=== PATIENT | male | born 1950 | race Caucasian/White ===

== ENCOUNTER 2016-08-09 14:51 | Inpatient (IN) | payer MEDICARE, MEDICAID ==
--- NOTE | 2016-08-09 16:09 | RAD ---
HISTORY: AMS COMPARISON: 07/18/2013 FINDINGS: LUNGS: Mild increased pulmonary vascular congestion. PLEURA: No significant pleural effusion identified, no pneumothorax apparent. CARDIOVASCULAR: Enlarged heart. OSSEOUS STRUCTURES: The osseous structures demonstrate degenerative changes. VISUALIZED UPPER ABDOMEN: Upper abdomen is suboptimally evaluated. OTHER FINDINGS: None. IMPRESSION: Mild increased pulmonary vascular congestion.
[2016-08-09 16:21] LABS: ADD MANUAL DIFF? NO
[2016-08-09 16:33] LABS: BASO # 0.01 K/mm3 (0.0-2.0); BASO % 0.1 % (0.0-3.0); EOS # 0.1 (0.0-0.7); EOS % 0.4 % (1.5-5.0); GRAN % 85.4 % (50.0-68.0); LYMPH # 1.2 (1.2-3.4); LYMPH % 10.2 % (22.0-35.0); MEAN CELL VOLUME 85.4 fL (80.0-105.0); MEAN CORPUSCULAR HEMOGLOBIN 26.6 pg (25.0-35.0); MEAN CORPUSCULAR HGB CONC 31.2 g/dl (31.0-37.0); MEAN PLATELET VOLUME 10.9 fl (7.0-11.0); MONO # 0.5 (0.1-0.6); MONO % 3.9 % (1.0-6.0); PLATELET COUNT 254 10^3/uL (120.0-450.0); RED CELL DISTRIBUTION WIDTH 19.5 % (11.5-14.5); WHITE BLOOD COUNT 12.2 10^3/ul (4.5-11.0)
[2016-08-09 16:35] LABS: INR 1.43 (0.93-1.08); PARTIAL THROMBOPLASTIN TIME 20.8 Seconds (23.7-30.8)
[2016-08-09 16:36] LABS: ALB/GLOB RATIO 0.9 (1.1-1.8); BILIRUBIN,TOTAL 1.8 mg/dL (0.2-1.3); CALCIUM 8.5 mg/dL (8.4-10.5); MAGNESIUM 2.5 mg/dL (1.7-2.2); PHOSPHOROUS 3.7 mg/dL (2.5-4.5); TOTAL PROTEIN 6.3 g/dL (5.8-8.3)
--- NOTE | 2016-08-09 16:39 | CT ---
PROCEDURE: CT HEAD WITHOUT CONTRAST. HISTORY: AMS COMPARISON: None available. TECHNIQUE: Axial computed tomography images were obtained through the head/brain without intravenous contrast. Radiation dose: Total exam DLP = 822.62 mGy-cm. This CT exam was performed using one or more of the following dose reduction techniques: Automated exposure control, adjustment of the mA and/or kV according to patient size, and/or use of iterative reconstruction technique. Somewhat limited evaluation due to artifact from patient motion. FINDINGS: HEMORRHAGE: No intracranial hemorrhage. BRAIN: No mass effect or edema.No pathologically enlarged lymph nodes by size criteria Patchy and confluent hypodensities throughout the bilateral cerebral hemispheric white matter are most likely from chronic small vessel ischemic changes. Yaxx-kw-qjwholfo volume loss. VENTRICLES: Unremarkable. No hydrocephalus. CALVARIUM: Unremarkable. PARANASAL SINUSES: Unremarkable as visualized. No significant inflammatory changes. MASTOID AIR CELLS: Unremarkable as visualized. No inflammatory changes. OTHER FINDINGS: None. IMPRESSION: No CT evidence of acute intracranial hemorrhage or acute territorial infarct. Acute infarction may be CT occult within first 24 hours. If a focal deficit persists, consider followup CT or MRI for further evaluation.
[2016-08-09 16:44] LABS: PH,URINE 6.5 (4.7-8.0); URINE BILIRUBIN NEGATIVE (NEGATIVE); URINE BLOOD LARGE (NEGATIVE); URINE GLUCOSE (UA) NEGATIVE (NEGATIVE); URINE KETONE NEGATIVE (NEGATIVE); URINE LEUKOCYTE ESTERASE NEGATIVE Leu/uL (NEGATIVE); URINE PROTEIN TRACE mg/dL (<30 mg/dL); URINE UROBILINOGEN 0.2 E.U./dL (<1 E.U./dL)
[2016-08-09 16:45] LABS: URINE APPEARANCE CLEAR (CLEAR)
[2016-08-09 16:47] LABS: TROPONIN I 0.06 ng/mL
[2016-08-09 16:47] LABS: URINE RBC 25 - 30 /hpf (0-2); URINE WBC 0 - 2 /hpf (0-6)
[2016-08-09 16:51] LABS: POTASSIUM 2.8 mmol/L (3.6-5.0)
[2016-08-09] MEDS ORDERED: Sodium Chloride 0.9% 1,000 ML IV STA (16:52)
[2016-08-09] MEDS ORDERED: Potassium Chloride 40 mEq/30 ml LIQ UD PO STA (16:54)
[2016-08-09] MEDS ORDERED: Insulin Regular 1 UNITS/0.01 ML ML IVP STA (16:55)
--- NOTE | 2016-08-09 17:35 | ED PDOC ---
Arrival/HPI - General Chief Complaint: Weakness/Neurological Deficit Time Seen by Provider: 08/09/16 15:01 Historian: Patient, Family - Critical Care Critical Care Minutes: 30 minutes Narrative Critical Care (Text): 08/09/16 17:41 Patient seen immediately by PA considering his current complaints, his past medical history, VS and exam. - History of Present Illness Narrative History of Present Illness (Text): 08/09/16 17:30 Patient with past medical history of diabetes, hypertension, anemia, depression , mild dementia, A. fib on eliquis, and CHF, brought in by his daughter for evaluation of altered mental status, normally patient is much more awake and talkative, but lately is quiet with generalized weakness for the past 2-3 days. As per daughter, patient was recently admitted at [facility], was discharged on July 23 with a diagnosis of CHF, edema and renal failure, was discharged on a Holter monitor, and is currently on diuretic medication, bumetanide. As per daughter, patient has not been able to sleep adequately because every half hour he is constantly urinating, daughter also states that he is not eating and that he is complaining of painful urination. She adds that the patient had elevated glucoses as well this morning at 425 and she gave an extra 6 units to the patient. Otherwise: (-) lightheadedness, (-) trauma, (-) headache, (-) SOB, (-) dyspnea, (-) leg edema, (-) chest pain, (-) dyspnea, (-) fever, (-) cough, (-) vomiting, (-) diarrhea, (-) syncope, (?) daughter reports dark stools yesterday. PMD Seman Past Medical History - Provider Review Nursing Documentation Reviewed: Yes - Infectious Disease Hx of Infectious Diseases: None - Tetanus Immunization Tetanus Immunization: Unknown - Cardiac Hx Congestive Heart Failure: Yes Hx Hypertension: Yes - Neurological HX Cerebrovascular Accident: Yes Hx Dementia: Yes - Renal Hx Renal Failure: Yes - Endocrine/Metabolic Hx Diabetes Mellitus Type 2: Yes - Musculoskeletal/Rheumatological Hx Falls: No - Psychiatric Hx Depression: No Hx Emotional Abuse: No Hx Physical Abuse: No Hx Substance Use: No - Anesthesia Hx Anesthesia: No Hx Anesthesia Reactions: No Hx Malignant Hyperthermia: No - Suicidal Assessment Feels Threatened In Home Enviroment: No Family/Social History - Physician Review Nursing Documentation Reviewed: Yes Family/Social History: No Known Family HX Smoking Status: Never Smoked Hx Alcohol Use: No Hx Substance Use: No Hx Substance Use Treatment: No Allergies/Home Meds Allergies/Adverse Reactions: Allergies No Known Allergies Allergy (Verified 07/18/13 09:48) Home Medications: Home Meds Medication Instructions Recorded Confirmed Aspirin [Aspirin Chewable] 81 mg PO DAILY 07/18/13 07/18/13 Atrovastatin 20 mg PO DAILY 07/18/13 07/18/13 Donepezil [Aricept] 5 mg PO DAILY 07/18/13 07/18/13 Glimepiride 4 mg PO HS 07/18/13 07/18/13 Losartan [Cozaar] 100 mg PO DAILY 07/18/13 07/18/13 Metformin HCl [Metformin] 1,000 mg PO DAILY 07/18/13 07/18/13 PARoxetine [Paxil] 20 mg PO DAILY 07/18/13 07/18/13 Review of Systems - Review of Systems Constitutional: Normal, Fatigue. absent: Weight Change, Fevers ENT: Normal. absent: Sore Throat, Rhinorrhea, Sinus Congestion Respiratory: Normal. absent: SOB, Cough Cardiovascular: Normal. absent: Chest Pain, Palpitations, Edema Gastrointestinal: Normal, Stool Changes (dark stools). absent: Abdominal Pain Genitourinary Male: Normal, Dysuria, Frequency. absent: Hematuria Musculoskeletal: Normal. absent: Arthralgias, Back Pain, Neck Pain Skin: Normal, Skin Lesions (b/l lower legs - has multiple swallow ulcers). absent: Rash, Pruritis Neurological: Normal. absent: Headache, Dizziness, Focal Weakness Physical Exam - Physical Exam Narrative Physical Exam (Text): 08/09/16 17:36 GENERAL APPEARANCE: Patient is awake, alert, oriented x [address], in mild distress. Breathing easy and unlabored. SKIN: Warm, dry; (-) cyanosis. HEAD: (-) scalp swelling or tenderness. EYES: (-) conjunctival pallor. ENMT: Mucous membranes dry. NECK: (-) tenderness, (-) stiffness, (-) lymphadenopathy. Carotids: (-) bruit. CHEST AND RESPIRATORY: (-) rales, (+) rhonchi to the LLL, (-) wheezes; breath sounds equal bilaterally. HEART AND CARDIOVASCULAR: (-) irregularity; (-) murmur, (-) gallop. ABDOMEN AND GI: Soft; (-) distention, (-) tenderness, (-) rebound, (-) guarding , (-) palpable masses, (-) flank tenderness. RECTAL : (-) tenderness, (-) mass, (-) stool impaction. Stool dark brown in color, guiac (+). Female toddler lead teacher, Guillermina, was present during the entire exam. EXTREMITIES: (-) deformity; (+) multiple shallow nontender, nonedematous ulcers to the b/l anterior lower extermities, (-) edema. Distal pulses: present. NEURO AND PSYCH: Mental status as above. electrotyper apprentice: (-) nystagmus; Pupils equal & reactive, EOMI, (-) facial asymmetry; (-) dysarthria; tongue and uvula midline. Strength and DTRs symmetric. Vital Signs Temp Pulse Resp BP Pulse Ox 08/09/16 17:13 79 18 104/55 L 97 08/09/16 15:22 98.2 F 88 18 102/43 L 97 Medical Decision Making ED Course and Treatment: 08/09/16 17:42 past medical history of diabetes, hypertension, anemia, depression, mild dementia, A. fib on eliquis, and CHF, brought in by his daughter for evaluation of altered mental status. Orders placed. Plan: -- Labs -- Urinalysis -- EKG -- CXR -- supervisor accounts receivable -- Reassess and disposition EKG: atrial fibrillation with PVCs at [address] changes noted and lead 1 and V6, as read by PA Chest X-ray: shows mild venous congestion. RN notified PA of critical values. Labs reviewed. Hbg 5.3 Hct 17 glucose 517 BUN 160 creat 2.8 K 2.8 CO2 40. Patient is noted to be severely dehydrated based on exam and lab results. Normal saline bolus and maintenance fluids ordered, potassium IV and by mouth ordered, patient given IV insulin. Patient is noted to be guaiac positive as well, Protonix IV push and maintenance ordered to treat GI bleed. 2 units of packed RBCs ordered for transfusion to correct severe anemia. Based on history, exam and diagnostic results plan will be for admission to ICU. Case discussed with Dr. Miller, agrees with plan for inpatient treatment and ICU placement. States that the patient's Hgb is normally 8-9. Agrees with treatment rendered in the ER. Requesting Dr. Benavides for cardiology consult. Bridge orders placed. Case d/w head of loss prevention Dr. Calle, agrees with plan of care for ICU placement. Patient's daughter states she fully agrees with and understands the current plan and further treatment. I have given the patient and his daughter opportunity to ask any additional questions. Head CT: Creator : Sunny Fontanez MD 08/09/2016 16:43 FINDINGS: HEMORRHAGE: No intracranial hemorrhage. BRAIN: No mass effect or edema.No pathologically enlarged lymph nodes by size criteria Patchy and confluent hypodensities throughout the bilateral cerebral hemispheric white matter are most likely from chronic small vessel ischemic changes. Agml-nz-dnxfthrf volume loss. VENTRICLES: Unremarkable. No hydrocephalus. CALVARIUM: Unremarkable. PARANASAL SINUSES: Unremarkable as visualized. No significant inflammatory changes. MASTOID AIR CELLS: Unremarkable as visualized. No inflammatory changes. OTHER FINDINGS: None. IMPRESSION: No CT evidence of acute intracranial hemorrhage or acute territorial infarct. Acute infarction may be CT occult within first 24 hours. If a focal deficit persists, consider followup CT or MRI for further evaluation. - Lab Interpretations Lab Results: 08/09/16 16:00 08/09/16 16:00 Lab Results 08/09/16 16:30: Urine Color yellow, Urine Appearance Clear, Urine pH 6.5, Ur Specific [place] 1.010, Urine Protein Trace H, Urine Glucose (UA) Negative, Urine Ketones Negative, Urine Blood Large H, Urine Nitrate Negative, Urine Bilirubin Negative, Urine Urobilinogen 0.2, Ur Leukocyte Esterase Negative, Urine RBC 25 - 30, Urine WBC 0 - 2, Ur Epithelial Cells 1 - 3 08/09/16 16:00: Sodium 141, Potassium 2.8 L*, Chloride 91 L, Carbon Dioxide 40 H D, Anion Gap 13, BUN 160 H*, Creatinine 2.8 H, Est GFR ( Amer) 28, Est GFR (Non-Af Amer) 23, Random Glucose 517 H* D, Calcium 8.5, Phosphorus 3.7, Magnesium 2.5 H, Total Bilirubin 1.8 H, AST 39, ALT 50, Alkaline Phosphatase 72 , Lactate Dehydrogenase 779 H, Total Creatine Kinase 36, Troponin I 0.06, Total Protein 6.3, Albumin 3.0, Globulin 3.3, Albumin/Globulin Ratio 0.9 L 08/09/16 16:00: PT 15.4 H, INR 1.43 H, APTT 20.8 L 08/09/16 16:00: WBC 12.2 H, RBC 1.99 L, Hgb 5.3 L* D, Hct 17.0 L*, MCV 85.4, MCH 26.6, MCHC 31.2, RDW 19.5 H, Plt Count 254, MPV 10.9, Gran % 85.4 H, Lymph % (Auto) 10.2 L, [place] % (Auto) 3.9, Eos % (Auto) 0.4 L, Baso % (Auto) 0.1, Gran # 10.40 H, Lymph # 1.2, [place] # 0.5, Eos # 0.1, Baso # 0.01 - RAD Interpretation Radiology Orders: 08/09/16 15:53 HEAD W/O CONTRAST [CT] Stat 08/09/16 15:54 CHEST PORTABLE [RAD] Stat - Medication Orders Current Medication Orders: Potassium Chloride 20 meq/ (Sodium Chloride) 1,010 mls @ 200 mls/hr IV .Q5H3M STA Stop: 08/09/16 21:54 Last Admin: 08/09/16 18:40 Dose: 200 mls/hr Pantoprazole Sodium (Protonix 40mg Ivpb) 40 mg in 100 mls @ 20 mls/hr IVPB .Q5H ANGELICA Last Admin: 08/09/16 18:04 Dose: 20 mls/hr Potassium Chloride (Potassium Chloride 20 Meq/100 Ml) 20 meq in 100 mls @ 50 mls/hr IVPB Q2H ANGELICA Stop: 08/09/16 22:44 Last Admin: 08/09/16 20:07 Dose: 50 mls/hr Insulin Human Regular (Humulin R Med) 0 units SC ACHS ANGEILCA PRN Reason: Protocol Discontinued Medications Sodium Chloride (Sodium Chloride 0.9%) 1,000 mls @ 200 mls/hr IV .Q5H STA Stop: 08/09/16 21:51 Sodium Chloride (Sodium Chloride 0.9%) 1,000 mls @ 999 mls/hr IV .Q1H1M STA Stop: 08/09/16 19:29 Insulin Human Regular (Humulin R) 6 units IVP ONCE STA Stop: 08/09/16 16:56 Last Admin: 08/09/16 18:04 Dose: 6 units Morphine Sulfate (Morphine) 2 mg IVP STAT STA Stop: 08/09/16 20:18 Last Admin: 08/09/16 20:29 Dose: 2 mg Pantoprazole Sodium (Protonix Inj) 80 mg IVP STAT STA Stop: 08/09/16 17:22 Last Admin: 08/09/16 18:04 Dose: 80 mg Potassium Chloride (Potassium Chloride Oral Soln) 40 meq PO STAT STA Stop: 08/09/16 16:55 Last Admin: 08/09/16 18:03 Dose: 40 meq - PA / RN CORONARY CARE UNIT / Resident Statement MD/DO has reviewed & agrees with the documentation as recorded. Disposition/Present on Arrival - Present on Arrival Any Indicators Present on Arrival: No History of DVT/PE: No History of Uncontrolled Diabetes: No Urinary Catheter: No History of Decub. Ulcer: No History Surgical Site Infection Following: None - Disposition Have Diagnosis and Disposition been Completed?: Yes Diagnosis: Anemia, GI bleed, Dehydration, Altered mental status Disposition: HOSPITALIZED Disposition Time: 17:00 Patient Plan: ICU Patient Problems: Current Active Problems Problem Status Onset Anemia Acute GI bleed Acute Dehydration Acute Altered mental status Acute Condition: STABLE
[2016-08-09] MEDS: Pantoprazole 40mg/100ml IVPB 40 MG/100 ML BAG IVPB SCH ×2 (18:04→22:54)
--- NOTE | 2016-08-09 18:53 | CP.PCM.CON ---
History of Present Illness - History of Present Illness History of Present Illness: 65 y/o M presented with lethargy, hypotension , BRBPR and signs of dehydration. In the ER was given IV fluids and PRBC orders were placed. Pt is hemodynamicaly stable and not tacycardic. Upon speaking to his daughter, she explains that he was recently in [facility] and was given new medications ot help diurese and maybe he became dehydrated from it. he was recently started on Elequis for some reason, a. fib? VTE? Low ef? and this may have contributed to the further GI bleed. Review of Systems - Review of Systems Systems not reviewed;Unavailable: Altered Mental Status All systems: reviewed and no additional remarkable complaints except (difficult to obtain history) Past Patient History - Infectious Disease Hx of Infectious Diseases: None - Tetanus Immunizations Tetanus Immunization: Unknown - Past Social History Smoking Status: Never Smoked - CARDIAC Hx Congestive Heart Failure: Yes Hx Hypertension: Yes - NEUROLOGICAL HX Cerebrovascular Accident: Yes Hx Dementia: Yes - RENAL Hx Renal Failure: Yes - ENDOCRINE/METABOLIC Hx Diabetes Mellitus Type 2: Yes - MUSCULOSKELETAL/RHEUMATOLOGICAL Hx Falls: No - PSYCHIATRIC Hx Depression: No Hx Emotional Abuse: No Hx Physical Abuse: No Hx Substance Use: No - SURGICAL HISTORY Hx Surgeries: (abd hernia) - ANESTHESIA Hx Anesthesia: No Hx Anesthesia Reactions: No Hx Malignant Hyperthermia: No Meds Allergies/Adverse Reactions: Allergies Allergy/AdvReac Type Severity Reaction Status Date / Time No Known Allergies Allergy Verified 07/18/13 09:48 - Medications Medications: Current Medications Potassium Chloride 20 meq/ (Sodium Chloride) 1,010 mls @ 200 mls/hr IV .Q5H3M STA Stop: 08/09/16 21:54 Pantoprazole Sodium (Protonix 40mg Ivpb) 40 mg in 100 mls @ 20 mls/hr IVPB .Q5H ANGELICA Last Admin: 08/09/16 18:04 Dose: 20 mls/hr Sodium Chloride (Sodium Chloride 0.9%) 1,000 mls @ 999 mls/hr IV .Q1H1M STA Stop: 08/09/16 19:29 Potassium Chloride (Potassium Chloride 20 Meq/100 Ml) 20 meq in 100 mls @ 50 mls/hr IVPB Q2H ANGELICA Stop: 08/09/16 22:44 Insulin Human Regular (Humulin R Med) 0 units SC ACHS ANGELICA PRN Reason: Protocol Physical Exam - Constitutional Appears: No Acute Distress - Eye Exam Pupil Exam: PERRL - ENT Exam ENT Exam: Mucous Membranes Dry - Neck Exam Neck exam: Positive for: Full Rom - Respiratory Exam Respiratory Exam: NORMAL BREATHING PATTERN - Cardiovascular Exam Cardiovascular Exam: REGULAR RHYTHM - GI/Abdominal Exam GI & Abdominal Exam: Normal Bowel Sounds - Rectal Exam Rectal Exam: Bloody Stool - Exam Exam: NORMAL INSPECTION External exam: NORMAL EXTERNAL EXAM - Extremities Exam Extremities exam: Positive for: full ROM - Back Exam Back exam: NORMAL INSPECTION - Neurological Exam Neurological exam: CN II-XII Intact - Psychiatric Exam Psychiatric exam: Normal Affect, Normal Mood Results - Vital Signs Recent Vital Signs: Last Vital Signs Temp 98.2 F 08/09/16 15:22 Pulse 79 08/09/16 17:13 Resp 18 08/09/16 17:13 BP 104/55 L 08/09/16 17:13 Pulse Ox 97 08/09/16 17:13 - Labs Result Diagrams: 08/10/16 09:30 08/10/16 09:30 Labs: Laboratory Results - last 24 hr 08/09/16 18:00 Crossmatch See Detail BBK History Checked No verified bt Assessment & Plan - Assessment and Plan (Free Text) Assessment: 65 y/o M w/ Multiple medical problems CHF ELIZABETH w/ elevated BUN likely from dehydration G.I bleed w/ BRBPR HGB 5.3, keep > 9.o due to active Acs and recent Defib Vest and presumed [place] Dehydration w/ elevated BUN . Over use of diuretics . hold all diuretics. Replete w/ I.V fluids and PRBC. N.S x 4 L NPO Protonix drip or BID. G.I consult. [facility] G.I consulted .Recently placed on Eliquis. Place on hold. AMS- hx of dementia and due to volume loss and dehydration, likely contributing further. dvt p SCD cc time 65 min
[2016-08-09] MEDS ORDERED: Morphine 2 mg/ml ISec IVP STA (20:17)
[2016-08-09 21:42] VITALS: BMI 27.8
[2016-08-09] MEDS ORDERED: Insulin Reg-MEDIUM-Coverage SC SCH (22:00)
[2016-08-09] MEDS ORDERED: Insulin Lispro (humaLOG) LOW Coverage SC PRN (22:14)
[2016-08-09] MEDS: Sodium Chloride 0.9% 1,000 ML IV STA (22:15)
--- NOTE | 2016-08-09 22:38 | CP.PCM.HP ---
History of Present Illness - History of Present Illness History of Present Illness: CC:AMS History of Present Illness: A 65yoM with H/O Diabetes, Hypertension, Anemia, Depression, Mild Dementia, A. fib on eliquis, and CHF, brought in by his daughter for evaluation of altered mental status, normally patient is much more awake and talkative, but lately is quiet with generalized weakness for the past 2-3 days. Patient was recently admitted at [facility], was discharged on July 23 with a diagnosis of Severe Cardiomyopathy, CHF, Edema and renal failure, was discharged on Life Vest, and is currently on diuretic medication, bumetanide. As per daughter, patient has not been able to sleep adequately because every half hour he is constantly urinating, daughter also states that he is not eating and that he is complaining of painful urination. She adds that the patient had elevated glucoses as well this morning at 425 and she gave an extra 6 units to the patient. Lost of weight. Present on Admission - Present on Admission Any Indicators Present on Admission: No History of DVT/PE: No History of Uncontrolled Diabetes: Yes Urinary Catheter: No Decubitus Ulcer Present: No Review of Systems - Review of Systems All systems: reviewed and no additional remarkable complaints except - Constitutional Constitutional: As Per HPI - Neurological Neurological: As Per HPI Past Patient History - Infectious Disease Hx of Infectious Diseases: None - Tetanus Immunizations Tetanus Immunization: Unknown - Past Medical History & Family History Past Medical History?: Yes Past Family History: Reviewed and not pertinent - Past Social History Smoking Status: Never Smoked Alcohol: None Drugs: Denies - CARDIAC Hx Cardiac Disorders: Yes Hx Cardia Arrhythmia: Yes (AF) Hx Congestive Heart Failure: Yes Hx Hypertension: Yes Hx Pacemaker: Yes (vest) - NEUROLOGICAL HX Cerebrovascular Accident: Yes Hx Dementia: Yes - RENAL Hx Renal Failure: Yes - ENDOCRINE/METABOLIC Hx Diabetes Mellitus Type 2: Yes - INTEGUMENTARY Hx Dermatological Problems: Yes (bilateral lower extremities stasis ulcers) - MUSCULOSKELETAL/RHEUMATOLOGICAL Hx Falls: No Other/Comment: weak to walk - PSYCHIATRIC Hx Depression: No Hx Emotional Abuse: No Hx Physical Abuse: No - SURGICAL HISTORY Hx Surgeries: (abd hernia) - ANESTHESIA Hx Anesthesia: No Hx Anesthesia Reactions: No Hx Malignant Hyperthermia: No Meds Allergies/Adverse Reactions: Allergies Allergy/AdvReac Type Severity Reaction Status Date / Time No Known Allergies Allergy Verified 08/19/16 19:49 Physical Exam - Constitutional Appears: Well, In Acute Distress - Head Exam Head Exam: ATRAUMATIC, NORMAL INSPECTION, NORMOCEPHALIC - Eye Exam Eye Exam: EOMI, Normal appearance, PERRL Pupil Exam: NORMAL ACCOMODATION, PERRL - ENT Exam ENT Exam: Mucous Membranes Moist, Normal Exam, Normal External Ear Exam - Neck Exam Neck exam: Positive for: Full Rom, Normal Inspection - Respiratory Exam Respiratory Exam: Clear to Auscultation Bilateral, NORMAL BREATHING PATTERN. absent: Rales - Cardiovascular Exam Cardiovascular Exam: REGULAR RHYTHM, +S1, +S2 - GI/Abdominal Exam GI & Abdominal Exam: Normal Bowel Sounds, Soft. absent: Tenderness - Extremities Exam Extremities exam: Positive for: full ROM, normal inspection Additional comments: +Ulcer - Back Exam Back exam: NORMAL INSPECTION - Neurological Exam Neurological exam: Alert, CN II-XII Intact, Normal Gait, Oriented x3, Reflexes Normal - Psychiatric Exam Psychiatric exam: Normal Affect, Normal Mood - Skin Skin Exam: Dry, Intact, Normal Color, Warm Results - Vital Signs Recent Vital Signs: Last Vital Signs Temp 99 F 08/09/16 22:22 Pulse 93 H 08/09/16 22:22 Resp 20 08/09/16 22:22 BP 104/54 L 08/09/16 22:22 Pulse Ox 97 08/09/16 18:45 - Labs Result Diagrams: 08/14/16 06:00 08/14/16 06:00 Labs: Laboratory Results - last 24 hr 08/09/16 08/09/16 08/09/16 18:00 18:30 21:30 POC Glucose (mg/dL) 474 H* Blood Type O POSITIVE Blood Type Confirm O POSITIVE Antibody Screen Negative Crossmatch See Detail BBK History Checked No verified bt 08/09/16 22:13 POC Glucose (mg/dL) 435 H* Blood Type Blood Type Confirm Antibody Screen Crossmatch BBK History Checked - Imaging and Cardiology CT scan - head Status: Report reviewed by me Additional comment: IMPRESSION: No CT evidence of acute intracranial hemorrhage or acute territorial infarct. Acute infarction may be CT occult within first 24 hours. If a focal deficit persists, consider followup CT or MRI for further evaluation. Chest x-ray Status: Report reviewed by me Additional comment: IMPRESSION: Mild increased pulmonary vascular congestion. Assessment & Plan (1) Altered mental status Assessment and Plan: NPO Hypotension, G.I bleed w/ BRBPR HGB 5.3, Keep > 9.o due to Active ACS and recent Life Vest and Presumed [place] Hypoglycemia- Resolved Acute on Chronic Renal Failure, Metabolic Encephalopathy Exacerbation of CHF Dehydration w/ Elevated BUN . Replete w/ I.V Fluids and PRBC. N.S x 4 L Protonix drip. G.I consult. Hold on Eliquis & diuretics. Wound Care Daily Hx of Dementia and due to Volume Loss and Dehydration, Likely contributing further. Status: Acute
[2016-08-09] MEDS ORDERED: Insulin Lispro (humaLOG) LOW Coverage SC SCH ×3 (23:00→23:15)
[2016-08-10] MEDS: Sodium Chloride 0.9% 1,000 ML IV STA (00:46)
[2016-08-10] MEDS ORDERED: Sodium Chloride 0.9% 500 ML IV STA ×2 (02:35→03:25)
[2016-08-10] MEDS: Pantoprazole 40mg/100ml IVPB 40 MG/100 ML BAG IVPB SCH ×2 (03:30→08:14)
[2016-08-10 03:44] LABS: ADD MANUAL DIFF? NO
[2016-08-10 03:55] LABS: ALB/GLOB RATIO 0.9 (1.1-1.8); BILIRUBIN,TOTAL 2.7 mg/dL (0.2-1.3); CALCIUM 7.9 mg/dL (8.4-10.5); MAGNESIUM 2.3 mg/dL (1.7-2.2); PHOSPHOROUS 3.6 mg/dL (2.5-4.5); TOTAL PROTEIN 5.3 g/dL (5.8-8.3)
[2016-08-10 04:18] LABS: POTASSIUM 2.8 mmol/L (3.6-5.0)
[2016-08-10 04:20] LABS: BASO # 0.01 K/mm3 (0.0-2.0); BASO % 0.1 % (0.0-3.0); EOS % 0.3 % (1.5-5.0); GRAN # 10.13 (1.4-6.5); GRAN % 83.7 % (50.0-68.0); LYMPH # 1.2 (1.2-3.4); LYMPH % 9.9 % (22.0-35.0); MEAN CELL VOLUME 86.3 fL (80.0-105.0); MEAN CORPUSCULAR HEMOGLOBIN 28.2 pg (25.0-35.0); MEAN CORPUSCULAR HGB CONC 32.7 g/dl (31.0-37.0); MEAN PLATELET VOLUME 10.6 fl (7.0-11.0); MONO # 0.7 (0.1-0.6); PLATELET COUNT 204 10^3/uL (120.0-450.0); RED CELL DISTRIBUTION WIDTH 17.2 % (11.5-14.5); WHITE BLOOD COUNT 12.1 10^3/ul (4.5-11.0)
[2016-08-10 04:24] LABS: HEMATOCRIT 20.2 % (42.0-52.0)
[2016-08-10] MEDS: Insulin Reg-MEDIUM-Coverage SC SCH ×4 (08:11→21:59)
--- NOTE | 2016-08-10 08:15 | CP.PCM.PN ---
Subjective - Date & Time of Evaluation Date of Evaluation: 08/10/16 Time of Evaluation: 07:30 - Subjective Subjective: PT s/e at bedside this AM. Patient denies pain, nausea, vomiting, Objective - Vital Signs/Intake and Output Vital Signs (last 24 hours): Temp Pulse Resp BP Pulse Ox 98.6 F 94 H 18 96/55 L 100 08/10/16 07:25 08/10/16 07:25 08/10/16 07:25 08/10/16 07:25 08/10/16 05:30 Intake and Output: 08/10/16 08/10/16 06:59 18:59 Intake Total 990 Output Total 1000 Balance -10 - Medications Medications: Current Medications Pantoprazole Sodium (Protonix 40mg Ivpb) 40 mg in 100 mls @ 20 mls/hr IVPB .Q5H ANGELICA Last Admin: 08/10/16 03:30 Dose: 20 mls/hr Insulin Human Regular (Humulin R Med) 0 units SC ACHS ANGELICA PRN Reason: Protocol - Labs Labs: 08/10/16 03:30 08/10/16 03:30 PT 15.4 Seconds (9.9-11.8) H 08/09/16 16:00 INR 1.43 (0.93-1.08) H 08/09/16 16:00 APTT 20.8 Seconds (23.7-30.8) L 08/09/16 16:00
--- NOTE | 2016-08-10 09:31 | CP.PCM.CON ---
<Juan F Caputo - Last Filed: 08/10/16 09:23> History of Present Illness - History of Present Illness History of Present Illness: PGY4 GI Fellow Consult Note Patient is a 65yo male with PMHx significant for DM, HTN, atrial fibrillation on Eliquis, CHF (EF 15% in 2013), prior CVA, dementia who presented to the ED brought in by family for altered mentation. The patient is Maltese speaking and the [employer] interpreting service was utilized during interview. There is no family at bedside and patient is only alert to name when asked directly through household chores, thus unable to provide much history. According to the EMR, patient was brought in for altered mentation as he was more confused, less talkative in the days leading up to admission. He was recently admitted to [facility], D/C on for CHF exacerbation/acute renal failure. Since D/C he has been on diuretics (Bumex) and was wearing a Holter monitor. Moreover, family noted hyperglycemia with glucose in the 400s prior to admission. Our service has been consulted as he was found to be profoundly anemic with HGB of 5.3 on initial CBC. Patient cannot corroborate a history of dark/bloody stool. Currently, he has no complaints. PMHx: See HPI PSHx: Hernia repair, PCI (2013) FH: Hypertension Social: Denies tobacco, EtOH or illicit drug use Endo: Unknown Review of Systems - Review of Systems Systems not reviewed;Unavailable: Altered Mental Status Past Patient History - Infectious Disease Hx of Infectious Diseases: None - Tetanus Immunizations Tetanus Immunization: Unknown - Past Social History Smoking Status: Never Smoked - CARDIAC Hx Cardiac Disorders: Yes Hx Cardia Arrhythmia: Yes (AF) Hx Congestive Heart Failure: Yes Hx Hypertension: Yes Hx Pacemaker: Yes (vest) - NEUROLOGICAL HX Cerebrovascular Accident: Yes Hx Dementia: Yes - RENAL Hx Renal Failure: Yes - ENDOCRINE/METABOLIC Hx Diabetes Mellitus Type 2: Yes - INTEGUMENTARY Hx Dermatological Problems: Yes (bilateral lower extremities stasis ulcers) - MUSCULOSKELETAL/RHEUMATOLOGICAL Hx Falls: No Other/Comment: weak to walk - PSYCHIATRIC Hx Depression: No Hx Emotional Abuse: No Hx Physical Abuse: No - SURGICAL HISTORY Hx Surgeries: (abd hernia) - ANESTHESIA Hx Anesthesia: No Hx Anesthesia Reactions: No Hx Malignant Hyperthermia: No Meds Allergies/Adverse Reactions: Allergies Allergy/AdvReac Type Severity Reaction Status Date / Time No Known Allergies Allergy Verified 07/18/13 09:48 - Medications Medications: Current Medications Pantoprazole Sodium (Protonix 40mg Ivpb) 40 mg in 100 mls @ 20 mls/hr IVPB .Q5H [facility] Last Admin: 08/10/16 08:14 Dose: 20 mls/hr Insulin Human Regular (Humulin R Med) 0 units SC ACHS ANGELICA PRN Reason: Protocol Last Admin: 08/10/16 08:11 Dose: 8 units Physical Exam - Constitutional Appears: Non-toxic, No Acute Distress - Eye Exam Eye Exam: EOMI, PERRL - ENT Exam ENT Exam: Mucous Membranes Moist - Respiratory Exam Respiratory Exam: Rales. absent: Clear to Auscultation Bilateral, Rhonchi, Wheezes - Cardiovascular Exam Cardiovascular Exam: Tachycardia, Irregular Rhythm, +S1, +S2 - GI/Abdominal Exam GI & Abdominal Exam: Normal Bowel Sounds, Soft. absent: Distended, Firm, Guarding, Organomegaly, Rigid, Tenderness - Rectal Exam Rectal Exam: Hemorrhoids (external/internal) Additional comments: liquid brown, liquid stool - Extremities Exam Extremities exam: Positive for: normal inspection. Negative for: pedal edema - Neurological Exam Neurological exam: Altered - Psychiatric Exam Psychiatric exam: Anxious - Skin Skin Exam: Dry, Warm Results - Vital Signs Recent Vital Signs: Last Vital Signs Temp 98.6 F 08/10/16 09:13 Pulse 102 H 08/10/16 09:13 Resp 16 08/10/16 09:13 BP 96/50 L 08/10/16 09:13 Pulse Ox 100 08/10/16 05:30 - Labs Result Diagrams: 08/10/16 03:30 08/10/16 03:30 Labs: Laboratory Results - last 24 hr 08/09/16 08/09/16 08/09/16 18:00 18:30 21:30 WBC RBC Hgb Hct MCV MCH MCHC RDW Plt Count MPV Gran % Lymph % (Auto) Chase % (Auto) Eos % (Auto) Baso % (Auto) Gran # Lymph # Chase # Eos # Baso # Sodium Potassium Chloride Carbon Dioxide Anion Gap BUN Creatinine Est GFR ( Amer) Est GFR (Non-Af Amer) POC Glucose (mg/dL) 474 H* Random Glucose Lactic Acid Calcium Phosphorus Magnesium Total Bilirubin Direct Bilirubin AST ALT Alkaline Phosphatase Total Protein Albumin Globulin Albumin/Globulin Ratio Blood Type O POSITIVE Blood Type Confirm O POSITIVE Antibody Screen Negative Crossmatch See Detail BBK History Checked No verified bt 08/09/16 08/10/16 08/10/16 22:13 01:40 03:30 WBC 12.1 H RBC 2.34 L Hgb 6.6 L* D Hct 20.2 L* MCV 86.3 MCH 28.2 MCHC 32.7 RDW 17.2 H Plt Count 204 MPV 10.6 Gran % 83.7 H Lymph % (Auto) 9.9 L Chase % (Auto) 6.0 Eos % (Auto) 0.3 L Baso % (Auto) 0.1 Gran # 10.13 H Lymph # 1.2 Chase # 0.7 H Eos # 0.0 Baso # 0.01 Sodium Potassium Chloride Carbon Dioxide Anion Gap BUN Creatinine Est GFR ( Amer) Est GFR (Non-Af Amer) POC Glucose (mg/dL) 435 H* Random Glucose Lactic Acid 1.8 Calcium Phosphorus Magnesium Total Bilirubin Direct Bilirubin AST ALT Alkaline Phosphatase Total Protein Albumin Globulin Albumin/Globulin Ratio Blood Type Blood Type Confirm Antibody Screen Crossmatch BBK History Checked 08/10/16 08/10/16 03:30 03:35 WBC RBC Hgb Hct MCV MCH MCHC RDW Plt Count MPV Gran % Lymph % (Auto) Chase % (Auto) Eos % (Auto) Baso % (Auto) Gran # Lymph # Chase # Eos # Baso # Sodium 149 H Potassium 2.8 L* Chloride 99 Carbon Dioxide Anion Gap 13 BUN Creatinine 2.9 H Est GFR ( Amer) 26 Est GFR (Non-Af Amer) 22 POC Glucose (mg/dL) Random Glucose Lactic Acid Calcium 7.9 L Phosphorus 3.6 Magnesium 2.3 H Total Bilirubin 2.7 H Direct Bilirubin 0.8 H AST 29 ALT 46 Alkaline Phosphatase 66 Total Protein 5.3 L Albumin 2.4 L Globulin 2.8 Albumin/Globulin Ratio 0.9 L Blood Type Blood Type Confirm Antibody Screen Crossmatch BBK History Checked Assessment & Plan - Assessment and Plan (Free Text) Assessment: Patient is a 65yo male with PMHx significant for DM, HTN, atrial fibrillation on Eliquis, CHF (EF 15% in 2013), prior CVA, dementia who presented to the ED brought in by family for altered mentation. -Altered mental status -Anemia -Indirect hyperbilirubinemia/Elevated LDH suspicious for hemolysis -Hyperglycemia -Hypokalemia/Hypernatremia - likely diruesis related -Acute kidney injury suspected, unclear baseline Plan: -Advance to liquid diet -No overt bleeding at this time -Continue protonix gtt for now -Hold Eliquis -Optimize patient medically prior to EGD; tentative plan for EGD on Wednesday -Cardiology following - Date & Time Date: 08/10/16 Time: 06:50 <Chaz Yu - Last Filed: 08/10/16 10:35> Meds - Medications Medications: Current Medications Pantoprazole Sodium (Protonix 40mg Ivpb) 40 mg in 100 mls @ 20 mls/hr IVPB .Q5H [facility] Last Admin: 08/10/16 08:14 Dose: 20 mls/hr Insulin Human Regular (Humulin R Med) 0 units SC ACHS ANGELICA PRN Reason: Protocol Last Admin: 08/10/16 08:11 Dose: 8 units Results - Vital Signs Recent Vital Signs: Last Vital Signs Temp 97.4 F L 08/10/16 10:20 Pulse 98 H 08/10/16 10:20 Resp 18 08/10/16 10:20 BP 102/60 08/10/16 10:20 Pulse Ox 100 08/10/16 05:30 - Labs Result Diagrams: 08/10/16 09:30 08/10/16 03:30 Labs: Laboratory Results - last 24 hr 08/09/16 08/09/16 08/09/16 18:00 18:30 21:30 WBC RBC Hgb Hct MCV MCH MCHC RDW Plt Count MPV Gran % Lymph % (Auto) Chase % (Auto) Eos % (Auto) Baso % (Auto) Gran # Lymph # Chase # Eos # Baso # Sodium Potassium Chloride Carbon Dioxide Anion Gap BUN Creatinine Est GFR ( Amer) Est GFR (Non-Af Amer) POC Glucose (mg/dL) 474 H* Random Glucose Lactic Acid Calcium Phosphorus Magnesium Total Bilirubin Direct Bilirubin AST ALT Alkaline Phosphatase Total Protein Albumin Globulin Albumin/Globulin Ratio Blood Type O POSITIVE Blood Type Confirm O POSITIVE Antibody Screen Negative Crossmatch See Detail BBK History Checked No verified bt 08/09/16 08/10/16 08/10/16 22:13 01:40 03:30 WBC 12.1 H RBC 2.34 L Hgb 6.6 L* D Hct 20.2 L* MCV 86.3 MCH 28.2 MCHC 32.7 RDW 17.2 H Plt Count 204 MPV 10.6 Gran % 83.7 H Lymph % (Auto) 9.9 L Chase % (Auto) 6.0 Eos % (Auto) 0.3 L Baso % (Auto) 0.1 Gran # 10.13 H Lymph # 1.2 Chase # 0.7 H Eos # 0.0 Baso # 0.01 Sodium Potassium Chloride Carbon Dioxide Anion Gap BUN Creatinine Est GFR ( Amer) Est GFR (Non-Af Amer) POC Glucose (mg/dL) 435 H* Random Glucose Lactic Acid 1.8 Calcium Phosphorus Magnesium Total Bilirubin Direct Bilirubin AST ALT Alkaline Phosphatase Total Protein Albumin Globulin Albumin/Globulin Ratio Blood Type Blood Type Confirm Antibody Screen Crossmatch BBK History Checked 08/10/16 08/10/16 08/10/16 03:30 03:35 09:30 WBC 14.4 H RBC 2.47 L Hgb 7.1 L Hct 21.7 L MCV 87.9 MCH 28.7 MCHC 32.7 RDW 17.3 H Plt Count 205 MPV 10.5 Gran % 86.6 H Lymph % (Auto) 8.3 L Chase % (Auto) 4.3 Eos % (Auto) 0.7 L Baso % (Auto) 0.1 Gran # 12.47 H Lymph # 1.2 Chase # 0.6 Eos # 0.1 Baso # 0.02 Sodium 149 H Potassium 2.8 L* Chloride 99 Carbon Dioxide Anion Gap 13 BUN Creatinine 2.9 H Est GFR ( Amer) 26 Est GFR (Non-Af Amer) 22 POC Glucose (mg/dL) Random Glucose Lactic Acid Calcium 7.9 L Phosphorus 3.6 Magnesium 2.3 H Total Bilirubin 2.7 H Direct Bilirubin 0.8 H AST 29 ALT 46 Alkaline Phosphatase 66 Total Protein 5.3 L Albumin 2.4 L Globulin 2.8 Albumin/Globulin Ratio 0.9 L Blood Type Blood Type Confirm Antibody Screen Crossmatch BBK History Checked Attending/Attestation - Attestation I have personally seen and examined this patient.: Yes I have fully participated in the care of the patient.: Yes I have reviewed all pertinent clinical information: Yes Notes (Text): 08/10/16 10:24 I have seen and examined patient with GI fellow. Agree with above documentation with the following additions. In brief, this is a 65 year old male with history of atrial fibrillation on Eliquis, DM, HTN, CHF, CVA who was brought to hospital with complaint of altered mental status. Patient history was obtained using Maltese translation via online live language services. He was recently hospitalized at [facility] for CHF exacerbation with acute renal failure. GI called for evaluation of significant anemia with prior complaint of melena. He is seen in critical care ICU, currently resting in bed and appears comfortable. He describes dyspnea though denies abdominal pain, nausea , vomiting, fever/chills, or weight loss. He does endorse dark stools from a few days prior. Unclear regarding prior endoscopic history. Atrial fibrillation on Eliquis DM - uncontrolled HTN CHF, dyspnea CVA Melena, profound anemia which poses risk to patient life given cardiovascular disease - Patient currently receiving 3rd unit PRBC transfusion, continue to monitor H/H - Continue with PPI infusion therapy - Clear liquid diet as tolerated - Rectal exam performed at bedside reveals liquid brown stool without presence of fresh blood. Eliquis has been held, follow up cardiology recommendations. - Obtain recent [facility] hospitalization records - Optimize blood glucose control - Patient would benefit from endoscopic evaluation following medical optimization and volume resuscitation. Will continue to monitor patient clinical course.
[2016-08-10 09:50] LABS: ADD MANUAL DIFF? NO
[2016-08-10 09:56] LABS: BASO # 0.02 K/mm3 (0.0-2.0); BASO % 0.1 % (0.0-3.0); EOS # 0.1 (0.0-0.7); EOS % 0.7 % (1.5-5.0); GRAN # 12.47 (1.4-6.5); GRAN % 86.6 % (50.0-68.0); LYMPH # 1.2 (1.2-3.4); LYMPH % 8.3 % (22.0-35.0); MEAN CELL VOLUME 87.9 fL (80.0-105.0); MEAN CORPUSCULAR HEMOGLOBIN 28.7 pg (25.0-35.0); MEAN CORPUSCULAR HGB CONC 32.7 g/dl (31.0-37.0); MEAN PLATELET VOLUME 10.5 fl (7.0-11.0); MONO # 0.6 (0.1-0.6); MONO % 4.3 % (1.0-6.0); PLATELET COUNT 205 10^3/uL (120.0-450.0); RED CELL DISTRIBUTION WIDTH 17.3 % (11.5-14.5); WHITE BLOOD COUNT 14.4 10^3/ul (4.5-11.0)
[2016-08-10 10:01] LABS: HEMATOCRIT 21.7 % (42.0-52.0)
--- NOTE | 2016-08-10 10:15 | RAD ---
HISTORY: evaluate for acute pulmonary edema COMPARISON: 08/09/2016 FINDINGS: LUNGS: No active pulmonary disease. PLEURA: No significant pleural effusion identified, no pneumothorax apparent. CARDIOVASCULAR: Normal. OSSEOUS STRUCTURES: No significant abnormalities. VISUALIZED UPPER ABDOMEN: Normal. OTHER FINDINGS: None. IMPRESSION: No active disease.
[2016-08-10 10:16] LABS: CALCIUM 8.1 mg/dL (8.4-10.5); POTASSIUM 3.3 mmol/L (3.6-5.0)
[2016-08-10 10:25] LABS: TROPONIN I 0.05 ng/mL
[2016-08-10] MEDS: Insulin Detemir 100 units/ml Vial (Levemir) SC SCH ×2 (11:35→18:52)
--- NOTE | 2016-08-10 13:57 | CP.CCUPN ---
<Florence Espinosa - Last Filed: 08/10/16 14:03> CCU Subjective - Physician Review Events Since Last Encounter (Free Text): 08/10/16 13:54 Pt s/e at bedside this AM. Was transfused two units PRBC yesterday but repeact H /H still low at 3AM. Two more units hung, repeat Hgb 7.1 up from 6.6. Exam is limited by language barrier/mental status, but patient denied any pain, nausea, vomiting, but reported fever. CCU Objective - Vital Signs / Intake & Output Vital Signs (Last 4 hours): Vital Signs Temp Pulse Resp BP Pulse Ox 08/10/16 12:16 97.6 F 105 H 20 106/77 08/10/16 11:41 102 H 17 122/96 H 100 08/10/16 11:20 107 H 18 100 08/10/16 11:10 104 H 25 H 94 L 08/10/16 11:00 107 H 20 96/60 L 100 08/10/16 10:50 101 H 22 99 08/10/16 10:40 97 H 18 100 08/10/16 10:38 97.4 F L 100 H 17 96/60 L 08/10/16 10:35 97.6 F 95 H 20 99/62 L 08/10/16 10:33 96 H 19 99/62 L 100 08/10/16 10:30 95 H 28 H 100 08/10/16 10:23 97.4 F L 100 H 19 102/60 08/10/16 10:20 97.4 F L 100 H 20 102/60 100 08/10/16 10:10 102 H 24 100 08/10/16 10:07 101 H 16 100 Intake and Output (Last 8hrs): Intake & Output 08/09/16 08/10/16 08/10/16 22:59 06:59 14:59 Intake Total 425 565 425 Output Total 1000 Balance 425 -435 425 Weight 90.718 kg Intake: IV 240 Left Hand 240 Blood Product 325 325 325 Red Blood Cells Cpd As1 325 Lr Unit [id number] Red Blood Cells Cpd As1 0 Lr Unit [id number] Red Blood Cells Cpd As1 0 325 Lr Unit [id number] Red Blood Cells Cpd As1 325 Lr Unit [id number] Other 100 100 Red Blood Cells Cpd As1 50 Lr Unit [id number] Red Blood Cells Cpd As1 50 Lr Unit [id number] Red Blood Cells Cpd As1 100 Lr Unit [id number] Output: Urine 1000 Urethral ([place]) 1000 Other: Voiding Method Incontinent - Physical Exam Physical Exam Limitations: Positive for: Altered Mental Status Head: Positive for: Atraumatic, Normocephalic Pupils: Positive for: PERRL Extroacular Muscles: Positive for: EOMI Conjunctiva: Positive for: Normal Mouth: Positive for: Moist Mucous Membranes Pharnyx: Positive for: Normal. Negative for: ERYTHEMA Nose (Internal): Positive for: Normal Inspection Neck: Positive for: Normal Range of Motion Respiratory/Chest: Positive for: Clear to Auscultation. Negative for: Respiratory Distress, Accessory Muscle Use Cardiovascular: Positive for: Regular Rate and Rhythm, Normal S1, S2. Negative for: Murmurs, Irregular Rhythm Abdomen: Positive for: Normal Bowel Sounds. Negative for: Tenderness, Distention, Peritoneal Signs, Rebound, Guarding Upper Extremity: Positive for: Normal Inspection. Negative for: Cyanosis, Edema Lower Extremity: Positive for: Other (numerous open wounds/ulcers in the lower legs/feet BL. No active bleeding or drainage). Negative for: CALF TENDERNESS, NORMAL PULSES, Cyanosis Neurological: Positive for: GCS=15, CN II-XII Intact, Speech Normal Skin: Positive for: Warm, Normal Color, Other (see lower extremity excam) Psychiatric: Positive for: Alert, Normal Affect, Normal Mood. Negative for: Anxious, Agitated - Medications Active Medications: Active Medications Generic Name Dose Route Start Last Admin Trade Name Sheldonq PRN Reason Stop Dose Admin Carvedilol 3.125 mg 08/10/16 18:00 Coreg PO BID [facility] Digoxin 0.125 mg 08/12/16 10:00 Lanoxin PO MWF [facility] Pantoprazole Sodium 40 mg in 100 mls @ 20 mls/hr 08/09/16 17:30 08/10/16 08: 14 Protonix 40mg Ivpb IVPB 20 mls/hr .Q5H ANGELICA Administration Insulin Detemir 10 unit 08/10/16 11:15 08/10/16 11:35 Levemir SC 10 unit BID ANGELICA Administration Insulin Human Regular 0 units 08/10/16 07:30 08/10/16 11:33 Humulin R Med SC 10 units ACHS ANGELICA Administration Protocol - Patient Studies Lab Studies: Lab Studies 08/10/16 08/10/16 08/10/16 Range/Units 09:30 09:30 03:35 WBC 14.4 H (4.5-11.0) 10^3/ul RBC 2.47 L (3.5-6.1) 10^6/uL Hgb 7.1 L (14.0-18.0) gm/dL Hct 21.7 L (42.0-52.0) % MCV 87.9 (80.0-105.0) fL MCH 28.7 (25.0-35.0) pg MCHC 32.7 (31.0-37.0) g/dl RDW 17.3 H (11.5-14.5) % Plt Count 205 (120.0-450.0) 10^3/uL MPV 10.5 (7.0-11.0) fl Gran % 86.6 H (50.0-68.0) % Lymph % (Auto) 8.3 L (22.0-35.0) % [place] % (Auto) 4.3 (1.0-6.0) % Eos % (Auto) 0.7 L (1.5-5.0) % Baso % (Auto) 0.1 (0.0-3.0) % Gran # 12.47 H (1.4-6.5) Lymph # 1.2 (1.2-3.4) [place] # 0.6 (0.1-0.6) Eos # 0.1 (0.0-0.7) Baso # 0.02 (0.0-2.0) K/mm3 Sodium 148 (132-148) mmol/L Potassium 3.3 L (3.6-5.0) mmol/L Chloride 101 (98-107) mmol/L Carbon Dioxide 36 H (21-33) mmol/L Anion Gap 14 (10-20) BUN 139 H* (7-21) mg/dL Creatinine 2.9 H (0.5-1.4) mg/dL Est GFR ( Amer) 26 Est GFR (Non-Af Amer) 22 POC Glucose (mg/dL) (65-110) mg/dL Random Glucose 392 H* D (70-110) mg/dL Lactic Acid (0.7-2.1) mmol/L Calcium 8.1 L (8.4-10.5) mg/dL Phosphorus (2.5-4.5) mg/dL Magnesium (1.7-2.2) mg/dL Total Bilirubin (0.2-1.3) mg/dL Direct Bilirubin 0.8 H (0.0-0.4) mg/dL AST (15-59) U/L ALT (7-56) U/L Alkaline Phosphatase (38-133) U/L Troponin I 0.05 ng/mL Total Protein (5.8-8.3) g/dL Albumin (3.0-4.8) g/dL Globulin gm/dL Albumin/Globulin Ratio (1.1-1.8) Blood Type Blood Type Confirm Antibody Screen Crossmatch BBK History Checked 08/10/16 08/10/16 08/10/16 Range/Units 03:30 03:30 01:40 WBC 12.1 H (4.5-11.0) 10^3/ul RBC 2.34 L (3.5-6.1) 10^6/uL Hgb 6.6 L* D (14.0-18.0) gm/dL Hct 20.2 L* (42.0-52.0) % MCV 86.3 (80.0-105.0) fL MCH 28.2 (25.0-35.0) pg MCHC 32.7 (31.0-37.0) g/dl RDW 17.2 H (11.5-14.5) % Plt Count 204 (120.0-450.0) 10^3/uL MPV 10.6 (7.0-11.0) fl Gran % 83.7 H (50.0-68.0) % Lymph % (Auto) 9.9 L (22.0-35.0) % [place] % (Auto) 6.0 (1.0-6.0) % Eos % (Auto) 0.3 L (1.5-5.0) % Baso % (Auto) 0.1 (0.0-3.0) % Gran # 10.13 H (1.4-6.5) Lymph # 1.2 (1.2-3.4) [place] # 0.7 H (0.1-0.6) Eos # 0.0 (0.0-0.7) Baso # 0.01 (0.0-2.0) K/mm3 Sodium 149 H (132-148) mmol/L Potassium 2.8 L* (3.6-5.0) mmol/L Chloride 99 (98-107) mmol/L Carbon Dioxide (21-33) mmol/L Anion Gap 13 (10-20) BUN (7-21) mg/dL Creatinine 2.9 H (0.5-1.4) mg/dL Est GFR ( Amer) 26 Est GFR (Non-Af Amer) 22 POC Glucose (mg/dL) (65-110) mg/dL Random Glucose (70-110) mg/dL Lactic Acid 1.8 (0.7-2.1) mmol/L Calcium 7.9 L (8.4-10.5) mg/dL Phosphorus 3.6 (2.5-4.5) mg/dL Magnesium 2.3 H (1.7-2.2) mg/dL Total Bilirubin 2.7 H (0.2-1.3) mg/dL Direct Bilirubin (0.0-0.4) mg/dL AST 29 (15-59) U/L ALT 46 (7-56) U/L Alkaline Phosphatase 66 (38-133) U/L Troponin I ng/mL Total Protein 5.3 L (5.8-8.3) g/dL Albumin 2.4 L (3.0-4.8) g/dL Globulin 2.8 gm/dL Albumin/Globulin Ratio 0.9 L (1.1-1.8) Blood Type Blood Type Confirm Antibody Screen Crossmatch BBK History Checked 08/09/16 08/09/16 08/09/16 Range/Units 22:13 21:30 18:30 WBC (4.5-11.0) 10^3/ul RBC (3.5-6.1) 10^6/uL Hgb (14.0-18.0) gm/dL Hct (42.0-52.0) % MCV (80.0-105.0) fL MCH (25.0-35.0) pg MCHC (31.0-37.0) g/dl RDW (11.5-14.5) % Plt Count (120.0-450.0) 10^3/uL MPV (7.0-11.0) fl Gran % (50.0-68.0) % Lymph % (Auto) (22.0-35.0) % [place] % (Auto) (1.0-6.0) % Eos % (Auto) (1.5-5.0) % Baso % (Auto) (0.0-3.0) % Gran # (1.4-6.5) Lymph # (1.2-3.4) [place] # (0.1-0.6) Eos # (0.0-0.7) Baso # (0.0-2.0) K/mm3 Sodium (132-148) mmol/L Potassium (3.6-5.0) mmol/L Chloride (98-107) mmol/L Carbon Dioxide (21-33) mmol/L Anion Gap (10-20) BUN (7-21) mg/dL Creatinine (0.5-1.4) mg/dL Est GFR ( Amer) Est GFR (Non-Af Amer) POC Glucose (mg/dL) 435 H* 474 H* (65-110) mg/dL Random Glucose (70-110) mg/dL Lactic Acid (0.7-2.1) mmol/L Calcium (8.4-10.5) mg/dL Phosphorus (2.5-4.5) mg/dL Magnesium (1.7-2.2) mg/dL Total Bilirubin (0.2-1.3) mg/dL Direct Bilirubin (0.0-0.4) mg/dL AST (15-59) U/L ALT (7-56) U/L Alkaline Phosphatase (38-133) U/L Troponin I ng/mL Total Protein (5.8-8.3) g/dL Albumin (3.0-4.8) g/dL Globulin gm/dL Albumin/Globulin Ratio (1.1-1.8) Blood Type Blood Type Confirm O POSITIVE Antibody Screen Crossmatch BBK History Checked 08/09/16 Range/Units 18:00 WBC (4.5-11.0) 10^3/ul RBC (3.5-6.1) 10^6/uL Hgb (14.0-18.0) gm/dL Hct (42.0-52.0) % MCV (80.0-105.0) fL MCH (25.0-35.0) pg MCHC (31.0-37.0) g/dl RDW (11.5-14.5) % Plt Count (120.0-450.0) 10^3/uL MPV (7.0-11.0) fl Gran % (50.0-68.0) % Lymph % (Auto) (22.0-35.0) % [place] % (Auto) (1.0-6.0) % Eos % (Auto) (1.5-5.0) % Baso % (Auto) (0.0-3.0) % Gran # (1.4-6.5) Lymph # (1.2-3.4) [place] # (0.1-0.6) Eos # (0.0-0.7) Baso # (0.0-2.0) K/mm3 Sodium (132-148) mmol/L Potassium (3.6-5.0) mmol/L Chloride (98-107) mmol/L Carbon Dioxide (21-33) mmol/L Anion Gap (10-20) BUN (7-21) mg/dL Creatinine (0.5-1.4) mg/dL Est GFR ( Amer) Est GFR (Non-Af Amer) POC Glucose (mg/dL) (65-110) mg/dL Random Glucose (70-110) mg/dL Lactic Acid (0.7-2.1) mmol/L Calcium (8.4-10.5) mg/dL Phosphorus (2.5-4.5) mg/dL Magnesium (1.7-2.2) mg/dL Total Bilirubin (0.2-1.3) mg/dL Direct Bilirubin (0.0-0.4) mg/dL AST (15-59) U/L ALT (7-56) U/L Alkaline Phosphatase (38-133) U/L Troponin I ng/mL Total Protein (5.8-8.3) g/dL Albumin (3.0-4.8) g/dL Globulin gm/dL Albumin/Globulin Ratio (1.1-1.8) Blood Type O POSITIVE Blood Type Confirm Antibody Screen Negative Crossmatch See Detail BBK History Checked No verified bt Laboratory Results - last 24 hr 08/09/16 08/09/16 08/09/16 18:00 18:30 21:30 WBC RBC Hgb Hct MCV MCH MCHC RDW Plt Count MPV Gran % Lymph % (Auto) [place] % (Auto) Eos % (Auto) Baso % (Auto) Gran # Lymph # [place] # Eos # Baso # Sodium Potassium Chloride Carbon Dioxide Anion Gap BUN Creatinine Est GFR ( Amer) Est GFR (Non-Af Amer) POC Glucose (mg/dL) 474 H* Random Glucose Lactic Acid Calcium Phosphorus Magnesium Total Bilirubin Direct Bilirubin AST ALT Alkaline Phosphatase Troponin I Total Protein Albumin Globulin Albumin/Globulin Ratio Blood Type O POSITIVE Blood Type Confirm O POSITIVE Antibody Screen Negative Crossmatch See Detail BBK History Checked No verified bt 08/09/16 08/10/16 08/10/16 22:13 01:40 03:30 WBC 12.1 H RBC 2.34 L Hgb 6.6 L* D Hct 20.2 L* MCV 86.3 MCH 28.2 MCHC 32.7 RDW 17.2 H Plt Count 204 MPV 10.6 Gran % 83.7 H Lymph % (Auto) 9.9 L [place] % (Auto) 6.0 Eos % (Auto) 0.3 L Baso % (Auto) 0.1 Gran # 10.13 H Lymph # 1.2 [place] # 0.7 H Eos # 0.0 Baso # 0.01 Sodium Potassium Chloride Carbon Dioxide Anion Gap BUN Creatinine Est GFR ( Amer) Est GFR (Non-Af Amer) POC Glucose (mg/dL) 435 H* Random Glucose Lactic Acid 1.8 Calcium Phosphorus Magnesium Total Bilirubin Direct Bilirubin AST ALT Alkaline Phosphatase Troponin I Total Protein Albumin Globulin Albumin/Globulin Ratio Blood Type Blood Type Confirm Antibody Screen Crossmatch BBK History Checked 08/10/16 08/10/16 08/10/16 03:30 03:35 09:30 WBC 14.4 H RBC 2.47 L Hgb 7.1 L Hct 21.7 L MCV 87.9 MCH 28.7 MCHC 32.7 RDW 17.3 H Plt Count 205 MPV 10.5 Gran % 86.6 H Lymph % (Auto) 8.3 L [place] % (Auto) 4.3 Eos % (Auto) 0.7 L Baso % (Auto) 0.1 Gran # 12.47 H Lymph # 1.2 [place] # 0.6 Eos # 0.1 Baso # 0.02 Sodium 149 H Potassium 2.8 L* Chloride 99 Carbon Dioxide Anion Gap 13 BUN Creatinine 2.9 H Est GFR ( Amer) 26 Est GFR (Non-Af Amer) 22 POC Glucose (mg/dL) Random Glucose Lactic Acid Calcium 7.9 L Phosphorus 3.6 Magnesium 2.3 H Total Bilirubin 2.7 H Direct Bilirubin 0.8 H AST 29 ALT 46 Alkaline Phosphatase 66 Troponin I Total Protein 5.3 L Albumin 2.4 L Globulin 2.8 Albumin/Globulin Ratio 0.9 L Blood Type Blood Type Confirm Antibody Screen Crossmatch BBK History Checked 08/10/16 09:30 WBC RBC Hgb Hct MCV MCH MCHC RDW Plt Count MPV Gran % Lymph % (Auto) [place] % (Auto) Eos % (Auto) Baso % (Auto) Gran # Lymph # [place] # Eos # Baso # Sodium 148 Potassium 3.3 L Chloride 101 Carbon Dioxide 36 H Anion Gap 14 BUN 139 H* Creatinine 2.9 H Est GFR ( Amer) 26 Est GFR (Non-Af Amer) 22 POC Glucose (mg/dL) Random Glucose 392 H* D Lactic Acid Calcium 8.1 L Phosphorus Magnesium Total Bilirubin Direct Bilirubin AST ALT Alkaline Phosphatase Troponin I 0.05 Total Protein Albumin Globulin Albumin/Globulin Ratio Blood Type Blood Type Confirm Antibody Screen Crossmatch BBK History Checked EKG/Cardiology Studies: Cardiology / EKG Studies 08/09/16 15:53 ELECTROCARDIOGRAM Stat Comment: vest pacemaker Reason For Exam: AMS Does Patient Have a Pacemaker?: Yes PERFORMING PHYSICIAN/PROVIDER:: Mario Benavides 08/10/16 07:00 EKG [ELECTROCARDIOGRAM] Routine Comment: vest pacemaker Reason For Exam: follow up PRE OP:: N Does Patient Have a Pacemaker?: Yes PERFORMING PHYSICIAN/PROVIDER:: Mario Benavides Fingerstick Blood Sugar Results: 449 Review of Systems - Review of Systems Systems not reviewed;Unavailable: Altered Mental Status - Constitutional Constitutional: Fever. absent: Chills - Cardiovascular Cardiovascular: UNREMARKABLE. absent: Chest Pain, Dyspnea - Respiratory Respiratory: UNREMARKABLE - Gastrointestinal Gastrointestinal: As Per HPI Additional comments: per nursing, BM of normal colored stool without melena/hematochezia - Musculoskeletal Musculoskeletal: absent: Numbness, Tingling Critical Care Progress Note - Nutrition Nutrition: Nutrition Category Date Time Status Liquid Diet [DIET] Diets 08/10/16 Breakfast Ordered Assessment/Plan - Assessment and Plan (Free Text) Assessment: 65M with history (per PMD) of severely decreased systolic function, DM, a fib on eliquis, and mild dementia per family who was admitted to the ICU for severe anemia with supposed GI bleed, decreased systolic heart function, and ELIZABETH Neuro: Awake, alert, Oriented to person Denies any neurological symptoms Gross motor function intact CT head no acute changes Continue to monitor Cardio: Denies chest pain, lifevest worn by patient, hypotensive overnight after administration of lasix, currently BP stable, mild tachycardia, probably dehydration Hgb 5.3->6.6->7.1 this AM after 3 units of PRBC, on more unit PRBC pending Troponins trending down Continue to monitor cardiac function/hemodynamic stability Hold eliquis continue Q6 hgb trends, goal hgb is >9.0, administer blood transfusions as necessary Continue IVF to keep BP stable but monitor for fluid overload Pulm: No complaints of cough/dyspnea CTAB, no R/R/W CXR: NAPD Continue to monitor, adminster lasix as needed for fluid overload GI: No complaints, abdominal exam benign, no distention or peritonitis No bloody BM's today per nursing CLD per GI Plans for EGD on Wednesday Continue to monitor H/H and transfuse as needed Protonix drip Nephro No complaints of dysuria, UOP adequate Hypokalemia, elevated BUN/Cr Continue to trend CMP, strict I/O's Supplement electrolytes monitor renal functions--limit lasix to PRN ID: Afebrile, VSS WBC elevated, no identified source of infection, possible acute phase reaction Continue to monitor vitals, WBC Patient examined and discussed with Dr. Luc Espinosa, PGY1 <Luc CARDENAS,Ty H - Last Filed: 08/10/16 15:04> CCU Objective - Vital Signs / Intake & Output Vital Signs (Last 4 hours): Vital Signs Temp Pulse Resp BP Pulse Ox 08/10/16 12:16 97.6 F 105 H 20 106/77 08/10/16 11:41 102 H 17 122/96 H 100 08/10/16 11:20 107 H 18 100 08/10/16 11:10 104 H 25 H 94 L Intake and Output (Last 8hrs): Intake & Output 08/10/16 08/10/16 08/10/16 06:59 14:59 22:59 Intake Total 565 425 Output Total 1000 Balance -435 425 Intake: IV 240 Left Hand 240 Blood Product 325 325 Red Blood Cells Cpd As1 325 Lr Unit [id number] Red Blood Cells Cpd As1 0 Lr Unit [id number] Red Blood Cells Cpd As1 325 Lr Unit [id number] Other 100 Red Blood Cells Cpd As1 50 Lr Unit [id number] Red Blood Cells Cpd As1 50 Lr Unit [id number] Output: Urine 1000 Urethral ([place]) 1000 - Medications Active Medications: Active Medications Generic Name Dose Route Start Last Admin Trade Name Freq PRN Reason Stop Dose Admin Carvedilol 3.125 mg 08/10/16 18:00 Coreg PO BID ANGELICA Digoxin 0.125 mg 08/12/16 10:00 Lanoxin PO MWF [facility] Pantoprazole Sodium 40 mg in 100 mls @ 20 mls/hr 08/09/16 17:30 08/10/16 08: 14 Protonix 40mg Ivpb IVPB 20 mls/hr .Q5H ANGELICA Administration Insulin Detemir 10 unit 08/10/16 11:15 08/10/16 11:35 Levemir SC 10 unit BID ANGELICA Administration Insulin Human Regular 0 units 08/10/16 07:30 08/10/16 11:33 Humulin R Med SC 10 units ACHS ANGELICA Administration Protocol - Patient Studies Lab Studies: Lab Studies 08/10/16 08/10/16 08/10/16 Range/Units 09:30 09:30 03:35 WBC 14.4 H (4.5-11.0) 10^3/ul RBC 2.47 L (3.5-6.1) 10^6/uL Hgb 7.1 L (14.0-18.0) gm/dL Hct 21.7 L (42.0-52.0) % MCV 87.9 (80.0-105.0) fL MCH 28.7 (25.0-35.0) pg MCHC 32.7 (31.0-37.0) g/dl RDW 17.3 H (11.5-14.5) % Plt Count 205 (120.0-450.0) 10^3/uL MPV 10.5 (7.0-11.0) fl Gran % 86.6 H (50.0-68.0) % Lymph % (Auto) 8.3 L (22.0-35.0) % [place] % (Auto) 4.3 (1.0-6.0) % Eos % (Auto) 0.7 L (1.5-5.0) % Baso % (Auto) 0.1 (0.0-3.0) % Gran # 12.47 H (1.4-6.5) Lymph # 1.2 (1.2-3.4) [place] # 0.6 (0.1-0.6) Eos # 0.1 (0.0-0.7) Baso # 0.02 (0.0-2.0) K/mm3 Sodium 148 (132-148) mmol/L Potassium 3.3 L (3.6-5.0) mmol/L Chloride 101 (98-107) mmol/L Carbon Dioxide 36 H (21-33) mmol/L Anion Gap 14 (10-20) BUN 139 H* (7-21) mg/dL Creatinine 2.9 H (0.5-1.4) mg/dL Est GFR ( Amer) 26 Est GFR (Non-Af Amer) 22 POC Glucose (mg/dL) (65-110) mg/dL Random Glucose 392 H* D (70-110) mg/dL Lactic Acid (0.7-2.1) mmol/L Calcium 8.1 L (8.4-10.5) mg/dL Phosphorus (2.5-4.5) mg/dL Magnesium (1.7-2.2) mg/dL Total Bilirubin (0.2-1.3) mg/dL Direct Bilirubin 0.8 H (0.0-0.4) mg/dL AST (15-59) U/L ALT (7-56) U/L Alkaline Phosphatase (38-133) U/L Troponin I 0.05 ng/mL Total Protein (5.8-8.3) g/dL Albumin (3.0-4.8) g/dL Globulin gm/dL Albumin/Globulin Ratio (1.1-1.8) Blood Type Blood Type Confirm Antibody Screen Crossmatch BBK History Checked 08/10/16 08/10/16 08/10/16 Range/Units 03:30 03:30 01:40 WBC 12.1 H (4.5-11.0) 10^3/ul RBC 2.34 L (3.5-6.1) 10^6/uL Hgb 6.6 L* D (14.0-18.0) gm/dL Hct 20.2 L* (42.0-52.0) % MCV 86.3 (80.0-105.0) fL MCH 28.2 (25.0-35.0) pg MCHC 32.7 (31.0-37.0) g/dl RDW 17.2 H (11.5-14.5) % Plt Count 204 (120.0-450.0) 10^3/uL MPV 10.6 (7.0-11.0) fl Gran % 83.7 H (50.0-68.0) % Lymph % (Auto) 9.9 L (22.0-35.0) % [place] % (Auto) 6.0 (1.0-6.0) % Eos % (Auto) 0.3 L (1.5-5.0) % Baso % (Auto) 0.1 (0.0-3.0) % Gran # 10.13 H (1.4-6.5) Lymph # 1.2 (1.2-3.4) [place] # 0.7 H (0.1-0.6) Eos # 0.0 (0.0-0.7) Baso # 0.01 (0.0-2.0) K/mm3 Sodium 149 H (132-148) mmol/L Potassium 2.8 L* (3.6-5.0) mmol/L Chloride 99 (98-107) mmol/L Carbon Dioxide (21-33) mmol/L Anion Gap 13 (10-20) BUN (7-21) mg/dL Creatinine 2.9 H (0.5-1.4) mg/dL Est GFR ( Amer) 26 Est GFR (Non-Af Amer) 22 POC Glucose (mg/dL) (65-110) mg/dL Random Glucose (70-110) mg/dL Lactic Acid 1.8 (0.7-2.1) mmol/L Calcium 7.9 L (8.4-10.5) mg/dL Phosphorus 3.6 (2.5-4.5) mg/dL Magnesium 2.3 H (1.7-2.2) mg/dL Total Bilirubin 2.7 H (0.2-1.3) mg/dL Direct Bilirubin (0.0-0.4) mg/dL AST 29 (15-59) U/L ALT 46 (7-56) U/L Alkaline Phosphatase 66 (38-133) U/L Troponin I ng/mL Total Protein 5.3 L (5.8-8.3) g/dL Albumin 2.4 L (3.0-4.8) g/dL Globulin 2.8 gm/dL Albumin/Globulin Ratio 0.9 L (1.1-1.8) Blood Type Blood Type Confirm Antibody Screen Crossmatch BBK History Checked 08/09/16 08/09/16 08/09/16 Range/Units 22:13 21:30 18:30 WBC (4.5-11.0) 10^3/ul RBC (3.5-6.1) 10^6/uL Hgb (14.0-18.0) gm/dL Hct (42.0-52.0) % MCV (80.0-105.0) fL MCH (25.0-35.0) pg MCHC (31.0-37.0) g/dl RDW (11.5-14.5) % Plt Count (120.0-450.0) 10^3/uL MPV (7.0-11.0) fl Gran % (50.0-68.0) % Lymph % (Auto) (22.0-35.0) % [place] % (Auto) (1.0-6.0) % Eos % (Auto) (1.5-5.0) % Baso % (Auto) (0.0-3.0) % Gran # (1.4-6.5) Lymph # (1.2-3.4) [place] # (0.1-0.6) Eos # (0.0-0.7) Baso # (0.0-2.0) K/mm3 Sodium (132-148) mmol/L Potassium (3.6-5.0) mmol/L Chloride (98-107) mmol/L Carbon Dioxide (21-33) mmol/L Anion Gap (10-20) BUN (7-21) mg/dL Creatinine (0.5-1.4) mg/dL Est GFR ( Amer) Est GFR (Non-Af Amer) POC Glucose (mg/dL) 435 H* 474 H* (65-110) mg/dL Random Glucose (70-110) mg/dL Lactic Acid (0.7-2.1) mmol/L Calcium (8.4-10.5) mg/dL Phosphorus (2.5-4.5) mg/dL Magnesium (1.7-2.2) mg/dL Total Bilirubin (0.2-1.3) mg/dL Direct Bilirubin (0.0-0.4) mg/dL AST (15-59) U/L ALT (7-56) U/L Alkaline Phosphatase (38-133) U/L Troponin I ng/mL Total Protein (5.8-8.3) g/dL Albumin (3.0-4.8) g/dL Globulin gm/dL Albumin/Globulin Ratio (1.1-1.8) Blood Type Blood Type Confirm O POSITIVE Antibody Screen Crossmatch BBK History Checked 08/09/16 Range/Units 18:00 WBC (4.5-11.0) 10^3/ul RBC (3.5-6.1) 10^6/uL Hgb (14.0-18.0) gm/dL Hct (42.0-52.0) % MCV (80.0-105.0) fL MCH (25.0-35.0) pg MCHC (31.0-37.0) g/dl RDW (11.5-14.5) % Plt Count (120.0-450.0) 10^3/uL MPV (7.0-11.0) fl Gran % (50.0-68.0) % Lymph % (Auto) (22.0-35.0) % [place] % (Auto) (1.0-6.0) % Eos % (Auto) (1.5-5.0) % Baso % (Auto) (0.0-3.0) % Gran # (1.4-6.5) Lymph # (1.2-3.4) [place] # (0.1-0.6) Eos # (0.0-0.7) Baso # (0.0-2.0) K/mm3 Sodium (132-148) mmol/L Potassium (3.6-5.0) mmol/L Chloride (98-107) mmol/L Carbon Dioxide (21-33) mmol/L Anion Gap (10-20) BUN (7-21) mg/dL Creatinine (0.5-1.4) mg/dL Est GFR ( Amer) Est GFR (Non-Af Amer) POC Glucose (mg/dL) (65-110) mg/dL Random Glucose (70-110) mg/dL Lactic Acid (0.7-2.1) mmol/L Calcium (8.4-10.5) mg/dL Phosphorus (2.5-4.5) mg/dL Magnesium (1.7-2.2) mg/dL Total Bilirubin (0.2-1.3) mg/dL Direct Bilirubin (0.0-0.4) mg/dL AST (15-59) U/L ALT (7-56) U/L Alkaline Phosphatase (38-133) U/L Troponin I ng/mL Total Protein (5.8-8.3) g/dL Albumin (3.0-4.8) g/dL Globulin gm/dL Albumin/Globulin Ratio (1.1-1.8) Blood Type O POSITIVE Blood Type Confirm Antibody Screen Negative Crossmatch See Detail BBK History Checked No verified bt Laboratory Results - last 24 hr 08/09/16 08/09/16 08/09/16 18:00 18:30 21:30 WBC RBC Hgb Hct MCV MCH MCHC RDW Plt Count MPV Gran % Lymph % (Auto) [place] % (Auto) Eos % (Auto) Baso % (Auto) Gran # Lymph # [place] # Eos # Baso # Sodium Potassium Chloride Carbon Dioxide Anion Gap BUN Creatinine Est GFR ( Amer) Est GFR (Non-Af Amer) POC Glucose (mg/dL) 474 H* Random Glucose Lactic Acid Calcium Phosphorus Magnesium Total Bilirubin Direct Bilirubin AST ALT Alkaline Phosphatase Troponin I Total Protein Albumin Globulin Albumin/Globulin Ratio Blood Type O POSITIVE Blood Type Confirm O POSITIVE Antibody Screen Negative Crossmatch See Detail BBK History Checked No verified bt 08/09/16 08/10/16 08/10/16 22:13 01:40 03:30 WBC 12.1 H RBC 2.34 L Hgb 6.6 L* D Hct 20.2 L* MCV 86.3 MCH 28.2 MCHC 32.7 RDW 17.2 H Plt Count 204 MPV 10.6 Gran % 83.7 H Lymph % (Auto) 9.9 L [place] % (Auto) 6.0 Eos % (Auto) 0.3 L Baso % (Auto) 0.1 Gran # 10.13 H Lymph # 1.2 [place] # 0.7 H Eos # 0.0 Baso # 0.01 Sodium Potassium Chloride Carbon Dioxide Anion Gap BUN Creatinine Est GFR ( Amer) Est GFR (Non-Af Amer) POC Glucose (mg/dL) 435 H* Random Glucose Lactic Acid 1.8 Calcium Phosphorus Magnesium Total Bilirubin Direct Bilirubin AST ALT Alkaline Phosphatase Troponin I Total Protein Albumin Globulin Albumin/Globulin Ratio Blood Type Blood Type Confirm Antibody Screen Crossmatch BBK History Checked 08/10/16 08/10/16 08/10/16 03:30 03:35 09:30 WBC 14.4 H RBC 2.47 L Hgb 7.1 L Hct 21.7 L MCV 87.9 MCH 28.7 MCHC 32.7 RDW 17.3 H Plt Count 205 MPV 10.5 Gran % 86.6 H Lymph % (Auto) 8.3 L [place] % (Auto) 4.3 Eos % (Auto) 0.7 L Baso % (Auto) 0.1 Gran # 12.47 H Lymph # 1.2 [place] # 0.6 Eos # 0.1 Baso # 0.02 Sodium 149 H Potassium 2.8 L* Chloride 99 Carbon Dioxide Anion Gap 13 BUN Creatinine 2.9 H Est GFR ( Amer) 26 Est GFR (Non-Af Amer) 22 POC Glucose (mg/dL) Random Glucose Lactic Acid Calcium 7.9 L Phosphorus 3.6 Magnesium 2.3 H Total Bilirubin 2.7 H Direct Bilirubin 0.8 H AST 29 ALT 46 Alkaline Phosphatase 66 Troponin I Total Protein 5.3 L Albumin 2.4 L Globulin 2.8 Albumin/Globulin Ratio 0.9 L Blood Type Blood Type Confirm Antibody Screen Crossmatch BBK History Checked 08/10/16 09:30 WBC RBC Hgb Hct MCV MCH MCHC RDW Plt Count MPV Gran % Lymph % (Auto) [place] % (Auto) Eos % (Auto) Baso % (Auto) Gran # Lymph # [place] # Eos # Baso # Sodium 148 Potassium 3.3 L Chloride 101 Carbon Dioxide 36 H Anion Gap 14 BUN 139 H* Creatinine 2.9 H Est GFR ( Amer) 26 Est GFR (Non-Af Amer) 22 POC Glucose (mg/dL) Random Glucose 392 H* D Lactic Acid Calcium 8.1 L Phosphorus Magnesium Total Bilirubin Direct Bilirubin AST ALT Alkaline Phosphatase Troponin I 0.05 Total Protein Albumin Globulin Albumin/Globulin Ratio Blood Type Blood Type Confirm Antibody Screen Crossmatch BBK History Checked EKG/Cardiology Studies: Cardiology / EKG Studies 08/09/16 15:53 ELECTROCARDIOGRAM Stat Comment: vest pacemaker Reason For Exam: AMS Does Patient Have a Pacemaker?: Yes PERFORMING PHYSICIAN/PROVIDER:: Mario Benavides 08/10/16 07:00 EKG [ELECTROCARDIOGRAM] Routine Comment: vest pacemaker Reason For Exam: follow up PRE OP:: N Does Patient Have a Pacemaker?: Yes PERFORMING PHYSICIAN/PROVIDER:: Mario Benavides Critical Care Progress Note - Nutrition Nutrition: Nutrition Category Date Time Status Liquid Diet [DIET] Diets 08/10/16 Breakfast Ordered Attending/Attestation - Attestation I have personally seen and examined this patient.: Yes I have fully participated in the care of the patient.: Yes I have reviewed all pertinent clinical information: Yes Notes (Text): 08/10/16 15:01 65 y/o M w/ Decompensated HF ( EF<20%) w/ Life - vest in place Presented w. Dehydration, hypotension and low HGB Stool occult blood + on PPI drip and G.I consulted for EGD in the next 24 hrs unless bleeding worsens IV fluids given x 3 L in last 24 hrs. BP improved. HGB keep > 9 due to active cardiac disease . CBC q6hrs Need for Cardiac cath in the near future but after GI bleed stabilized . ELIZABETH on CKD, on IV fluids and Lasix on HOLD High chances for RF on HD after Cardiac cath and contrast load. DVT p ON SCD, off Elequis. poor prognosis Paliative care on board cc time 65 min
--- NOTE | 2016-08-10 15:56 | CON ---
DATE: 08/10/2016 REASON FOR CONSULTATION: Cardiac evaluation. History of cardiomyopathy, AFib. On LifeVest. BRIEF CLINICAL HISTORY: This is a 65-year-old male with past medical history significant for diabete s, hypertension, hyperlipidemia, anemia, depression, atrial fibrillation, on Eliquis; history of rece ntly admitted to [facility]. Told decreased LV function and was discharged on LifeVe st. Was admitted here with altered mental status. Information obtained from patient as well as from the electronic medical record. Denies any chest pain. Denies any palpitation. PAST HISTORY: Significant for cardiomyopathy, decreased LV function, history of CHF, EF 14%, history of CVA, history of hypertension, diabetes. PREVIOUS CARDIAC WORKUP HERE IN THE HOSPITAL: As follows: The patient had a cardiac catheterization 07/19/[address] Gil. At that time, it shows left main unremarkable, circumflex diffuse disease pr oximal to mild portion of the vessels, obtuse margin ____ irregularity without lesion. LAD is a larg e vessel ____ the diffuse intimal irregularity without any critical disease. The ____ is 70% disease d. The right coronary artery was selectively cannulated and is a dominant, large vessel without any significant flow obstructive stenosis. Estimated ejection fraction 15% to 20%. In summary, the proc edure revealed end-stage dilated cardiomyopathy, severely decreased LV function, ejection fraction 15 % to 20%. Only the coronary artery disease is limited to diagonal 1 and major ____. LAD, circ and R CA were essentially free of significant disease on cath dated 07/19/2013 and ejection fraction at that time was 15% to 20%. PAST SURGICAL HISTORY: Significant for hernia repair, cardiac catheterization, no PTCA, only cardiac catheterization dated 07/19/2013, nonobstructive coronary artery disease, ____ only diagonal 1. SOCIAL HISTORY: Denies any smoking. Denies any history of alcohol abuse. History of atrial fibrill ation. REVIEW OF SYSTEMS: As per HPI. PHYSICAL EXAMINATION: As follows: VITAL SIGNS: Temperature afebrile, heart rate 105, blood pressure 106/77. HEENT: PERRLA. Extraocular muscles intact. NECK: Supple. No carotid bruits. No thyromegaly. CHEST: Clear to auscultation. HEART: S1, S2 regular. ABDOMEN: Soft. EXTREMITIES: Clubbing and cyanosis negative. BLOOD WORKUP: As follows: WBC 14.4, hemoglobin 7.1, hematocrit 21.7, platelet count 205. Chemistry shows sodium 140, potassium 3.3, chloride 101, carbon dioxide 36, anion gap of ____, potassium 14, c reatinine 2.9. Troponin 0.05. IMPRESSION: Anemia, leukocytosis, chronic kidney disease stage III to IV chronic kidney disease, car diomyopathy, status post cardiac catheterization in 2013, nonobstructive coronary artery disease limi olegario to only diagonal 1, decreased left ventricular function, nonischemic cardiomyopathy, ejection fra ction 15% to 20%, anemia. RECOMMENDATION: Follow up H and H. History of atrial fibrillation. We will discuss with Dr. Palmer at [facility]. Tried to reach [facility] to get the most recent card iac workup including echo. We will get the MUGA scan to assess LV function. Interim, continue GI wo rkup. The patient is cleared from cardiology point of view to go for GI workup. No evidence of acut e ischemia. No evidence of acute congestive heart failure or arrhythmia ____ baseline. The patient is in AFib. The patient definitely needs long-term anticoagulation because of AFib and decreased LV function, so needs the GI workup to be done. The question about repeat cardiac catheterization, prob ably we will hold because the patient's last catheterization on 07/19/2013 was nonischemic cardiomyop athy ____ major ____ coronaries. LAD, circ and RCA essentially free of significant disease, only rosa isela gonal 1 is small vessel disease. Try to prevent injury to the further worsening kidney insufficiency and injury of the kidney, but definitely will add digoxin, diuretic, BRANDI inhibitors as blood pressur e is tolerated. Get a MUGA scan to assess LV function. We will get echo if not done and we will get more information from [facility]. Further recommendation after the finding of the i nitial workup and information based from the [facility]. We will follow with you. Thank you, Dr. Andrea Miller for providing us the opportunity in taking care of the patient. We will f jocelin with you. Mario Benavides MD cc: [id number] TT: 08/10/2016 15:42:41 Confirmation # [id number] Dictation # [id number] 08/10/2016 14:55:17
[2016-08-10 16:20] LABS: ADD MANUAL DIFF? NO
[2016-08-10 16:42] LABS: BASO # 0.01 K/mm3 (0.0-2.0); BASO % 0.1 % (0.0-3.0); EOS # 0.1 (0.0-0.7); EOS % 0.5 % (1.5-5.0); GRAN # 13.87 (1.4-6.5); GRAN % 85.3 % (50.0-68.0); LYMPH # 1.5 (1.2-3.4); MEAN CELL VOLUME 87.8 fL (80.0-105.0); MEAN CORPUSCULAR HEMOGLOBIN 29.2 pg (25.0-35.0); MEAN CORPUSCULAR HGB CONC 33.2 g/dl (31.0-37.0); MEAN PLATELET VOLUME 10.8 fl (7.0-11.0); MONO # 0.8 (0.1-0.6); MONO % 5.1 % (1.0-6.0); PLATELET COUNT 218 10^3/uL (120.0-450.0); RED CELL DISTRIBUTION WIDTH 17.1 % (11.5-14.5); WHITE BLOOD COUNT 16.3 10^3/ul (4.5-11.0)
[2016-08-10 17:03] LABS: HEMATOCRIT 23.8 % (42.0-52.0)
--- NOTE | 2016-08-10 21:35 | CP.PCM.PN ---
Subjective - Date & Time of Evaluation Date of Evaluation: 08/10/16 Time of Evaluation: 09:00 - Subjective Subjective: Patient is seen & examined at the bedside this AM. Was transfused two units PRBCs yesterday but repeat H/H still low at 3 AM. Repeat Hgb 7.1 up from 6.6. Patient denied any pain, nausea, vomiting, but reported fever. Objective - Vital Signs/Intake and Output Vital Signs (last 24 hours): Temp Pulse Resp BP Pulse Ox 97.9 F 96 H 18 135/64 100 08/10/16 21:31 08/10/16 21:31 08/10/16 21:31 08/10/16 21:31 08/10/16 20:00 Intake and Output: 08/10/16 08/11/16 18:59 06:59 Intake Total 425 0 Output Total 1350 Balance -925 0 - Medications Medications: Current Medications Carvedilol (Coreg) 3.125 mg PO BID [facility] Last Admin: 08/10/16 18:49 Dose: 3.125 mg Digoxin (Lanoxin) 0.125 mg PO [facility] [place] Pantoprazole Sodium (Protonix 40mg Ivpb) 40 mg in 100 mls @ 20 mls/hr IVPB .Q5H [facility] Last Admin: 08/10/16 08:14 Dose: 20 mls/hr Insulin Detemir (Levemir) 10 unit SC BID [facility] Last Admin: 08/10/16 18:52 Dose: 10 unit Insulin Human Regular (Humulin R Med) 0 units SC [facility] PRN Reason: Protocol Last Admin: 08/10/16 18:51 Dose: 1 units - Labs Labs: 08/10/16 16:10 08/10/16 09:30 PT 15.4 Seconds (9.9-11.8) H 08/09/16 16:00 INR 1.43 (0.93-1.08) H 08/09/16 16:00 APTT 20.8 Seconds (23.7-30.8) L 08/09/16 16:00 - Constitutional Appears: Well, No Acute Distress - Head Exam Head Exam: ATRAUMATIC, NORMAL INSPECTION, NORMOCEPHALIC - Eye Exam Eye Exam: EOMI, Normal appearance, PERRL Pupil Exam: NORMAL ACCOMODATION, PERRL - ENT Exam ENT Exam: Mucous Membranes Moist, Normal Exam - Neck Exam Neck Exam: Full ROM, Normal Inspection. absent: Lymphadenopathy - Respiratory Exam Respiratory Exam: Clear to Ausculation Bilateral, NORMAL BREATHING PATTERN - Cardiovascular Exam Cardiovascular Exam: REGULAR RHYTHM, +S1, +S2. absent: Murmur - GI/Abdominal Exam GI & Abdominal Exam: Soft, Normal Bowel Sounds. absent: Tenderness - Rectal Exam Rectal Exam: Black Stool, Bloody Stool - Extremities Exam Extremities Exam: absent: Joint Swelling, Pedal Edema Additional comments: B/L Leg Healing Ulcers. Trace edema - Back Exam Back Exam: NORMAL INSPECTION. absent: CVA tenderness (L), CVA tenderness (R) - Neurological Exam Neurological Exam: Alert, Awake, CN II-XII Intact - Psychiatric Exam Psychiatric exam: Normal Affect, Normal Mood - Skin Skin Exam: Dry, Intact, Normal Color, Warm Assessment and Plan (1) GI bleed Assessment & Plan: Continue to bleed Hypotension-Resolved Anemia will need Repeat EGD Continue Protonix Infusion Status: Acute (2) Altered mental status Assessment & Plan: Metabolic Encephalopathy- ACute CVA Ruled out Continue to Monitor BP and BS Status: Acute (3) CHF (congestive heart failure) Assessment & Plan: Serial trop to R/O Demand Ischemia Hold ASA/Metoprolol Status: Chronic (4) CKD (chronic kidney disease) stage 3, GFR 30-59 ml/min Status: Chronic
--- NOTE | 2016-08-10 21:45 | CARD ---
APPROVED REPORT INDICATION EVALUATE RC AND LV % EF PROCEDURE The above named patient recieved 21 millicuries of Tc99m tagged red blood cells intravenously. After achieving equilibrium, gated imaging of 16/frame/cycle was performed utillizing Gamma camera interfaced with a digital computer and gated device. Gated imaging was then performed in the left anterior oblique, anterior, and the left lateral projections. Findings Left Ventricle: The quality of the study is suboptimal due to poor positioning and labeling of RBC. The left ventricle is mildly enlarged. The right ventricle is normal in size. Wall motion study shows diffuse hypokinesis of the left ventricle. RV wall motion is normal. The right atrium is dynamic. The remainder of the study is unremarkable. Impressions Technically suboptimal study. Mild to Moderate LV dysfunction with diffuse hypokinesis. LVEF = 40%. Normal RV wall motion.
[2016-08-11] MEDS: Pantoprazole 40mg/100ml IVPB 40 MG/100 ML BAG IVPB SCH ×2 (00:12→05:20)
--- NOTE | 2016-08-11 02:23 | CARD ---
APPROVED REPORT EKG Measurement Heart [id number] <Conclusion> Atrial fibrillation ST & T wave abnormality, consider lateral ischemia or digitalis effect Prolonged QT Abnormal ECG
[2016-08-11 02:40] LABS: HEMATOCRIT 27.3 % (42.0-52.0)
[2016-08-11 07:05] LABS: ADD MANUAL DIFF? NO
[2016-08-11 07:20] LABS: BASO # 0.02 K/mm3 (0.0-2.0); BASO % 0.1 % (0.0-3.0); EOS # 0.2 (0.0-0.7); EOS % 1.1 % (1.5-5.0); GRAN # 19.17 (1.4-6.5); GRAN % 89.4 % (50.0-68.0); HEMATOCRIT 28.9 % (42.0-52.0); LYMPH # 1.1 (1.2-3.4); LYMPH % 5.1 % (22.0-35.0); MEAN CELL VOLUME 87.6 fL (80.0-105.0); MEAN CORPUSCULAR HEMOGLOBIN 28.5 pg (25.0-35.0); MEAN CORPUSCULAR HGB CONC 32.5 g/dl (31.0-37.0); MEAN PLATELET VOLUME 10.6 fl (7.0-11.0); MONO # 0.9 (0.1-0.6); MONO % 4.3 % (1.0-6.0); PLATELET COUNT 220 10^3/uL (120.0-450.0); RED CELL DISTRIBUTION WIDTH 16.7 % (11.5-14.5); WHITE BLOOD COUNT 21.4 10^3/ul (4.5-11.0)
[2016-08-11 07:30] LABS: ALB/GLOB RATIO 0.8 (1.1-1.8); ALKALINE PHOSPHATASE 80 U/L (38-133); ALT/SGPT 42 U/L (7-56); AST/SGOT 34 U/L (15-59); BILIRUBIN,TOTAL 2.5 mg/dL (0.2-1.3); CALCIUM 8.3 mg/dL (8.4-10.5); CHLORIDE 107 mmol/L (98-107); CHOLESTEROL 51 mg/dL (130-200); GFR AFRICAN-AMERICAN 28; MAGNESIUM 2.5 mg/dL (1.7-2.2); PHOSPHOROUS 3.3 mg/dL (2.5-4.5)
[2016-08-11 07:38] LABS: CARBON DIOXIDE 39 mmol/L (21-33)
[2016-08-11 07:40] LABS: BLOOD UREA NITROGEN 118 mg/dL (7-21)
[2016-08-11 07:52] LABS: SODIUM 156 mmol/L (132-148)
[2016-08-11 07:54] LABS: GLUCOSE,RANDOM 33 mg/dL (70-110)
[2016-08-11 07:55] LABS: POTASSIUM 2.5 mmol/L (3.6-5.0)
[2016-08-11] MEDS ORDERED: Barium Sulfate Susp 2.1% w/v, 2.0% w/w 450 mL Bottle PO ONE (08:31)
--- NOTE | 2016-08-11 08:48 | CP.PCM.PN ---
<LaurasalJuan F delacruz - Last Filed: 08/11/16 12:53> Subjective - Date & Time of Evaluation Date of Evaluation: 08/11/16 Time of Evaluation: 07:00 - Subjective Subjective: PGY4 GI Fellow Progress Note Patient seen and examined bedside this morning. 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 The patient remains confused, though able to tell me he is in [place] today. He became emotional during interview stating that nobody has come to visit him though his son was apparently at bedside yesterday. Admits to some abdominal cramping but no other complaints. Was sitting on commode but no BM/urine noted. 12 system ROS limited given clinical condition. Objective - Vital Signs/Intake and Output Vital Signs (last 24 hours): Temp Pulse Resp BP Pulse Ox 98.3 F 94 H 21 116/72 98 08/11/16 04:00 08/11/16 06:00 08/11/16 06:00 08/11/16 06:00 08/11/16 06:00 Intake and Output: 08/11/16 08/11/16 06:59 18:59 Intake Total 1758 Output Total 1200 Balance 558 - Medications Medications: Current Medications Carvedilol (Coreg) 3.125 mg PO BID [facility] Last Admin: 08/10/16 18:49 Dose: 3.125 mg Digoxin (Lanoxin) 0.125 mg PO F [facility] Pantoprazole Sodium (Protonix 40mg Ivpb) 40 mg in 100 mls @ 20 mls/hr IVPB .Q5H [facility] Last Admin: 08/11/16 05:20 Dose: 20 mls/hr Insulin Detemir (Levemir) 10 unit SC BID [facility] Last Admin: 08/10/16 18:52 Dose: 10 unit Insulin Human Regular (Humulin R Med) 0 units SC [facility] PRN Reason: Protocol Last Admin: 08/10/16 21:59 Dose: 10 units - Labs Labs: 08/11/16 06:30 08/11/16 06:30 PT 15.4 Seconds (9.9-11.8) H 08/09/16 16:00 INR 1.43 (0.93-1.08) H 08/09/16 16:00 APTT 20.8 Seconds (23.7-30.8) L 08/09/16 16:00 - Constitutional Appears: Non-toxic, No Acute Distress - Eye Exam Eye Exam: EOMI, PERRL - ENT Exam ENT Exam: Mucous Membranes Dry - Respiratory Exam Respiratory Exam: Rales. absent: Clear to Ausculation Bilateral, Rhonchi, Wheezes - Cardiovascular Exam Cardiovascular Exam: Tachycardia, Irregular Rhythm, +S1, +S2 - GI/Abdominal Exam GI & Abdominal Exam: Soft, Normal Bowel Sounds. absent: Distended, Firm, Guarding, Rigid, Tenderness, Organomegaly - Extremities Exam Additional comments: LE ulcers noted - Neurological Exam Neurological Exam: Altered, Awake - Psychiatric Exam Psychiatric exam: Anxious, Depressed - Skin Skin Exam: Dry, Warm - Additional Findings Additional findings: wearing lifevest Assessment and Plan - Assessment and Plan (Free Text) Assessment: Patient is a 65yo male with PMHx significant for DM, HTN, atrial fibrillation on Eliquis, CHF (EF 15% in 2013), prior CVA, dementia who presented to the ED brought in by family for altered mentation. -Altered mental status -Anemia -Indirect hyperbilirubinemia/Elevated LDH suspicious for hemolysis -Hyperglycemia -Hypokalemia/Hypernatremia -Acute kidney injury on CKD suspected, unclear baseline Plan: -Tolerating liquid diet without issue -No evidence of any overt bleeding since arrival to the ICU -S/P 6 units PRBCs with increase of HGB from 5.3 to 9.5 -D/C protonix gtt -Patient would benefit from EGD but needs to be medically optimized first - worsening leukocytosis/hypokalemia/hypernatremia -Hold Eliquis -MUGA scan reviewed with cardiology - EF 40% -No plan for cardiac catheterization at this time -Keep NPO past MN; if clinically improved tomorrow, consider EGD pending consent from family <Pascual Hancock - Last Filed: 08/11/16 13:00> Objective - Vital Signs/Intake and Output Vital Signs (last 24 hours): Temp Pulse Resp BP Pulse Ox 98.3 F 105 H 21 120/70 98 08/11/16 04:00 08/11/16 11:17 08/11/16 06:00 08/11/16 11:17 08/11/16 06:00 Intake and Output: 08/11/16 08/11/16 06:59 18:59 Intake Total 1758 Output Total 1200 Balance 558 - Medications Medications: Current Medications Carvedilol (Coreg) 3.125 mg PO BID [facility] Last Admin: 08/11/16 11:17 Dose: 3.125 mg Digoxin (Lanoxin) 0.125 mg PO MWF [facility] Potassium Phosphate 15 mmole/ (Dextrose) 255 mls @ 42.5 mls/hr IVPB ONCE ONE Stop: 08/11/16 19:59 Potassium Chloride (Potassium Chloride 10 Meq/100 Ml) 10 meq in 100 mls @ 100 mls/hr IVPB Q2H [facility] Stop: 08/11/16 17:29 Last Admin: 08/11/16 11:26 Dose: 100 mls/hr Insulin Detemir (Levemir) 10 unit SC BID [facility] Last Admin: 08/11/16 11:20 Dose: 10 unit Insulin Human Regular (Humulin R Med) 0 units SC ACHS [facility] PRN Reason: Protocol Last Admin: 08/11/16 11:16 Dose: Not Given Phenazopyridine HCl (Pyridium) 200 mg PO BID [facility] - Labs Labs: 08/11/16 06:30 08/11/16 08:09 PT 15.4 Seconds (9.9-11.8) H 08/09/16 16:00 INR 1.43 (0.93-1.08) H 08/09/16 16:00 APTT 20.8 Seconds (23.7-30.8) L 08/09/16 16:00 Attending/Attestation - Attestation I have personally seen and examined this patient.: Yes I have fully participated in the care of the patient.: Yes I have reviewed all pertinent clinical information, including history, physical exam and plan: Yes Notes (Text): 08/11/16 12:58 65 year old male with history of atrial fibrillation on Eliquis, DM, HTN, CHF, CVA who was brought to hospital with complaint of altered mental status. 1. Melena 2. Anemia Plan: - Continue with PPI therapy - Clear liquid diet as tolerated - Eliquis held due to concern for bleeding - monitor for overt signs of GI bleedign - medical optimization from CHF/electolyte/blood sugar standpoint - Would likely need endoscopic evaluation when medically stable
[2016-08-11 09:14] LABS: ALB/GLOB RATIO 0.9 (1.1-1.8); BILIRUBIN,TOTAL 2.5 mg/dL (0.2-1.3); CALCIUM 8.3 mg/dL (8.4-10.5)
[2016-08-11] MEDS ORDERED: Potassium Chloride 20 mEq ER Tab PO ONE (10:18)
[2016-08-11] MEDS ORDERED: Sodium Chloride 0.45% 1,000 ML IV ONE (10:58)
[2016-08-11] MEDS: Insulin Reg-MEDIUM-Coverage SC SCH ×4 (11:16→23:00)
[2016-08-11] MEDS: Insulin Detemir 100 units/ml Vial (Levemir) SC SCH ×2 (11:20→18:14)
--- NOTE | 2016-08-11 11:52 | PN ---
DATE: 08/11/2016 REASON FOR CONSULTATION: Cardiac evaluation, cardiomyopathy, AFib on LifeVest, admitted with GI bleed, guaiac stool positive and hemoglobin 7.8. BRIEF CLINICAL HISTORY: A 65-year-old male with a past medical history significant for diabetes, hypertension, hyperlipidemia, anemia, depression, atrial fibrillation on Eliquis, history of recently admitted to [facility], discharged on LifeVest, history of cardiac catheterization, nonobstructive coronary artery disease, cardiac catheterization 07/19/[address] Gil, 07/19/2013. The patient is admitted with altered mental status as well. PHYSICAL EXAMINATION: VITAL SIGNS: Temperature afebrile, heart rate 73, blood pressure 116/72. HEENT: PERRLA. Extraocular muscles intact. NECK: Supple. No carotid bruits. No thyromegaly. CHEST: Clear to auscultation. HEART: S1, S2 regular. ABDOMEN: Soft. EXTREMITIES: Clubbing, cyanosis negative. BLOOD WORKUP: WBC 21.4, hemoglobin 9.4, hematocrit 28.9, platelet count 222. Chemistry shows sodium 138, potassium 3, chloride 105, carbon dioxide 41, anion gap of 14, BUN 119, creatinine 2.9. IMPRESSION: Gastrointestinal bleed, status post packed red blood cell transfusion, admitting hemoglobin 5.3, stool guaiac positive on admission. Yesterday, patient underwent MUGA scan to see left ventricular and right ventricular function, dated 08/10/2016, that showed left ventricular ejection fraction 40%, normal right ventricle. Nonischemic cardiomyopathy, status post cardiac catheterization on 07/19/2013, nonobstructive coronary artery disease, only diagonal 1 disease. The patient was recently admitted to [facility] where the patient was put on LifeVest. Medical records from [place] reviewed. Only atrial fibrillation noted, occasional premature ventricular contractions runs in 15-20 beats, doubt it is a primary ventricular fibrillation event that led to the physician to put on the LifeVest. Most likely, secondary to prophylaxis from nonischemic cardiomyopathy. I left a message to Dr. Vanegas, who was taking care at [place]. Also, left a message with Dr. Palmer as the patient's family said that Dr. Palmer was taking care of everything for the response. I also left a message to patient's daughter,FIDENCIO to get more information. Interim, we will continue the LifeVest. Continue Coreg, digoxin as blood pressure is tolerated. We will start low dose of BRANDI inhibitor as blood pressure is tolerated. Digoxin will continue Wednesday, Wednesday, Wednesday, start low doses. Most recently, MUGA scan shows ejection fraction 40%, whereas the patient's records from [facility], echo dated 07/13/2016 shows ejection fraction 20%-25% and the patient was in atrial fibrillation at that time of echo also, moderate to severe tricuspid regurgitation, mild mitral regurgitation, dated 07/13/2016. The patient had also Lexiscan done , that shows fixed defect, no reversible ischemia , dated 07/21/2016, done by Dr. Janice Russell. PLAN: At this time, for now, continue LifeVest, but we will get the information for indication of Life Vest more information will obtain from Dr. Vanegas and Dr. Palmer. We will discontinue LifeVest if no primary V T/ V Fib and follow up with Dr. Palmer. Thank you, Dr. Andrea Miller, for providing us the opportunity in taking care of the patient. We will start low dose of BRANDI inhibitors as blood pressure is tolerated. Now Eliquis is on hold because of the gastrointestinal bleed. In the long run, if needed, it needs to be adjusted with a renal dose. We will monitor the renal function. If renal function remains stable, consider BRANDI inhibitor. Since renal function is creatinine 2.8, so we will hold for now BRANDI to prevent further deterioration in renal function. Mario Benavides MD cc: Andrea Miller MD [phone] TT: 08/11/2016 11:51:12 Confirmation # [id number] Dictation # [id number] en MTDD
[2016-08-11] MEDS ORDERED: Potassium Phosphate 15 MMOLE in Dextrose 5% In Water 250 ML IVPB ONE (14:00)
--- NOTE | 2016-08-11 14:22 | CT ---
PROCEDURE: CT Abdomen and Pelvis without intravenous contrast HISTORY: GI bleed COMPARISON: None. TECHNIQUE: Without contrast.. Contrast Dose: 0 Radiation dose: Total exam DLP = 824.67 mGy-cm. This CT exam was performed using one or more of the following dose reduction techniques: Automated exposure control, adjustment of the mA and/or kV according to patient size, and/or use of iterative reconstruction technique. FINDINGS: LOWER THORAX: Right lower lobe infiltrate. Possible pneumonia. Trace right pleural effusion. Cardiomegaly. LIVER: Unremarkable. No gross lesion or ductal dilatation. GALLBLADDER AND BILE DUCTS: Unremarkable. PANCREAS: Unremarkable. No gross lesion or ductal dilatation. SPLEEN: Unremarkable. ADRENALS: Unremarkable. No mass. KIDNEYS AND URETERS: Exophytic right upper pole renal cortical cyst, 1.6 cm. Left lower pole nonobstructing renal calculus, 1j2 mm. VASCULATURE: Unremarkable. No aortic aneurysm. BOWEL: Unremarkable. No obstruction. No gross mural thickening. APPENDIX: Not identified. No secondary findings to suggest acute appendicitis. PERITONEUM: Unremarkable. No free fluid. No free air. LYMPH NODES: Unremarkable. No enlarged lymph nodes. BLADDER: Mild bladder wall thickening, diffusely. This may be due to lack of adequate distention. REPRODUCTIVE: Mild prostate enlargement. The prostate measures 5.2 cm transversely. BONES: No acute fracture. OTHER FINDINGS: None. IMPRESSION: No acute abnormality that may account for gastrointestinal bleeding. Nonobstructing 12 mm left renal calculus. Right lower lobe infiltrate. Possible pneumonia. Additional minor findings as above
--- NOTE | 2016-08-11 15:06 | PN ---
DATE: 08/11/2016 ADDENDUM to initial progress note dictated this morning. REASON FOR ADDENDUM: Information obtained from [place] as well as Dr. Vanegas. Dr. Vanegas called me back and said that he saw the patient while the patient was there and he ordered the echo, but jasmeet larson was essentially being followed by Dr. Palmer who put the LifeVest. Echo at that time, dated , that is a regular transthoracic echo, shows moderate to severely dilated LV, ejection fracti on ____%, nonischemic cardiomyopathy, mild mitral regurgitation, moderate to severe tricuspid regurgi tation, ejection fraction ____%. The patient had noninvasive cardiac workup including a stress thall ium, that is a Lexiscan, that showed no reversible ischemia, no evidence of ischemia, stress induced. Ejection fraction by stress test shows 23% with fairly decreased LV function. The patient had also bilateral arterial duplex of the lower extremities, right and left; no significant stenosis noted. The patient had also bilateral lower extremity deep vein assessed to rule out DVT. No evidence of DV T was noted, though incompetent valves noted secondary to congestive heart failure in the venous syst em of the lower extremity. The patient was put LifeVest, to follow with Dr. Palmer for AICD placement on 07/29/[address] Palmer. All the rhythm strips show patient had AFib with PVCs, a couple of beat s of nonsustained VT, but no evidence of primary ventricular fibrillation. The LifeVest is for proph ylaxis for nonischemic cardiomyopathy PLAN: At this time, plan is to discontinue the LifeVest. Continue the GI workup. Since the MUGA sc an shows ejection fraction 40%, will continue Coreg, continue digoxin. BRANDI, we will hold it because of renal insufficiency; we do not want to get further deterioration of the renal function. Discussed with the daughter. Left a message to discuss at length. Once the patient is discharged, follow severiano Palmer for further planning of AICD. Thank you, Dr. Andrea Miller, for providing this opportunity in taking care of the patient. Will follo w with you. Thanks also to Dr. Vanegas who texted me all the information from [place] and the discharge summar y, so we came to the conclusion that patient does not need the vest at this time because this is a pr imary nonischemic cardiomyopathy. LifeVest was for prevention of sudden cardiac , and there is no primary VF noted, though patient has underlying AFib and was on anticoagulation of Eliquis. Once the GI workup is done, will resume back anticoagulation. Also, patient is cleared to go for GI maddi p, no evidence of any ischemia. A stress test is negative. No evidence of ____ CHF or evidence of a ny arrhythmia except baseline AFib. So will clear the patient for GI workup as a high risk procedure . Because of underlying comorbidity, any procedure would be high risk, but no absolute contraindicat ion for endoscopy of colonoscopy. Mario Benavides MD cc: [id number] TT: 08/11/2016 12:08:53 Confirmation # [id number] Dictation # [id number] mt 08/11/2016 14:05:57
--- NOTE | 2016-08-11 15:25 | RAD ---
PROCEDURE: Radiographs of the right tibia and fibula. HISTORY: right diabetic lower leg ulcer COMPARISON: None available. TECHNIQUE: Frontal and lateral views obtained. FINDINGS: BONES: No fracture or destructive lesion. JOINT SPACES: Unremarkable. OTHER FINDINGS: None. IMPRESSION: Unremarkable radiographs of the right tibia and fibula.
--- NOTE | 2016-08-11 15:49 | CON ---
DATE: 08/11/2016 HISTORY OF PRESENT ILLNESS: A 65-year-old male seen at bedside for consultation, evaluation and robby gement of bilateral diabetic lower leg ulcerations. The patient does not speak Persian, but he has a friend at bedside who translated that he has had these wounds on his legs for over 2 months and was treated at [facility] prior to coming to [place]. PAST MEDICAL HISTORY: Significant for uncontrolled type 1 diabetes with peripheral vascular disease, depression, mild dementia, hypertension, anemia, AFib and congestive heart failure. SOCIAL HISTORY: The patient never smoked, never used illicit drugs and never drank. ALLERGIES: The patient has no known drug allergies. CURRENT MEDICATIONS: Include Aricept, atorvastatin, aspirin, ____, Cozaar, metformin and Paxil. SURGICAL HISTORY: Unobtainable. VITAL SIGNS: Reveal temperature of 98.3, pulse rate of 106, blood pressure 129/77, respiratory rate of 28. LABORATORY DATA: Reveal a white count of 21.4, hemoglobin 9.4, hematocrit of 28.9 and platelet count of 220. There is no microbiology report to note. OBJECTIVE: Weakly palpable left dorsalis pedis pulse and nonpalpable other pedal pulses. +1 nonpitt ing lower extremity edema. The patient is unable to detect 5.07 gram monofilament wire testing bilat erally. Lower extremity skin presents thin, shiny and discolored. Right lower leg presents with a f ull-thickness ulceration at the mid anterior portion of the leg that measures irregularly 4.5 cm x 3. 6 cm x 0.2 cm. The base of the ulcer is a mixture of granular, necrotic and fibrotic tissue. There is noted to be serous drainage only. There is no malodor. There is no purulence to suggest underlyi ng abscess formation. The wound does not probe to tendon or bone. There are full-thickness ulcerati ons on the left anterior mid leg that are primarily granular with some fibrotic tissue noted. There is serous drainage. There is no purulence. None of the wounds probe to tendon or bone. There are n o signs of localized cellulitis or ascending cellulitis bilaterally. ASSESSMENT: Full-thickness diabetic ulcerations to both lower legs. PLAN: Wounds were cultured and cultures were sent for sensitivities. Wounds were cleansed with norm al sterile saline. Will apply Santyl to the right lower leg and Bactroban to the left lower leg with a dry, sterile dressing. Arterial Dopplers and venous Dopplers will be ordered to ascertain lower e xtremity perfusion. Recommend Dr. Miguel Kirkland to evaluate Doppler results. Infectious disease consu lt warranted to evaluate culture and sensitivity report. The patient will be seen and followed daily . Kody Wilson DPM cc: [id number] TT: 08/11/2016 15:49:17 Confirmation # [id number] Dictation # [id number] mn
--- NOTE | 2016-08-11 16:51 | US ---
HISTORY: Leg pain and swelling. Evaluate for DVT PHYSICIAN(S): Miguel Kirkland MD. TECHNIQUE: Duplex sonography and color-flow Doppler with graded compression were used to evaluate the deep venous systems of both lower extremities. FINDINGS: The visualized deep venous systems of both lower extremities are sonographically normal and compressible. Normal wave forms and augmentation are seen. There is no sonographic evidence for deep venous thrombosis in the visualized segments of both lower extremities. IMPRESSION: No sonographic evidence for deep venous thrombosis in the visualized segments of both lower extremities.
--- NOTE | 2016-08-11 16:52 | US ---
PROCEDURE: Lower extremity LUIS exam HISTORY: Peripheral vascular disease with bilateral lower extremity ulceration. Diabetes PHYSICIAN(S): Miguel Kirkland MD. FINDINGS: The resting LUIS's are borderline elevated: Right, 1.35 and left, 1.3 The brachial systolic pressures are symmetric. The high thigh pressures and waveforms are relatively normal. The calf PVR waveforms augment normally. No significant gradients are noted across the thighs. The ankle and metatarsal waveforms are relatively normal and symmetric. No significant pressure gradients are noted across the lower legs. IMPRESSION: 1. Relatively normal LUIS and PVR examination at rest.
[2016-08-11 19:20] LABS: ADD MANUAL DIFF? NO
[2016-08-11 19:25] LABS: BASO # 0.01 K/mm3 (0.0-2.0); BASO % 0.1 % (0.0-3.0); EOS # 0.2 (0.0-0.7); EOS % 1.4 % (1.5-5.0); GRAN % 87.2 % (50.0-68.0); HEMATOCRIT 27.3 % (42.0-52.0); LYMPH # 1.1 (1.2-3.4); LYMPH % 6.9 % (22.0-35.0); MEAN CELL VOLUME 89.8 fL (80.0-105.0); MEAN CORPUSCULAR HEMOGLOBIN 29.6 pg (25.0-35.0); MEAN PLATELET VOLUME 10.9 fl (7.0-11.0); MONO # 0.7 (0.1-0.6); MONO % 4.4 % (1.0-6.0); PLATELET COUNT 210 10^3/uL (120.0-450.0); RED CELL DISTRIBUTION WIDTH 17.5 % (11.5-14.5); WHITE BLOOD COUNT 16.3 10^3/ul (4.5-11.0)
[2016-08-11 19:40] LABS: URINE BILIRUBIN NEGATIVE (NEGATIVE); URINE BLOOD LARGE (NEGATIVE); URINE GLUCOSE (UA) NEGATIVE (NEGATIVE); URINE KETONE NEGATIVE (NEGATIVE); URINE LEUKOCYTE ESTERASE MODERATE Leu/uL (NEGATIVE); URINE PROTEIN 30 mg/dL (<30 mg/dL); URINE UROBILINOGEN 0.2 E.U./dL (<1 E.U./dL)
[2016-08-11 19:43] LABS: URINE APPEARANCE CLEAR (CLEAR); URINE COLOR YELLOW (YELLOW)
[2016-08-11 19:55] LABS: URINE EPITHELIAL CELLS 0 - 2 /hpf (0-5); URINE WBC TNTC /hpf (0-6)
[2016-08-11 19:56] LABS: URINE BACTERIA NEG (NEG)
--- NOTE | 2016-08-11 20:20 | CP.CCUPN ---
<EspinosaFlorence - Last Filed: 08/11/16 20:34> CCU Subjective - Physician Review Events Since Last Encounter (Free Text): 08/11/16 20:34 Pt s/e at bedside this AM. Patient is awake, alert, and interacts appropriately , though his understanding about his current condition is dubious. Jovan any chest pain, SOB, fevers, nausea, vomiting, but complains of occasional BL leg pain and dysuria. Hgb above 9 today and vitals are stable, tolerating CLD well. CCU Objective - Vital Signs / Intake & Output Vital Signs (Last 4 hours): Vital Signs Pulse BP 08/11/16 18:18 112 H 108/69 Intake and Output (Last 8hrs): Intake & Output 08/11/16 08/11/16 08/11/16 06:59 14:59 22:59 Intake Total 1424 1210 Output Total 1200 600 Balance 224 610 Intake: IV 240 Right Antecubital 240 Oral 200 460 Blood Product 934 Red Blood Cells Cpd As1 325 Lr Unit [id number] Other 50 750 Red Blood Cells Cpd As1 50 Lr Unit [id number] Output: Urine 1200 600 Condom 100 Urethral ([place]) 1200 500 Other: Voiding Method Indwelling Catheter # Voids Urethral ([place]) 2 # Bowel Movements Urethral ([place]) 1 - Physical Exam Head: Positive for: Atraumatic, Normocephalic Pupils: Positive for: PERRL Extroacular Muscles: Positive for: EOMI Conjunctiva: Positive for: Normal Mouth: Positive for: Moist Mucous Membranes Pharnyx: Positive for: Normal. Negative for: ERYTHEMA, Peritonsilar Swelling Nose (External): Positive for: Atraumatic Neck: Positive for: Normal Range of Motion Respiratory/Chest: Positive for: Clear to Auscultation. Negative for: Respiratory Distress, Accessory Muscle Use Cardiovascular: Positive for: Normal S1, S2, Irregular Rhythm (occassional PVC's ), Peripheal Pulses Present, Tachycardic. Negative for: Murmurs Abdomen: Positive for: Normal Bowel Sounds. Negative for: Tenderness, Distention, Peritoneal Signs, Rebound, Guarding Upper Extremity: Positive for: Normal Inspection. Negative for: Cyanosis, Edema Lower Extremity: Positive for: Other (Lower legs covered in dressings c/d/i). Negative for: CALF TENDERNESS, NORMAL PULSES, Cyanosis Neurological: Positive for: GCS=15, CN II-XII Intact, Speech Normal Skin: Positive for: Warm, Normal Color Psychiatric: Positive for: Alert, Normal Affect, Normal Mood. Negative for: Normal Insight, Anxious, Agitated - Medications Active Medications: Active Medications Generic Name Dose Route Start Last Admin Trade Name Freq PRN Reason Stop Dose Admin Carvedilol 3.125 mg 08/10/16 18:00 08/11/16 18:18 Coreg PO 3.125 mg BID ANGELICA Administration Collagenase 0 gm 08/12/16 10:00 Santyl TOP 08/17/16 23:00 DAILY ANGELICA Digoxin 0.125 mg 08/12/16 10:00 Lanoxin PO MWF [facility] Dextrose 1,000 mls @ 75 mls/hr 08/11/16 17:04 Dextrose 5% In Water 1000 Ml IV .[id number] [facility] Insulin Detemir 10 unit 08/10/16 11:15 08/11/16 18:14 Levemir SC 10 unit BID [facility] Administration Insulin Human Regular 0 units 08/10/16 07:30 08/11/16 18:15 Humulin R Med SC 3 units ACHS [facility] Administration Protocol Mupirocin 0 gm 08/11/16 18:00 Bactroban Ointment TOP BID [facility] Phenazopyridine HCl 200 mg 08/11/16 12:00 08/11/16 18:17 Pyridium PO 200 mg BID ANGELICA Administration - Patient Studies Lab Studies: Lab Studies 08/11/16 08/11/16 08/11/16 Range/Units 19:10 18:30 18:00 WBC 16.3 H D (4.5-11.0) 10^3/ul RBC 3.04 L (3.5-6.1) 10^6/uL Hgb 9.0 L (14.0-18.0) gm/dL Hct 27.3 L (42.0-52.0) % MCV 89.8 (80.0-105.0) fL MCH 29.6 (25.0-35.0) pg MCHC 33.0 (31.0-37.0) g/dl RDW 17.5 H (11.5-14.5) % Plt Count 210 (120.0-450.0) 10^3/uL MPV 10.9 (7.0-11.0) fl Gran % 87.2 H (50.0-68.0) % Lymph % (Auto) 6.9 L (22.0-35.0) % [place] % (Auto) 4.4 (1.0-6.0) % Eos % (Auto) 1.4 L (1.5-5.0) % Baso % (Auto) 0.1 (0.0-3.0) % Gran # 14.20 H (1.4-6.5) Lymph # 1.1 L (1.2-3.4) [place] # 0.7 H (0.1-0.6) Eos # 0.2 (0.0-0.7) Baso # 0.01 (0.0-2.0) K/mm3 Sodium (132-148) mmol/L Potassium (3.6-5.0) mmol/L Chloride (98-107) mmol/L Carbon Dioxide (21-33) mmol/L Anion Gap (10-20) BUN (7-21) mg/dL Creatinine (0.5-1.4) mg/dL Est GFR ( Amer) Est GFR (Non-Af Amer) POC Glucose (mg/dL) 243 H (65-110) mg/dL Random Glucose (70-110) mg/dL Hemoglobin A1c (4.2-6.5) % Calcium (8.4-10.5) mg/dL Phosphorus (2.5-4.5) mg/dL Magnesium (1.7-2.2) mg/dL Total Bilirubin (0.2-1.3) mg/dL AST (15-59) U/L ALT (7-56) U/L Alkaline Phosphatase (38-133) U/L Troponin I ng/mL Total Protein (5.8-8.3) g/dL Albumin (3.0-4.8) g/dL Globulin gm/dL Albumin/Globulin Ratio (1.1-1.8) Triglycerides (35-160) mg/dL Cholesterol (130-200) mg/dL LDL Cholesterol Direct (0-129) mg/dL HDL Cholesterol (29-60) mg/dL TSH 3rd Generation (0.46-4.68) mIU/mL Urine Color Yellow (YELLOW) Urine Appearance Clear (CLEAR) Urine pH 6.0 (4.7-8.0) Ur Specific [place] 1.010 (1.005-1.035) Urine Protein 30 H (<30 mg/dL) mg/dL Urine Glucose (UA) Negative (NEGATIVE) mg/dL Urine Ketones Negative (NEGATIVE) mg/dL Urine Blood Large H (NEGATIVE) Urine Nitrate Negative (NEGATIVE) Urine Bilirubin Negative (NEGATIVE) Urine Urobilinogen 0.2 (<1 E.U./dL) E.U./dL Ur Leukocyte Esterase Moderate H (NEGATIVE) Seda/uL Urine RBC 10 - 15 (0-2) /hpf Urine WBC Tntc (0-6) /hpf Ur Epithelial Cells 0 - 2 (0-5) /hpf Urine Bacteria Neg (NEG) Blood Type Antibody Screen Crossmatch BBK History Checked 08/11/16 08/11/16 08/11/16 Range/Units 11:19 08:53 08:09 WBC (4.5-11.0) 10^3/ul RBC (3.5-6.1) 10^6/uL Hgb (14.0-18.0) gm/dL Hct (42.0-52.0) % MCV (80.0-105.0) fL MCH (25.0-35.0) pg MCHC (31.0-37.0) g/dl RDW (11.5-14.5) % Plt Count (120.0-450.0) 10^3/uL MPV (7.0-11.0) fl Gran % (50.0-68.0) % Lymph % (Auto) (22.0-35.0) % [place] % (Auto) (1.0-6.0) % Eos % (Auto) (1.5-5.0) % Baso % (Auto) (0.0-3.0) % Gran # (1.4-6.5) Lymph # (1.2-3.4) [place] # (0.1-0.6) Eos # (0.0-0.7) Baso # (0.0-2.0) K/mm3 Sodium 157 H* (132-148) mmol/L Potassium 3.0 L (3.6-5.0) mmol/L Chloride 105 (98-107) mmol/L Carbon Dioxide 41 H (21-33) mmol/L Anion Gap 14 (10-20) BUN 119 H (7-21) mg/dL Creatinine 2.9 H (0.5-1.4) mg/dL Est GFR ( Amer) 26 Est GFR (Non-Af Amer) 22 POC Glucose (mg/dL) 132 H 93 (65-110) mg/dL Random Glucose 111 H (70-110) mg/dL Hemoglobin A1c (4.2-6.5) % Calcium 8.3 L (8.4-10.5) mg/dL Phosphorus (2.5-4.5) mg/dL Magnesium (1.7-2.2) mg/dL Total Bilirubin 2.5 H (0.2-1.3) mg/dL AST 31 (15-59) U/L ALT 41 (7-56) U/L Alkaline Phosphatase 73 (38-133) U/L Troponin I ng/mL Total Protein 6.0 (5.8-8.3) g/dL Albumin 2.8 L (3.0-4.8) g/dL Globulin 3.2 gm/dL Albumin/Globulin Ratio 0.9 L (1.1-1.8) Triglycerides (35-160) mg/dL Cholesterol (130-200) mg/dL LDL Cholesterol Direct (0-129) mg/dL HDL Cholesterol (29-60) mg/dL TSH 3rd Generation (0.46-4.68) mIU/mL Urine Color (YELLOW) Urine Appearance (CLEAR) Urine pH (4.7-8.0) Ur Specific [place] (1.005-1.035) Urine Protein (<30 mg/dL) mg/dL Urine Glucose (UA) (NEGATIVE) mg/dL Urine Ketones (NEGATIVE) mg/dL Urine Blood (NEGATIVE) Urine Nitrate (NEGATIVE) Urine Bilirubin (NEGATIVE) Urine Urobilinogen (<1 E.U./dL) E.U./dL Ur Leukocyte Esterase (NEGATIVE) Seda/uL Urine RBC (0-2) /hpf Urine WBC (0-6) /hpf Ur Epithelial Cells (0-5) /hpf Urine Bacteria (NEG) Blood Type Antibody Screen Crossmatch BBK History Checked 08/11/16 08/11/16 08/11/16 Range/Units 07:29 06:30 06:30 WBC (4.5-11.0) 10^3/ul RBC (3.5-6.1) 10^6/uL Hgb (14.0-18.0) gm/dL Hct (42.0-52.0) % MCV (80.0-105.0) fL MCH (25.0-35.0) pg MCHC (31.0-37.0) g/dl RDW (11.5-14.5) % Plt Count (120.0-450.0) 10^3/uL MPV (7.0-11.0) fl Gran % (50.0-68.0) % Lymph % (Auto) (22.0-35.0) % [place] % (Auto) (1.0-6.0) % Eos % (Auto) (1.5-5.0) % Baso % (Auto) (0.0-3.0) % Gran # (1.4-6.5) Lymph # (1.2-3.4) [place] # (0.1-0.6) Eos # (0.0-0.7) Baso # (0.0-2.0) K/mm3 Sodium (132-148) mmol/L Potassium (3.6-5.0) mmol/L Chloride (98-107) mmol/L Carbon Dioxide (21-33) mmol/L Anion Gap (10-20) BUN (7-21) mg/dL Creatinine (0.5-1.4) mg/dL Est GFR ( Amer) Est GFR (Non-Af Amer) POC Glucose (mg/dL) 64 L (65-110) mg/dL Random Glucose (70-110) mg/dL Hemoglobin A1c 6.7 H (4.2-6.5) % Calcium (8.4-10.5) mg/dL Phosphorus (2.5-4.5) mg/dL Magnesium (1.7-2.2) mg/dL Total Bilirubin (0.2-1.3) mg/dL AST (15-59) U/L ALT (7-56) U/L Alkaline Phosphatase (38-133) U/L Troponin I ng/mL Total Protein (5.8-8.3) g/dL Albumin (3.0-4.8) g/dL Globulin gm/dL Albumin/Globulin Ratio (1.1-1.8) Triglycerides (35-160) mg/dL Cholesterol (130-200) mg/dL LDL Cholesterol Direct (0-129) mg/dL HDL Cholesterol (29-60) mg/dL TSH 3rd Generation 2.05 (0.46-4.68) mIU/mL Urine Color (YELLOW) Urine Appearance (CLEAR) Urine pH (4.7-8.0) Ur Specific [place] (1.005-1.035) Urine Protein (<30 mg/dL) mg/dL Urine Glucose (UA) (NEGATIVE) mg/dL Urine Ketones (NEGATIVE) mg/dL Urine Blood (NEGATIVE) Urine Nitrate (NEGATIVE) Urine Bilirubin (NEGATIVE) Urine Urobilinogen (<1 E.U./dL) E.U./dL Ur Leukocyte Esterase (NEGATIVE) Seda/uL Urine RBC (0-2) /hpf Urine WBC (0-6) /hpf Ur Epithelial Cells (0-5) /hpf Urine Bacteria (NEG) Blood Type Antibody Screen Crossmatch BBK History Checked 08/11/16 08/11/16 08/11/16 Range/Units 06:30 06:30 02:15 WBC 21.4 H D (4.5-11.0) 10^3/ul RBC 3.30 L (3.5-6.1) 10^6/uL Hgb 9.4 L 9.2 L (14.0-18.0) gm/dL Hct 28.9 L 27.3 L (42.0-52.0) % MCV 87.6 (80.0-105.0) fL MCH 28.5 (25.0-35.0) pg MCHC 32.5 (31.0-37.0) g/dl RDW 16.7 H (11.5-14.5) % Plt Count 220 (120.0-450.0) 10^3/uL MPV 10.6 (7.0-11.0) fl Gran % 89.4 H (50.0-68.0) % Lymph % (Auto) 5.1 L (22.0-35.0) % [place] % (Auto) 4.3 (1.0-6.0) % Eos % (Auto) 1.1 L (1.5-5.0) % Baso % (Auto) 0.1 (0.0-3.0) % Gran # 19.17 H (1.4-6.5) Lymph # 1.1 L (1.2-3.4) [place] # 0.9 H (0.1-0.6) Eos # 0.2 (0.0-0.7) Baso # 0.02 (0.0-2.0) K/mm3 Sodium 156 H* (132-148) mmol/L Potassium 2.5 L* D (3.6-5.0) mmol/L Chloride 107 (98-107) mmol/L Carbon Dioxide 39 H (21-33) mmol/L Anion Gap 13 (10-20) BUN 118 H (7-21) mg/dL Creatinine 2.8 H (0.5-1.4) mg/dL Est GFR ( Amer) 28 Est GFR (Non-Af Amer) 23 POC Glucose (mg/dL) (65-110) mg/dL Random Glucose 33 L* D (70-110) mg/dL Hemoglobin A1c (4.2-6.5) % Calcium 8.3 L (8.4-10.5) mg/dL Phosphorus 3.3 (2.5-4.5) mg/dL Magnesium 2.5 H (1.7-2.2) mg/dL Total Bilirubin 2.5 H (0.2-1.3) mg/dL AST 34 (15-59) U/L ALT 42 (7-56) U/L Alkaline Phosphatase 80 (38-133) U/L Troponin I ng/mL Total Protein 6.0 (5.8-8.3) g/dL Albumin 2.8 L (3.0-4.8) g/dL Globulin 3.3 gm/dL Albumin/Globulin Ratio 0.8 L (1.1-1.8) Triglycerides 71 (35-160) mg/dL Cholesterol 51 L (130-200) mg/dL LDL Cholesterol Direct < 30 (0-129) mg/dL HDL Cholesterol 18 L (29-60) mg/dL TSH 3rd Generation (0.46-4.68) mIU/mL Urine Color (YELLOW) Urine Appearance (CLEAR) Urine pH (4.7-8.0) Ur Specific [place] (1.005-1.035) Urine Protein (<30 mg/dL) mg/dL Urine Glucose (UA) (NEGATIVE) mg/dL Urine Ketones (NEGATIVE) mg/dL Urine Blood (NEGATIVE) Urine Nitrate (NEGATIVE) Urine Bilirubin (NEGATIVE) Urine Urobilinogen (<1 E.U./dL) E.U./dL Ur Leukocyte Esterase (NEGATIVE) Seda/uL Urine RBC (0-2) /hpf Urine WBC (0-6) /hpf Ur Epithelial Cells (0-5) /hpf Urine Bacteria (NEG) Blood Type Antibody Screen Crossmatch BBK History Checked 08/10/16 08/10/16 08/10/16 Range/Units 21:51 18:04 11:09 WBC (4.5-11.0) 10^3/ul RBC (3.5-6.1) 10^6/uL Hgb (14.0-18.0) gm/dL Hct (42.0-52.0) % MCV (80.0-105.0) fL MCH (25.0-35.0) pg MCHC (31.0-37.0) g/dl RDW (11.5-14.5) % Plt Count (120.0-450.0) 10^3/uL MPV (7.0-11.0) fl Gran % (50.0-68.0) % Lymph % (Auto) (22.0-35.0) % [place] % (Auto) (1.0-6.0) % Eos % (Auto) (1.5-5.0) % Baso % (Auto) (0.0-3.0) % Gran # (1.4-6.5) Lymph # (1.2-3.4) [place] # (0.1-0.6) Eos # (0.0-0.7) Baso # (0.0-2.0) K/mm3 Sodium (132-148) mmol/L Potassium (3.6-5.0) mmol/L Chloride (98-107) mmol/L Carbon Dioxide (21-33) mmol/L Anion Gap (10-20) BUN (7-21) mg/dL Creatinine (0.5-1.4) mg/dL Est GFR ( Amer) Est GFR (Non-Af Amer) POC Glucose (mg/dL) 401 H* 477 H* 449 H* (65-110) mg/dL Random Glucose (70-110) mg/dL Hemoglobin A1c (4.2-6.5) % Calcium (8.4-10.5) mg/dL Phosphorus (2.5-4.5) mg/dL Magnesium (1.7-2.2) mg/dL Total Bilirubin (0.2-1.3) mg/dL AST (15-59) U/L ALT (7-56) U/L Alkaline Phosphatase (38-133) U/L Troponin I ng/mL Total Protein (5.8-8.3) g/dL Albumin (3.0-4.8) g/dL Globulin gm/dL Albumin/Globulin Ratio (1.1-1.8) Triglycerides (35-160) mg/dL Cholesterol (130-200) mg/dL LDL Cholesterol Direct (0-129) mg/dL HDL Cholesterol (29-60) mg/dL TSH 3rd Generation (0.46-4.68) mIU/mL Urine Color (YELLOW) Urine Appearance (CLEAR) Urine pH (4.7-8.0) Ur Specific [place] (1.005-1.035) Urine Protein (<30 mg/dL) mg/dL Urine Glucose (UA) (NEGATIVE) mg/dL Urine Ketones (NEGATIVE) mg/dL Urine Blood (NEGATIVE) Urine Nitrate (NEGATIVE) Urine Bilirubin (NEGATIVE) Urine Urobilinogen (<1 E.U./dL) E.U./dL Ur Leukocyte Esterase (NEGATIVE) Seda/uL Urine RBC (0-2) /hpf Urine WBC (0-6) /hpf Ur Epithelial Cells (0-5) /hpf Urine Bacteria (NEG) Blood Type Antibody Screen Crossmatch BBK History Checked 08/10/16 08/10/16 08/10/16 Range/Units 09:30 09:30 07:24 WBC (4.5-11.0) 10^3/ul RBC (3.5-6.1) 10^6/uL Hgb (14.0-18.0) gm/dL Hct (42.0-52.0) % MCV (80.0-105.0) fL MCH (25.0-35.0) pg MCHC (31.0-37.0) g/dl RDW (11.5-14.5) % Plt Count (120.0-450.0) 10^3/uL MPV (7.0-11.0) fl Gran % (50.0-68.0) % Lymph % (Auto) (22.0-35.0) % [place] % (Auto) (1.0-6.0) % Eos % (Auto) (1.5-5.0) % Baso % (Auto) (0.0-3.0) % Gran # (1.4-6.5) Lymph # (1.2-3.4) [place] # (0.1-0.6) Eos # (0.0-0.7) Baso # (0.0-2.0) K/mm3 Sodium 148 (132-148) mmol/L Potassium 3.3 L (3.6-5.0) mmol/L Chloride 101 (98-107) mmol/L Carbon Dioxide 36 H (21-33) mmol/L Anion Gap 14 (10-20) BUN 139 H* (7-21) mg/dL Creatinine 2.9 H (0.5-1.4) mg/dL Est GFR ( Amer) 26 Est GFR (Non-Af Amer) 22 POC Glucose (mg/dL) 391 H 386 H (65-110) mg/dL Random Glucose 392 H* (70-110) mg/dL Hemoglobin A1c (4.2-6.5) % Calcium 8.1 L (8.4-10.5) mg/dL Phosphorus (2.5-4.5) mg/dL Magnesium (1.7-2.2) mg/dL Total Bilirubin (0.2-1.3) mg/dL AST (15-59) U/L ALT (7-56) U/L Alkaline Phosphatase (38-133) U/L Troponin I 0.05 ng/mL Total Protein (5.8-8.3) g/dL Albumin (3.0-4.8) g/dL Globulin gm/dL Albumin/Globulin Ratio (1.1-1.8) Triglycerides (35-160) mg/dL Cholesterol (130-200) mg/dL LDL Cholesterol Direct (0-129) mg/dL HDL Cholesterol (29-60) mg/dL TSH 3rd Generation (0.46-4.68) mIU/mL Urine Color (YELLOW) Urine Appearance (CLEAR) Urine pH (4.7-8.0) Ur Specific [place] (1.005-1.035) Urine Protein (<30 mg/dL) mg/dL Urine Glucose (UA) (NEGATIVE) mg/dL Urine Ketones (NEGATIVE) mg/dL Urine Blood (NEGATIVE) Urine Nitrate (NEGATIVE) Urine Bilirubin (NEGATIVE) Urine Urobilinogen (<1 E.U./dL) E.U./dL Ur Leukocyte Esterase (NEGATIVE) Seda/uL Urine RBC (0-2) /hpf Urine WBC (0-6) /hpf Ur Epithelial Cells (0-5) /hpf Urine Bacteria (NEG) Blood Type Antibody Screen Crossmatch BBK History Checked 08/10/16 08/09/16 Range/Units 03:30 18:00 WBC (4.5-11.0) 10^3/ul RBC (3.5-6.1) 10^6/uL Hgb (14.0-18.0) gm/dL Hct (42.0-52.0) % MCV (80.0-105.0) fL MCH (25.0-35.0) pg MCHC (31.0-37.0) g/dl RDW (11.5-14.5) % Plt Count (120.0-450.0) 10^3/uL MPV (7.0-11.0) fl Gran % (50.0-68.0) % Lymph % (Auto) (22.0-35.0) % [place] % (Auto) (1.0-6.0) % Eos % (Auto) (1.5-5.0) % Baso % (Auto) (0.0-3.0) % Gran # (1.4-6.5) Lymph # (1.2-3.4) [place] # (0.1-0.6) Eos # (0.0-0.7) Baso # (0.0-2.0) K/mm3 Sodium (132-148) mmol/L Potassium (3.6-5.0) mmol/L Chloride (98-107) mmol/L Carbon Dioxide 38 H (21-33) mmol/L Anion Gap 15 (10-20) BUN 139 H* (7-21) mg/dL Creatinine (0.5-1.4) mg/dL Est GFR ( Amer) Est GFR (Non-Af Amer) POC Glucose (mg/dL) (65-110) mg/dL Random Glucose 345 H* D (70-110) mg/dL Hemoglobin A1c (4.2-6.5) % Calcium (8.4-10.5) mg/dL Phosphorus (2.5-4.5) mg/dL Magnesium (1.7-2.2) mg/dL Total Bilirubin (0.2-1.3) mg/dL AST (15-59) U/L ALT (7-56) U/L Alkaline Phosphatase (38-133) U/L Troponin I ng/mL Total Protein (5.8-8.3) g/dL Albumin (3.0-4.8) g/dL Globulin gm/dL Albumin/Globulin Ratio (1.1-1.8) Triglycerides (35-160) mg/dL Cholesterol (130-200) mg/dL LDL Cholesterol Direct (0-129) mg/dL HDL Cholesterol (29-60) mg/dL TSH 3rd Generation (0.46-4.68) mIU/mL Urine Color (YELLOW) Urine Appearance (CLEAR) Urine pH (4.7-8.0) Ur Specific [place] (1.005-1.035) Urine Protein (<30 mg/dL) mg/dL Urine Glucose (UA) (NEGATIVE) mg/dL Urine Ketones (NEGATIVE) mg/dL Urine Blood (NEGATIVE) Urine Nitrate (NEGATIVE) Urine Bilirubin (NEGATIVE) Urine Urobilinogen (<1 E.U./dL) E.U./dL Ur Leukocyte Esterase (NEGATIVE) Seda/uL Urine RBC (0-2) /hpf Urine WBC (0-6) /hpf Ur Epithelial Cells (0-5) /hpf Urine Bacteria (NEG) Blood Type O POSITIVE Antibody Screen Negative Crossmatch See Detail BBK History Checked No verified bt Laboratory Results - last 24 hr 08/09/16 08/10/16 08/10/16 18:00 03:30 07:24 WBC RBC Hgb Hct MCV MCH MCHC RDW Plt Count MPV Gran % Lymph % (Auto) [place] % (Auto) Eos % (Auto) Baso % (Auto) Gran # Lymph # [place] # Eos # Baso # Sodium Potassium Chloride Carbon Dioxide 38 H Anion Gap 15 BUN 139 H* Creatinine Est GFR ( Amer) Est GFR (Non-Af Amer) POC Glucose (mg/dL) 386 H Random Glucose 345 H* D Hemoglobin A1c Calcium Phosphorus Magnesium Total Bilirubin AST ALT Alkaline Phosphatase Troponin I Total Protein Albumin Globulin Albumin/Globulin Ratio Triglycerides Cholesterol LDL Cholesterol Direct HDL Cholesterol TSH 3rd Generation Urine Color Urine Appearance Urine pH Ur Specific [place] Urine Protein Urine Glucose (UA) Urine Ketones Urine Blood Urine Nitrate Urine Bilirubin Urine Urobilinogen Ur Leukocyte Esterase Urine RBC Urine WBC Ur Epithelial Cells Urine Bacteria Blood Type O POSITIVE Antibody Screen Negative Crossmatch See Detail BBK History Checked No verified bt 08/10/16 08/10/16 08/10/16 09:30 09:30 11:09 WBC RBC Hgb Hct MCV MCH MCHC RDW Plt Count MPV Gran % Lymph % (Auto) [place] % (Auto) Eos % (Auto) Baso % (Auto) Gran # Lymph # [place] # Eos # Baso # Sodium 148 Potassium 3.3 L Chloride 101 Carbon Dioxide 36 H Anion Gap 14 BUN 139 H* Creatinine 2.9 H Est GFR ( Amer) 26 Est GFR (Non-Af Amer) 22 POC Glucose (mg/dL) 391 H 449 H* Random Glucose 392 H* Hemoglobin A1c Calcium 8.1 L Phosphorus Magnesium Total Bilirubin AST ALT Alkaline Phosphatase Troponin I 0.05 Total Protein Albumin Globulin Albumin/Globulin Ratio Triglycerides Cholesterol LDL Cholesterol Direct HDL Cholesterol TSH 3rd Generation Urine Color Urine Appearance Urine pH Ur Specific [place] Urine Protein Urine Glucose (UA) Urine Ketones Urine Blood Urine Nitrate Urine Bilirubin Urine Urobilinogen Ur Leukocyte Esterase Urine RBC Urine WBC Ur Epithelial Cells Urine Bacteria Blood Type Antibody Screen Crossmatch BBK History Checked 08/10/16 08/10/16 08/11/16 18:04 21:51 02:15 WBC RBC Hgb 9.2 L Hct 27.3 L MCV MCH MCHC RDW Plt Count MPV Gran % Lymph % (Auto) [place] % (Auto) Eos % (Auto) Baso % (Auto) Gran # Lymph # [place] # Eos # Baso # Sodium Potassium Chloride Carbon Dioxide Anion Gap BUN Creatinine Est GFR ( Amer) Est GFR (Non-Af Amer) POC Glucose (mg/dL) 477 H* 401 H* Random Glucose Hemoglobin A1c Calcium Phosphorus Magnesium Total Bilirubin AST ALT Alkaline Phosphatase Troponin I Total Protein Albumin Globulin Albumin/Globulin Ratio Triglycerides Cholesterol LDL Cholesterol Direct HDL Cholesterol TSH 3rd Generation Urine Color Urine Appearance Urine pH Ur Specific [place] Urine Protein Urine Glucose (UA) Urine Ketones Urine Blood Urine Nitrate Urine Bilirubin Urine Urobilinogen Ur Leukocyte Esterase Urine RBC Urine WBC Ur Epithelial Cells Urine Bacteria Blood Type Antibody Screen Crossmatch BBK History Checked 08/11/16 08/11/16 08/11/16 06:30 06:30 06:30 WBC 21.4 H D RBC 3.30 L Hgb 9.4 L Hct 28.9 L MCV 87.6 MCH 28.5 MCHC 32.5 RDW 16.7 H Plt Count 220 MPV 10.6 Gran % 89.4 H Lymph % (Auto) 5.1 L [place] % (Auto) 4.3 Eos % (Auto) 1.1 L Baso % (Auto) 0.1 Gran # 19.17 H Lymph # 1.1 L [place] # 0.9 H Eos # 0.2 Baso # 0.02 Sodium 156 H* Potassium 2.5 L* D Chloride 107 Carbon Dioxide 39 H Anion Gap 13 BUN 118 H Creatinine 2.8 H Est GFR ( Amer) 28 Est GFR (Non-Af Amer) 23 POC Glucose (mg/dL) Random Glucose 33 L* D Hemoglobin A1c 6.7 H Calcium 8.3 L Phosphorus 3.3 Magnesium 2.5 H Total Bilirubin 2.5 H AST 34 ALT 42 Alkaline Phosphatase 80 Troponin I Total Protein 6.0 Albumin 2.8 L Globulin 3.3 Albumin/Globulin Ratio 0.8 L Triglycerides 71 Cholesterol 51 L LDL Cholesterol Direct < 30 HDL Cholesterol 18 L TSH 3rd Generation Urine Color Urine Appearance Urine pH Ur Specific [place] Urine Protein Urine Glucose (UA) Urine Ketones Urine Blood Urine Nitrate Urine Bilirubin Urine Urobilinogen Ur Leukocyte Esterase Urine RBC Urine WBC Ur Epithelial Cells Urine Bacteria Blood Type Antibody Screen Crossmatch BBK History Checked 08/11/16 08/11/16 08/11/16 06:30 07:29 08:09 WBC RBC Hgb Hct MCV MCH MCHC RDW Plt Count MPV Gran % Lymph % (Auto) [place] % (Auto) Eos % (Auto) Baso % (Auto) Gran # Lymph # [place] # Eos # Baso # Sodium 157 H* Potassium 3.0 L Chloride 105 Carbon Dioxide 41 H Anion Gap 14 BUN 119 H Creatinine 2.9 H Est GFR ( Amer) 26 Est GFR (Non-Af Amer) 22 POC Glucose (mg/dL) 64 L Random Glucose 111 H Hemoglobin A1c Calcium 8.3 L Phosphorus Magnesium Total Bilirubin 2.5 H AST 31 ALT 41 Alkaline Phosphatase 73 Troponin I Total Protein 6.0 Albumin 2.8 L Globulin 3.2 Albumin/Globulin Ratio 0.9 L Triglycerides Cholesterol LDL Cholesterol Direct HDL Cholesterol TSH 3rd Generation 2.05 Urine Color Urine Appearance Urine pH Ur Specific [place] Urine Protein Urine Glucose (UA) Urine Ketones Urine Blood Urine Nitrate Urine Bilirubin Urine Urobilinogen Ur Leukocyte Esterase Urine RBC Urine WBC Ur Epithelial Cells Urine Bacteria Blood Type Antibody Screen Crossmatch BBK History Checked 08/11/16 08/11/16 08/11/16 08:53 11:19 18:00 WBC RBC Hgb Hct MCV MCH MCHC RDW Plt Count MPV Gran % Lymph % (Auto) [place] % (Auto) Eos % (Auto) Baso % (Auto) Gran # Lymph # [place] # Eos # Baso # Sodium Potassium Chloride Carbon Dioxide Anion Gap BUN Creatinine Est GFR ( Amer) Est GFR (Non-Af Amer) POC Glucose (mg/dL) 93 132 H 243 H Random Glucose Hemoglobin A1c Calcium Phosphorus Magnesium Total Bilirubin AST ALT Alkaline Phosphatase Troponin I Total Protein Albumin Globulin Albumin/Globulin Ratio Triglycerides Cholesterol LDL Cholesterol Direct HDL Cholesterol TSH 3rd Generation Urine Color Urine Appearance Urine pH Ur Specific [place] Urine Protein Urine Glucose (UA) Urine Ketones Urine Blood Urine Nitrate Urine Bilirubin Urine Urobilinogen Ur Leukocyte Esterase Urine RBC Urine WBC Ur Epithelial Cells Urine Bacteria Blood Type Antibody Screen Crossmatch BBK History Checked 08/11/16 08/11/16 18:30 19:10 WBC 16.3 H D RBC 3.04 L Hgb 9.0 L Hct 27.3 L MCV 89.8 MCH 29.6 MCHC 33.0 RDW 17.5 H Plt Count 210 MPV 10.9 Gran % 87.2 H Lymph % (Auto) 6.9 L [place] % (Auto) 4.4 Eos % (Auto) 1.4 L Baso % (Auto) 0.1 Gran # 14.20 H Lymph # 1.1 L [place] # 0.7 H Eos # 0.2 Baso # 0.01 Sodium Potassium Chloride Carbon Dioxide Anion Gap BUN Creatinine Est GFR ( Amer) Est GFR (Non-Af Amer) POC Glucose (mg/dL) Random Glucose Hemoglobin A1c Calcium Phosphorus Magnesium Total Bilirubin AST ALT Alkaline Phosphatase Troponin I Total Protein Albumin Globulin Albumin/Globulin Ratio Triglycerides Cholesterol LDL Cholesterol Direct HDL Cholesterol TSH 3rd Generation Urine Color Yellow Urine Appearance Clear Urine pH 6.0 Ur Specific [place] 1.010 Urine Protein 30 H Urine Glucose (UA) Negative Urine Ketones Negative Urine Blood Large H Urine Nitrate Negative Urine Bilirubin Negative Urine Urobilinogen 0.2 Ur Leukocyte Esterase Moderate H Urine RBC 10 - 15 Urine WBC Tntc Ur Epithelial Cells 0 - 2 Urine Bacteria Neg Blood Type Antibody Screen Crossmatch BBK History Checked Fingerstick Blood Sugar Results: 243 Review of Systems - Review of Systems Systems not reviewed;Unavailable: Dementia All systems: reviewed and no additional remarkable complaints except (as per HPI ) - Constitutional Constitutional: absent: Fever - EENT Nose/Mouth/Throat: absent: Sore Throat - Cardiovascular Cardiovascular: As Per HPI - Respiratory Respiratory: Dyspnea. absent: Cough - Gastrointestinal Gastrointestinal: As Per HPI - Genitourinary Genitourinary: Dysuria - Musculoskeletal Musculoskeletal: UNREMARKABLE - Integumentary Integumentary: As Per HPI - Neurological Neurological: UNREMARKABLE Critical Care Progress Note - Nutrition Nutrition: Nutrition Category Date Time Status Liquid Diet [DIET] Diets 08/10/16 Breakfast Ordered NPO past midnight [NPO Diet] [DIET] Diets 08/12/16 Breakfast Ordered Assessment/Plan - Assessment and Plan (Free Text) Assessment: 65M with history (per PMD) of severely decreased systolic function, DM, a fib on eliquis, and mild dementia per family who was admitted to the ICU for severe anemia with AMS, possible GI bleed, decreased systolic heart function, and CKD Neuro: Awake, alert, Oriented to person Denies any neurological symptoms Gross motor function intact, CNII-XII intact Continue to monitor Cardio: Denies chest pain, lifevest worn by patient, BP stable, mild tachycardia , with intermittent PVC's on monitor, no murmurs Yesterday patient's hgb was 7.9 after 4 units, 2 more were transfused overnight , hgb 9.4 this AM after a total of 6units PRBC since admit MUGA scan: LVEF: 40% Continue to monitor cardiac function/hemodynamic stability Hold eliquis Per Dr. Benavides recpancho, D/C life vest d/t patient's higher than expected EF and lack of concerning arrhythmias in the hospital Recheck CBC tomorrow AM, transfuse PRBC PRN to keep hgb>9.0 Continue IVF to keep BP stable but monitor for fluid overload Pulm: No complaints of cough/dyspnea CTAB, no R/R/E Small RLL infiltrate noted on CT abd/pelvis Continue to monitor, adminster lasix as needed for fluid overload GI: No complaints, abdominal exam benign, no distention or peritonitis No bloody BM's, tolerating CLD, CT A/P with PO contrast: No signs of acute bleed , L nephrolithiasis Plans for EGD tomorrow if cleared by anesthesia Continue to monitor H/H and transfuse as needed Protonix drip NPO after midnight Nephro: Patient on started on strong diuretic upon recent discharge from [facility] No complaints of dysuria, UOP adequate Severe hypernatremia, Persistent Hypokalemia, elevated BUN/Cr, Mg elevated, Phosph wnl Continue to trend CMP, strict I/O's D5W @75cc/h, encourage PO intake Supplement electrolytes monitor renal functions--limit lasix to PRN Endo: Hypoglycemia this AM. Resolved with breakfast Continue to monitor ISS low PRN ID: Afebrile, VSS WBC trending up with left shift, chronic legs wounds BL, complaining of dysuria Continue to monitor vitals, WBC UA pending D/C percy pyridium Follow up ID recs MSK/skin BL painful ulcers on lower legs--chronic per patient LE US: no DVT BL, no sign of PVD Follow up Dr. George recs Patient examined and discussed with Dr. Tona Espinosa, PGY1 <Shar Carbone - Last Filed: 08/17/16 15:32> CCU Objective - Patient Studies Lab Studies: Microbiology Studies 08/11/16 23:15 Blood Culture - Final Blood-Venous NO GROWTH AFTER 5 DAYS Gram Stain - Final TEST NOT PERFORMED 08/11/16 23:00 Blood Culture - Final Blood-Venous NO GROWTH AFTER 5 DAYS Gram Stain - Final TEST NOT PERFORMED Lab Studies 08/14/16 08/14/16 Range/Units 16:16 11:02 POC Glucose (mg/dL) 226 H 134 H (65-110) mg/dL Laboratory Results - last 24 hr 08/14/16 08/14/16 11:02 16:16 POC Glucose (mg/dL) 134 H 226 H Critical Care Progress Note - Nutrition Nutrition: Nutrition Category Date Time Status Liquid Diet [DIET] Diets 08/13/16 Breakfast Ordered Addendum Addendum: 08/17/16 15:31 patient was seen and examined and discussed at bedside with Dr. Espinosa. her note reflects my exam, assessment and plan, except as below. Meds/Labs/ONE reviewed 65 yo with severe LV systolic dysfunction, came with severe anemia, which was corrected. No overt bleeding. Hemodynamically and respiratory adams stable ok, to downgrade to tele ccm time 40 min
[2016-08-11] MEDS ORDERED: Vancomycin 1gm in NS 250ml 1 GM/250 ML BAG IVPB STA (23:03)
[2016-08-12 06:45] LABS: ADD MANUAL DIFF? NO
--- NOTE | 2016-08-12 06:56 | CP.PCM.PN ---
Subjective - Date & Time of Evaluation Date of Evaluation: 08/12/16 Time of Evaluation: 06:55 - Subjective Subjective: Patient was seen at bedside. Patient had rectal bleeding. Had tarry stools. No other complaints. Medical record was reviewed. This 65 year old male was admitted with generalized weakness, hyperglycemia. Has PMH of atrial fibrillation, HTN, CHF, PPM, DM II ,anemia, depressin, dementia, renal failure, abdominal hernia surgery. Objective - Vital Signs/Intake and Output Vital Signs (last 24 hours): Temp Pulse Resp BP Pulse Ox 99.1 F 100 H 104 H 113/78 98 08/12/16 06:00 08/12/16 06:00 08/12/16 06:00 08/12/16 06:00 08/12/16 06:00 Intake and Output: 08/11/16 08/12/16 18:59 06:59 Intake Total 1210 975 Output Total 600 400 Balance 610 575 - Medications Medications: Current Medications Carvedilol (Coreg) 3.125 mg PO BID [facility] Last Admin: 08/11/16 18:18 Dose: 3.125 mg Collagenase (Santyl) 0 gm TOP DAILY [facility] Stop: 08/17/16 23:00 Digoxin (Lanoxin) 0.125 mg PO MWF [facility] Dextrose (Dextrose 5% In Water 1000 Ml) 1,000 mls @ 75 mls/hr IV .[id number] [facility] Cefepime HCl (Maxipime 1gm) 1 gm in 100 mls @ 100 mls/hr IVPB Q12 [facility] PRN Reason: Protocol Insulin Detemir (Levemir) 10 unit SC BID [facility] Last Admin: 08/11/16 18:14 Dose: 10 unit Insulin Human Regular (Humulin R Med) 0 units SC ACHS [facility] PRN Reason: Protocol Last Admin: 08/11/16 23:00 Dose: Not Given Mupirocin (Bactroban Ointment) 0 gm TOP BID [facility] Phenazopyridine HCl (Pyridium) 200 mg PO BID [facility] Last Admin: 08/11/16 18:17 Dose: 200 mg - Labs Labs: 08/11/16 19:10 08/11/16 08:09 PT 15.4 Seconds (9.9-11.8) H 08/09/16 16:00 INR 1.43 (0.93-1.08) H 08/09/16 16:00 APTT 20.8 Seconds (23.7-30.8) L 08/09/16 16:00 - Constitutional Appears: Well, No Acute Distress - Head Exam Head Exam: ATRAUMATIC, NORMAL INSPECTION, NORMOCEPHALIC - Eye Exam Eye Exam: Normal appearance - ENT Exam ENT Exam: Normal External Ear Exam - Neck Exam Neck Exam: Normal Inspection - Respiratory Exam Respiratory Exam: NORMAL BREATHING PATTERN - Cardiovascular Exam Cardiovascular Exam: absent: JVD - GI/Abdominal Exam GI & Abdominal Exam: absent: Distended - Rectal Exam Rectal Exam: Black Stool - Extremities Exam Extremities Exam: Normal Inspection - Back Exam Back Exam: NORMAL INSPECTION - Neurological Exam Neurological Exam: Alert - Psychiatric Exam Psychiatric exam: Normal Affect, Normal Mood - Skin Skin Exam: Normal Color Assessment and Plan - Assessment and Plan (Free Text) Assessment: Rectal bleeding. HTN. CHF. DM II. Anemia. Depression. Plan: Stool Guiac ordered---Pos. CBC ordered. NPO. Already has order for type & screen. Protonix 40 mg IV stat ordered. Continue present management.
[2016-08-12 07:04] LABS: BASO # 0.02 K/mm3 (0.0-2.0); BASO % 0.1 % (0.0-3.0); EOS # 0.5 (0.0-0.7); EOS % 3.2 % (1.5-5.0); GRAN # 14.18 (1.4-6.5); GRAN % 83.9 % (50.0-68.0); HEMATOCRIT 28.5 % (42.0-52.0); LYMPH # 1.2 (1.2-3.4); LYMPH % 7.2 % (22.0-35.0); MEAN CELL VOLUME 90.2 fL (80.0-105.0); MEAN CORPUSCULAR HEMOGLOBIN 28.2 pg (25.0-35.0); MEAN CORPUSCULAR HGB CONC 31.2 g/dl (31.0-37.0); MONO # 0.9 (0.1-0.6); MONO % 5.6 % (1.0-6.0); PLATELET COUNT 223 10^3/uL (120.0-450.0); RED CELL DISTRIBUTION WIDTH 17.8 % (11.5-14.5); WHITE BLOOD COUNT 16.9 10^3/ul (4.5-11.0)
[2016-08-12 07:18] LABS: ALB/GLOB RATIO 0.8 (1.1-1.8); BILIRUBIN,TOTAL 1.9 mg/dL (0.2-1.3); CALCIUM 7.8 mg/dL (8.4-10.5); MAGNESIUM 2.4 mg/dL (1.7-2.2); PHOSPHOROUS 3.9 mg/dL (2.5-4.5); POTASSIUM 3.2 mmol/L (3.6-5.0); TOTAL PROTEIN 5.7 g/dL (5.8-8.3)
--- NOTE | 2016-08-12 07:20 | CP.PCM.PN ---
<Juan F Caputo - Last Filed: 08/12/16 09:52> Subjective - Date & Time of Evaluation Date of Evaluation: 08/12/16 Time of Evaluation: 07:00 - Subjective Subjective: PGY4 GI Fellow Progress Note Patient seen and examined bedside this morning. He denies any complaints and states he is feelign well. No abdominal pain. Denies any BM or rectal bleeding. Discussed case with nursing staff who state patient had dark, tarry stool which was sent to lab overnight and is FOBT positive. Denies any other issues overnight. 12 system ROS performed and negative except where stated. Objective - Vital Signs/Intake and Output Vital Signs (last 24 hours): Temp Pulse Resp BP Pulse Ox 99.1 F 100 H 104 H 113/78 98 08/12/16 06:00 08/12/16 06:00 08/12/16 06:00 08/12/16 06:00 08/12/16 06:00 Intake and Output: 08/12/16 08/12/16 06:59 18:59 Intake Total 975 Output Total 400 Balance 575 - Medications Medications: Current Medications Carvedilol (Coreg) 3.125 mg PO BID [facility] Last Admin: 08/11/16 18:18 Dose: 3.125 mg Collagenase (Santyl) 0 gm TOP DAILY [facility] Stop: 08/17/16 23:00 Digoxin (Lanoxin) 0.125 mg PO MWF [facility] Dextrose (Dextrose 5% In Water 1000 Ml) 1,000 mls @ 75 mls/hr IV .[id number] [facility] Cefepime HCl (Maxipime 1gm) 1 gm in 100 mls @ 100 mls/hr IVPB Q12 [facility] PRN Reason: Protocol Insulin Detemir (Levemir) 10 unit SC BID [facility] Last Admin: 08/11/16 18:14 Dose: 10 unit Insulin Human Regular (Humulin R Med) 0 units SC ACHS [facility] PRN Reason: Protocol Last Admin: 08/11/16 23:00 Dose: Not Given Mupirocin (Bactroban Ointment) 0 gm TOP BID [facility] Phenazopyridine HCl (Pyridium) 200 mg PO BID [facility] Last Admin: 08/11/16 18:17 Dose: 200 mg - Labs Labs: 08/12/16 06:10 08/11/16 08:09 PT 15.4 Seconds (9.9-11.8) H 08/09/16 16:00 INR 1.43 (0.93-1.08) H 08/09/16 16:00 APTT 20.8 Seconds (23.7-30.8) L 08/09/16 16:00 - Constitutional Appears: Non-toxic, No Acute Distress - Eye Exam Eye Exam: EOMI, PERRL - ENT Exam ENT Exam: Mucous Membranes Moist - Respiratory Exam Respiratory Exam: Clear to Ausculation Bilateral. absent: Rales, Rhonchi, Wheezes - Cardiovascular Exam Cardiovascular Exam: RRR, +S1, +S2 - GI/Abdominal Exam GI & Abdominal Exam: Soft, Normal Bowel Sounds. absent: Distended, Firm, Guarding, Rigid, Tenderness, Organomegaly - Extremities Exam Extremities Exam: Normal Inspection. absent: Pedal Edema - Neurological Exam Neurological Exam: Altered, Awake - Psychiatric Exam Psychiatric exam: Normal Affect, Normal Mood - Skin Skin Exam: Dry, Warm Assessment and Plan - Assessment and Plan (Free Text) Assessment: Patient is a 65yo male with PMHx significant for DM, HTN, atrial fibrillation on Eliquis, CHF (EF 15% in 2013), prior CVA, dementia who presented to the ED brought in by family for altered mentation. -Altered mental status -Anemia -Indirect hyperbilirubinemia/Elevated LDH suspicious for hemolysis -Hyperglycemia -Hypokalemia/Hypernatremia -Acute kidney injury on CKD suspected, unclear baseline Plan: -Patient had melanotic stool overnight -Awaiting AM CBC/CMP; patient had multiple electrolyte abnormalities and worsening BUN/Cr (though could be related to ongoing GI bleeding) -Maintain NPO, possible EGD this afternoon pending lab findings -S/P 6 units PRBCs with increase of HGB from 5.3 to 9.5 -Continue Protonix 40mg PO QAMAC -Hold Eliquis -MUGA scan reviewed with cardiology - EF 40%; cleared for EGD from cardiology -No plan for cardiac catheterization at this time -Will require consent for procedure from family member <Byron Mancia MD - Last Filed: 08/12/16 16:16> Objective - Vital Signs/Intake and Output Vital Signs (last 24 hours): Temp Pulse Resp BP Pulse Ox 98.3 F 105 H 18 99/64 L 99 08/12/16 16:02 08/12/16 16:02 08/12/16 16:02 08/12/16 16:02 08/12/16 16:02 Intake and Output: 08/12/16 08/12/16 06:59 18:59 Intake Total 975 0 Output Total 400 Balance 575 0 - Medications Medications: Current Medications Carvedilol (Coreg) 3.125 mg PO BID [facility] Last Admin: 08/12/16 10:09 Dose: 3.125 mg Collagenase (Santyl) 0 gm TOP DAILY [facility] Stop: 08/17/16 23:00 Last Admin: 08/12/16 10:10 Dose: 1 applic Digoxin (Lanoxin) 0.125 mg PO MWF [facility] Last Admin: 08/12/16 10:03 Dose: 0.125 mg Dextrose (Dextrose 5% In Water 1000 Ml) 1,000 mls @ 75 mls/hr IV .[id number] [facility] Last Admin: 08/12/16 07:30 Dose: 75 mls/hr Cefepime HCl (Maxipime 1gm) 1 gm in 100 mls @ 100 mls/hr IVPB Q12 [facility] PRN Reason: Protocol Last Admin: 08/12/16 10:10 Dose: 100 mls/hr Azithromycin (Zithromax 500mg In Ns) 500 mg in 250 mls @ 167 mls/hr IVPB DAILY [facility] PRN Reason: Protocol Lactated Ringer's (Lactated Ringer's) 1,000 mls @ 75 mls/hr IV .[id number] [facility] Insulin Detemir (Levemir) 10 unit SC BID [facility] Last Admin: 08/12/16 10:10 Dose: 10 unit Insulin Human Regular (Humulin R Med) 0 units SC ACHS [facility] PRN Reason: Protocol Last Admin: 08/12/16 11:30 Dose: Not Given Mupirocin (Bactroban Ointment) 0 gm TOP BID [facility] Last Admin: 08/12/16 10:09 Dose: 1 applic Pantoprazole Sodium (Protonix Ec Tab) 40 mg PO 0630 [facility] Last Admin: 08/12/16 08:17 Dose: 40 mg Phenazopyridine HCl (Pyridium) 200 mg PO BID [facility] Last Admin: 08/12/16 10:03 Dose: 200 mg - Labs Labs: 08/12/16 06:10 08/12/16 06:10 PT 12.7 Seconds (9.9-11.8) H 08/12/16 07:45 INR 1.18 (0.93-1.08) H 08/12/16 07:45 APTT 20.8 Seconds (23.7-30.8) L 08/09/16 16:00 Attending/Attestation - Attestation I have personally seen and examined this patient.: Yes I have fully participated in the care of the patient.: Yes I have reviewed all pertinent clinical information, including history, physical exam and plan: Yes Notes (Text): 08/12/16 16:10 Patient seen with GI fellow. This is a 65 yo male with PMHx significant for DM, HTN, atrial fibrillation on Eliquis, CHF (EF 15% in 2013 and now 40%), prior CVA , dementia who presented to the ED brought in by family for altered mentation for unknown cause. Also found to have electrolyte derangements and ELIZABETH. Overnight had melanotic stools s/p 6 units PRBC since admission with inappropriate increase. Hold eliquis. Will schedule for urgent upper endoscopy today. if negative will schedule for colonoscopy tomorrow. NPO. Discussed with PMD and nursing staff.
[2016-08-12] MEDS ORDERED: Pantoprazole 40 mg EC Tab PO SCH (07:23)
[2016-08-12] MEDS ORDERED: Potassium Chloride 20 mEq ER Tab PO ONE ×2 (07:32→12:00)
[2016-08-12] MEDS: Insulin Reg-MEDIUM-Coverage SC SCH ×3 (08:06→19:00)
[2016-08-12 08:18] LABS: INR 1.18 (0.93-1.08)
--- NOTE | 2016-08-12 09:20 | PN ---
DATE: 08/12/2016 This is a 65-year-old male seen at bedside for multiple open blisters to his lower extremities. The patient is awake and oriented; however, according to the nurse, the patient does have some dementia. VITAL SIGNS: Reviewed. His temperature is 99.1, his pulse was 100, blood pressure is 113/78. LABORATORY DATA: Show a white blood cell count of 16.9, H and H is 8.9 and 28.5 and his platelets ar e 223. His chemistries show a BUN and creatinine of 89 and 2.5, sodium and potassium is 153 and 3.2 and his random glucose was 81. He did run high glucose yesterday and had a fingerstick this morning. It was 232. Microbiology from the wounds is pending and from the urine, there was no growth. PHYSICAL EXAMINATION: Clinically, the patient's lower extremities were evaluated. His pulses are 1/ 4 bilateral palpable. He has no edema to the lower extremities. He has some open blisters on his an terior ascencio and one on the posterior calf. All of the are actively superficial and there are no sign s of any purulence, fluctuance or infection. His extremity ultrasounds were reviewed. His right LUIS is 1.3 and left was 1.3 and his waveforms were all noted to be with no significant pressure gradient and the waveforms were relatively normal bilateral. ASSESSMENT: Multiple leg ulcerations, relatively superficial at this time. There is some necrosis, but again, this is necrosis of eschar. PLAN OF TREATMENT: Local care. Today, we used Hydrogel and foam dressings to loosen the necrotic ti ssue so that it can be removed easily in the morning. We will await culture results and dressings we re applied. We also ordered foam boots to prevent any bedsores. Lisa George DPM cc: [id number] TT: 08/12/2016 09:19:26 Confirmation # [id number] Dictation # [id number] negar
[2016-08-12] MEDS: Digoxin 125 mcg (0.125 mg) Tab PO SCH (10:03)
[2016-08-12] MEDS: Cefepime 1gm in NS 100ml 1 GM/100 ML BAG IVPB SCH ×2 (10:10→22:31)
[2016-08-12] MEDS: Insulin Detemir 100 units/ml Vial (Levemir) SC SCH ×2 (10:10→19:04)
[2016-08-12] MEDS: Collagenase 250 Units/gm Ointment(30 gm) TOP SCH (10:10)
--- NOTE | 2016-08-12 10:58 | CP.PCM.PN ---
Subjective - Date & Time of Evaluation Date of Evaluation: 08/11/16 Time of Evaluation: 11:00 - Subjective Subjective: Patient was seen at bedside. Patient had rectal bleeding. Had tarry stools. No other complaints. Medical record was reviewed. Objective - Vital Signs/Intake and Output Vital Signs (last 24 hours): Temp Pulse Resp BP Pulse Ox 99.1 F 107 H 104 H 113/78 98 08/12/16 06:00 08/12/16 10:09 08/12/16 06:00 08/12/16 10:09 08/12/16 06:00 Intake and Output: 08/12/16 08/12/16 06:59 18:59 Intake Total 975 Output Total 400 Balance 575 - Medications Medications: Current Medications Carvedilol (Coreg) 3.125 mg PO BID [facility] Last Admin: 08/12/16 10:09 Dose: 3.125 mg Collagenase (Santyl) 0 gm TOP DAILY [facility] Stop: 08/17/16 23:00 Last Admin: 08/12/16 10:10 Dose: 1 applic Digoxin (Lanoxin) 0.125 mg PO MWF [facility] Last Admin: 08/12/16 10:03 Dose: 0.125 mg Dextrose (Dextrose 5% In Water 1000 Ml) 1,000 mls @ 75 mls/hr IV .[id number] [facility] Last Admin: 08/12/16 07:30 Dose: 75 mls/hr Cefepime HCl (Maxipime 1gm) 1 gm in 100 mls @ 100 mls/hr IVPB Q12 [facility] PRN Reason: Protocol Last Admin: 08/12/16 10:10 Dose: 100 mls/hr Azithromycin (Zithromax 500mg In Ns) 500 mg in 250 mls @ 167 mls/hr IVPB DAILY [facility] PRN Reason: Protocol Insulin Detemir (Levemir) 10 unit SC BID [facility] Last Admin: 08/12/16 10:10 Dose: 10 unit Insulin Human Regular (Humulin R Med) 0 units SC ACHS [facility] PRN Reason: Protocol Last Admin: 08/12/16 08:06 Dose: Not Given Mupirocin (Bactroban Ointment) 0 gm TOP BID [facility] Last Admin: 08/12/16 10:09 Dose: 1 applic Pantoprazole Sodium (Protonix Ec Tab) 40 mg PO 0630 [facility] Last Admin: 08/12/16 08:17 Dose: 40 mg Phenazopyridine HCl (Pyridium) 200 mg PO BID [facility] Last Admin: 08/12/16 10:03 Dose: 200 mg Potassium Chloride (K-Dur 20 Meq Er Tab) 20 meq PO ONCE ONE Stop: 08/12/16 12:01 - Labs Labs: 08/12/16 06:10 08/12/16 06:10 PT 12.7 Seconds (9.9-11.8) H 08/12/16 07:45 INR 1.18 (0.93-1.08) H 08/12/16 07:45 APTT 20.8 Seconds (23.7-30.8) L 08/09/16 16:00 - Constitutional Appears: Well, No Acute Distress - Head Exam Head Exam: ATRAUMATIC, NORMAL INSPECTION, NORMOCEPHALIC - Eye Exam Eye Exam: EOMI, Normal appearance, PERRL Pupil Exam: NORMAL ACCOMODATION, PERRL - ENT Exam ENT Exam: Mucous Membranes Moist, Normal Exam - Neck Exam Neck Exam: Full ROM, Normal Inspection. absent: Lymphadenopathy - Respiratory Exam Respiratory Exam: Rales, NORMAL BREATHING PATTERN. absent: Wheezes - Cardiovascular Exam Cardiovascular Exam: REGULAR RHYTHM, +S1, +S2. absent: Murmur - GI/Abdominal Exam GI & Abdominal Exam: Soft, Normal Bowel Sounds. absent: Tenderness - Rectal Exam Rectal Exam: NORMAL INSPECTION - Exam Exam: Circumcision, NORMAL INSPECTION External exam: NORMAL EXTERNAL EXAM Speculum exam: NORMAL SPECULUM EXAM Bimanual exam: NORMAL BIMANUAL EXAM - Extremities Exam Extremities Exam: Full ROM, Normal Capillary Refill, Normal Inspection. absent : Joint Swelling, Pedal Edema - Back Exam Back Exam: NORMAL INSPECTION - Neurological Exam Neurological Exam: Alert, Awake, CN II-XII Intact, Normal Gait, Oriented x3 - Psychiatric Exam Psychiatric exam: Normal Affect, Normal Mood - Skin Skin Exam: Dry, Intact, Normal Color, Warm Assessment and Plan (1) GI bleed Assessment & Plan: Continue to bleed Hypotension-Resolved Anemia CBC Q6hrs Coags Normal will need Repeat EGD Continue Protonix Infusion Status: Acute (2) Altered mental status Assessment & Plan: Metabolic Encephalopathy- ACute CVA Ruled out Continue to Monitor BP and BS Status: Acute (3) CHF (congestive heart failure) Assessment & Plan: Serial trop to R/O Demand Ischemia Hold ASA/Metoprolol Status: Chronic (4) CKD (chronic kidney disease) stage 3, GFR 30-59 ml/min Status: Acute
--- NOTE | 2016-08-12 12:24 | PN ---
DATE: 08/12/2016 PHYSICIAN: Mario Benavides MD. REASON FOR CONSULTATION AND FOLLOWUP: Cardiac evaluation, history of nonischemic cardiomyopathy on L ifeVest, GI bleed, ____ LifeVest. BRIEF CLINICAL HISTORY: A 65-year-old male with past medical history significant for diabetes, hyper tension, hyperlipidemia, renal insufficiency, depression, chronic atrial fibrillation, was on Eliquis at home, was recently admitted at [facility], shows decreased LV function. The nithya ent with LifeVest, admitted here with altered mental status, GI bleed, decreased hemoglobin, and guai ac stool positive. Had a cardiac catheterization 07/16/[address] Gil, nonobstructive coronary julio ry disease. The day before, the patient underwent a MUGA scan that shows ejection fraction 40%. The LifeVest was removed. All the chart from [place] was reviewed. No primary ventricular fibrillat ion or ventricular tachycardia event was noted. The LifeVest was placed because of the decreased LV function, ejection fraction 20-25%. Discussed at length with Dr. Vanegas, and all the chart from [facility] reviewed. The patient is now on telemetry, downgraded from ICU to telemetry. Denies any chest pain, shortness of breath, any palpitation, status post packed RBC transfusion. PHYSICAL EXAMINATION: VITAL SIGNS: Temperature afebrile, heart rate 104, blood pressure 113/78. HEENT: PERRLA. Extraocular muscles intact. NECK: Supple. No carotid bruits. No thyromegaly. CHEST: Clear to auscultation. HEART: S1, S2 regular. ABDOMEN: Soft. EXTREMITIES: Clubbing and cyanosis negative. LABORATORY DATA: Blood workup as follows: WBC ____, hemoglobin 8.9, hematocrit 28.5, platelet count 223. Chemistry shows sodium 153, potassium 3.2, chloride 106, carbon dioxide 38, anion gap of 12. BUN 89, creatinine 2.5. IMPRESSION: Acute kidney injury on chronic renal insufficiency, diabetes, hypertension, hyperlipidem ia, nonischemic cardiomyopathy, hypernatremia, gastrointestinal bleed, chronic atrial fibrillation, w as on Eliquis - on hold because of GI bleed____ and guaiac stool positive, and decreased. Hemoglobin on admission was 5.3, status post packed RBC transfusion. Now H and H are stable. Repeat MUGA scan shows ejection fraction of 40%, status post removal of the LifeVest. No evidence of primary ventric ular tachycardia ____. He has baseline atrial fibrillation. RECOMMENDATION: As mentioned, LifeVest was removed, and it was given to the family, which was given to Dr. Palmer at [facility]. Continue Coreg. Supplement potassium cautiously for hyp okalemia. Continue digoxin Wednesday, Wednesday, and Wednesday. Continue IV fluid. The patient is not on BRANDI inhibitor because of renal insufficiency. Monitor H and H. Continue antibiotic. Once the nithya ent is stable, can be discharged. No further cardiac workup is planned at this time. Upon discharge, the patient to be followed by Dr. Palmer for decreased LV function for future AICD [place]. Also before the patient goes home, needs a definite GI workup to restart anticoagulation for atrial fibrillation, as well as the patient's decreased LV function. The patient needs long-term an ticoagulation, high CHADS score. Dr. Miller, for providing me the opportunity in taking care of the patient with you. Repeat the blood workup in the morning. Now, continue digoxin Wednesday, Wednesday, Wednesday and Coreg. We will suppleme nt potassium and follow with you. Mario Benavides MD cc:Andrea Miller MD [id number] TT: 08/12/2016 10:42:21 Confirmation # [id number] Dictation # [id number] 08/12/2016 11:23:59
[2016-08-12] MEDS ORDERED: Lidocaine 2% Inj (20ml) ONE (14:23)
[2016-08-12] MEDS ORDERED: Etomidate 20 mg/10ml Inj IV ONE (14:23)
[2016-08-12] MEDS ORDERED: Propofol 10 mg/ml Inj (20 ML) ONE (14:32)
[2016-08-12] MEDS ORDERED: ePHEDrine 50 mg/ml Inj ONE (14:42)
[2016-08-12] MEDS ORDERED: Phenylephrine 10 mg/ml Inj ONE (14:54)
[2016-08-12] MEDS: Lactated Ringer's 1,000 ML IV SCH ×2 (19:03→19:30)
[2016-08-12] MEDS: Azithromycin 500MG/NS 250ml 500 MG/250 ML BAG IVPB SCH (19:31)
--- NOTE | 2016-08-12 21:55 | CP.PCM.CON ---
History of Present Illness - History of Present Illness History of Present Illness: 65 year old male with PMH of atrial fibrillation, chronic anemia, HTN, mild dementia, chronic CHF, DM was initially brought in to [facility] because of confusion. He was treated for possible toxic-metabolic encephalopathy and is doing well. He was also noted to have leg ulcers bilaterally and Podiatry has been taking care of the wounds. They have sent wound cultures and Infectious diseases consult is requested to further evaluate this and manage. Currently he is comfortable in bed, no fever or chills, no nausea or vomiting, no headache or dizziness, no chest pain, no SOB, no abdominal pain, no diarrhea, no dysuria, no cough or colds, no sore throat, less pain in the legs. Review of Systems - Review of Systems All systems: reviewed and no additional remarkable complaints except (as per HPI ) Past Patient History - Infectious Disease Hx of Infectious Diseases: None - Tetanus Immunizations Tetanus Immunization: Unknown - Past Social History Smoking Status: Never Smoked - CARDIAC Hx Congestive Heart Failure: Yes Hx Hypertension: Yes - NEUROLOGICAL HX Cerebrovascular Accident: Yes - RENAL Hx Renal Failure: Yes - ENDOCRINE/METABOLIC Hx Diabetes Mellitus Type 2: Yes - INTEGUMENTARY Hx Dermatological Problems: Yes (bilateral lower extremities stasis ulcers) - MUSCULOSKELETAL/RHEUMATOLOGICAL Hx Falls: No - PSYCHIATRIC Hx Depression: No Hx Emotional Abuse: No Hx Physical Abuse: No Hx Substance Use: No - SURGICAL HISTORY Hx Surgeries: (abd hernia) - ANESTHESIA Hx Anesthesia: No Hx Anesthesia Reactions: No Hx Malignant Hyperthermia: No Meds Allergies/Adverse Reactions: Allergies Allergy/AdvReac Type Severity Reaction Status Date / Time No Known Allergies Allergy Verified 07/18/13 09:48 - Medications Medications: Current Medications Carvedilol (Coreg) 3.125 mg PO BID [facility] Last Admin: 08/11/16 18:18 Dose: 3.125 mg Collagenase (Santyl) 0 gm TOP DAILY [facility] Stop: 08/17/16 23:00 Digoxin (Lanoxin) 0.125 mg PO F [facility] Dextrose (Dextrose 5% In Water 1000 Ml) 1,000 mls @ 75 mls/hr IV .[id number] [facility] Vancomycin HCl (Vancomycin 1gm) 1 gm in 250 mls @ 167 mls/hr IVPB STAT STA PRN Reason: Protocol Stop: 08/12/16 00:32 Insulin Detemir (Levemir) 10 unit SC BID [facility] Last Admin: 08/11/16 18:14 Dose: 10 unit Insulin Human Regular (Humulin R Med) 0 units SC ACHS [facility] PRN Reason: Protocol Last Admin: 08/11/16 18:15 Dose: 3 units Mupirocin (Bactroban Ointment) 0 gm TOP BID [facility] Phenazopyridine HCl (Pyridium) 200 mg PO BID [facility] Last Admin: 08/11/16 18:17 Dose: 200 mg Physical Exam - Constitutional Appears: Non-toxic, No Acute Distress - Head Exam Head Exam: NORMAL INSPECTION - ENT Exam ENT Exam: Mucous Membranes Moist - Neck Exam Neck exam: Negative for: Lymphadenopathy, Meningismus - Respiratory Exam Respiratory Exam: Decreased Breath Sounds - Cardiovascular Exam Cardiovascular Exam: +S1, +S2 - GI/Abdominal Exam GI & Abdominal Exam: Soft. absent: Tenderness - Extremities Exam Additional comments: both legs with dry dressings in place Results - Vital Signs Recent Vital Signs: Last Vital Signs Temp 98.1 F 08/11/16 20:00 Pulse 98 H 08/11/16 20:00 Resp 22 08/11/16 20:00 BP 106/66 08/11/16 20:00 Pulse Ox 99 08/11/16 20:00 - Labs Result Diagrams: 08/12/16 06:10 08/12/16 06:10 Labs: Laboratory Results - last 24 hr 08/09/16 08/10/16 08/10/16 18:00 03:30 09:30 WBC RBC Hgb Hct MCV MCH MCHC RDW Plt Count MPV Gran % Lymph % (Auto) [place] % (Auto) Eos % (Auto) Baso % (Auto) Gran # Lymph # [place] # Eos # Baso # Sodium 148 Potassium 3.3 L Chloride 101 Carbon Dioxide 38 H 36 H Anion Gap 15 14 BUN 139 H* 139 H* Creatinine 2.9 H Est GFR ( Amer) 26 Est GFR (Non-Af Amer) 22 POC Glucose (mg/dL) Random Glucose 345 H* D 392 H* Hemoglobin A1c Calcium 8.1 L Phosphorus Magnesium Total Bilirubin AST ALT Alkaline Phosphatase Troponin I 0.05 Total Protein Albumin Globulin Albumin/Globulin Ratio Triglycerides Cholesterol LDL Cholesterol Direct HDL Cholesterol TSH 3rd Generation Urine Color Urine Appearance Urine pH Ur Specific [place] Urine Protein Urine Glucose (UA) Urine Ketones Urine Blood Urine Nitrate Urine Bilirubin Urine Urobilinogen Ur Leukocyte Esterase Urine RBC Urine WBC Ur Epithelial Cells Urine Bacteria Blood Type O POSITIVE Antibody Screen Negative Crossmatch See Detail BBK History Checked No verified bt 08/10/16 08/11/16 08/11/16 21:51 02:15 06:30 WBC RBC Hgb 9.2 L Hct 27.3 L MCV MCH MCHC RDW Plt Count MPV Gran % Lymph % (Auto) [place] % (Auto) Eos % (Auto) Baso % (Auto) Gran # Lymph # [place] # Eos # Baso # Sodium 156 H* Potassium 2.5 L* D Chloride 107 Carbon Dioxide 39 H Anion Gap 13 BUN 118 H Creatinine 2.8 H Est GFR ( Amer) 28 Est GFR (Non-Af Amer) 23 POC Glucose (mg/dL) 401 H* Random Glucose 33 L* D Hemoglobin A1c Calcium 8.3 L Phosphorus 3.3 Magnesium 2.5 H Total Bilirubin 2.5 H AST 34 ALT 42 Alkaline Phosphatase 80 Troponin I Total Protein 6.0 Albumin 2.8 L Globulin 3.3 Albumin/Globulin Ratio 0.8 L Triglycerides 71 Cholesterol 51 L LDL Cholesterol Direct < 30 HDL Cholesterol 18 L TSH 3rd Generation Urine Color Urine Appearance Urine pH Ur Specific [place] Urine Protein Urine Glucose (UA) Urine Ketones Urine Blood Urine Nitrate Urine Bilirubin Urine Urobilinogen Ur Leukocyte Esterase Urine RBC Urine WBC Ur Epithelial Cells Urine Bacteria Blood Type Antibody Screen Crossmatch BBK History Checked 08/11/16 08/11/16 08/11/16 06:30 06:30 06:30 WBC 21.4 H D RBC 3.30 L Hgb 9.4 L Hct 28.9 L MCV 87.6 MCH 28.5 MCHC 32.5 RDW 16.7 H Plt Count 220 MPV 10.6 Gran % 89.4 H Lymph % (Auto) 5.1 L [place] % (Auto) 4.3 Eos % (Auto) 1.1 L Baso % (Auto) 0.1 Gran # 19.17 H Lymph # 1.1 L [place] # 0.9 H Eos # 0.2 Baso # 0.02 Sodium Potassium Chloride Carbon Dioxide Anion Gap BUN Creatinine Est GFR ( Amer) Est GFR (Non-Af Amer) POC Glucose (mg/dL) Random Glucose Hemoglobin A1c 6.7 H Calcium Phosphorus Magnesium Total Bilirubin AST ALT Alkaline Phosphatase Troponin I Total Protein Albumin Globulin Albumin/Globulin Ratio Triglycerides Cholesterol LDL Cholesterol Direct HDL Cholesterol TSH 3rd Generation 2.05 Urine Color Urine Appearance Urine pH Ur Specific [place] Urine Protein Urine Glucose (UA) Urine Ketones Urine Blood Urine Nitrate Urine Bilirubin Urine Urobilinogen Ur Leukocyte Esterase Urine RBC Urine WBC Ur Epithelial Cells Urine Bacteria Blood Type Antibody Screen Crossmatch BBK History Checked 08/11/16 08/11/16 08/11/16 07:29 08:09 08:53 WBC RBC Hgb Hct MCV MCH MCHC RDW Plt Count MPV Gran % Lymph % (Auto) [place] % (Auto) Eos % (Auto) Baso % (Auto) Gran # Lymph # [place] # Eos # Baso # Sodium 157 H* Potassium 3.0 L Chloride 105 Carbon Dioxide 41 H Anion Gap 14 BUN 119 H Creatinine 2.9 H Est GFR ( Amer) 26 Est GFR (Non-Af Amer) 22 POC Glucose (mg/dL) 64 L 93 Random Glucose 111 H Hemoglobin A1c Calcium 8.3 L Phosphorus Magnesium Total Bilirubin 2.5 H AST 31 ALT 41 Alkaline Phosphatase 73 Troponin I Total Protein 6.0 Albumin 2.8 L Globulin 3.2 Albumin/Globulin Ratio 0.9 L Triglycerides Cholesterol LDL Cholesterol Direct HDL Cholesterol TSH 3rd Generation Urine Color Urine Appearance Urine pH Ur Specific [place] Urine Protein Urine Glucose (UA) Urine Ketones Urine Blood Urine Nitrate Urine Bilirubin Urine Urobilinogen Ur Leukocyte Esterase Urine RBC Urine WBC Ur Epithelial Cells Urine Bacteria Blood Type Antibody Screen Crossmatch BBK History Checked 08/11/16 08/11/16 08/11/16 11:19 18:00 18:30 WBC RBC Hgb Hct MCV MCH MCHC RDW Plt Count MPV Gran % Lymph % (Auto) [place] % (Auto) Eos % (Auto) Baso % (Auto) Gran # Lymph # [place] # Eos # Baso # Sodium Potassium Chloride Carbon Dioxide Anion Gap BUN Creatinine Est GFR ( Amer) Est GFR (Non-Af Amer) POC Glucose (mg/dL) 132 H 243 H Random Glucose Hemoglobin A1c Calcium Phosphorus Magnesium Total Bilirubin AST ALT Alkaline Phosphatase Troponin I Total Protein Albumin Globulin Albumin/Globulin Ratio Triglycerides Cholesterol LDL Cholesterol Direct HDL Cholesterol TSH 3rd Generation Urine Color Yellow Urine Appearance Clear Urine pH 6.0 Ur Specific [place] 1.010 Urine Protein 30 H Urine Glucose (UA) Negative Urine Ketones Negative Urine Blood Large H Urine Nitrate Negative Urine Bilirubin Negative Urine Urobilinogen 0.2 Ur Leukocyte Esterase Moderate H Urine RBC 10 - 15 Urine WBC Tntc Ur Epithelial Cells 0 - 2 Urine Bacteria Neg Blood Type Antibody Screen Crossmatch BBK History Checked 08/11/16 19:10 WBC 16.3 H D RBC 3.04 L Hgb 9.0 L Hct 27.3 L MCV 89.8 MCH 29.6 MCHC 33.0 RDW 17.5 H Plt Count 210 MPV 10.9 Gran % 87.2 H Lymph % (Auto) 6.9 L [place] % (Auto) 4.4 Eos % (Auto) 1.4 L Baso % (Auto) 0.1 Gran # 14.20 H Lymph # 1.1 L [place] # 0.7 H Eos # 0.2 Baso # 0.01 Sodium Potassium Chloride Carbon Dioxide Anion Gap BUN Creatinine Est GFR ( Amer) Est GFR (Non-Af Amer) POC Glucose (mg/dL) Random Glucose Hemoglobin A1c Calcium Phosphorus Magnesium Total Bilirubin AST ALT Alkaline Phosphatase Troponin I Total Protein Albumin Globulin Albumin/Globulin Ratio Triglycerides Cholesterol LDL Cholesterol Direct HDL Cholesterol TSH 3rd Generation Urine Color Urine Appearance Urine pH Ur Specific [place] Urine Protein Urine Glucose (UA) Urine Ketones Urine Blood Urine Nitrate Urine Bilirubin Urine Urobilinogen Ur Leukocyte Esterase Urine RBC Urine WBC Ur Epithelial Cells Urine Bacteria Blood Type Antibody Screen Crossmatch BBK History Checked Assessment & Plan - Assessment and Plan (Free Text) Plan: Assessment Infected diabetic leg ulcers R/O healthcare-associated pneumonia, right lower lobe atrial fibrillation chronic anemia HTN mild dementia chronic CHF DM Plan Started patient on intermittent Vancomycin and Cefepime pending wound cx and final blood cx results; will check PCT Will monitor clinically
--- NOTE | 2016-08-12 23:07 | CP.PCM.PN ---
Subjective - Date & Time of Evaluation Date of Evaluation: 08/12/16 Time of Evaluation: 09:00 - Subjective Subjective: Seen and examined at the bed side.Comfortable in bed, no fever or chills, no nausea or vomiting, no headache or dizziness, no chest pain, no SOB, no abdominal pain, no diarrhea, no dysuria, no cough or colds, no sore throat, less pain in the legs. Objective - Vital Signs/Intake and Output Vital Signs (last 24 hours): Temp Pulse Resp BP Pulse Ox 98.3 F 101 H 18 105/72 99 08/12/16 16:47 08/12/16 16:47 08/12/16 16:47 08/12/16 16:47 08/12/16 16:47 Intake and Output: 08/12/16 08/13/16 18:59 06:59 Intake Total 0 Balance 0 - Medications Medications: Current Medications Carvedilol (Coreg) 3.125 mg PO BID [facility] Last Admin: 08/12/16 18:46 Dose: 3.125 mg Collagenase (Santyl) 0 gm TOP DAILY [facility] Stop: 08/17/16 23:00 Last Admin: 08/12/16 10:10 Dose: 1 applic Digoxin (Lanoxin) 0.125 mg PO MWF REPLACED [facility] Last Admin: 08/12/16 10:03 Dose: 0.125 mg Dextrose (Dextrose 5% In Water 1000 Ml) 1,000 mls @ 75 mls/hr IV .[id number] REPLACED [facility] Last Admin: 08/12/16 07:30 Dose: 75 mls/hr Cefepime HCl (Maxipime 1gm) 1 gm in 100 mls @ 100 mls/hr IVPB Q12 REPLACED BY [facility] PRN Reason: Protocol Last Admin: 08/12/16 22:31 Dose: 100 mls/hr Azithromycin (Zithromax 500mg In Ns) 500 mg in 250 mls @ 167 mls/hr IVPB DAILY [facility]PL[facility]ED BY [facility] PRN Reason: Protocol Last Admin: 08/12/16 19:31 Dose: 167 mls/hr Lactated Ringer's (Lactated Ringer's) 1,000 mls @ 75 mls/hr IV .[id number] REPLACED BY [facility] Last Admin: 08/12/16 19:30 Dose: Not Given Insulin Detemir (Levemir) 10 unit SC BID [facility]PL[facility] BY [facility] Last Admin: 08/12/16 19:04 Dose: 10 unit Insulin Human Regular (Humulin R Med) 0 units SC ACHS REPLACED BY [facility] PRN Reason: Protocol Last Admin: 08/12/16 19:00 Dose: Not Given Mupirocin (Bactroban Ointment) 0 gm TOP BID REPL[facility]ED BY [facility] Last Admin: 08/12/16 20:12 Dose: 1 applic Pantoprazole Sodium (Protonix Inj) 40 mg IVP BID REPLACED BY [facility] Phenazopyridine HCl (Pyridium) 200 mg PO BID [facility] BY [facility] Last Admin: 08/12/16 18:46 Dose: 200 mg - Labs Labs: 08/12/16 06:10 08/12/16 06:10 PT 12.7 Seconds (9.9-11.8) H 08/12/16 07:45 INR 1.18 (0.93-1.08) H 08/12/16 07:45 APTT 20.8 Seconds (23.7-30.8) L 08/09/16 16:00 - Constitutional Appears: Well, No Acute Distress - Head Exam Head Exam: ATRAUMATIC, NORMAL INSPECTION, NORMOCEPHALIC - Eye Exam Eye Exam: EOMI, Normal appearance, PERRL Pupil Exam: NORMAL ACCOMODATION, PERRL - ENT Exam ENT Exam: Mucous Membranes Moist, Normal Exam - Neck Exam Neck Exam: Full ROM, Normal Inspection. absent: Lymphadenopathy - Respiratory Exam Respiratory Exam: Clear to Ausculation Bilateral, NORMAL BREATHING PATTERN - Cardiovascular Exam Cardiovascular Exam: REGULAR RHYTHM, +S1, +S2. absent: Murmur - GI/Abdominal Exam GI & Abdominal Exam: Soft, Normal Bowel Sounds. absent: Tenderness - Extremities Exam Extremities Exam: Full ROM, Normal Capillary Refill, Normal Inspection. absent : Joint Swelling, Pedal Edema Additional comments: Infected Anterior Leg Ulcers B/L - Back Exam Back Exam: NORMAL INSPECTION - Neurological Exam Neurological Exam: Alert, Awake, CN II-XII Intact, Normal Gait, Oriented x3 - Psychiatric Exam Psychiatric exam: Normal Affect, Normal Mood - Skin Skin Exam: Dry, Intact, Normal Color, Warm Assessment and Plan (1) GI bleed Assessment & Plan: Hypotension-Resolved Anemia will need Repeat EGD Continue Protonix Infusion Status: Acute (2) Altered mental status Assessment & Plan: Metabolic Encephalopathy- Acute CVA Ruled out Continue to Monitor BP and BS Status: Acute (3) CHF (congestive heart failure), Assessment & Plan: Serial trop to R/O Demand Ischemia Hold ASA/Metoprolol Status: Chronic (4) CKD (chronic kidney disease) stage 3, GFR 30-59 ml/min Status: Chronic (5) Infected Leg Ulcer, R/O Hospital Acuired PNA Iintermittent Vancomycin and Cefepime pending wound cx and final blood cx results; Will monitor clinically ID On Board Status: Acute
--- NOTE | 2016-08-13 15:06 | PN ---
DATE: 08/13/2016 REASON FOR CONSULTATION AND FOLLOWUP: AFib, cardiomyopathy, status post LifeVest, admitted with RAMAKRISHNA guajardo. BRIEF CLINICAL HISTORY: This is a 65-year-old male with past medical history of chronic renal insuff iciency, atrial fibrillation, cardiomyopathy, recently admitted to [facility], found to be severely decreased LV function. The patient was put LifeVest by Dr. Palmer, on AFib, was on Diana naomi. Admitted here with decreased hemoglobin 6.9 and guaiac stool positive. The patient has had mu ltiple packed units of RBC, has baseline renal insufficiency. MUGA scan done that shows ejection fra ction 40%. LifeVest was removed. Denies any chest pain, shortness of breath, any palpitation. PHYSICAL EXAMINATION: VITAL SIGNS: Temperature afebrile, heart rate 80, blood pressure 130/80. HEENT: PERRLA. Extraocular muscles intact. NECK: Supple. No carotid bruits. No thyromegaly. CHEST: Clear to auscultation. HEART: S1, S2 regular. ABDOMEN: Soft. EXTREMITIES: Clubbing, cyanosis negative. BLOOD WORKUP: [employer] system is down, unavailable. IMPRESSION: Chronic renal insufficiency, anemia, status post gastrointestinal bleed, chronic atrial fibrillation, cardiomyopathy, repeat MUGA scan shows 40%, status post removed the LifeVest, renal ins ufficiency, chronic atrial fibrillation. RECOMMENDATION: Continue GI workup. Once the GI workup is completed and no active bleeding is found and okay to start anticoagulation, we will start Eliquis again. Continue Coreg. The patient is not on BRANDI inhibitor because of renal insufficiency, acute renal injury. Once the renal function is sta bilized, consider restarting BRANDI inhibitors and the GI workup, then consider restarting anticoagulati on. Upon discharge, the patient will be followed up with Dr. Palmer for automatic implantable cardiov erter-defibrillator evaluation. Thank you, Dr. Andrea Miller, for providing us the opportunity in taking care of the patient. We will follow the result of lab when the system is back. As now, [employer] system is down, computer is down. Mario Benavides MD cc: [id number] TT: 08/13/2016 14:05:03 Confirmation # [id number] Dictation # [id number] en
--- NOTE | 2016-08-13 15:06 | PN ---
DATE: 08/13/2016 INFECTIOUS DISEASE PROGRESS NOTE The patient is in 277, bed 2, [facility], 08/13/2016. The patient was seen earlier this morning. SUBJECTIVE: The patient is currently comfortable in bed, not in distress, afebrile, less pain in bot h lower extremities. OBJECTIVE: VITAL SIGNS: The patient is currently afebrile. Heart rate is 80, respiratory rate 20. HEAD AND NECK: Normocephalic, atraumatic. LUNGS: Decreased breath sounds bilaterally. HEART: S1 and S2 are normal. ABDOMEN: Soft, nontender, nondistended. EXTREMITIES: Both lower extremities with dry dressings in place. LABORATORY DATA: Unfortunately, we are unable to review the patient's labs because the computer syst ems are down. ASSESSMENT: We have a 65-year-old male who initially presented with altered mental status, probably toxic metabolic encephalopathy, now clinically improved, also presenting with diabetic leg ulceration s, which are probably infected, and they have been cleaned by podiatry. PLAN: We will continue intermittent vancomycin and cefepime pending the wound culture and blood cult ure results. The patient is also presenting with probable acute on chronic renal failure. We will continue to melani nd the WBC count. The patient probably has sepsis from the infected diabetic lower leg ulcerations. We will continue to follow this patient clinically. Stan Julio M.D. cc: [id number] TT: 08/13/2016 14:34:21 Confirmation # [id number] Dictation # [id number] sierra
[2016-08-13] MEDS: Insulin Reg-MEDIUM-Coverage SC SCH (22:00)
[2016-08-13] MEDS: Cefepime 1gm in NS 100ml 1 GM/100 ML BAG IVPB SCH (22:38)
[2016-08-13] MEDS: Pantoprazole 40mg/100ml IVPB 40 MG/100 ML BAG IVPB SCH (22:42)
[2016-08-14] MEDS: Lactated Ringer's 1,000 ML IV SCH (02:46)
[2016-08-14] MEDS: Pantoprazole 40mg/100ml IVPB 40 MG/100 ML BAG IVPB SCH (02:48)
[2016-08-14 04:40] LABS: CALCIUM 7.6 mg/dL (8.4-10.5); MAGNESIUM 2.4 mg/dL (1.7-2.2); POTASSIUM 3.3 mmol/L (3.6-5.0)
[2016-08-14 06:09] VITALS: RESP 20; O2SAT 96
[2016-08-14 07:33] LABS: ADD MANUAL DIFF? NO
[2016-08-14 07:36] LABS: BASO # 0.01 K/mm3 (0.0-2.0); BASO % 0.1 % (0.0-3.0); EOS # 0.3 (0.0-0.7); GRAN # 8.73 (1.4-6.5); GRAN % 78.8 % (50.0-68.0); HEMATOCRIT 27.1 % (42.0-52.0); LYMPH # 1.3 (1.2-3.4); LYMPH % 11.9 % (22.0-35.0); MEAN CORPUSCULAR HEMOGLOBIN 28.6 pg (25.0-35.0); MEAN CORPUSCULAR HGB CONC 31.7 g/dl (31.0-37.0); MEAN PLATELET VOLUME 10.9 fl (7.0-11.0); MONO # 0.7 (0.1-0.6); MONO % 6.2 % (1.0-6.0); PLATELET COUNT 235 10^3/uL (120.0-450.0); RED CELL DISTRIBUTION WIDTH 17.6 % (11.5-14.5); WHITE BLOOD COUNT 11.1 10^3/ul (4.5-11.0)
--- NOTE | 2016-08-14 07:39 | CP.PCM.PN ---
<Juan F Caputo - Last Filed: 08/14/16 10:21> Subjective - Date & Time of Evaluation Date of Evaluation: 08/14/16 Time of Evaluation: 07:20 - Subjective Subjective: PGY4 GI Fellow Progress Note Patient seen and examined bedside this morning. The patient has recently been incontinent of loose stool (light brown, no melena noted). He denies any discomfort at this time and had no issues overnight. 12 system ROS performed and negative except where stated. Objective - Vital Signs/Intake and Output Vital Signs (last 24 hours): Temp Pulse Resp BP Pulse Ox 98.7 F 100 H 20 100/67 96 08/14/16 06:00 08/14/16 06:00 08/14/16 06:00 08/14/16 06:00 08/14/16 06:00 Intake and Output: 08/14/16 08/14/16 06:59 18:59 Intake Total 600 Output Total 1175 Balance -575 - Medications Medications: Current Medications Carvedilol (Coreg) 3.125 mg PO BID [facility] Last Admin: 08/12/16 18:46 Dose: 3.125 mg Collagenase (Santyl) 0 gm TOP DAILY [facility] Stop: 08/17/16 23:00 Last Admin: 08/12/16 10:10 Dose: 1 applic Digoxin (Lanoxin) 0.125 mg PO MWF [facility] Last Admin: 08/12/16 10:03 Dose: 0.125 mg Dextrose (Dextrose 5% In Water 1000 Ml) 1,000 mls @ 75 mls/hr IV .[id number] [facility] Last Admin: 08/14/16 03:03 Dose: Not Given Cefepime HCl (Maxipime 1gm) 1 gm in 100 mls @ 100 mls/hr IVPB Q12 [facility] PRN Reason: Protocol Last Admin: 08/13/16 22:38 Dose: 100 mls/hr Azithromycin (Zithromax 500mg In Ns) 500 mg in 250 mls @ 167 mls/hr IVPB DAILY [facility] PRN Reason: Protocol Last Admin: 08/12/16 19:31 Dose: 167 mls/hr Lactated Ringer's (Lactated Ringer's) 1,000 mls @ 75 mls/hr IV .[id number] [facility] Last Admin: 08/14/16 02:46 Dose: 75 mls/hr Pantoprazole Sodium (Protonix 40mg Ivpb) 40 mg in 100 mls @ 20 mls/hr IVPB .Q5H [facility] Last Admin: 08/14/16 02:48 Dose: 20 mls/hr Insulin Detemir (Levemir) 10 unit SC BID [facility] Last Admin: 08/12/16 19:04 Dose: 10 unit Insulin Human Regular (Humulin R Med) 0 units SC ACHS [facility] PRN Reason: Protocol Last Admin: 08/13/16 22:00 Dose: 2 units Mupirocin (Bactroban Ointment) 0 gm TOP BID [facility] Last Admin: 08/12/16 20:12 Dose: 1 applic Phenazopyridine HCl (Pyridium) 200 mg PO BID [facility] Last Admin: 08/12/16 18:46 Dose: 200 mg - Labs Labs: 08/12/16 06:10 08/13/16 07:00 PT 12.7 Seconds (9.9-11.8) H 08/12/16 07:45 INR 1.18 (0.93-1.08) H 08/12/16 07:45 APTT 20.8 Seconds (23.7-30.8) L 08/09/16 16:00 - Constitutional Appears: Non-toxic, No Acute Distress - Eye Exam Eye Exam: EOMI, PERRL - ENT Exam ENT Exam: Mucous Membranes Moist - Respiratory Exam Respiratory Exam: Clear to Ausculation Bilateral. absent: Rales, Rhonchi, Wheezes - Cardiovascular Exam Cardiovascular Exam: RRR, +S1, +S2 - GI/Abdominal Exam GI & Abdominal Exam: Soft, Normal Bowel Sounds. absent: Distended, Firm, Guarding, Rigid, Tenderness, Organomegaly - Extremities Exam Extremities Exam: Normal Inspection. absent: Pedal Edema - Neurological Exam Neurological Exam: Alert, Altered. absent: Oriented x3 - Psychiatric Exam Psychiatric exam: Normal Affect, Normal Mood - Skin Skin Exam: Dry, Warm - Additional Findings Additional findings: Incontinent of loose, brown stool Assessment and Plan - Assessment and Plan (Free Text) Assessment: Patient is a 65yo male with PMHx significant for DM, HTN, atrial fibrillation on Eliquis, CHF (EF 40%), prior CVA, dementia who presented to the ED brought in by family for altered mentation. -Acute blood loss anemia 2/2 duodenal bulb ulcer (Barry Class 2c) -Dementia -Hyperglycemia, poorly controlled -Hypokalemia/Hypernatremia, improved -Acute kidney injury on CKD suspected, unclear baseline; improved Plan: -S/P EGD with discovery of large duodenal bulb ulcer with red spot suggestive of recent bleeding -3 clips placed, epinephrine injected at site -Protonix gtt for 48 hrs -Loose brown stool noted; OK to advance diet -Will check stool infectious work up -Continue to hold Eliquis, antiplatelet therapy at least 1 week - given risk of re-bleeding must weigh risk/benefit of resuming therapy <Chaz Yu - Last Filed: 08/14/16 11:24> Objective - Vital Signs/Intake and Output Vital Signs (last 24 hours): Temp Pulse Resp BP Pulse Ox 98.7 F 100 H 20 100/67 96 08/14/16 06:00 08/14/16 06:00 08/14/16 06:00 08/14/16 06:00 08/14/16 06:00 Intake and Output: 08/14/16 08/14/16 06:59 18:59 Intake Total 600 Output Total 1175 Balance -575 - Medications Medications: Current Medications Carvedilol (Coreg) 3.125 mg PO BID [facility] Last Admin: 08/14/16 10:11 Dose: 3.125 mg Collagenase (Santyl) 0 gm TOP DAILY [facility] Stop: 08/17/16 23:00 Last Admin: 08/14/16 10:20 Dose: 1 applic Digoxin (Lanoxin) 0.125 mg PO MWF [facility] Last Admin: 08/14/16 10:12 Dose: 0.125 mg Dextrose (Dextrose 5% In Water 1000 Ml) 1,000 mls @ 75 mls/hr IV .[id number] [facility] Last Admin: 08/14/16 03:03 Dose: Not Given Cefepime HCl (Maxipime 1gm) 1 gm in 100 mls @ 100 mls/hr IVPB Q12 [facility] PRN Reason: Protocol Last Admin: 08/14/16 10:21 Dose: 100 mls/hr Azithromycin (Zithromax 500mg In Ns) 500 mg in 250 mls @ 167 mls/hr IVPB DAILY [facility] PRN Reason: Protocol Last Admin: 08/14/16 10:20 Dose: 167 mls/hr Linezolid (Zyvox 600mg/300ml D5w) 600 mg in 300 mls @ 200 mls/hr IVPB Q12 [facility] PRN Reason: Protocol Stop: 08/21/16 10:01 Last Admin: 08/14/16 10:19 Dose: 200 mls/hr Insulin Detemir (Levemir) 10 unit SC BID [facility] Last Admin: 08/14/16 10:12 Dose: 10 unit Insulin Human Regular (Humulin R Med) 0 units SC ACHS [facility] PRN Reason: Protocol Last Admin: 08/14/16 08:21 Dose: Not Given Mupirocin (Bactroban Ointment) 0 gm TOP BID [facility] Last Admin: 08/14/16 10:11 Dose: 1 applic Pantoprazole Sodium (Protonix Ec Tab) 40 mg PO 0730,1630 [facility] Phenazopyridine HCl (Pyridium) 200 mg PO BID [facility] Last Admin: 08/14/16 10:11 Dose: 200 mg - Labs Labs: 08/14/16 06:00 08/14/16 06:00 PT 12.7 Seconds (9.9-11.8) H 08/12/16 07:45 INR 1.18 (0.93-1.08) H 08/12/16 07:45 APTT 20.8 Seconds (23.7-30.8) L 08/09/16 16:00 Attending/Attestation - Attestation I have personally seen and examined this patient.: Yes I have fully participated in the care of the patient.: Yes I have reviewed all pertinent clinical information, including history, physical exam and plan: Yes Notes (Text): 08/14/16 11:17 I have seen and examined patient with GI fellow. No acute events overnight, he continues to have fecal incontinence with several episodes of non-bloody loose bowel movements. He denies abdominal pain, nausea, vomiting, fever/chills. Tolerating PO liquids without difficulty. Review of vitals from today shows tachycardia. Atrial fibrillation on eliquis (held) Anemia, duodenal ulcer s/p endoscopic therapy with injection and clip placement DM / HTN Pneumonia Fecal incontinence - Liquid diet as tolerated - Obtain stool studies (culture, c-difficile) - Continue with antibiotic therapy as per ID - H/H stable, continue to monitor, no further overt bleeding noted - Continue with twice daily PPI therapy - Anti-platelet therapy being held due to recent GI bleeding with duodenal lesion conferring high rebleeding risk - Will continue to monitor patient clinical course
[2016-08-14 08:19] LABS: POTASSIUM 3.2 mmol/L (3.6-5.0)
[2016-08-14] MEDS: Insulin Reg-MEDIUM-Coverage SC SCH ×3 (08:21→17:01)
[2016-08-14 08:28] LABS: CALCIUM 6.9 mg/dL (8.4-10.5)
[2016-08-14] MEDS ORDERED: Potassium Chloride 40 mEq/30 ml LIQ UD PO ONE (08:29)
[2016-08-14] MEDS ORDERED: Calcium Chloride 1000 mg/10 ml Syringe IV ONE (08:31)
[2016-08-14] MEDS ORDERED: Linezolid 600 mg in D5W 300 ml 600 MG/300 ML BAG IVPB SCH (10:00)
[2016-08-14] MEDS: Digoxin 125 mcg (0.125 mg) Tab PO SCH (10:12)
[2016-08-14] MEDS: Insulin Detemir 100 units/ml Vial (Levemir) SC SCH ×2 (10:12→17:02)
[2016-08-14] MEDS: Azithromycin 500MG/NS 250ml 500 MG/250 ML BAG IVPB SCH (10:20)
[2016-08-14] MEDS: Collagenase 250 Units/gm Ointment(30 gm) TOP SCH (10:20)
[2016-08-14] MEDS: Cefepime 1gm in NS 100ml 1 GM/100 ML BAG IVPB SCH (10:21)
[2016-08-14 10:26] VITALS: PULSE 82
[2016-08-14 11:57] LABS: HEMATOCRIT 29.6 % (42.0-52.0); MEAN CELL VOLUME 92.2 fL (80.0-105.0); MEAN CORPUSCULAR HEMOGLOBIN 28.7 pg (25.0-35.0); MEAN CORPUSCULAR HGB CONC 31.1 g/dl (31.0-37.0); RED CELL DISTRIBUTION WIDTH 18.4 % (11.5-14.5); WHITE BLOOD COUNT 14.5 10^3/ul (4.5-11.0)
[2016-08-14 12:04] VITALS: BP 104/65; TEMP 98.9
[2016-08-14] MEDS ORDERED: Pantoprazole 40 mg EC Tab PO SCH (16:30)
[2016-08-14 17:39] VITALS: PULSE 95
--- NOTE | 2016-08-14 19:13 | CP.PCM.PN ---
Subjective - Date & Time of Evaluation Date of Evaluation: 08/13/16 Time of Evaluation: 09:00 - Subjective Subjective: Patient seen and examined bedside this morning. The patient has recently been incontinent of loose stool (light brown, no melena noted). He denies any discomfort at this time and had no issues overnight. Objective - Vital Signs/Intake and Output Vital Signs (last 24 hours): Temp Pulse Resp BP Pulse Ox 98.9 F 95 H 20 104/65 96 08/14/16 12:03 08/14/16 14:00 08/14/16 12:03 08/14/16 12:03 08/14/16 06:00 Intake and Output: 08/14/16 08/15/16 18:59 06:59 Intake Total 600 Output Total 200 Balance 400 - Medications Medications: Current Medications Carvedilol (Coreg) 3.125 mg PO BID [facility] Last Admin: 08/14/16 17:01 Dose: 3.125 mg Collagenase (Santyl) 0 gm TOP DAILY [facility] Stop: 08/17/16 23:00 Last Admin: 08/14/16 10:20 Dose: 1 applic Digoxin (Lanoxin) 0.125 mg PO MWF [facility] Last Admin: 08/14/16 10:12 Dose: 0.125 mg Dextrose (Dextrose 5% In Water 1000 Ml) 1,000 mls @ 75 mls/hr IV .[id number] [facility] Last Admin: 08/14/16 03:03 Dose: Not Given Cefepime HCl (Maxipime 1gm) 1 gm in 100 mls @ 100 mls/hr IVPB Q12 [facility] PRN Reason: Protocol Last Admin: 08/14/16 10:21 Dose: 100 mls/hr Azithromycin (Zithromax 500mg In Ns) 500 mg in 250 mls @ 167 mls/hr IVPB DAILY [facility] PRN Reason: Protocol Last Admin: 08/14/16 10:20 Dose: 167 mls/hr Linezolid (Zyvox 600mg/300ml D5w) 600 mg in 300 mls @ 200 mls/hr IVPB Q12 [facility] PRN Reason: Protocol Stop: 08/21/16 10:01 Last Admin: 08/14/16 10:19 Dose: 200 mls/hr Insulin Detemir (Levemir) 10 unit SC BID [facility] Last Admin: 08/14/16 17:02 Dose: 10 unit Insulin Human Regular (Humulin R Med) 0 units SC ACHS [facility] PRN Reason: Protocol Last Admin: 08/14/16 17:01 Dose: 3 units Mupirocin (Bactroban Ointment) 0 gm TOP BID [facility] Last Admin: 08/14/16 17:03 Dose: 1 applic Pantoprazole Sodium (Protonix Ec Tab) 40 mg PO 0730,1630 [facility] Last Admin: 08/14/16 17:03 Dose: 40 mg Phenazopyridine HCl (Pyridium) 200 mg PO BID [facility] Last Admin: 08/14/16 17:01 Dose: 200 mg - Labs Labs: 08/14/16 06:00 08/14/16 06:00 PT 12.7 Seconds (9.9-11.8) H 08/12/16 07:45 INR 1.18 (0.93-1.08) H 08/12/16 07:45 APTT 20.8 Seconds (23.7-30.8) L 08/09/16 16:00 - Constitutional Appears: Well, No Acute Distress - Head Exam Head Exam: ATRAUMATIC, NORMAL INSPECTION, NORMOCEPHALIC - Eye Exam Eye Exam: EOMI, Normal appearance, PERRL Pupil Exam: NORMAL ACCOMODATION, PERRL - ENT Exam ENT Exam: Mucous Membranes Moist, Normal Exam - Neck Exam Neck Exam: Full ROM, Normal Inspection. absent: Lymphadenopathy - Respiratory Exam Respiratory Exam: Clear to Ausculation Bilateral, NORMAL BREATHING PATTERN - Cardiovascular Exam Cardiovascular Exam: REGULAR RHYTHM, +S1, +S2. absent: Murmur - GI/Abdominal Exam GI & Abdominal Exam: Soft, Normal Bowel Sounds. absent: Tenderness - Extremities Exam Extremities Exam: absent: Joint Swelling, Pedal Edema Additional comments: Infected Leg Ulcers - Back Exam Back Exam: NORMAL INSPECTION - Neurological Exam Neurological Exam: Alert, Awake, CN II-XII Intact, Normal Gait, Oriented x3 - Psychiatric Exam Psychiatric exam: Normal Affect, Normal Mood - Skin Skin Exam: Dry, Intact, Normal Color, Warm Assessment and Plan (1) GI bleed Assessment & Plan: Hypotension-Resolved Anemia will need Repeat EGD Continue Protonix Infusion Status: Acute (2) Altered mental status Assessment & Plan: Metabolic Encephalopathy- Acute CVA Ruled out Continue to Monitor BP and BS Status: Acute (3) CHF (congestive heart failure), Assessment & Plan: Serial trop to R/O Demand Ischemia Hold ASA/Metoprolol Status: Chronic (4) CKD (chronic kidney disease) stage 3, GFR 30-59 ml/min Status: Chronic (5) Infected Leg Ulcer, R/O Hospital Acuired PNA Iintermittent Vancomycin and Cefepime pending wound cx and final blood cx results; Will monitor clinically ID On Board Status: Acute
--- NOTE | 2016-08-14 19:13 | CP.PCM.DIS ---
Provider - Provider Date of Admission: 08/09/16 17:32 Attending physician: Andrea Miller MD Primary care physician: Sheryl Sidhu MD Time Spent in preparation of Discharge (in minutes): 25 Diagnosis - Discharge Diagnosis (1) GI bleed Status: Acute Hospital Course - Lab Results Lab Results: Micro Results 08/11/16 14:52 Leg - Right Gram Stain - Final 08/11/16 14:52 Leg - Right Wound Culture - Final Methicillin Resistant S Aureus Morg Morganii Ss Morganii 08/11/16 23:15 Blood-Venous Blood Culture - Preliminary NO GROWTH AFTER 48 HOURS 08/11/16 23:00 Blood-Venous Blood Culture - Preliminary NO GROWTH AFTER 48 HOURS 08/09/16 19:10 Nose MRSA Culture (Admit) - Final MRSA NOT DETECTED Most Recent Lab Values WBC 11.1 10^3/ul (4.5-11.0) H D 08/14/16 06:00 RBC 3.01 10^6/uL (3.5-6.1) L 08/14/16 06:00 Hgb 8.6 gm/dL (14.0-18.0) L 08/14/16 06:00 Hct 27.1 % (42.0-52.0) L 08/14/16 06:00 MCV 90.0 fL (80.0-105.0) 08/14/16 06:00 MCH 28.6 pg (25.0-35.0) 08/14/16 06:00 MCHC 31.7 g/dl (31.0-37.0) 08/14/16 06:00 RDW 17.6 % (11.5-14.5) H 08/14/16 06:00 Plt Count 235 10^3/uL (120.0-450.0) 08/14/16 06:00 MPV 10.9 fl (7.0-11.0) 08/14/16 06:00 Gran % 78.8 % (50.0-68.0) H 08/14/16 06:00 Lymph % (Auto) 11.9 % (22.0-35.0) L 08/14/16 06:00 [place] % (Auto) 6.2 % (1.0-6.0) H 08/14/16 06:00 Eos % (Auto) 3.0 % (1.5-5.0) 08/14/16 06:00 Baso % (Auto) 0.1 % (0.0-3.0) 08/14/16 06:00 Gran # 8.73 (1.4-6.5) H 08/14/16 06:00 Lymph # 1.3 (1.2-3.4) 08/14/16 06:00 [place] # 0.7 (0.1-0.6) H 08/14/16 06:00 Eos # 0.3 (0.0-0.7) 08/14/16 06:00 Baso # 0.01 K/mm3 (0.0-2.0) 08/14/16 06:00 PT 12.7 Seconds (9.9-11.8) H 08/12/16 07:45 INR 1.18 (0.93-1.08) H 08/12/16 07:45 APTT 20.8 Seconds (23.7-30.8) L 08/09/16 16:00 Sodium 139 mmol/L (132-148) 08/14/16 06:00 Potassium 3.2 mmol/L (3.6-5.0) L 08/14/16 06:00 Chloride 103 mmol/L (98-107) 08/14/16 06:00 Carbon Dioxide 31 mmol/L (21-33) 08/14/16 06:00 Anion Gap 8 (10-20) L 08/14/16 06:00 BUN 44 mg/dL (7-21) H 08/14/16 06:00 Creatinine 2.0 mg/dL (0.5-1.4) H 08/14/16 06:00 Est GFR ( Amer) 41 08/14/16 06:00 Est GFR (Non-Af Amer) 34 08/14/16 06:00 POC Glucose (mg/dL) 307 mg/dL (65-110) H 08/13/16 20:58 Random Glucose 109 mg/dL (70-110) 08/14/16 06:00 Hemoglobin A1c 6.7 % (4.2-6.5) H 08/11/16 06:30 Lactic Acid 1.8 mmol/L (0.7-2.1) 08/10/16 01:40 Calcium 6.9 mg/dL (8.4-10.5) L* 08/14/16 06:00 Phosphorus 3.9 mg/dL (2.5-4.5) 08/12/16 06:10 Magnesium 2.1 mg/dL (1.7-2.2) 08/14/16 05:40 Total Bilirubin 1.9 mg/dL (0.2-1.3) H 08/12/16 06:10 Direct Bilirubin 0.8 mg/dL (0.0-0.4) H 08/10/16 03:35 AST 41 U/L (15-59) 08/12/16 06:10 ALT 47 U/L (7-56) 08/12/16 06:10 Alkaline Phosphatase 80 U/L (38-133) 08/12/16 06:10 Lactate Dehydrogenase 779 U/L (333-699) H 08/09/16 16:00 Total Creatine Kinase 36 U/L (35-230) 08/09/16 16:00 Troponin I 0.05 ng/mL 08/10/16 09:30 Total Protein 5.7 g/dL (5.8-8.3) L 08/12/16 06:10 Albumin 2.5 g/dL (3.0-4.8) L 08/12/16 06:10 Globulin 3.2 gm/dL 08/12/16 06:10 Albumin/Globulin Ratio 0.8 (1.1-1.8) L 08/12/16 06:10 Triglycerides 71 mg/dL (35-160) 08/11/16 06:30 Cholesterol 51 mg/dL (130-200) L 08/11/16 06:30 LDL Cholesterol Direct < 30 mg/dL (0-129) 08/11/16 06:30 HDL Cholesterol 18 mg/dL (29-60) L 08/11/16 06:30 Procalcitonin 0.16 NG/ML (0.19-0.49) L 08/14/16 06:00 TSH 3rd Generation 2.05 mIU/mL (0.46-4.68) 08/11/16 06:30 Urine Color Yellow (YELLOW) 08/11/16 18:30 Urine Appearance Clear (CLEAR) 08/11/16 18:30 Urine pH 6.0 (4.7-8.0) 08/11/16 18:30 Ur Specific [place] 1.010 (1.005-1.035) 08/11/16 18:30 Urine Protein 30 mg/dL (<30 mg/dL) H 08/11/16 18:30 Urine Glucose (UA) Negative mg/dL (NEGATIVE) 08/11/16 18:30 Urine Ketones Negative mg/dL (NEGATIVE) 08/11/16 18:30 Urine Blood Large (NEGATIVE) H 08/11/16 18:30 Urine Nitrate Negative (NEGATIVE) 08/11/16 18:30 Urine Bilirubin Negative (NEGATIVE) 08/11/16 18:30 Urine Urobilinogen 0.2 E.U./dL (<1 E.U./dL) 08/11/16 18:30 Ur Leukocyte Esterase Moderate Seda/uL (NEGATIVE) H 08/11/16 18:30 Urine RBC 10 - 15 /hpf (0-2) 08/11/16 18:30 Urine WBC Tntc /hpf (0-6) 08/11/16 18:30 Ur Epithelial Cells 0 - 2 /hpf (0-5) 08/11/16 18:30 Urine Bacteria Neg (NEG) 08/11/16 18:30 Stool Occult Blood Positive (NEGATIVE) H 08/12/16 02:57 Digoxin < 0.4 ng/mL (0.8-2.0) L 08/13/16 07:00 Blood Type O POSITIVE 08/09/16 18:00 Blood Type Confirm O POSITIVE 08/09/16 18:30 Antibody Screen Negative 08/09/16 18:00 Crossmatch See Detail 08/09/16 18:00 BBK History Checked No verified bt 08/09/16 18:00 Discharge Exam - Head Exam Head Exam: NORMAL INSPECTION Discharge Plan - Follow Up Plan Condition: FAIR Referrals: Sheryl Sidhu MD [Primary Care Provider] -
--- NOTE | 2016-08-14 20:22 | CP.PCM.PN ---
Subjective - Date & Time of Evaluation Date of Evaluation: 08/14/16 Time of Evaluation: 12:25 - Subjective Subjective: Comfortable in bed, not in distress, less pain in the legs, no fevers overnight. Objective - Vital Signs/Intake and Output Vital Signs (last 24 hours): Temp Pulse Resp BP Pulse Ox 98.9 F 95 H 20 104/65 96 08/14/16 12:03 08/14/16 14:00 08/14/16 12:03 08/14/16 12:03 08/14/16 06:00 Intake and Output: 08/14/16 08/15/16 18:59 06:59 Intake Total 600 Output Total 200 Balance 400 - Labs Labs: 08/14/16 06:00 08/14/16 06:00 PT 12.7 Seconds (9.9-11.8) H 08/12/16 07:45 INR 1.18 (0.93-1.08) H 08/12/16 07:45 APTT 20.8 Seconds (23.7-30.8) L 08/09/16 16:00 - Constitutional Appears: Non-toxic, No Acute Distress - Head Exam Head Exam: NORMAL INSPECTION - ENT Exam ENT Exam: Mucous Membranes Moist - Neck Exam Neck Exam: absent: Lymphadenopathy, Meningismus - Respiratory Exam Respiratory Exam: Decreased Breath Sounds - Cardiovascular Exam Cardiovascular Exam: +S1, +S2 - GI/Abdominal Exam GI & Abdominal Exam: Soft. absent: Tenderness - Extremities Exam Additional comments: both legs with dry dressings in place Assessment and Plan - Assessment and Plan (Free Text) Plan: Assessment Infected diabetic leg ulcers, growing MRSA and gram negative bacilli R/O healthcare-associated pneumonia, right lower lobe atrial fibrillation chronic anemia HTN mild dementia chronic CHF DM Plan continue intermittent Vancomycin and Cefepime as well as Zithromax day 4, pending wound cx and final blood cx results
--- NOTE | 2016-08-14 21:26 | PN ---
DATE: 08/14/2016 REASON FOR CONSULTATION AND FOLLOWUP: Atrial fibrillation, cardiomyopathy, sepsis, LifeVest, gastroi ntestinal bleed. BRIEF CLINICAL HISTORY: This is a 65-year-old male with a past medical history significant for chron ic renal insufficiency, atrial fibrillation on Eliquis, cardiomyopathy, recently admitted to [facility], found to have a severely decreased LV function. The patient was put on a LifeVes t by Dr. Davis. Admitted here with a decreased hemoglobin of 6.9. His stools are positive, is status post endoscopy, now on IV continuous Protonix. A MUGA scan was done, 40%, so LifeVest was yu griffin. Denies any chest pain, shortness of breath or any palpitation. PHYSICAL EXAMINATION: VITAL SIGNS: Temperature afebrile, heart rate 99, blood pressure 104/65. HEENT: PERRLA. Extraocular muscles intact. NECK: Supple. No carotid bruits. No thyromegaly. CHEST: Clear to auscultation. HEART: S1, S2 regular. ABDOMEN: Soft. EXTREMITIES: Clubbing and cyanosis negative. BLOOD WORKUP: WBC , hemoglobin , hematocrit 27.1, platelet count 235. Chemistry shows sod ium , potassium 3.2, chloride 103, carbon dioxide 31, anion gap of 8, BUN 44, creatinine 2. IMPRESSION: Coronary artery disease, status post cardiac catheterization, nonobstructive coronary ar jay disease, nonischemic cardiomyopathy, ejection fraction 40% recently. The patient was placed on a LifeVest and it was removed because of good left ventricular function. Renal insufficiency and chr onic atrial fibrillation, off Eliquis because of gastrointestinal bleed. RECOMMENDATION: The patient is on IV Protonix. When the patient's GI issues are resolved, the patie nt can be discharged home with the plan to follow up with Dr. Davis for evaluation for AICD. In the i nterim continue Coreg, continue digoxin Wednesday, Wednesday, Wednesday, renal adjusted dose. The patient is not on BRANDI inhibitors because of renal insufficiency and off Eliquis because of GI bleed. Will fo llow with you. Thank you, Dr. Miller, for providing me the opportunity in taking care of this patient. Mario Benavides MD cc: [id number] TT: 08/14/2016 21:25:12 Confirmation # [id number] Dictation # [id number]
--- NOTE | 2016-08-17 09:10 | PN ---
DATE: 08/14/2016 SUBJECTIVE: This is a 65-year-old male seen at bedside for continued evaluation and management of m ultiple open blisters, which are now superficial ulcerations on both lower extremities. Most recent wound cultures reveal MRSA growth from the leg wounds. VITAL SIGNS: Reveal temperature of 98.9, pulse rate of 99, blood pressure of 104/65, respiratory rat e of 20. LABORATORY DATA: Reveal a white count of 11.1 down from 14.5 yesterday. Hemoglobin of 8.6, hematocr it of 27.1, platelet count of 235. OBJECTIVE: Weakly palpable pedal pulses noted bilaterally. There is noted to be superficial ulcerat ions on the anterior aspect of the right lower leg and on the posterior aspect of the left lower leg. There are mixed granular and fibrotic tissue with some necrosis. There is no purulence to suggest underlying abscess formation. X-rays of the right tib-fib reveal no radiographic evidence of osteomy elitis. Arterial Dopplers reveal relatively normal ABIs and PVRs at rest. ASSESSMENT: Multiple superficial diabetic lower leg ulcerations. PLAN: note was read and appreciated. We will continue with IV antibiotics as per infectio us disease. The wounds were cleansed with normal sterile saline and an application of and foam dressings were applied. We will continue to offload using the foam Multi Podus boots and the patien t will be seen and followed daily. Kody Wilson DPM cc: [id number] TT: 08/14/2016 17:18:27 Confirmation # [id number] Dictation # [id number] tianna
== END 2016-08-14 18:30 | DRG 377 ==
LOC: ED 14:51 → ERH 17:32 → MERGE 17:32 → ERH 17:59 → CCU 18:40 → 2RSO 08-11 20:26
PROVIDERS: ADMIT Internal Medicine; ATTEND Internal Medicine
PROC: 30233N1 Transfusion of Nonautologous Red Blood Cells into Peripheral Vein, Percutaneous Approach (ICD-10-PCS; 2016-08-09)
PROC: 0DJ08ZZ Inspection of Upper Intestinal Tract, Via Natural or Artificial Opening Endoscopic (ICD-10-PCS; 2016-08-12)
PROC: 3E0G8GC Introduction of Other Therapeutic Substance into Upper GI, Via Natural or Artificial Opening Endoscopic (ICD-10-PCS; principal; 2016-08-12 13:30)
DX: K92.2 Gastrointestinal hemorrhage, unspecified (principal); G92 Toxic encephalopathy; N17.9 Acute kidney failure, unspecified; J18.9 Pneumonia, unspecified organism; I13.0 Hypertensive heart and chronic kidney disease with heart failure and stage 1 through stage 4 chronic kidney disease, or unspecified chronic kidney disease; E87.0 Hyperosmolality and hypernatremia; F03.90 Unspecified dementia, unspecified severity, without behavioral disturbance, psychotic disturbance, mood disturbance, and anxiety; I50.9 Heart failure, unspecified; R17 Unspecified jaundice; I42.0 Dilated cardiomyopathy; N18.4 Chronic kidney disease, stage 4 (severe); D62 Acute posthemorrhagic anemia; I48.2 Chronic atrial fibrillation; E86.0 Dehydration; E11.22 Type 2 diabetes mellitus with diabetic chronic kidney disease; E11.621 Type 2 diabetes mellitus with foot ulcer; I25.10 Atherosclerotic heart disease of native coronary artery without angina pectoris; E11.65 Type 2 diabetes mellitus with hyperglycemia; E11.51 Type 2 diabetes mellitus with diabetic peripheral angiopathy without gangrene; E11.649 Type 2 diabetes mellitus with hypoglycemia without coma; E78.5 Hyperlipidemia, unspecified; E87.6 Hypokalemia; I08.1 Rheumatic disorders of both mitral and tricuspid valves; I49.3 Ventricular premature depolarization; Z79.899 Other long term (current) drug therapy; Z82.49 Family history of ischemic heart disease and other diseases of the circulatory system; Z86.73 Personal history of transient ischemic attack (TIA), and cerebral infarction without residual deficits; Z95.0 Presence of cardiac pacemaker; Z95.810 Presence of automatic (implantable) cardiac defibrillator; I83.009 Varicose veins of unspecified lower extremity with ulcer of unspecified site; K64.4 Residual hemorrhoidal skin tags; K64.8 Other hemorrhoids; K44.9 Diaphragmatic hernia without obstruction or gangrene; K26.9 Duodenal ulcer, unspecified as acute or chronic, without hemorrhage or perforation

== ENCOUNTER 2016-08-14 18:30 | Inpatient (IN) | payer OTHER, MEDICAID ==
[2016-08-14 20:50] VITALS: BMI 27.6
[2016-08-14 20:59] VITALS: RESP 18
[2016-08-14] MEDS ORDERED: Pneumococcal 23-Valent Vaccine IM ONE (20:59)
[2016-08-15] MEDS: Insulin Detemir 100 units/ml Vial (Levemir) SC SCH ×2 (01:27→09:46)
[2016-08-15] MEDS: Pantoprazole 40 mg EC Tab PO SCH ×2 (05:59→18:45)
[2016-08-15] MEDS: Azithromycin 500MG/NS 250ml 500 MG/250 ML BAG IVPB SCH (05:59)
[2016-08-15] MEDS ORDERED: Cefepime 1gm in NS 100ml 1 GM/100 ML BAG IVPB SCH (06:00)
--- NOTE | 2016-08-15 07:21 | CP.PCM.CON ---
<Juan F Caputo - Last Filed: 08/15/16 10:45> History of Present Illness - History of Present Illness History of Present Illness: PGY4 GI Fellow Consult Note Patient is a 65yo male with PMHx significant for DM, HTN, atrial fibrillation on Eliquis, CHF (EF 40% on MUGA scan this prior admission), prior CVA, dementia who initially presented to the ED brought in by family for altered mentation. The patient's history is limited by his dementia. On admission there was also concern for GI hemorrhage given his profound anemia (HGB 5.3). On admission he was also noted to have multiple electrolyte abnormalities and acute kidney injury on CKD. He was adequately resuscitated and his anticoagulation/ antiplatelet therapy were held. He began to have melena while in house and underwent EGD which revealed a large duodenal bulb cratered ulcer which was clipped and injected with epinephrine. No further episodes of overt blood loss were noted and patient was transferred to TCU for continued rehabilitation prior to returning home. At present, the patient has no complaints other than incontinence of stool. PMHx: See HPI PSHx: Hernia repair, PCI (2013) FH: Hypertension Social: Denies tobacco, EtOH or illicit drug use Endo: EGD - 07/2016 - Duodenal bulb ulcer Review of Systems - Review of Systems Systems not reviewed;Unavailable: Dementia Past Patient History - Infectious Disease Hx of Infectious Diseases: None - Tetanus Immunizations Tetanus Immunization: Unknown - Past Social History Smoking Status: Never Smoked - CARDIAC Hx Congestive Heart Failure: Yes Hx Hypertension: Yes - NEUROLOGICAL HX Cerebrovascular Accident: Yes - RENAL Hx Renal Failure: Yes - ENDOCRINE/METABOLIC Hx Diabetes Mellitus Type 2: Yes - HEMATOLOGICAL/ONCOLOGICAL Hx Blood Transfusions: (UNKOWN) Hx Blood Transfusion Reaction: (UNKNOWN) - INTEGUMENTARY Hx Dermatological Problems: Yes (bilateral lower extremities stasis ulcers) - MUSCULOSKELETAL/RHEUMATOLOGICAL Hx Falls: No - GASTROINTESTINAL Hx Gastrointestinal Disorders: (hiatal hernia duodenal ulcer) - GENITOURINARY/GYNECOLOGICAL Hx Reproductive Disorders: No - PSYCHIATRIC Hx Depression: No Hx Emotional Abuse: No Hx Physical Abuse: No Hx Substance Use: No - SURGICAL HISTORY Hx Surgeries: (abd hernia) - ANESTHESIA Hx Anesthesia: No Hx Anesthesia Reactions: No Hx Malignant Hyperthermia: No Meds Allergies/Adverse Reactions: Allergies Allergy/AdvReac Type Severity Reaction Status Date / Time No Known Allergies Allergy Verified 07/18/13 09:48 - Medications Medications: Current Medications Aspirin (Aspirin Chewable) 81 mg PO 0800 [facility] Atorvastatin Calcium (Lipitor) 20 mg PO DIN [facility] Carvedilol (Coreg) 3.125 mg PO BID [facility] Collagenase (Santyl) 0 gm TOP DAILY [facility] Digoxin (Lanoxin) 0.125 mg PO MWF [facility] Donepezil HCl (Aricept) 5 mg PO HS [facility] Last Admin: 08/15/16 01:52 Dose: 5 mg Glimepiride (Amaryl) 4 mg PO BRK [facility] Azithromycin (Zithromax 500mg In Ns) 500 mg in 250 mls @ 167 mls/hr IVPB 0600 [facility] Last Admin: 08/15/16 05:59 Dose: 167 mls/hr Linezolid (Zyvox 600mg/300ml D5w) 600 mg in 300 mls @ 200 mls/hr IVPB Q12 [facility] Stop: 08/15/16 11:29 Cefepime HCl (Maxipime 1gm) 1 gm in 100 mls @ 100 mls/hr IVPB 0600 [facility] Last Admin: 08/15/16 05:58 Dose: 100 mls/hr Insulin Detemir (Levemir) 10 unit SC Q12 [facility] Last Admin: 08/15/16 01:27 Dose: Not Given Insulin Human Regular (Humulin R Low) 0 units SC ACHS [facility] Losartan Potassium (Cozaar) 100 mg PO DAILY [facility] Metformin HCl (Glucophage) 1,000 mg PO DAILY [facility] Pantoprazole Sodium (Protonix Ec Tab) 40 mg PO 0630,1730 [facility] Last Admin: 08/15/16 05:59 Dose: 40 mg Paroxetine HCl (Paxil) 20 mg PO DAILY [facility] Phenazopyridine HCl (Pyridium) 200 mg PO BID [facility] Physical Exam - Constitutional Appears: Non-toxic, No Acute Distress - Eye Exam Eye Exam: EOMI, PERRL - ENT Exam ENT Exam: Mucous Membranes Moist - Respiratory Exam Respiratory Exam: Clear to Auscultation Bilateral. absent: Rales, Rhonchi, Wheezes - Cardiovascular Exam Cardiovascular Exam: RRR, +S1, +S2 - GI/Abdominal Exam GI & Abdominal Exam: Normal Bowel Sounds, Soft. absent: Distended, Firm, Guarding, Organomegaly, Rigid, Tenderness - Extremities Exam Additional comments: multiple LE wounds - Neurological Exam Neurological exam: Alert, Oriented x3 - Psychiatric Exam Psychiatric exam: Normal Affect, Normal Mood - Skin Skin Exam: Dry, Warm Results - Vital Signs Recent Vital Signs: Last Vital Signs Temp 99.1 F 08/14/16 20:49 Pulse 78 08/14/16 20:49 Resp 18 08/14/16 20:49 BP 98/60 L 08/14/16 20:49 Pulse Ox - Labs Result Diagrams: 08/15/16 10:00 08/15/16 10:00 Assessment & Plan - Assessment and Plan (Free Text) Assessment: Patient is a 65yo male with PMHx significant for DM, HTN, atrial fibrillation on Eliquis, CHF (EF 40% on MUGA scan this prior admission), prior CVA, dementia who initially presented to the ED brought in by family for altered mentation. Our service has been following for evaluation of anemia/GI bleeding. -Acute blood loss anemia -PUD - Duodenal bulb ulcer s/p clipping/epinephrine -Atrial fibrillation on Eliquis previously -CAD Plan: -Still recommend that antiplatelet and anticoagulation be held for total of one week post-op; ASA has been resumed -Following this time frame, risk/benefit of resuming therapy must be evaluated -If patient continues to have loose watery stool, perform stool w/u with stool culture, C diff -Diet as tolerated -Will need repeat EGD in September to check healing of ulceration -Check H pylori stool Ag/breath test when patient is off PPI therapy -Will sign off. - Date & Time Date: 08/15/16 Time: 07:27 <Tere Martinez - Last Filed: 08/15/16 13:19> Meds - Medications Medications: Current Medications Aspirin (Aspirin Chewable) 81 mg PO 0800 [facility] Last Admin: 08/15/16 09:39 Dose: 81 mg Atorvastatin Calcium (Lipitor) 20 mg PO DIN [facility] Carvedilol (Coreg) 3.125 mg PO BID [facility] Last Admin: 08/15/16 09:39 Dose: 3.125 mg Collagenase (Santyl) 0 gm TOP DAILY [facility] Last Admin: 08/15/16 09:42 Dose: Not Given Digoxin (Lanoxin) 0.125 mg PO [facility] Donepezil HCl (Aricept) 5 mg PO [facility] Last Admin: 08/15/16 01:52 Dose: 5 mg Glimepiride (Amaryl) 4 mg PO BRK [facility] Last Admin: 08/15/16 09:38 Dose: 4 mg Azithromycin (Zithromax 500mg In Ns) 500 mg in 250 mls @ 167 mls/hr IVPB 0600 [facility] Last Admin: 08/15/16 05:59 Dose: 167 mls/hr Linezolid (Zyvox 600mg/300ml D5w) 600 mg in 300 mls @ 200 mls/hr IVPB Q12 [facility] Stop: 08/22/16 10:01 Last Admin: 08/15/16 10:23 Dose: 200 mls/hr Ceftriaxone Sodium (Rocephin 1 Gram Ivpb) 1 gm in 100 mls @ 100 mls/hr IVPB DAILY [facility] PRN Reason: Protocol Stop: 08/22/16 10:01 Last Admin: 08/15/16 09:46 Dose: 100 mls/hr Insulin Detemir (Levemir) 10 unit SC Q12 [facility] Last Admin: 08/15/16 09:46 Dose: 10 unit Insulin Human Regular (Humulin R Low) 0 units SC ACHS [facility] Last Admin: 08/15/16 12:55 Dose: Not Given Losartan Potassium (Cozaar) 100 mg PO DAILY [facility] Last Admin: 08/15/16 09:40 Dose: 100 mg Metformin HCl (Glucophage) 1,000 mg PO DAILY [facility] Pantoprazole Sodium (Protonix Ec Tab) 40 mg PO 0630,1730 [facility] Last Admin: 08/15/16 05:59 Dose: 40 mg Paroxetine HCl (Paxil) 20 mg PO DAILY [facility] Last Admin: 08/15/16 09:41 Dose: 20 mg Phenazopyridine HCl (Pyridium) 200 mg PO BID [facility] Last Admin: 08/15/16 09:41 Dose: 200 mg Results - Vital Signs Recent Vital Signs: Last Vital Signs Temp 99.1 F 08/14/16 20:49 Pulse 86 08/15/16 09:39 Resp 18 08/14/16 20:49 BP 111/69 08/15/16 09:39 Pulse Ox - Labs Result Diagrams: 08/15/16 10:00 08/15/16 10:00 Labs: Laboratory Results - last 24 hr 08/15/16 08/15/16 10:00 10:00 WBC 9.9 RBC 3.09 L Hgb 8.7 L Hct 27.2 L MCV 88.0 MCH 28.2 MCHC 32.0 RDW 16.8 H Plt Count 256 MPV 9.7 Gran % 79.9 H Lymph % (Auto) 10.6 L [place] % (Auto) 7.1 H Eos % (Auto) 2.3 Baso % (Auto) 0.1 Gran # 7.88 H Lymph # 1.1 L [place] # 0.7 H Eos # 0.2 Baso # 0.01 Sodium 136 Potassium 3.3 L Chloride 103 Carbon Dioxide 28 Anion Gap 8 L BUN 33 H Creatinine 1.8 H Est GFR ( Amer) 46 Est GFR (Non-Af Amer) 38 Random Glucose 78 Calcium 7.4 L Total Bilirubin 1.8 H Direct Bilirubin 0.3 AST 41 ALT 42 Alkaline Phosphatase 73 Total Protein 5.7 L Albumin 2.6 L Globulin 3.1 Albumin/Globulin Ratio 0.8 L Attending/Attestation - Attestation I have personally seen and examined this patient.: Yes I have fully participated in the care of the patient.: Yes I have reviewed all pertinent clinical information: Yes Notes (Text): Patient seen and examined. Agree with note as documented above with the following additions/exceptions. This is a 65 year old male with PMHx significant for DM, HTN, atrial fibrillation on Eliquis, CHF, prior CVA, dementia admitted with altered mental status, GI bleeding. He is s/p EGD showing large duodenal ulcer s/p hemoclip/epi therapy. No further bleeding episodes, H/H stable. Continue current therapy, BID PPI, avoid NSAIDs. He will need repeat EGD in 2 months. Follow up cardiology recommendations. Diet as tolerated. Please call with any further questions/concerns. 08/15/16 13:16
[2016-08-15] MEDS: Insulin Reg-LOW-Coverage SC SCH ×2 (09:40→12:55)
[2016-08-15] MEDS: Collagenase 250 Units/gm Ointment(30 gm) TOP SCH (09:42)
[2016-08-15] MEDS ORDERED: cefTRIAXone 1 gm 1 GM/100 ML BAG IVPB SCH (10:00)
[2016-08-15 10:05] LABS: ADD MANUAL DIFF? NO
[2016-08-15 10:14] LABS: BASO # 0.01 K/mm3 (0.0-2.0); BASO % 0.1 % (0.0-3.0); EOS # 0.2 (0.0-0.7); EOS % 2.3 % (1.5-5.0); GRAN # 7.88 (1.4-6.5); GRAN % 79.9 % (50.0-68.0); HEMATOCRIT 27.2 % (42.0-52.0); LYMPH # 1.1 (1.2-3.4); LYMPH % 10.6 % (22.0-35.0); MEAN CORPUSCULAR HEMOGLOBIN 28.2 pg (25.0-35.0); MEAN PLATELET VOLUME 9.7 fl (7.0-11.0); MONO # 0.7 (0.1-0.6); MONO % 7.1 % (1.0-6.0); PLATELET COUNT 256 10^3/uL (120.0-450.0); RED CELL DISTRIBUTION WIDTH 16.8 % (11.5-14.5); WHITE BLOOD COUNT 9.9 10^3/ul (4.5-11.0)
[2016-08-15 10:20] LABS: ALB/GLOB RATIO 0.8 (1.1-1.8); BILIRUBIN,DIRECT 0.3 mg/dL (0.0-0.4); BILIRUBIN,TOTAL 1.8 mg/dL (0.2-1.3); CALCIUM 7.4 mg/dL (8.4-10.5); POTASSIUM 3.3 mmol/L (3.6-5.0); TOTAL PROTEIN 5.7 g/dL (5.8-8.3)
[2016-08-15] MEDS: Linezolid 600 mg in D5W 300 ml 600 MG/300 ML BAG IVPB SCH ×2 (10:23→22:16)
--- NOTE | 2016-08-15 11:27 | CP.PCM.CON ---
<BoboSofiya - Last Filed: 08/15/16 11:35> History of Present Illness - History of Present Illness History of Present Illness: PODIATRY CONSULT NOTE 65 year old man seen at bedside concerning superficial leg sores. Pt has no memory of inciting event, but notes sores have persisted for several weeks. Pt denies recent f/c/cp/sob/n/v. Pt denies any acute overnight events. Past Patient History - Infectious Disease Hx of Infectious Diseases: None - Tetanus Immunizations Tetanus Immunization: Unknown - Past Social History Smoking Status: Never Smoked - CARDIAC Hx Congestive Heart Failure: Yes Hx Hypertension: Yes - NEUROLOGICAL HX Cerebrovascular Accident: Yes - RENAL Hx Renal Failure: Yes - ENDOCRINE/METABOLIC Hx Diabetes Mellitus Type 2: Yes - HEMATOLOGICAL/ONCOLOGICAL Hx Blood Transfusions: (UNKOWN) Hx Blood Transfusion Reaction: (UNKNOWN) - INTEGUMENTARY Hx Dermatological Problems: Yes (bilateral lower extremities stasis ulcers) - MUSCULOSKELETAL/RHEUMATOLOGICAL Hx Falls: No - GASTROINTESTINAL Hx Gastrointestinal Disorders: (hiatal hernia duodenal ulcer) - GENITOURINARY/GYNECOLOGICAL Hx Reproductive Disorders: No - PSYCHIATRIC Hx Depression: No Hx Emotional Abuse: No Hx Physical Abuse: No Hx Substance Use: No - SURGICAL HISTORY Hx Surgeries: (abd hernia) - ANESTHESIA Hx Anesthesia: No Hx Anesthesia Reactions: No Hx Malignant Hyperthermia: No Meds Allergies/Adverse Reactions: Allergies Allergy/AdvReac Type Severity Reaction Status Date / Time No Known Allergies Allergy Verified 07/18/13 09:48 - Medications Medications: Current Medications Aspirin (Aspirin Chewable) 81 mg PO 0800 [facility] Last Admin: 08/15/16 09:39 Dose: 81 mg Atorvastatin Calcium (Lipitor) 20 mg PO DIN [facility] Carvedilol (Coreg) 3.125 mg PO BID [facility] Last Admin: 08/15/16 09:39 Dose: 3.125 mg Collagenase (Santyl) 0 gm TOP DAILY [facility] Last Admin: 08/15/16 09:42 Dose: Not Given Digoxin (Lanoxin) 0.125 mg PO MWF [facility] Donepezil HCl (Aricept) 5 mg PO HS [facility] Last Admin: 08/15/16 01:52 Dose: 5 mg Glimepiride (Amaryl) 4 mg PO BRK [facility] Last Admin: 08/15/16 09:38 Dose: 4 mg Azithromycin (Zithromax 500mg In Ns) 500 mg in 250 mls @ 167 mls/hr IVPB 0600 [facility] Last Admin: 08/15/16 05:59 Dose: 167 mls/hr Linezolid (Zyvox 600mg/300ml D5w) 600 mg in 300 mls @ 200 mls/hr IVPB Q12 [facility] Stop: 08/22/16 10:01 Last Admin: 08/15/16 10:23 Dose: 200 mls/hr Ceftriaxone Sodium (Rocephin 1 Gram Ivpb) 1 gm in 100 mls @ 100 mls/hr IVPB DAILY [facility] PRN Reason: Protocol Stop: 08/22/16 10:01 Last Admin: 08/15/16 09:46 Dose: 100 mls/hr Insulin Detemir (Levemir) 10 unit SC Q12 [facility] Last Admin: 08/15/16 09:46 Dose: 10 unit Insulin Human Regular (Humulin R Low) 0 units SC ACHS [facility] Last Admin: 08/15/16 09:40 Dose: Not Given Losartan Potassium (Cozaar) 100 mg PO DAILY [facility] Last Admin: 08/15/16 09:40 Dose: 100 mg Metformin HCl (Glucophage) 1,000 mg PO DAILY [facility] Pantoprazole Sodium (Protonix Ec Tab) 40 mg PO 0630,1730 [facility] Last Admin: 08/15/16 05:59 Dose: 40 mg Paroxetine HCl (Paxil) 20 mg PO DAILY [facility] Last Admin: 08/15/16 09:41 Dose: 20 mg Phenazopyridine HCl (Pyridium) 200 mg PO BID [facility] Last Admin: 08/15/16 09:41 Dose: 200 mg Physical Exam - Constitutional Appears: Well, Non-toxic, No Acute Distress - Extremities Exam Additional comments: Lower extremity focused exam: VASC: DP and PT pulses palpable bilaterally, graded 1/4 and 1/4 respectively. + 1 pitting edema noted to lower extremities b/l. DERM: Superficial ulcerations noted to anterior and medial legs bilaterally at the level of the led leg. Wounds have a 80% granular 20% fibrotic wound base with weeping serous exudate. Right foot superficial ulceration noted to dorsal aspect of 4th and 5th MTPJ. Diffuse bilateral lower leg blanchable erythema extending from proximal 1/3 of leg terminating superior to the ankle joints with accompanying dyshydrotic epidermal patches. NEURO: Protective sensation grossly intact.. ORTHO: Pedal muscle strength is graded 5/5 in all 4 major pedal muscle groups. - Neurological Exam Neurological exam: Alert, Oriented x3 - Psychiatric Exam Psychiatric exam: Normal Affect, Normal Mood Results - Vital Signs Recent Vital Signs: Last Vital Signs Temp 99.1 F 08/14/16 20:49 Pulse 86 08/15/16 09:39 Resp 18 08/14/16 20:49 BP 111/69 08/15/16 09:39 Pulse Ox - Labs Result Diagrams: 08/15/16 10:00 08/15/16 10:00 Labs: Laboratory Results - last 24 hr 08/15/16 08/15/16 10:00 10:00 WBC 9.9 RBC 3.09 L Hgb 8.7 L Hct 27.2 L MCV 88.0 MCH 28.2 MCHC 32.0 RDW 16.8 H Plt Count 256 MPV 9.7 Gran % 79.9 H Lymph % (Auto) 10.6 L [place] % (Auto) 7.1 H Eos % (Auto) 2.3 Baso % (Auto) 0.1 Gran # 7.88 H Lymph # 1.1 L [place] # 0.7 H Eos # 0.2 Baso # 0.01 Sodium 136 Potassium 3.3 L Chloride 103 Carbon Dioxide 28 Anion Gap 8 L BUN 33 H Creatinine 1.8 H Est GFR ( Amer) 46 Est GFR (Non-Af Amer) 38 Random Glucose 78 Calcium 7.4 L Total Bilirubin 1.8 H Direct Bilirubin 0.3 AST 41 ALT 42 Alkaline Phosphatase 73 Total Protein 5.7 L Albumin 2.6 L Globulin 3.1 Albumin/Globulin Ratio 0.8 L Assessment & Plan - Assessment and Plan (Free Text) Assessment: 65 year old male with venous stasis superficial ulcerations bilaterally to legs. Plan: Patient evaluated and treated with attending, Dr. Wilson, present. Chart, labs, and vitals reviewed. Afebrile, 24 hout T-max= 101 degrees. , WBC= 13.0k (08/15/16). Wound sites cleansed with sterile saline. Dressed with xeroform, abd, DSD, and BRANDI bilaterally. Continue IV abx per ID. Podiatry will continue to follow this patient while in house - Date & Time Date: 08/15/16 Time: 09:00 <Kody Wilson - Last Filed: 08/18/16 11:56> Results - Vital Signs Recent Vital Signs: Last Vital Signs Temp 98.6 F 08/17/16 10:00 Pulse 100 H 08/17/16 10:18 Resp 18 08/17/16 10:00 BP 99/65 L 08/17/16 10:42 Pulse Ox 99 08/17/16 10:00 - Labs Result Diagrams: 08/17/16 06:10 08/17/16 06:10 Labs: Laboratory Results - last 24 hr 08/15/16 08/15/16 08/15/16 00:38 05:00 11:28 POC Glucose (mg/dL) 106 93 119 H 08/15/16 08/15/16 08/15/16 16:10 16:34 17:39 POC Glucose (mg/dL) 22 L* 118 H 69 08/15/16 08/15/16 08/16/16 21:06 22:30 00:01 POC Glucose (mg/dL) 59 L 27 L* 72 08/16/16 08/16/16 08/16/16 00:45 01:41 02:55 POC Glucose (mg/dL) 40 L 97 48 L 08/16/16 08/16/16 08/16/16 04:16 05:16 06:12 POC Glucose (mg/dL) 52 L 84 40 L 08/16/16 08/16/16 08/16/16 07:08 07:35 09:06 POC Glucose (mg/dL) 83 62 L 46 L 08/16/16 08/16/16 08/16/16 10:04 10:40 12:16 POC Glucose (mg/dL) 46 L 57 L 62 L 08/16/16 08/16/16 08/16/16 14:56 16:36 17:57 POC Glucose (mg/dL) 57 L 63 L 75 08/16/16 08/16/16 08/16/16 19:21 20:25 21:56 POC Glucose (mg/dL) 34 L* 68 51 L 08/16/16 08/17/16 08/17/16 23:23 00:31 02:00 POC Glucose (mg/dL) 75 68 60 L 08/17/16 08/17/16 08/17/16 02:51 03:19 04:49 POC Glucose (mg/dL) 65 66 68 08/17/16 08/17/16 08/17/16 06:36 08:02 09:48 POC Glucose (mg/dL) 70 76 101 08/17/16 08/17/16 08/17/16 13:25 15:59 16:35 POC Glucose (mg/dL) 127 H 136 H 138 H Attending/Attestation - Attestation I have personally seen and examined this patient.: Yes I have fully participated in the care of the patient.: Yes I have reviewed all pertinent clinical information: Yes
--- NOTE | 2016-08-15 12:04 | CP.PCM.CON ---
History of Present Illness - History of Present Illness History of Present Illness: 65 year old male with PMH of atrial fibrillation, chronic anemia, HTN, mild dementia, chronic CHF, DM was initially admitted in [facility] because of possible toxic-metabolic encephalopathy and has done well. He is also being treated for Infected diabetic leg ulcers, which are now growing MRSA and Morganella. He has been doing well with local wound care by Podiatry and IV antibiotics. He is now transferred to [facility] for continued medical management and physical rehabilitation. Infectious Diseases consult is requested to continue antibiotic management. Currently the patient is comfortable in bed, not in distress. He denies fever or chills, no nausea or vomiting, no headache or dizziness, no chest pain, no SOB, no abdominal pain, no diarrhea, no dysuria, no cough or colds, no sore throat. Review of Systems - Review of Systems All systems: reviewed and no additional remarkable complaints except (as per HPI ) Past Patient History - Infectious Disease Hx of Infectious Diseases: None - Tetanus Immunizations Tetanus Immunization: Unknown - Past Social History Smoking Status: Never Smoked - CARDIAC Hx Congestive Heart Failure: Yes Hx Hypertension: Yes - NEUROLOGICAL HX Cerebrovascular Accident: Yes - RENAL Hx Renal Failure: Yes - ENDOCRINE/METABOLIC Hx Diabetes Mellitus Type 2: Yes - HEMATOLOGICAL/ONCOLOGICAL Hx Blood Transfusions: (UNKOWN) Hx Blood Transfusion Reaction: (UNKNOWN) - INTEGUMENTARY Hx Dermatological Problems: Yes (bilateral lower extremities stasis ulcers) - MUSCULOSKELETAL/RHEUMATOLOGICAL Hx Falls: No - GASTROINTESTINAL Hx Gastrointestinal Disorders: (hiatal hernia duodenal ulcer) - GENITOURINARY/GYNECOLOGICAL Hx Reproductive Disorders: No - PSYCHIATRIC Hx Depression: No Hx Emotional Abuse: No Hx Physical Abuse: No Hx Substance Use: No - SURGICAL HISTORY Hx Surgeries: (abd hernia) - ANESTHESIA Hx Anesthesia: No Hx Anesthesia Reactions: No Hx Malignant Hyperthermia: No Meds Allergies/Adverse Reactions: Allergies Allergy/AdvReac Type Severity Reaction Status Date / Time No Known Allergies Allergy Verified 07/18/13 09:48 - Medications Medications: Current Medications Aspirin (Aspirin Chewable) 81 mg PO 0800 [facility] Atorvastatin Calcium (Lipitor) 20 mg PO DIN [facility] Carvedilol (Coreg) 3.125 mg PO BID [facility] Collagenase (Santyl) 0 gm TOP DAILY [facility] Digoxin (Lanoxin) 0.125 mg PO MWF [facility] Donepezil HCl (Aricept) 5 mg PO HS [facility] Last Admin: 08/15/16 01:52 Dose: 5 mg Glimepiride (Amaryl) 4 mg PO BRK [facility] Azithromycin (Zithromax 500mg In Ns) 500 mg in 250 mls @ 167 mls/hr IVPB 0600 [facility] Last Admin: 08/15/16 05:59 Dose: 167 mls/hr Linezolid (Zyvox 600mg/300ml D5w) 600 mg in 300 mls @ 200 mls/hr IVPB Q12 [facility] Stop: 08/22/16 10:01 Ceftriaxone Sodium (Rocephin 1 Gram Ivpb) 1 gm in 100 mls @ 100 mls/hr IVPB DAILY [facility] PRN Reason: Protocol Stop: 08/22/16 10:01 Insulin Detemir (Levemir) 10 unit SC Q12 [facility] Last Admin: 08/15/16 01:27 Dose: Not Given Insulin Human Regular (Humulin R Low) 0 units SC ACHS [facility] Losartan Potassium (Cozaar) 100 mg PO DAILY [facility] Metformin HCl (Glucophage) 1,000 mg PO DAILY [facility] Pantoprazole Sodium (Protonix Ec Tab) 40 mg PO 0630,1730 [facility] Last Admin: 08/15/16 05:59 Dose: 40 mg Paroxetine HCl (Paxil) 20 mg PO DAILY [facility] Phenazopyridine HCl (Pyridium) 200 mg PO BID [facility] Physical Exam - Constitutional Appears: Non-toxic, No Acute Distress - Head Exam Head Exam: NORMAL INSPECTION - ENT Exam ENT Exam: Mucous Membranes Moist - Neck Exam Neck exam: Negative for: Lymphadenopathy, Meningismus - Respiratory Exam Respiratory Exam: Decreased Breath Sounds - Cardiovascular Exam Cardiovascular Exam: +S1, +S2 - GI/Abdominal Exam GI & Abdominal Exam: Soft. absent: Tenderness - Extremities Exam Additional comments: both lower extremities with dry dressings in place Results - Vital Signs Recent Vital Signs: Last Vital Signs Temp 99.1 F 08/14/16 20:49 Pulse 78 08/14/16 20:49 Resp 18 08/14/16 20:49 BP 98/60 L 08/14/16 20:49 Pulse Ox - Labs Result Diagrams: 08/15/16 10:00 08/15/16 10:00 Assessment & Plan - Assessment and Plan (Free Text) Plan: Assessment Infected diabetic leg ulcers, growing MRSA and Morganella, slowly improving R/O healthcare-associated pneumonia, right lower lobe atrial fibrillation chronic anemia HTN mild dementia chronic CHF DM Plan continue zyvox, and we have switched Cefepime to Rocephin day 5 - will target 10 days of therapy Will monitor clinically
[2016-08-15] MEDS ORDERED: Dextrose 50% SYRINGE Inj (50 ml) ONE ×2 (16:18→16:21)
--- NOTE | 2016-08-15 16:43 | CP.PCM.PN ---
<Sayra Galicia - Last Filed: 08/15/16 17:05> Subjective - Date & Time of Evaluation Date of Evaluation: 08/15/16 Time of Evaluation: 16:43 - Subjective Subjective: Rapid response Rapid response was call on 65yo male with PMHx significant for DM, HTN, atrial fibrillation, prior CVA, and dementia was admitted to the hospital for AMS and GI bleed. Patient family walked patient to the bathroom when they noticed change in mental status, patient was confused. Family walked patient back to bed and rapid response was called. Fingerstick showed initial glucose to be 22, D50 was given. Patient became more alert and was able to answer question appropriately in his [place] language. He initially had slurred speech no facial droop, however after few minutes was talking at baseline per family. Vital signs were temp 98.4, BP 117/62, HR 79, RR 20, SpO2 96%. Objective - Vital Signs/Intake and Output Vital Signs (last 24 hours): Temp Pulse Resp BP Pulse Ox 99.1 F 86 18 111/69 08/14/16 20:49 08/15/16 09:39 08/14/16 20:49 08/15/16 09:39 - Medications Medications: Current Medications Aspirin (Aspirin Chewable) 81 mg PO 0800 [facility] Last Admin: 08/15/16 09:39 Dose: 81 mg Atorvastatin Calcium (Lipitor) 20 mg PO DIN [facility] Carvedilol (Coreg) 3.125 mg PO BID [facility] Last Admin: 08/15/16 09:39 Dose: 3.125 mg Collagenase (Santyl) 0 gm TOP DAILY [facility] Last Admin: 08/15/16 09:42 Dose: Not Given Digoxin (Lanoxin) 0.125 mg PO MWF [facility] Donepezil HCl (Aricept) 5 mg PO HS [facility] Last Admin: 08/15/16 01:52 Dose: 5 mg Glimepiride (Amaryl) 4 mg PO BRK [facility] Last Admin: 08/15/16 09:38 Dose: 4 mg Azithromycin (Zithromax 500mg In Ns) 500 mg in 250 mls @ 167 mls/hr IVPB 0600 [facility] Last Admin: 08/15/16 05:59 Dose: 167 mls/hr Linezolid (Zyvox 600mg/300ml D5w) 600 mg in 300 mls @ 200 mls/hr IVPB Q12 [facility] Stop: 08/22/16 10:01 Last Admin: 08/15/16 10:23 Dose: 200 mls/hr Ceftriaxone Sodium (Rocephin 1 Gram Ivpb) 1 gm in 100 mls @ 100 mls/hr IVPB DAILY [facility] PRN Reason: Protocol Stop: 08/22/16 10:01 Last Admin: 08/15/16 09:46 Dose: 100 mls/hr Insulin Detemir (Levemir) 10 unit SC Q12 [facility] Last Admin: 08/15/16 09:46 Dose: 10 unit Insulin Human Regular (Humulin R Low) 0 units SC ACHS [facility] Last Admin: 08/15/16 12:55 Dose: Not Given Losartan Potassium (Cozaar) 100 mg PO DAILY [facility] Last Admin: 08/15/16 09:40 Dose: 100 mg Metformin HCl (Glucophage) 1,000 mg PO DAILY [facility] Pantoprazole Sodium (Protonix Ec Tab) 40 mg PO 0630,1730 [facility] Last Admin: 08/15/16 05:59 Dose: 40 mg Paroxetine HCl (Paxil) 20 mg PO DAILY [facility] Last Admin: 08/15/16 09:41 Dose: 20 mg Phenazopyridine HCl (Pyridium) 200 mg PO BID [facility] Last Admin: 08/15/16 09:41 Dose: 200 mg - Labs Labs: 08/15/16 10:00 08/15/16 10:00 - Head Exam Head Exam: ATRAUMATIC, NORMOCEPHALIC - Respiratory Exam Respiratory Exam: Clear to Ausculation Bilateral, NORMAL BREATHING PATTERN. absent: Rales, Rhonchi, Wheezes, Respiratory Distress - Cardiovascular Exam Cardiovascular Exam: REGULAR RHYTHM. absent: Tachycardia, Murmur - GI/Abdominal Exam GI & Abdominal Exam: Soft, Normal Bowel Sounds. absent: Firm, Guarding, Tenderness - Extremities Exam Extremities Exam: absent: Calf Tenderness Additional comments: bandages on bilateral lower extremity, clean, dry and intact - Neurological Exam Additional comments: initially confused, unable to answer questions clearly, after D50 given pt was alert and oriented. Able to move all extremities without difficulty. speech clear, no facial asymmetry, back to baseline according to daughter who is at bedside - Skin Skin Exam: Dry, Intact, Normal Color, Warm Assessment and Plan - Assessment and Plan (Free Text) Assessment: Rapid response called for hypoglycemia, glucose of 22. Plan: - IVP D50 given - ABG wnl, lactate 1 - stat cxr - repeat glucose 118 - placed on nasal canal 2L - potassium replaced - Dr. Miller was informed, additional orders given by him <Karina Cervantes - Last Filed: 08/15/16 17:18> Objective - Vital Signs/Intake and Output Vital Signs (last 24 hours): Temp Pulse Resp BP Pulse Ox 99.1 F 86 18 111/69 08/14/16 20:49 08/15/16 09:39 08/14/16 20:49 08/15/16 09:39 - Medications Medications: Current Medications Aspirin (Aspirin Chewable) 81 mg PO 0800 [facility] Last Admin: 08/15/16 09:39 Dose: 81 mg Atorvastatin Calcium (Lipitor) 20 mg PO DIN [facility] Carvedilol (Coreg) 3.125 mg PO BID [facility] Last Admin: 08/15/16 09:39 Dose: 3.125 mg Collagenase (Santyl) 0 gm TOP DAILY [facility] Last Admin: 08/15/16 09:42 Dose: Not Given Digoxin (Lanoxin) 0.125 mg PO MWF [facility] Donepezil HCl (Aricept) 5 mg PO HS [facility] Last Admin: 08/15/16 01:52 Dose: 5 mg Glimepiride (Amaryl) 4 mg PO BRK [facility] Last Admin: 08/15/16 09:38 Dose: 4 mg Azithromycin (Zithromax 500mg In Ns) 500 mg in 250 mls @ 167 mls/hr IVPB 0600 [facility] Last Admin: 08/15/16 05:59 Dose: 167 mls/hr Linezolid (Zyvox 600mg/300ml D5w) 600 mg in 300 mls @ 200 mls/hr IVPB Q12 [facility] Stop: 08/22/16 10:01 Last Admin: 08/15/16 10:23 Dose: 200 mls/hr Ceftriaxone Sodium (Rocephin 1 Gram Ivpb) 1 gm in 100 mls @ 100 mls/hr IVPB DAILY [facility] PRN Reason: Protocol Stop: 08/22/16 10:01 Last Admin: 08/15/16 09:46 Dose: 100 mls/hr Potassium Chloride (Potassium Chloride 20 Meq/100 Ml) 20 meq in 100 mls @ 50 mls/hr IVPB ONCE ONE Stop: 08/15/16 19:01 Dextrose/Sodium Chloride (Dextrose 5%/0.9% Ns 1000 Ml) 1,000 mls @ 80 mls/hr IV .[id number] [facility] Insulin Detemir (Levemir) 10 unit SC Q12 [facility] Last Admin: 08/15/16 09:46 Dose: 10 unit Insulin Human Regular (Humulin R Low) 0 units SC ACHS [facility] Last Admin: 08/15/16 12:55 Dose: Not Given Losartan Potassium (Cozaar) 100 mg PO DAILY [facility] Last Admin: 08/15/16 09:40 Dose: 100 mg Metformin HCl (Glucophage) 1,000 mg PO DAILY [facility] Pantoprazole Sodium (Protonix Ec Tab) 40 mg PO 0630,1730 [facility] Last Admin: 08/15/16 05:59 Dose: 40 mg Paroxetine HCl (Paxil) 20 mg PO DAILY [facility] Last Admin: 08/15/16 09:41 Dose: 20 mg Phenazopyridine HCl (Pyridium) 200 mg PO BID [facility] Last Admin: 08/15/16 09:41 Dose: 200 mg - Labs Labs: 08/15/16 10:00 08/15/16 10:00 Attending/Attestation - Attestation I have personally seen and examined this patient.: Yes I have fully participated in the care of the patient.: Yes I have reviewed all pertinent clinical information, including history, physical exam and plan: Yes Notes (Text): 08/15/16 17:17 Pt will be seen by Dr Miller later on today
[2016-08-15 16:49] LABS: ARTERIAL BLOOD GAS HCO3 27.1 mmol/L (21-28); ARTERIAL BLOOD GAS PH 7.45 (7.35-7.45)
[2016-08-15] MEDS ORDERED: Dextrose 5%/0.9% NS 1,000 ML IV SCH (17:15)
--- NOTE | 2016-08-15 17:21 | RAD ---
HISTORY: rapid response COMPARISON: 08/10/2016 FINDINGS: LUNGS: No active pulmonary disease. PLEURA: No significant pleural effusion identified, no pneumothorax apparent. CARDIOVASCULAR: Mild cardiomegaly. No congestive change. OSSEOUS STRUCTURES: No significant abnormalities. VISUALIZED UPPER ABDOMEN: Normal. OTHER FINDINGS: None. IMPRESSION: No acute infiltrate. Mild cardiomegaly.
[2016-08-15] MEDS ORDERED: Potassium Chloride 20 MEQ in Dextrose 5%/0.9% NS 1,000 ML IV SCH (18:30)
--- NOTE | 2016-08-15 18:34 | CP.PCM.HP ---
History of Present Illness - History of Present Illness History of Present Illness: CC: Transferred form Telemetry for IV Antibiotics, PT/OT and Wound Care History of Present Illness: A 65yoM was hospitalized for Hypotension, GI Bleed, Severe anemia, Sepsis due to PNA was transferred to ER due to Nearsyncope, and was admitted to Telemetry. States feeling better. Multiple episodes of Hypoglycemia despite D10 Infusion. As per the Nurses, he complained of dizziness before he fell to the floor but as per the family,it was all mechanical fall as he was trying to clean of the floor his urine. Present on Admission - Present on Admission Any Indicators Present on Admission: No History of DVT/PE: No History of Uncontrolled Diabetes: Yes Urinary Catheter: No Review of Systems - Review of Systems All systems: reviewed and no additional remarkable complaints except - Cardiovascular Cardiovascular: As Per HPI Past Patient History - Infectious Disease Hx of Infectious Diseases: None - Tetanus Immunizations Tetanus Immunization: Unknown - Past Medical History & Family History Past Medical History?: Yes Past Family History: Reviewed and not pertinent - Past Social History Smoking Status: Never Smoked Drugs: Denies Home Situation {Lives}: Alone - CARDIAC Hx Congestive Heart Failure: Yes Hx Hypertension: Yes - NEUROLOGICAL HX Cerebrovascular Accident: Yes - RENAL Hx Renal Failure: Yes - ENDOCRINE/METABOLIC Hx Diabetes Mellitus Type 2: Yes - HEMATOLOGICAL/ONCOLOGICAL Hx Blood Transfusions: (UNKOWN) Hx Blood Transfusion Reaction: (UNKNOWN) - INTEGUMENTARY Hx Dermatological Problems: Yes (bilateral lower extremities stasis ulcers) - MUSCULOSKELETAL/RHEUMATOLOGICAL Hx Falls: No - GASTROINTESTINAL Hx Gastrointestinal Disorders: (hiatal hernia duodenal ulcer) - GENITOURINARY/GYNECOLOGICAL Hx Reproductive Disorders: No - PSYCHIATRIC Hx Depression: No Hx Emotional Abuse: No Hx Physical Abuse: No Hx Substance Use: No - SURGICAL HISTORY Hx Surgeries: (abd hernia) - ANESTHESIA Hx Anesthesia: No Hx Anesthesia Reactions: No Hx Malignant Hyperthermia: No Meds Allergies/Adverse Reactions: Allergies Allergy/AdvReac Type Severity Reaction Status Date / Time No Known Allergies Allergy Verified 08/19/16 19:49 Physical Exam - Constitutional Appears: Well, In Acute Distress - Head Exam Head Exam: ATRAUMATIC, NORMAL INSPECTION, NORMOCEPHALIC - Eye Exam Eye Exam: EOMI, Normal appearance, PERRL Pupil Exam: NORMAL ACCOMODATION, PERRL - ENT Exam ENT Exam: Mucous Membranes Moist, Normal Exam - Neck Exam Neck exam: Positive for: Normal Inspection - Respiratory Exam Respiratory Exam: Clear to Auscultation Bilateral, NORMAL BREATHING PATTERN - Cardiovascular Exam Cardiovascular Exam: REGULAR RHYTHM, +S1, +S2 - GI/Abdominal Exam GI & Abdominal Exam: Normal Bowel Sounds, Soft. absent: Tenderness - Extremities Exam Extremities exam: Positive for: normal inspection Additional comments: Leg Healing Ulcers. - Back Exam Back exam: NORMAL INSPECTION - Neurological Exam Neurological exam: Alert, CN II-XII Intact, Normal Gait, Oriented x3, Reflexes Normal - Psychiatric Exam Psychiatric exam: Normal Affect, Normal Mood - Skin Skin Exam: Dry, Intact, Normal Color, Warm Results - Vital Signs Recent Vital Signs: Last Vital Signs Temp 99.1 F 08/14/16 20:49 Pulse 86 08/15/16 09:39 Resp 18 08/14/16 20:49 BP 111/69 08/15/16 09:39 Pulse Ox - Labs Result Diagrams: 08/17/16 06:10 08/17/16 06:10 Labs: Laboratory Results - last 24 hr 08/15/16 08/15/16 08/15/16 10:00 10:00 16:35 WBC 9.9 RBC 3.09 L Hgb 8.7 L Hct 27.2 L MCV 88.0 MCH 28.2 MCHC 32.0 RDW 16.8 H Plt Count 256 MPV 9.7 Gran % 79.9 H Lymph % (Auto) 10.6 L [place] % (Auto) 7.1 H Eos % (Auto) 2.3 Baso % (Auto) 0.1 Gran # 7.88 H Lymph # 1.1 L [place] # 0.7 H Eos # 0.2 Baso # 0.01 pCO2 39 pO2 125.0 H HCO3 27.1 ABG pH 7.45 ABG Total CO2 28.3 H ABG O2 Saturation 99.5 H ABG Base Excess 2.9 ABG Potassium 2.9 L Glucose 104 Lactate 1.0 FiO2 28.0 Sodium 136 137.0 Potassium 3.3 L Chloride 103 110.0 H Carbon Dioxide 28 Anion Gap 8 L BUN 33 H Creatinine 1.8 H Est GFR ( Amer) 46 Est GFR (Non-Af Amer) 38 Random Glucose 78 Calcium 7.4 L Total Bilirubin 1.8 H Direct Bilirubin 0.3 AST 41 ALT 42 Alkaline Phosphatase 73 Total Protein 5.7 L Albumin 2.6 L Globulin 3.1 Albumin/Globulin Ratio 0.8 L Arterial Blood Potassium 2.9 L Assessment & Plan (1) Fall Assessment and Plan: Severe Cardiomyopathy, CHF, At risk fo Ventricular Arrhythmia, Recnet MUGA scan with improved EF. Near Syncope R/O Cardiac Arrhythmia R/O ACS Serial Trop and EKG O2 [facility] Consult Status: Acute (2) Wound infection Assessment and Plan: Wound CAre and IV Antibiotics Status: Acute
[2016-08-15] MEDS ORDERED: Insulin Lispro 1 UNITS/0.01 ML SC SCH (22:00)
[2016-08-15] MEDS ORDERED: Dextrose 50% SYRINGE Inj (50 ml) IVP PRN (22:42)
--- NOTE | 2016-08-15 23:01 | CP.PCM.PN ---
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 and blood sugar was 27 . pt has hx of DM, HTN CAD CVA. GI BLEED ANEMIA,HAS SECOND EPISODE OF HYPOGLYCEMIA PT IS ON LEVMIR 10 units in am.AND ORAL HYPOGLYCEMIC amaryl . AND XYVOX.pt has not been eating , pt improved after giving 1 amp of D50. Objective - Vital Signs/Intake and Output Vital Signs (last 24 hours): Temp Pulse Resp BP Pulse Ox 99.1 F 74 18 101/60 08/14/16 20:49 08/15/16 18:42 08/14/16 20:49 08/15/16 18:42 - Medications Medications: Current Medications Aspirin (Aspirin Chewable) 81 mg PO 0800 [facility] Last Admin: 08/15/16 09:39 Dose: 81 mg Atorvastatin Calcium (Lipitor) 20 mg PO DIN [facility] Last Admin: 08/15/16 18:44 Dose: 20 mg Carvedilol (Coreg) 3.125 mg PO BID [facility] Last Admin: 08/15/16 18:42 Dose: Not Given Collagenase (Santyl) 0 gm TOP DAILY [facility] Last Admin: 08/15/16 09:42 Dose: Not Given Dextrose (Dextrose 50% Inj) 50 ml IVP Q6 PRN PRN Reason: Hypoglycemia Digoxin (Lanoxin) 0.125 mg PO MWF [facility] Donepezil HCl (Aricept) 5 mg PO HS [facility] Last Admin: 08/15/16 22:16 Dose: 5 mg Azithromycin (Zithromax 500mg In Ns) 500 mg in 250 mls @ 167 mls/hr IVPB 0600 [facility] Last Admin: 08/15/16 05:59 Dose: 167 mls/hr Linezolid (Zyvox 600mg/300ml D5w) 600 mg in 300 mls @ 200 mls/hr IVPB Q12 [facility] Stop: 08/22/16 10:01 Last Admin: 08/15/16 22:16 Dose: 200 mls/hr Ceftriaxone Sodium (Rocephin 1 Gram Ivpb) 1 gm in 100 mls @ 100 mls/hr IVPB DAILY [facility] PRN Reason: Protocol Stop: 08/22/16 10:01 Last Admin: 08/15/16 09:46 Dose: 100 mls/hr Potassium Chloride 20 meq/ (Dextrose/Sodium Chloride) 1,010 mls @ 80 mls/hr IV .[id number] [facility] Stop: 08/16/16 19:00 Last Admin: 08/15/16 20:25 Dose: 80 mls/hr Insulin Human Lispro (Humalog) 0 units SC ACHS [facility] PRN Reason: Protocol Last Admin: 08/15/16 22:17 Dose: Not Given Losartan Potassium (Cozaar) 100 mg PO DAILY [facility] Last Admin: 08/15/16 09:40 Dose: 100 mg Metformin HCl (Glucophage) 1,000 mg PO DAILY [facility] Pantoprazole Sodium (Protonix Ec Tab) 40 mg PO 0630,1730 [facility] Last Admin: 08/15/16 18:45 Dose: 40 mg Paroxetine HCl (Paxil) 20 mg PO DAILY [facility] Last Admin: 08/15/16 09:41 Dose: 20 mg Phenazopyridine HCl (Pyridium) 200 mg PO BID [facility] Last Admin: 08/15/16 18:45 Dose: 200 mg - Labs Labs: 08/15/16 10:00 08/15/16 10:00 - Constitutional Appears: No Acute Distress - Head Exam Head Exam: NORMOCEPHALIC - Eye Exam Eye Exam: Normal appearance Pupil Exam: PERRL - ENT Exam ENT Exam: Mucous Membranes Moist - Respiratory Exam Respiratory Exam: NORMAL BREATHING PATTERN - Cardiovascular Exam Cardiovascular Exam: RRR, +S1, +S2 - Rectal Exam Rectal Exam: Deferred - Extremities Exam Additional comments: MOVING ALL extremities. - Neurological Exam Neurological Exam: Awake - Psychiatric Exam Psychiatric exam: Agitated Assessment and Plan - Assessment and Plan (Free Text) Assessment: hypoglycemia./aggitation. Plan: d/c schedual coverage / placed on sliding scale . accu chech q1 h . 1 amp of d50 for bs of < 80. pt is on d5 w.
[2016-08-16] MEDS: Dextrose 50% SYRINGE Inj (50 ml) IVP PRN ×4 (03:07→22:17)
[2016-08-16] MEDS: Pantoprazole 40 mg EC Tab PO SCH ×2 (06:09→17:10)
[2016-08-16] MEDS: cefTRIAXone 1 gm 1 GM/100 ML BAG IVPB SCH (06:09)
[2016-08-16] MEDS: Azithromycin 500MG/NS 250ml 500 MG/250 ML BAG IVPB SCH (06:09)
[2016-08-16] MEDS: Insulin Reg-MEDIUM-Coverage SC SCH ×4 (08:08→22:16)
[2016-08-16 08:48] LABS: ADD MANUAL DIFF? NO
[2016-08-16 09:05] LABS: ALB/GLOB RATIO 0.8 (1.1-1.8); BILIRUBIN,TOTAL 1.1 mg/dL (0.2-1.3); MAGNESIUM 2.1 mg/dL (1.7-2.2); POTASSIUM 3.4 mmol/L (3.6-5.0); TOTAL PROTEIN 5.5 g/dL (5.8-8.3)
[2016-08-16 09:15] LABS: BASO # 0.01 K/mm3 (0.0-2.0); BASO % 0.1 % (0.0-3.0); EOS # 0.2 (0.0-0.7); EOS % 2.3 % (1.5-5.0); GRAN # 7.89 (1.4-6.5); GRAN % 79.3 % (50.0-68.0); HEMATOCRIT 25.6 % (42.0-52.0); LYMPH # 0.9 (1.2-3.4); LYMPH % 9.3 % (22.0-35.0); MEAN CELL VOLUME 89.2 fL (80.0-105.0); MEAN CORPUSCULAR HEMOGLOBIN 28.6 pg (25.0-35.0); MEAN PLATELET VOLUME 10.3 fl (7.0-11.0); MONO # 0.9 (0.1-0.6); PLATELET COUNT 310 10^3/uL (120.0-450.0)
[2016-08-16 09:28] LABS: CALCIUM 6.6 mg/dL (8.4-10.5)
[2016-08-16] MEDS ORDERED: Potassium Chloride 20 mEq/15 ml LIQ UD PO STA (10:36)
--- NOTE | 2016-08-16 10:43 | CP.PCM.PN ---
Subjective - Date & Time of Evaluation Date of Evaluation: 08/16/16 Time of Evaluation: 10:40 - Subjective Subjective: Multiple episodes of Hypoglycemia with Multiple doses of D50 after AMS. Currently Awake and alert on D10 @100cc/hr which I have increased now. Not eating well. All DM Meds are stopped. Objective - Vital Signs/Intake and Output Vital Signs (last 24 hours): Temp Pulse Resp BP Pulse Ox 99.1 F 74 18 101/60 08/14/16 20:49 08/15/16 18:42 08/14/16 20:49 08/15/16 18:42 - Medications Medications: Current Medications Aspirin (Aspirin Chewable) 81 mg PO 0800 [facility] Last Admin: 08/16/16 08:04 Dose: 81 mg Atorvastatin Calcium (Lipitor) 20 mg PO DIN [facility] Last Admin: 08/15/16 18:44 Dose: 20 mg Carvedilol (Coreg) 3.125 mg PO BID [facility] Last Admin: 08/15/16 18:42 Dose: Not Given Collagenase (Santyl) 0 gm TOP DAILY [facility] Last Admin: 08/15/16 09:42 Dose: Not Given Dextrose (Dextrose 50% Inj) 50 ml IVP PRN PRN PRN Reason: Hypoglycemia Last Admin: 08/16/16 06:30 Dose: 50 ml Digoxin (Lanoxin) 0.125 mg PO MWF [facility] Donepezil HCl (Aricept) 5 mg PO HS [facility] Last Admin: 08/15/16 22:16 Dose: 5 mg Azithromycin (Zithromax 500mg In Ns) 500 mg in 250 mls @ 167 mls/hr IVPB 0600 [facility] Last Admin: 08/16/16 06:09 Dose: 167 mls/hr Linezolid (Zyvox 600mg/300ml D5w) 600 mg in 300 mls @ 200 mls/hr IVPB Q12 [facility] Stop: 08/22/16 10:01 Last Admin: 08/15/16 22:16 Dose: 200 mls/hr Ceftriaxone Sodium (Rocephin 1 Gram Ivpb) 1 gm in 100 mls @ 100 mls/hr IVPB 0600 [facility] PRN Reason: Protocol Stop: 08/23/16 06:01 Last Admin: 08/16/16 06:09 Dose: 100 mls/hr Dextrose (Dextrose 10% In Water) 500 mls @ 80 mls/hr IV .Q6H15M [facility] Last Admin: 08/16/16 07:01 Dose: 80 mls/hr Insulin Human Regular (Humulin R Med) 0 units SC ACHS [facility] PRN Reason: Protocol Last Admin: 08/16/16 08:08 Dose: Not Given Losartan Potassium (Cozaar) 100 mg PO DAILY [facility] Last Admin: 08/15/16 09:40 Dose: 100 mg Metformin HCl (Glucophage) 1,000 mg PO DAILY [facility] Pantoprazole Sodium (Protonix Ec Tab) 40 mg PO 0630,1730 [facility] Last Admin: 08/16/16 06:09 Dose: 40 mg Paroxetine HCl (Paxil) 20 mg PO DAILY [facility] Last Admin: 08/15/16 09:41 Dose: 20 mg Phenazopyridine HCl (Pyridium) 200 mg PO BID [facility] Last Admin: 08/15/16 18:45 Dose: 200 mg - Labs Labs: 08/16/16 08:15 08/16/16 08:15 - Constitutional Appears: Well, No Acute Distress - Head Exam Head Exam: ATRAUMATIC, NORMAL INSPECTION, NORMOCEPHALIC - Eye Exam Eye Exam: EOMI, Normal appearance, PERRL Pupil Exam: NORMAL ACCOMODATION, PERRL - ENT Exam ENT Exam: Mucous Membranes Moist, Normal Exam - Neck Exam Neck Exam: Full ROM, Normal Inspection. absent: Lymphadenopathy - Respiratory Exam Respiratory Exam: Clear to Ausculation Bilateral, NORMAL BREATHING PATTERN - Cardiovascular Exam Cardiovascular Exam: REGULAR RHYTHM, +S1, +S2. absent: Murmur - GI/Abdominal Exam GI & Abdominal Exam: Soft, Normal Bowel Sounds. absent: Tenderness - Extremities Exam Extremities Exam: Full ROM. absent: Joint Swelling, Pedal Edema Additional comments: +Pitting edema. B/L Leg Ulcers on IV ABx for the Infected Ulcer and Pneumonia - Back Exam Back Exam: NORMAL INSPECTION - Neurological Exam Neurological Exam: Alert, Awake, CN II-XII Intact, Normal Gait, Oriented x3 - Psychiatric Exam Psychiatric exam: Normal Affect, Normal Mood - Skin Skin Exam: Dry, Intact, Normal Color, Warm - Additional Findings Additional findings: CXR: No Acute finding. +CM Assessment and Plan (1) Altered mental status Assessment & Plan: due to Metabolic Reasons due to Hypoglycemia and Sepsis due to PNA Continue IVAb and D10 Accu-check q30min for the next 6hrs Status: Acute (2) Electrolyte imbalance Assessment & Plan: Hypocalcemia and Hypokalemia Calcium Gluconate ig IVPB KCL 40mEq PO X1 dose Status: Acute (3) Hypoglycemia Assessment & Plan: Multiple Episodes Continue D10 Accucheck Q30min Status: Acute (4) CHF (congestive heart failure) Assessment & Plan: Continue Coreg and Losartan Add LAsix and Aldactone, Low doses Status: Chronic (5) CKD (chronic kidney disease) stage 3, GFR 30-59 ml/min Status: Acute (6) Anemia Assessment & Plan: No Nephrotoxic Medds Monitor Status: Chronic (7) GI bleed Assessment & Plan: NO ACtive Bleed Monitor H/H Continue Protonix Status: Acute
[2016-08-16] MEDS: Linezolid 600 mg in D5W 300 ml 600 MG/300 ML BAG IVPB SCH ×2 (11:03→22:17)
[2016-08-16] MEDS: Collagenase 250 Units/gm Ointment(30 gm) TOP SCH (11:41)
[2016-08-17] MEDS: Azithromycin 500MG/NS 250ml 500 MG/250 ML BAG IVPB SCH (05:21)
[2016-08-17] MEDS: cefTRIAXone 1 gm 1 GM/100 ML BAG IVPB SCH (05:21)
[2016-08-17] MEDS: Pantoprazole 40 mg EC Tab PO SCH (05:38)
[2016-08-17 06:39] LABS: ADD MANUAL DIFF? NO
[2016-08-17 07:14] LABS: POTASSIUM 3.8 mmol/L (3.6-5.0)
[2016-08-17 07:19] LABS: BASO # 0.02 K/mm3 (0.0-2.0); BASO % 0.2 % (0.0-3.0); EOS # 0.3 (0.0-0.7); EOS % 2.4 % (1.5-5.0); HEMATOCRIT 25.9 % (42.0-52.0); LYMPH # 1.3 (1.2-3.4); LYMPH % 10.8 % (22.0-35.0); MEAN CELL VOLUME 89.3 fL (80.0-105.0); MEAN CORPUSCULAR HEMOGLOBIN 27.9 pg (25.0-35.0); MEAN CORPUSCULAR HGB CONC 31.3 g/dl (31.0-37.0); MEAN PLATELET VOLUME 10.4 fl (7.0-11.0); MONO % 8.6 % (1.0-6.0); PLATELET COUNT 341 10^3/uL (120.0-450.0); RED CELL DISTRIBUTION WIDTH 17.1 % (11.5-14.5); WHITE BLOOD COUNT 11.5 10^3/ul (4.5-11.0)
[2016-08-17 07:33] LABS: CALCIUM 6.6 mg/dL (8.4-10.5)
[2016-08-17] MEDS: Insulin Reg-MEDIUM-Coverage SC SCH ×2 (08:03→11:46)
[2016-08-17] MEDS ORDERED: Furosemide 40 mg/5 mL Oral Soln UD PO SCH (10:00)
[2016-08-17] MEDS ORDERED: Digoxin 125 mcg (0.125 mg) Tab PO SCH (10:00)
[2016-08-17] MEDS: Linezolid 600 mg in D5W 300 ml 600 MG/300 ML BAG IVPB SCH (10:16)
[2016-08-17 10:29] VITALS: BP 99/65; PULSE 100; PULSE 101
[2016-08-17] MEDS: Collagenase 250 Units/gm Ointment(30 gm) TOP SCH (10:41)
[2016-08-17 16:25] VITALS: TEMP 98.6; O2SAT 99
--- NOTE | 2016-08-17 16:57 | CP.PCM.PN ---
<MorisBerenice - Last Filed: 08/17/16 17:19> Subjective - Date & Time of Evaluation Date of Evaluation: 08/17/16 Time of Evaluation: 04:40 - Subjective Subjective: ANUPAMA STANLEY Patient is 65 y/o M with PMH of htn, CHF (LVEF of 40%), Afib, DM whom is currently admitted in TCU for PT, and management of Gi bleed, severe anemia, , sepsis 2nd to pna and uncontrolled DM. Anupama stanley called 2nd to fall. As per patient, he wanted to urinate, got up and was trying to grab the IV pole when he slipped and fell, striking his buttocks to the ground. Patient states he felt dizzy prior to this. Patient denies hitting his head. Patient denies dizziness as this moment. Patient denies cp, sob, n/v/d. Patient denies feeling like the room is spinning. TEMP 99.2 bp 114/83 hr 91 O2 sat 98%. RR 10 Orthostatic BP Laying- 106/90 hr 90 Sitting - 109/69 hr80 Standing 98/68, hr 97 Fingersticks 138 Patient had episodes of hypoglyecemia during the day for which he is currently on D10. Objective - Vital Signs/Intake and Output Vital Signs (last 24 hours): Temp Pulse Resp BP Pulse Ox 98.6 F 100 H 18 99/65 L 99 08/17/16 10:00 08/17/16 10:18 08/17/16 10:00 08/17/16 10:42 08/17/16 10:00 - Medications Medications: Current Medications Aspirin (Aspirin Chewable) 81 mg PO 0800 [facility] Last Admin: 08/17/16 08:02 Dose: 81 mg Atorvastatin Calcium (Lipitor) 20 mg PO DIN [facility] Last Admin: 08/16/16 18:10 Dose: 20 mg Carvedilol (Coreg) 3.125 mg PO BID [facility] Last Admin: 08/17/16 10:18 Dose: Not Given Collagenase (Santyl) 0 gm TOP DAILY [facility] Last Admin: 08/17/16 10:41 Dose: 1 applic Dextrose (Dextrose 50% Inj) 50 ml IVP PRN PRN PRN Reason: Hypoglycemia Last Admin: 08/16/16 22:17 Dose: 50 ml Digoxin (Lanoxin) 0.125 mg PO MWF [facility] Last Admin: 08/17/16 10:23 Dose: 0.125 mg Donepezil HCl (Aricept) 5 mg PO HS [facility] Last Admin: 08/16/16 22:15 Dose: 5 mg Ferrous Gluconate (Fergon) 324 mg PO TID [facility] Last Admin: 08/17/16 14:36 Dose: 324 mg Furosemide (Lasix) 20 mg PO DAILY [facility] Last Admin: 08/17/16 10:42 Dose: 20 mg Azithromycin (Zithromax 500mg In Ns) 500 mg in 250 mls @ 167 mls/hr IVPB 0600 [facility] Last Admin: 08/17/16 05:21 Dose: 167 mls/hr Linezolid (Zyvox 600mg/300ml D5w) 600 mg in 300 mls @ 200 mls/hr IVPB Q12 [facility] Stop: 08/22/16 10:01 Last Admin: 08/17/16 10:16 Dose: 200 mls/hr Ceftriaxone Sodium (Rocephin 1 Gram Ivpb) 1 gm in 100 mls @ 100 mls/hr IVPB 0600 [facility] PRN Reason: Protocol Stop: 08/23/16 06:01 Last Admin: 08/17/16 05:21 Dose: 100 mls/hr Dextrose (Dextrose 10% In Water) 500 mls @ 100 mls/hr IV .Q5H [facility] Last Admin: 08/17/16 13:00 Dose: 100 mls/hr Insulin Human Regular (Humulin R Med) 0 units SC ACHS [facility] PRN Reason: Protocol Last Admin: 08/17/16 11:46 Dose: Not Given Losartan Potassium (Cozaar) 100 mg PO DAILY [facility] Last Admin: 08/17/16 10:18 Dose: Not Given Pantoprazole Sodium (Protonix Ec Tab) 40 mg PO 0630,1730 [facility] Last Admin: 08/17/16 05:38 Dose: 40 mg Paroxetine HCl (Paxil) 20 mg PO DAILY [facility] Last Admin: 08/17/16 10:20 Dose: 20 mg Phenazopyridine HCl (Pyridium) 200 mg PO BID [facility] Last Admin: 08/17/16 10:20 Dose: 200 mg Spironolactone (Aldactone) 25 mg PO DAILY [facility] Last Admin: 08/17/16 10:18 Dose: Not Given - Labs Labs: 08/17/16 06:10 08/17/16 06:10 - Constitutional Appears: No Acute Distress, Older Than Stated Age, Chronically Ill - Head Exam Head Exam: ATRAUMATIC, NORMAL INSPECTION, NORMOCEPHALIC - Eye Exam Eye Exam: Normal appearance - ENT Exam ENT Exam: Mucous Membranes Moist - Neck Exam Neck Exam: Full ROM, Normal Inspection - Respiratory Exam Respiratory Exam: Clear to Ausculation Bilateral, NORMAL BREATHING PATTERN. absent: Rales, Rhonchi, Wheezes, Respiratory Distress, Stridor - Cardiovascular Exam Cardiovascular Exam: REGULAR RHYTHM, +S1, +S2 - GI/Abdominal Exam GI & Abdominal Exam: Soft, Normal Bowel Sounds. absent: Distended, Firm, Guarding, Rigid, Tenderness - Extremities Exam Extremities Exam: Pedal Edema - Back Exam Back Exam: NORMAL INSPECTION. absent: muscle spasm, tenderness, vertebral tenderness - Neurological Exam Neurological Exam: Abnormal Gait, Alert, Awake, Oriented x3 Additional comments: Patient is able to move all extremities. - Psychiatric Exam Psychiatric exam: Anxious - Skin Skin Exam: Dry, Warm Additional comments: No acute abrasions. Has chronic abrasions on the right knee, and his lower legs have bandages. Assessment and Plan - Assessment and Plan (Free Text) Assessment: 65 y/o M with PMH of htn, CHF (LVEF of 40%), Afib, DM s/p fall. Plan: 1) Dizziness and fall likely 2nd to patient's multiple medical conditions. including hypotension ( SBP OF 90s)although current BP is 114/83 Hypogglycemia ( random glucose of 66 this AM), currently 138. Anemia , current hgb of 8.1. Negative orthostatic vital signs. will obtain CT head will obtain chem 7 Currently on D10 @ 100 ML/HR. Will obtain stat EKG to r/o arrhythmia/ischemia. holding all the htn meds. Spoke to Dr Miller on the phone, recommended CT head, orthostatic vitals, and stat ekg. Wants to be called after these tests. Dr Miller called back, advised us to send patient to the er to be admitted for observation on tele unit. Saw patient and examined with Dr Cervantes. <Karina Cervantes - Last Filed: 08/17/16 17:45> Objective - Vital Signs/Intake and Output Vital Signs (last 24 hours): Temp Pulse Resp BP Pulse Ox 98.6 F 100 H 18 99/65 L 99 08/17/16 10:00 08/17/16 10:18 08/17/16 10:00 08/17/16 10:42 08/17/16 10:00 - Medications Medications: Current Medications Aspirin (Aspirin Chewable) 81 mg PO 0800 [facility] Last Admin: 08/17/16 08:02 Dose: 81 mg Atorvastatin Calcium (Lipitor) 20 mg PO DIN [facility] Last Admin: 08/16/16 18:10 Dose: 20 mg Carvedilol (Coreg) 3.125 mg PO BID [facility] Last Admin: 08/17/16 10:18 Dose: Not Given Collagenase (Santyl) 0 gm TOP DAILY [facility] Last Admin: 08/17/16 10:41 Dose: 1 applic Dextrose (Dextrose 50% Inj) 50 ml IVP PRN PRN PRN Reason: Hypoglycemia Last Admin: 08/16/16 22:17 Dose: 50 ml Digoxin (Lanoxin) 0.125 mg PO MWF [facility] Last Admin: 08/17/16 10:23 Dose: 0.125 mg Donepezil HCl (Aricept) 5 mg PO HS [facility] Last Admin: 08/16/16 22:15 Dose: 5 mg Ferrous Gluconate (Fergon) 324 mg PO TID [facility] Last Admin: 08/17/16 14:36 Dose: 324 mg Azithromycin (Zithromax 500mg In Ns) 500 mg in 250 mls @ 167 mls/hr IVPB 0600 [facility] Last Admin: 08/17/16 05:21 Dose: 167 mls/hr Linezolid (Zyvox 600mg/300ml D5w) 600 mg in 300 mls @ 200 mls/hr IVPB Q12 [facility] Stop: 08/22/16 10:01 Last Admin: 08/17/16 10:16 Dose: 200 mls/hr Ceftriaxone Sodium (Rocephin 1 Gram Ivpb) 1 gm in 100 mls @ 100 mls/hr IVPB 0600 [facility] PRN Reason: Protocol Stop: 08/23/16 06:01 Last Admin: 08/17/16 05:21 Dose: 100 mls/hr Dextrose (Dextrose 10% In Water) 500 mls @ 100 mls/hr IV .Q5H [facility] Last Admin: 08/17/16 13:00 Dose: 100 mls/hr Insulin Human Regular (Humulin R Med) 0 units SC ACHS [facility] PRN Reason: Protocol Last Admin: 08/17/16 11:46 Dose: Not Given Pantoprazole Sodium (Protonix Ec Tab) 40 mg PO 0630,1730 [facility] Last Admin: 08/17/16 05:38 Dose: 40 mg Paroxetine HCl (Paxil) 20 mg PO DAILY [facility] Last Admin: 08/17/16 10:20 Dose: 20 mg Phenazopyridine HCl (Pyridium) 200 mg PO BID [facility] Last Admin: 08/17/16 10:20 Dose: 200 mg - Labs Labs: 08/17/16 06:10 08/17/16 06:10 Attending/Attestation - Attestation I have personally seen and examined this patient.: Yes I have fully participated in the care of the patient.: Yes I have reviewed all pertinent clinical information, including history, physical exam and plan: Yes Notes (Text): 08/17/16 17:37 As per request of Dr Miller,pt is to be admitted to Tele unit for observation. Spoke to Dr Florentino,pt sent to ER.
--- NOTE | 2016-08-17 18:32 | CON ---
DATE: 08/17/2016 REASON FOR CONSULTATION: Continued care in the transitional care unit, nonischemic cardiomyopathy, a trial fibrillation, gastrointestinal bleed. BRIEF CLINICAL HISTORY: This is a 65-year-old male with a past medical history significant for chron ic renal insufficiency, chronic atrial fibrillation on Eliquis, cardiomyopathy recently admitted to [facility] and found to have severe decreased LV function, ejection fraction 20%, carloynn conde followed by Dr. Palmer. A LifeVest was applied. The patient admitted here with altered mental stat us and hemoglobin of 6.9 in ICU. The patient underwent endoscopy and IV Protonix. Later on, the pat ient had a MUGA scan that showed ejection fraction 40%; the LifeVest was removed. Denies any chest p ain, shortness of breath or any palpitation. Now the patient is in TCU for continuity of care. PAST MEDICAL HISTORY: Significant for cardiomyopathy, decreased left ventricular function, history o f CHF, history of CVA, history of hypertension, history of diabetes, history of cardiac catheterizati on on 07/19/2013, nonobstructive coronary artery disease; 07/19/2013 only limited [facility] that shows LV function at 40%. History of cardiac catheteri zation, no PTCA, no stent, history of chronic atrial fibrillation on Eliquis, which was held because of a GI bleed. SOCIAL HISTORY: Denies smoking. Denies any history of alcohol abuse. CURRENT MEDICATIONS: The patient at home was taking aspirin, atorvastatin, Eliquis, Paxil, metformin , losartan, glyburide. REVIEW OF SYSTEMS: As per HPI. PHYSICAL EXAMINATION: VITAL SIGNS: Temperature afebrile, heart rate 100, blood pressure 95/66. HEENT: PERRLA. Extraocular muscles intact. NECK: Supple. No carotid bruits. No thyromegaly. CHEST: Clear to auscultation. HEART: S1, S2 regular. ABDOMEN: Soft. EXTREMITIES: Clubbing and cyanosis negative. LABORATORY DATA: Blood workup as follows: WBC 11.5, hemoglobin 8.2, hematocrit 25.9, platelet count 341. Chemistry shows sodium 134, potassium 3.0, chloride 102, carbon dioxide 27, anion gap of 23, B UN . IMPRESSION: Chronic renal insufficiency, chronic atrial fibrillation, nonischemic cardiomyopathy, st atus post cardiac catheterization in 2013, limited only diagonal 1; History of cardiomyopathy, status post LifeVest when admitted to [facility]. Repeat MUGA here shows ejection fraction 40%, removal of the LifeVest; ejection fraction by MUGA 08/10/2016, renal insufficiency, gastrointes tinal bleed. RECOMMENDATION: Monitor renal function. Repeat the blood workup in the morning. Repeat H and H. A trial fibrillation, anticoagulation on hold. Once cleared from the GI, probably start anticoag ulation. Followup upon discharge with Dr. Palmer to long-term monitor LV function. If LV functions g ets consider AICD. For now, does not need a Vest. Continue interim Lasix, aspirin, Coreg and losartan as blood pressure is tolerated; the patient's blood pressure is 95, we will DC losartan 100 and change to 25 mg. Follow up CBC and SMA 7. Thank you, Dr. Miller, for providing me opportunity in taking care of this patient. Mario Benavides MD cc:Andrea Miller MD 305 TT: 08/17/2016 18:31:34 Confirmation # [id number] Dictation # [id number]
--- NOTE | 2016-08-17 20:03 | CARD ---
APPROVED REPORT EKG Measurement Heart [id number] <Conclusion> Atrial fibrillation with premature ventricular or aberrantly conducted complexes Nonspecific T wave abnormality, probably digitalis effect Prolonged QT Abnormal ECG
--- NOTE | 2016-08-17 20:15 | CT ---
EXAM: CT Head Without Intravenous Contrast CLINICAL HISTORY: 65 years old, male; Injury or trauma; Fall; Initial encounter; Blunt trauma (contusions or hematomas); Additional info: S/P fall , R/O CVA TECHNIQUE: Axial computed tomography images of the head/brain without intravenous contrast. This CT exam was performed using one or more of the following dose reduction techniques: automated exposure control, adjustment of the mA and/or kV according to patient size, and/or use of iterative reconstruction technique. EXAM DATE/TIME: 08/17/2016 4:55 PM COMPARISON: Prior head CT of 08/09/2016 FINDINGS: LIMITATIONS: Exam is limited by moderate to marked motion artifact. The patient was scanned multiple times. BRAIN: Focal areas of low density are seen in the basal ganglia bilaterally, most compatible with bilateral old/chronic lacunar infarcts. Areas of hypodensity seen in the white matter bilaterally, nonspecific in appearance, but most likely representing chronic small vessel ischemic changes, in a patient of this age. Moderate to severe, diffuse cortical atrophy and ventriculomegaly, which appear somewhat advanced for age. Recommend clinical correlation. No definite acute abnormality identified, allowing for motion artifact. No definite acute hemorrhage seen within the brain. No definite acute extra-axial fluid collections visualized. No evidence of significant mass effect within the brain. No CT findings to suggest an acute, large territorial infarct, however, small or early acute infarcts may not be visible on CT. VENTRICLES: See above. BONES/JOINTS: No acute fractures or other acute bony abnormality noted. SOFT TISSUES: No acute abnormality of the visualized soft tissues is seen. VASCULATURE: Diffuse vascular ectasia is again seen. SINUSES: Visualized paranasal sinuses appear clear. MASTOID AIR CELLS: Mastoid air cells appear clear. IMPRESSION: - No definite acute acute intracranial injury or fractures seen. Exam is limited by motion artifact, however. - See above for remaining findings.
--- NOTE | 2016-08-18 00:02 | CP.PCM.PN ---
Subjective - Date & Time of Evaluation Date of Evaluation: 08/17/16 Time of Evaluation: 11:00 - Subjective Subjective: Seen and examined at the bed side.Still running low bs while on D10@100cc/hr. Denies fever or chills. Denies chest pain, Palpitation or sob. Objective - Vital Signs/Intake and Output Vital Signs (last 24 hours): Temp Pulse Resp BP Pulse Ox 98.6 F 100 H 18 99/65 L 99 08/17/16 10:00 08/17/16 10:18 08/17/16 10:00 08/17/16 10:42 08/17/16 10:00 - Labs Labs: 08/17/16 06:10 08/17/16 06:10 Assessment and Plan (1) Fall Assessment & Plan: Severe Cardiomyopathy, CHF, At risk fo Ventricular Arrhythmia, Recnet MUGA scan with improved EF. Near Syncope R/O Cardiac Arrhythmia R/O ACS Serial Trop and EKG O2 [facility] Consult Status: Acute (2) Wound infection Assessment and Plan: Wound CAre and IV Antibiotics Status: Acute Status: Acute (2) Anemia Status: Acute (3) GI bleed Status: Acute (4) CHF (congestive heart failure) Status: Chronic (5) Hypoglycemia Status: Acute
== END 2016-08-17 17:50 | disposition short-term general hospital (02) | DRG 377 ==
LOC: MERGE 18:30 → TRCU 18:30
PROVIDERS: ADMIT Internal Medicine; ATTEND Internal Medicine
PROC: F07Z9FZ Gait Training/Functional Ambulation Treatment using Assistive, Adaptive, Supportive or Protective Equipment (ICD-10-PCS; principal; 2016-08-15)
PROC: F07M6ZZ Therapeutic Exercise Treatment of Musculoskeletal System - Whole Body (ICD-10-PCS; 2016-08-15)
PROC: F08Z1ZZ Dressing Techniques Treatment (ICD-10-PCS; 2016-08-17)
PROC: F08Z2ZZ Grooming/Personal Hygiene Treatment (ICD-10-PCS; 2016-08-17)
PROC: F08Z4ZZ Home Management Treatment (ICD-10-PCS; 2016-08-17)
DX: K92.2 Gastrointestinal hemorrhage, unspecified (principal); A41.9 Sepsis, unspecified organism; N17.9 Acute kidney failure, unspecified; G92 Toxic encephalopathy; J18.9 Pneumonia, unspecified organism; N18.3 Chronic kidney disease, stage 3 (moderate); I13.0 Hypertensive heart and chronic kidney disease with heart failure and stage 1 through stage 4 chronic kidney disease, or unspecified chronic kidney disease; I42.9 Cardiomyopathy, unspecified; D62 Acute posthemorrhagic anemia; L97.909 Non-pressure chronic ulcer of unspecified part of unspecified lower leg with unspecified severity; W01.0XXA Fall on same level from slipping, tripping and stumbling without subsequent striking against object, initial encounter; F03.90 Unspecified dementia, unspecified severity, without behavioral disturbance, psychotic disturbance, mood disturbance, and anxiety; I50.9 Heart failure, unspecified; E11.22 Type 2 diabetes mellitus with diabetic chronic kidney disease; E11.622 Type 2 diabetes mellitus with other skin ulcer; E11.65 Type 2 diabetes mellitus with hyperglycemia; D50.0 Iron deficiency anemia secondary to blood loss (chronic); E11.649 Type 2 diabetes mellitus with hypoglycemia without coma; I25.10 Atherosclerotic heart disease of native coronary artery without angina pectoris; I48.2 Chronic atrial fibrillation; I87.8 Other specified disorders of veins; K26.9 Duodenal ulcer, unspecified as acute or chronic, without hemorrhage or perforation; Z82.49 Family history of ischemic heart disease and other diseases of the circulatory system; Z86.73 Personal history of transient ischemic attack (TIA), and cerebral infarction without residual deficits; K44.9 Diaphragmatic hernia without obstruction or gangrene; R15.9 Full incontinence of feces; B95.62 Methicillin resistant Staphylococcus aureus infection as the cause of diseases classified elsewhere; Y92.230 Patient room in hospital as the place of occurrence of the external cause; E83.51 Hypocalcemia; E87.6 Hypokalemia

== ENCOUNTER 2016-08-17 17:50 | Inpatient (IN) | payer MEDICARE, MEDICAID ==
--- NOTE | 2016-08-17 18:51 | ED PDOC ---
Arrival/HPI - General Chief Complaint: Syncope Time Seen by Provider: 08/17/16 18:11 Historian: Patient - History of Present Illness Narrative History of Present Illness (Text): 08/17/16 18:37 A 65 year old male, whose past medical history includes diabetes, hypertension, CHF, atrial fibrillation and chronic kidney disease, was sent into the emergency department from TCU after a mechanical fall prior to arrival. Daughter translated as requested by patient. Patient was admitted in TCU for physical therapy, management of GI bleed, severe anemia and sepsis secondary to pneumonia and uncontrolled diabetes. Patient reports he was ambulating trying to condition his legs and felt his legs "gave out" on him and fell to the floor. Code star was called, patient had a normal finger stick, heart rate and CT result. Patient denies any loss of consciousness or head trauma. Patient denies any dizziness, lightheadedness, headache, fever, chills, nausea, vomiting diarrhea, abdominal pain, chest pain, shortness of breath or any other symptoms before or after the fall. PMD: Dr. Miller Time/Duration: Prior to Arrival Symptom Course: Unchanged Quality: Other Context: Other Past Medical History - Provider Review Nursing Documentation Reviewed: Yes - Infectious Disease Hx of Infectious Diseases: None - Tetanus Immunization Tetanus Immunization: Unknown - Cardiac Hx Congestive Heart Failure: Yes Hx Hypertension: Yes - Neurological HX Cerebrovascular Accident: Yes - Renal Hx Renal Failure: Yes - Endocrine/Metabolic Hx Diabetes Mellitus Type 2: Yes - Hematological/Oncological Hx Blood Transfusions: (UNKOWN) Hx Blood Transfusion Reaction: (UNKNOWN) - Integumentary Hx Dermatological Disorder: Yes (bilateral lower extremities stasis ulcers) - Musculoskeletal/Rheumatological Hx Falls: No - Psychiatric Hx Depression: No Hx Emotional Abuse: No Hx Physical Abuse: No Hx Substance Use: No - Anesthesia Hx Anesthesia: No Hx Anesthesia Reactions: No Hx Malignant Hyperthermia: No - Suicidal Assessment Feels Threatened In Home Enviroment: No Family/Social History - Physician Review Nursing Documentation Reviewed: Yes Family/Social History: No Known Family HX Smoking Status: Never Smoked Hx Alcohol Use: No Hx Substance Use: No Hx Substance Use Treatment: No Allergies/Home Meds Allergies/Adverse Reactions: Allergies No Known Allergies Allergy (Verified 07/18/13 09:48) Home Medications: Home Meds Medication Instructions Recorded Confirmed Aspirin [Aspirin Chewable] 81 mg PO DAILY 07/18/13 08/17/16 Atrovastatin 20 mg PO DAILY 07/18/13 08/17/16 Donepezil [Aricept] 5 mg PO DAILY 07/18/13 08/17/16 Losartan [Cozaar] 100 mg PO DAILY 07/18/13 08/17/16 Metformin HCl [Metformin] 1,000 mg PO DAILY 07/18/13 08/17/16 PARoxetine [Paxil] 20 mg PO DAILY 07/18/13 08/17/16 Glimepiride [amaRYL] 4 mg PO HS 08/14/16 08/17/16 Review of Systems - Physician Review All systems were reviewed & negative as marked: Yes - Review of Systems Constitutional: Normal. absent: Fevers, Night Sweats Respiratory: absent: SOB Cardiovascular: absent: Chest Pain Gastrointestinal: absent: Abdominal Pain, Diarrhea, Nausea, Vomiting Neurological: absent: Headache, Dizziness (/lightheadedness) Physical Exam Vital Signs Reviewed: Yes Vital Signs Temp Pulse Resp BP Pulse Ox 08/17/16 18:34 99.1 F 08/17/16 18:22 99.0 F 76 18 129/63 97 Temperature: Afebrile Blood Pressure: Normal Pulse: Regular Respiratory Rate: Normal Appearance: Positive for: Well-Appearing, Non-Toxic, Comfortable Pain Distress: None Mental Status: Positive for: Alert and Oriented X 3 - Systems Exam Head: Present: Atraumatic, Normocephalic Pupils: Present: PERRL Extroacular Muscles: Present: EOMI Conjunctiva: Present: Normal Mouth: Present: Moist Mucous Membranes Neck: Present: Normal Range of Motion Respiratory/Chest: Present: Clear to Auscultation, Good Air Exchange. No: Respiratory Distress, Accessory Muscle Use Cardiovascular: Present: Regular Rate and Rhythm, Normal S1, S2. No: Murmurs Abdomen: Present: Normal Bowel Sounds. No: Tenderness, Distention, Peritoneal Signs Back: Present: Normal Inspection Upper Extremity: Present: Normal Inspection. No: Cyanosis, Edema Lower Extremity: Present: Normal Inspection, Other (Ulcers on bilateral feet covered ingauze, no evidence of cellulitis). No: Edema Neurological: Present: GCS=15, CN II-XII Intact, Speech Normal Skin: Present: Warm, Dry, Normal Color. No: Rashes Psychiatric: Present: Alert, Oriented x 3, Normal Insight, Normal Concentration Medical Decision Making ED Course and Treatment: 08/17/16 18:37 Impression: A 65 year old male sent in after a fall. Patient denies any pain or complaints. Differential Diagnosis included but are not limited to: Mechanical fall Plan: -- Labs -- Reassess and disposition Prior Visits: Notes and results from previous visits were reviewed. Patients labs reviewed from earlier today 08/17/16 which showed hgb of 8.1, BUN of 23 and creatine of 2.0 which is normal to baseline. WBC of 11.5 and Platelet count of 341. Calcium of 6.6 which is the same as yesterday. Progress Notes: Contrary to note written by resident Moris and Dr. Cervantes, patients daughter denies any dizziness. Daughter does not want patient to be admitted and would like to take him back to TCU. 08/17/16 19:30 Dr. Cervantes presented to emergency room and discussed the events that occurred upstairs. Daughter was not present at the time of the incident. After they discussed what happened with the patient and daughter it is reported that patient was walking and then urinated on himself. He bent down and tried to clean it and got dizzy. Dr. Miller spoke with daughter over the phone and discussed the plan for the patient. Everyone in agreement with plan to admit patient to telemetry for observation of dizziness vs lightheadedness. Coags, Cardiac and BNP were ordered and reviewed. Quality Assurance was offered and patient preferred daughter instead. NIHSS Scale (Kinta) Time Performed: 18:30 - How Severe is the Stoke Baseline Level of Consciousness: 0=Alert LOC to Questions: 0=Both comments correct LOC to commands: 0=Obeys both correctly Best Gaze: 0=Normal Visual: 0=No visual loss Facial: 0=Normal Motor Arm - Left: 0=No drift Motor Arm - Right: 0=No drift Motor Leg - Left: 0=No drift Motor Leg - Right: 0=No drift Limb Ataxia: 0=Absent Sensory: 0=Normal Best Language: 0=No aphasia Dysarthia: 0=Normal articulation Extinction & Inattention (Neglect): 0=Normal, no object Score: 0 Risk Level: No Stroke Risk - Scribe Statement The provider has reviewed the documentation as recorded by the Shoshanaibjolene Rizo Provider Scribe Attestation: All medical record entries made by the Scribe were at my direction and personally dictated by me. I have reviewed the chart and agree that the record accurately reflects my personal performance of the history, physical exam, medical decision making, and the department course for this patient. I have also personally directed, reviewed, and agree with the discharge instructions and disposition. Disposition/Present on Arrival - Present on Arrival Any Indicators Present on Arrival: No History of DVT/PE: No History of Uncontrolled Diabetes: No Urinary Catheter: No History of Decub. Ulcer: No History Surgical Site Infection Following: None - Disposition Have Diagnosis and Disposition been Completed?: Yes Diagnosis: Dizziness, Fall Disposition: HOME/ ROUTINE Disposition Time: 19:22 Patient Plan: Observation Patient Problems: Current Active Problems Problem Status Onset Dizziness Acute Fall Acute Condition: FAIR
[2016-08-17 20:46] LABS: INR 1.15 (0.93-1.08); PARTIAL THROMBOPLASTIN TIME 29.9 Seconds (23.7-30.8)
[2016-08-17 21:06] LABS: TROPONIN I 0.03 ng/mL
[2016-08-18 01:40] VITALS: BMI 30.7
[2016-08-18 05:00] LABS: HEMATOCRIT 24.7 % (42.0-52.0); MEAN CELL VOLUME 88.2 fL (80.0-105.0); MEAN CORPUSCULAR HEMOGLOBIN 29.3 pg (25.0-35.0); MEAN CORPUSCULAR HGB CONC 33.2 g/dl (31.0-37.0); MEAN PLATELET VOLUME 9.6 fl (7.0-11.0); RED CELL DISTRIBUTION WIDTH 16.7 % (11.5-14.5); WHITE BLOOD COUNT 9.8 10^3/ul (4.5-11.0)
[2016-08-18 05:07] LABS: ALB/GLOB RATIO 0.9 (1.1-1.8); BILIRUBIN,TOTAL 1.2 mg/dL (0.2-1.3); CALCIUM 7.1 mg/dL (8.4-10.5); POTASSIUM 4.4 mmol/L (3.6-5.0); TOTAL PROTEIN 5.7 g/dL (5.8-8.3)
[2016-08-18 05:16] LABS: TROPONIN I 0.03 ng/mL
--- NOTE | 2016-08-18 08:48 | CP.PCM.HP ---
History of Present Illness - History of Present Illness History of Present Illness: CC: Dizziness Histry of Present Illness: A 65yoM was at TCU when he had a fall after feeling dizziness. denied LOC. He was in persistent Hypoglycemia on D10@100cc/hr. Denied any chest pain, sob, slurred speech. Orthostasis was negative. All work UP including CT Head W/O Contrast, Tele, and serial trop were Negative. Present on Admission - Present on Admission Any Indicators Present on Admission: No History of DVT/PE: No History of Uncontrolled Diabetes: No Decubitus Ulcer Present: No Review of Systems - Review of Systems All systems: reviewed and no additional remarkable complaints except - Cardiovascular Cardiovascular: As Per HPI Past Patient History - Infectious Disease Hx of Infectious Diseases: None - Tetanus Immunizations Tetanus Immunization: Unknown - Past Medical History & Family History Past Medical History?: Yes Past Family History: Reviewed and not pertinent - Past Social History Smoking Status: Never Smoked Alcohol: None Drugs: Denies - CARDIAC Hx Congestive Heart Failure: Yes Hx Hypertension: Yes - NEUROLOGICAL HX Cerebrovascular Accident: Yes - RENAL Hx Renal Failure: Yes - ENDOCRINE/METABOLIC Hx Diabetes Mellitus Type 2: Yes - HEMATOLOGICAL/ONCOLOGICAL Hx Blood Transfusions: (UNKOWN) Hx Blood Transfusion Reaction: (UNKNOWN) - INTEGUMENTARY Hx Dermatological Problems: Yes (bilateral lower extremities stasis ulcers) - MUSCULOSKELETAL/RHEUMATOLOGICAL Hx Falls: Yes - PSYCHIATRIC Hx Depression: No Hx Emotional Abuse: No Hx Physical Abuse: No Hx Substance Use: No - SURGICAL HISTORY Hx Surgeries: (abd hernia) - ANESTHESIA Hx Anesthesia: No Hx Anesthesia Reactions: No Hx Malignant Hyperthermia: No Meds Allergies/Adverse Reactions: Allergies Allergy/AdvReac Type Severity Reaction Status Date / Time No Known Allergies Allergy Verified 07/18/13 09:48 Physical Exam - Constitutional Appears: No Acute Distress - Head Exam Head Exam: ATRAUMATIC, NORMAL INSPECTION, NORMOCEPHALIC - Eye Exam Eye Exam: EOMI, Normal appearance, PERRL Pupil Exam: NORMAL ACCOMODATION, PERRL - ENT Exam ENT Exam: Mucous Membranes Moist, Normal Exam - Neck Exam Neck exam: Positive for: Full Rom, Normal Inspection - Respiratory Exam Respiratory Exam: Clear to Auscultation Bilateral, NORMAL BREATHING PATTERN - Cardiovascular Exam Cardiovascular Exam: REGULAR RHYTHM, +S1 - GI/Abdominal Exam GI & Abdominal Exam: Normal Bowel Sounds, Soft. absent: Tenderness - Extremities Exam Extremities exam: Positive for: normal inspection Additional comments: Leg ulcers B/L with improvement. - Back Exam Back exam: NORMAL INSPECTION - Neurological Exam Neurological exam: Alert, CN II-XII Intact, Normal Gait, Oriented x3, Reflexes Normal - Psychiatric Exam Psychiatric exam: Normal Affect, Normal Mood - Skin Skin Exam: Dry, Intact, Normal Color, Warm Results - Vital Signs Recent Vital Signs: Last Vital Signs Temp 98.2 F 08/18/16 08:27 Pulse 93 H 08/18/16 08:27 Resp 18 08/18/16 08:27 BP 124/90 08/18/16 08:27 Pulse Ox 97 08/18/16 08:27 - Labs Result Diagrams: 08/19/16 07:00 08/19/16 07:00 Labs: Laboratory Results - last 24 hr 08/17/16 08/17/16 08/18/16 20:30 20:30 04:35 WBC RBC Hgb Hct MCV MCH MCHC RDW Plt Count MPV PT 12.4 H INR 1.15 H APTT 29.9 Sodium 131 L Potassium 4.4 Chloride 99 Carbon Dioxide 26 Anion Gap 10 BUN 22 H Creatinine 1.9 H Est GFR ( Amer) 43 Est GFR (Non-Af Amer) 36 Random Glucose 146 H Calcium 7.1 L Total Bilirubin 1.2 AST 37 ALT 41 Alkaline Phosphatase 83 Lactate Dehydrogenase 791 H Total Creatine Kinase 62 Troponin I 0.03 D 0.03 NT-Pro-B Natriuret Pep 58374 H Total Protein 5.7 L Albumin 2.7 L Globulin 3.1 Albumin/Globulin Ratio 0.9 L 08/18/16 04:35 WBC 9.8 RBC 2.80 L Hgb 8.2 L Hct 24.7 L MCV 88.2 MCH 29.3 MCHC 33.2 RDW 16.7 H Plt Count 337 MPV 9.6 PT INR APTT Sodium Potassium Chloride Carbon Dioxide Anion Gap BUN Creatinine Est GFR ( Amer) Est GFR (Non-Af Amer) Random Glucose Calcium Total Bilirubin AST ALT Alkaline Phosphatase Lactate Dehydrogenase Total Creatine Kinase Troponin I NT-Pro-B Natriuret Pep Total Protein Albumin Globulin Albumin/Globulin Ratio - EKG Data EKG comments: Frequent PVCs. No Change copared to prior EKG - Imaging and Cardiology CT scan - head Status: Report reviewed by me Additional comment: No Acute finding Assessment & Plan (1) Near syncope Assessment and Plan: R/O ACS Persistent Hypoglycemia, Continue D10 Continue Tele Monitoring Status: Acute (2) Wound infection Assessment and Plan: Alvaro Continue Zuvox and Zosyn Day#8 Wound Care daily ID On board Status: Acute (3) CKD (chronic kidney disease) stage 3, GFR 30-59 ml/min Status: Acute (4) GI bleed Status: Acute (5) CHF (congestive heart failure) Status: Chronic
[2016-08-18] MEDS: cefTRIAXone 1 gm 1 GM/100 ML BAG IVPB SCH (09:44)
[2016-08-18] MEDS: Pantoprazole 20 mg EC Tab PO SCH ×2 (09:44→18:09)
[2016-08-18] MEDS: Collagenase 250 Units/gm Ointment(30 gm) TOP SCH (09:46)
[2016-08-18] MEDS ORDERED: Azithromycin 500MG/NS 250ml 500 MG/250 ML BAG IVPB SCH (10:00)
--- NOTE | 2016-08-18 12:38 | CARD ---
APPROVED REPORT EKG Measurement Heart [id number] <Conclusion> Atrial fibrillation with premature ventricular or aberrantly conducted complexes Low voltage QRS Possible Inferior infarct, age undetermined Prolonged QT Abnormal ECG
--- NOTE | 2016-08-18 12:41 | CARD ---
APPROVED REPORT EKG Measurement Heart [id number] <Conclusion> Accelerated Junctional rhythm with frequent premature ventricular complexes Low voltage QRS Nonspecific ST and T wave abnormality Prolonged QT Abnormal ECG
[2016-08-18] MEDS: Linezolid 600 mg in D5W 300 ml 600 MG/300 ML BAG IVPB SCH ×2 (13:00→22:00)
--- NOTE | 2016-08-18 14:45 | CP.PCM.CON ---
History of Present Illness - History of Present Illness History of Present Illness: 65 year old male with PMH of atrial fibrillation, chronic anemia, HTN, mild dementia, chronic CHF, DM was in [facility]CU to complete his therapy for diabetic leg ulcer infections, pneumonia and physical therapy. He then suffeed a fall and is now transferred to the regular medical floor for further evaluation. Infectious Diseases consult is requested to continue his antibiotics for his leg ulcers. Currently the patient is comfortable in bed, not in distress, no fever or chills , no nausea or vomiting, currently no headache or dizziness, no abdominal pain, no diarrhea, no dysuria, no cough or colds, no SOB. Review of Systems - Review of Systems All systems: reviewed and no additional remarkable complaints except (as per HPI ) Past Patient History - Infectious Disease Hx of Infectious Diseases: None - Tetanus Immunizations Tetanus Immunization: Unknown - Past Social History Smoking Status: Never Smoked - CARDIAC Hx Congestive Heart Failure: Yes Hx Hypertension: Yes - NEUROLOGICAL HX Cerebrovascular Accident: Yes - RENAL Hx Renal Failure: Yes - ENDOCRINE/METABOLIC Hx Diabetes Mellitus Type 2: Yes - HEMATOLOGICAL/ONCOLOGICAL Hx Blood Transfusions: (UNKOWN) Hx Blood Transfusion Reaction: (UNKNOWN) - INTEGUMENTARY Hx Dermatological Problems: Yes (bilateral lower extremities stasis ulcers) - MUSCULOSKELETAL/RHEUMATOLOGICAL Hx Falls: Yes - PSYCHIATRIC Hx Depression: No Hx Emotional Abuse: No Hx Physical Abuse: No Hx Substance Use: No - SURGICAL HISTORY Hx Surgeries: (abd hernia) - ANESTHESIA Hx Anesthesia: No Hx Anesthesia Reactions: No Hx Malignant Hyperthermia: No Meds Allergies/Adverse Reactions: Allergies Allergy/AdvReac Type Severity Reaction Status Date / Time No Known Allergies Allergy Verified 07/18/13 09:48 - Medications Medications: Current Medications Aspirin (Aspirin Chewable) 81 mg PO DAILY [facility] Atorvastatin Calcium (Lipitor) 20 mg PO DIN [facility] Carvedilol (Coreg) 3.125 mg PO BID [facility] Collagenase (Santyl) 0 gm TOP DAILY [facility] Digoxin (Lanoxin) 0.125 mg PO MoWeFr@1400 [facility] Donepezil HCl (Aricept) 5 mg PO HS [facility] Ferrous Gluconate (Fergon) 324 mg PO TID [facility] Furosemide (Lasix) 20 mg PO DAILY [facility] Dextrose (Dextrose 10% In Water) 500 mls @ 100 mls/hr IV .Q5H [facility] Last Admin: 08/18/16 06:55 Dose: 100 mls/hr Azithromycin (Zithromax 500mg In Ns) 500 mg in 250 mls @ 167 mls/hr IVPB DAILY [facility] PRN Reason: Protocol Linezolid (Zyvox 600mg/300ml D5w) 600 mg in 300 mls @ 200 mls/hr IVPB Q12 [facility] PRN Reason: Protocol Stop: 08/18/16 11:29 Ceftriaxone Sodium (Rocephin 1 Gram Ivpb) 1 gm in 100 mls @ 100 mls/hr IVPB DAILY [facility] PRN Reason: Protocol Losartan Potassium (Cozaar) 100 mg PO DAILY [facility] Ondansetron HCl (Zofran Inj) 4 mg IVP Q4H PRN PRN Reason: Nausea/Vomiting Pantoprazole Sodium (Protonix Ec Tab) 20 mg PO 0730,1630 [facility] Paroxetine HCl (Paxil) 20 mg PO DAILY [facility] Physical Exam - Constitutional Appears: Non-toxic, No Acute Distress - Head Exam Head Exam: NORMAL INSPECTION - Neck Exam Neck exam: Negative for: Lymphadenopathy, Meningismus - Respiratory Exam Respiratory Exam: Decreased Breath Sounds - Cardiovascular Exam Cardiovascular Exam: +S1, +S2 - GI/Abdominal Exam GI & Abdominal Exam: Soft. absent: Tenderness Results - Vital Signs Recent Vital Signs: Last Vital Signs Temp 98.2 F 08/18/16 08:27 Pulse 93 H 08/18/16 08:27 Resp 18 08/18/16 08:27 BP 124/90 08/18/16 08:27 Pulse Ox 97 08/18/16 08:27 - Labs Result Diagrams: 08/18/16 04:35 08/18/16 04:35 Labs: Laboratory Results - last 24 hr 08/17/16 08/17/16 08/18/16 20:30 20:30 04:35 WBC RBC Hgb Hct MCV MCH MCHC RDW Plt Count MPV PT 12.4 H INR 1.15 H APTT 29.9 Sodium 131 L Potassium 4.4 Chloride 99 Carbon Dioxide 26 Anion Gap 10 BUN 22 H Creatinine 1.9 H Est GFR ( Amer) 43 Est GFR (Non-Af Amer) 36 Random Glucose 146 H Calcium 7.1 L Total Bilirubin 1.2 AST 37 ALT 41 Alkaline Phosphatase 83 Lactate Dehydrogenase 791 H Total Creatine Kinase 62 Troponin I 0.03 D 0.03 NT-Pro-B Natriuret Pep 99111 H Total Protein 5.7 L Albumin 2.7 L Globulin 3.1 Albumin/Globulin Ratio 0.9 L 08/18/16 04:35 WBC 9.8 RBC 2.80 L Hgb 8.2 L Hct 24.7 L MCV 88.2 MCH 29.3 MCHC 33.2 RDW 16.7 H Plt Count 337 MPV 9.6 PT INR APTT Sodium Potassium Chloride Carbon Dioxide Anion Gap BUN Creatinine Est GFR ( Amer) Est GFR (Non-Af Amer) Random Glucose Calcium Total Bilirubin AST ALT Alkaline Phosphatase Lactate Dehydrogenase Total Creatine Kinase Troponin I NT-Pro-B Natriuret Pep Total Protein Albumin Globulin Albumin/Globulin Ratio Assessment & Plan - Assessment and Plan (Free Text) Assessment: Assessment Infected diabetic leg ulcers, growing MRSA and Morganella, slowly improving R/O healthcare-associated pneumonia, right lower lobe atrial fibrillation chronic anemia HTN mild dementia chronic CHF DM Plan continue zyvox, and Rocephin day 8 - will target 10 days of therapy Will monitor clinically
[2016-08-18 17:25] VITALS: RESP 20
--- NOTE | 2016-08-18 21:55 | CON ---
DATE: 08/18/2016 The patient is in room 361, bed 1. REASON FOR CONSULTATION: The patient felt weak and fell down, ischemic cardiomyopathy, atrial fibril lation, gastrointestinal bleeding. HISTORY OF PRESENT ILLNESS: The patient is a 65-year-old male who was in transitional care unit for deconditioning, getting physical therapy. The patient was walking and he says his legs felt weak and he fell down. There is a question about whether he was dizzy or not. The patient known to have mt al insufficiency, chronic atrial fibrillation on Eliquis, cardiomyopathy, recently was admitted at [facility] and found to have severely decreased LV function, ejection fraction 20%, judy alcantara followed by Dr. Palmer. A LifeVest was applied. The patient was admitted here with altered mental status and found to have hemoglobin of 6.9. The patient underwent endoscopy and IV Protonix. Later on, patient had MUGA scan that showed LV ejection fraction 40%, then LifeVest was removed. The nithya ent denies any chest pain, shortness of breath, or palpitation associated with this fall. PAST MEDICAL HISTORY: Significant for cardiomyopathy, decreased LV function, history of CHF, history of cerebrovascular accident, hypertension, diabetes, cardiac catheterization 07/19/2013, nonobstruct yusef coronary artery disease only limited to diagonal 1. The patient had MUGA scan done on 08/10/2016 that showed LV ejection fraction 40%, chronic atrial fibrillation on Eliquis, which was held because of GI bleeding. PERSONAL HISTORY: No smoking, no alcohol abuse. HOME MEDICATIONS: The patient at home was taking aspirin, atorvastatin, Eliquis, Paxil, metformin, l osartan, glyburide. ALLERGIES: The patient denies any allergies. REVIEW OF SYSTEMS: All the systems were reviewed, positive mentioned in the history, others were neg ative. PHYSICAL EXAMINATION: VITAL SIGNS: Blood pressure 127/64, respirations 18, pulse 99, temperature 98.2. HEENT: Head is normocephalic. Eyes: Pupils normal. Conjunctivae slightly pale. NECK: JVP low. Carotid equal. THORAX: AP diameter normal. LUNGS: No rales. CARDIOVASCULAR: S1, S2, systolic murmur grade III/. No rub. ABDOMEN: Soft, nontender, no organomegaly. Bowel sounds normal. EXTREMITIES: No clubbing, no cyanosis. LABORATORY DATA: WBC 9.8, hemoglobin 8.2, hematocrit 24.7, platelets 337. Sodium 131, potassium 4.4 , BUN 22, creatinine 1.9. AST, ALT normal. Calcium 7.1, but albumin is also low at 2.7, total prote in 5.7. NT-proB natriuretic pep 03006. Troponin x 3 negative. EKG showed a heart rate of [address] scan of the head, no acute intracranial injury or bleed. DIAGNOSES: Fall, chronic renal insufficiency, chronic atrial fibrillation, nonischemic cardiomyopath y, status post cardiac catheterization in 2013, limited only to diagonal 1, status post LifeVest when he was admitted at [facility]. MUGA scan showed ejection fraction 40% removal of th e LifeVest, MUGA scan was done on 08/10/2016, gastrointestinal bleeding, anemia. PLAN: The patient is on Aricept 5 mg p.o. at bedtime, aspirin 81 mg daily, carvedilol 3.125 b.i.d., Cozaar 100 mg daily, ferrous gluconate 324 mg p.o. t.i.d., digoxin 0.125 p.o. Wednesday, Wednesday and ; furosemide 20 mg daily, Lipitor 20 mg daily, Pepcid 20 mg p.o. daily, Protonix 20 mg p.o. b.i. d., Rocephin 1 gram IV daily, linezolid 600 mg IV q. 12 hours. We will continue present therapy and we will follow with you. Mario Nugent MD cc: [phone] TT: 08/18/2016 21:54:06 Confirmation # [id number] Dictation # [id number] cn
[2016-08-19 07:48] LABS: ALB/GLOB RATIO 0.8 (1.1-1.8); POTASSIUM 4.1 mmol/L (3.6-5.0)
[2016-08-19 07:51] LABS: HEMATOCRIT 25.4 % (42.0-52.0); MEAN CELL VOLUME 88.2 fL (80.0-105.0); MEAN CORPUSCULAR HEMOGLOBIN 28.5 pg (25.0-35.0); MEAN CORPUSCULAR HGB CONC 32.3 g/dl (31.0-37.0); MEAN PLATELET VOLUME 9.9 fl (7.0-11.0); RED CELL DISTRIBUTION WIDTH 16.6 % (11.5-14.5); WHITE BLOOD COUNT 8.6 10^3/ul (4.5-11.0)
[2016-08-19] MEDS: Pantoprazole 20 mg EC Tab PO SCH (08:16)
--- NOTE | 2016-08-19 08:26 | PN ---
DATE: 08/18/2016 This is a 65-year-old male seen at bedside for continued evaluation and management of bilateral lower extremity ulcerations. The patient was transferred to the third floor from [facility] yesterday. The nithya ent is offering no complaints of pain in any of the ulcerated areas on both lower legs. VITAL SIGNS: Reveal a temperature of 98.2, pulse rate of 93, blood pressure 124/90, respiratory rate of 18. LABORATORY FINDING: Reveal a white count of 9.8, hemoglobin of 8.2, hematocrit of 24.7, platelet cou nt of 337. Most recent microbiology report taken on 08/11 reveals MRSA growth in the right lower leg. X-rays of both lower legs reveal no radiographic evidence of osteomyelitis underlying any of the ulce rated areas. OBJECTIVE: Weakly palpable pedal pulses noted bilaterally. There is a full thickness ulceration loc ated at the posterior aspect of the left lower leg at the Achilles insertion. Ulceration is linear i n shape and measures approximately 6 cm in length. The base of the ulceration is a mixture of fibrot ic, necrotic, and granular tissue. There is no purulence to suggest underlying abscess formation. T here are full thickness ulcerations located on the anterior aspect of the right lower leg. The base of the ulcerations are mixture of granular, fibrotic, and necrotic tissue. There is no purulence to suggest underlying abscess formation. None of the ulcers probe to bone. ASSESSMENT: Bilateral lower extremity diabetic ulcerations. PLAN: The patient's wounds were cleansed with normal sterile saline and application of Santyl, and d ry sterile dressing was applied. The patient is currently taking Zyvox p.o. The patient will be see n and followed daily for local wound care. Kody Wilson DPM cc: [id number] TT: 08/18/2016 15:23:38 Confirmation # [id number] Dictation # [id number] sierra
[2016-08-19] MEDS: cefTRIAXone 1 gm 1 GM/100 ML BAG IVPB SCH (09:19)
[2016-08-19] MEDS: Linezolid 600 mg in D5W 300 ml 600 MG/300 ML BAG IVPB SCH (09:20)
[2016-08-19] MEDS: Digoxin 125 mcg (0.125 mg) Tab PO SCH ×2 (09:22→13:46)
[2016-08-19] MEDS: Collagenase 250 Units/gm Ointment(30 gm) TOP SCH (09:24)
[2016-08-19 09:31] VITALS: BP 124/90
[2016-08-19 09:46] VITALS: PULSE 78; TEMP 99.2; O2SAT 98
--- NOTE | 2016-08-19 11:35 | CP.PCM.DIS ---
Provider - Provider Date of Admission: 08/18/16 16:04 Attending physician: Andrea Miller MD Primary care physician: Andrea Miller MD Time Spent in preparation of Discharge (in minutes): 25 Diagnosis - Discharge Diagnosis (1) Near syncope Status: Acute (2) Wound infection Status: Acute (3) CKD (chronic kidney disease) stage 3, GFR 30-59 ml/min Status: Acute (4) GI bleed Status: Acute (5) CHF (congestive heart failure) Status: Chronic Hospital Course - Lab Results Lab Results: Most Recent Lab Values WBC 8.6 10^3/ul (4.5-11.0) 08/19/16 07:00 RBC 2.88 10^6/uL (3.5-6.1) L 08/19/16 07:00 Hgb 8.2 gm/dL (14.0-18.0) L 08/19/16 07:00 Hct 25.4 % (42.0-52.0) L 08/19/16 07:00 MCV 88.2 fL (80.0-105.0) 08/19/16 07:00 MCH 28.5 pg (25.0-35.0) 08/19/16 07:00 MCHC 32.3 g/dl (31.0-37.0) 08/19/16 07:00 RDW 16.6 % (11.5-14.5) H 08/19/16 07:00 Plt Count 372 10^3/uL (120.0-450.0) 08/19/16 07:00 MPV 9.9 fl (7.0-11.0) 08/19/16 07:00 PT 12.4 Seconds (9.9-11.8) H 08/17/16 20:30 INR 1.15 (0.93-1.08) H 08/17/16 20:30 APTT 29.9 Seconds (23.7-30.8) 08/17/16 20:30 Sodium 129 mmol/L (132-148) L 08/19/16 07:00 Potassium 4.1 mmol/L (3.6-5.0) 08/19/16 07:00 Chloride 100 mmol/L (95-110) 08/19/16 07:00 Carbon Dioxide 23 mmol/L (21-33) 08/19/16 07:00 Anion Gap 10 (10-20) 08/19/16 07:00 BUN 21 mg/dL (7-21) 08/19/16 07:00 Creatinine 1.7 mg/dL (0.5-1.4) H 08/19/16 07:00 Est GFR ( Amer) 49 08/19/16 07:00 Est GFR (Non-Af Amer) 41 08/19/16 07:00 POC Glucose (mg/dL) 238 mg/dL (65-110) H 08/18/16 12:10 Random Glucose 195 mg/dL (70-110) H 08/19/16 07:00 Calcium 7.0 mg/dL (8.4-10.5) L 08/19/16 07:00 Total Bilirubin 1.0 mg/dL (0.2-1.3) 08/19/16 07:00 AST 32 U/L (15-59) 08/19/16 07:00 ALT 40 U/L (7-56) 08/19/16 07:00 Alkaline Phosphatase 90 U/L (38-133) 08/19/16 07:00 Lactate Dehydrogenase 791 U/L (333-699) H 08/17/16 20:30 Total Creatine Kinase 62 U/L (35-230) 08/17/16 20:30 Troponin I 0.03 ng/mL 08/18/16 13:14 NT-Pro-B Natriuret Pep 50491 pg/mL (0-450) H 08/17/16 20:30 Total Protein 6.0 g/dL (5.8-8.3) 08/19/16 07:00 Albumin 2.7 g/dL (3.0-4.8) L 08/19/16 07:00 Globulin 3.3 gm/dL 08/19/16 07:00 Albumin/Globulin Ratio 0.8 (1.1-1.8) L 08/19/16 07:00 Discharge Exam - Head Exam Head Exam: ATRAUMATIC, NORMAL INSPECTION, NORMOCEPHALIC Discharge Plan - Follow Up Plan Condition: FAIR Disposition: REHAB FACILITY/REHAB UNIT Instructions: Vertigo (DC), Syncope (DC) Referrals: Andrea Miller MD [Primary Care Provider] -
--- NOTE | 2016-08-19 13:15 | PN ---
DATE: 08/19/2016 The patient is in room 361, bed 1. REASON FOR CONSULTATION: The patient felt weak and fell down, ischemic cardiomyopathy, atrial fibril lation, GI bleeding. HISTORY OF PRESENT ILLNESS: The patient is a 65-year-old male who was in transitional care unit for deconditioning and physical therapy. The patient was walking and he says his legs felt weak and he f ell down. There was no loss of consciousness and there is also question about whether he was dizzy o r not. The patient known to have renal insufficiency, chronic atrial fibrillation on Eliquis, cardio myopathy, recently was admitted to [facility] and found to have severely decreased LV function, ejection fraction 20%, being followed by Dr. Palmer at [place]. LifeVest was applied. Recent MUGA scan showed LV ejection fraction of 40% and then the LifeVest was removed. The patient this time was admitted to [facility] with altered mental status, found to have a hemoglob in of 6.9. The patient had endoscopy. The patient now conscious, alert, lying flat in bed without a ny chest pain, shortness of breath, or palpitation. PHYSICAL EXAMINATION: VITAL SIGNS: Blood pressure is 124/90, respirations 20, pulse 78, temperature 99.2. HEAD: Normocephalic. EYES: Pupils normal. Conjunctivae slightly pale. NECK: JVP low. Carotid equal. THORAX: AP diameter normal. LUNGS: No rales. CARDIOVASCULAR: S1, S2, systolic murmur, no rub. ABDOMEN: Soft, no tenderness, no organomegaly. Bowel sounds normal. EXTREMITIES: No clubbing, no cyanosis. LABORATORY DATA: Shows WBC 8.6, hemoglobin 8.2, hematocrit 25.4, platelet 372. Sodium 129, potassiu m 4.1, BUN 21, creatinine 1.7. AST, ALT normal. Total protein is 6.0 which is normal. Albumin is 2 .7 which is low. DIAGNOSES: Fall, chronic renal insufficiency, chronic atrial fibrillation, nonischemic cardiomyopath y, status post cardiac catheterization 2013, coronary artery only limited to diagonal 1, status post LifeVest. When he was admitted to [facility], MUGA scan showed ejection fraction 40% . Removal of the LifeVest was done. MUGA was done on 08/10/2016, gastrointestinal bleeding, anemia. PLAN: Continue aspirin 81 mg p.o. daily, carvedilol 3.125 b.i.d., losartan 100 mg daily, ferrous glu conate 324 mg p.o. t.i.d., digoxin 0.125 Wednesday, Wednesday and Wednesday, Lasix 20 mg p.o. daily, Lipito r 20 mg daily, Paxil 20 mg daily, Protonix 20 mg p.o. b.i.d. We will follow with you and we will con nell to work with physical therapy Mario Nugent MD cc: [id number] TT: 08/19/2016 13:15:07 Confirmation # [id number] Dictation # [id number]
--- NOTE | 2016-08-19 13:23 | CP.PCM.PN ---
<Anabelle Gaona - Last Filed: 08/19/16 13:15> Subjective - Date & Time of Evaluation Date of Evaluation: 08/19/16 Time of Evaluation: 13:00 - Subjective Subjective: 65 yo male patient seen at bedside with Dr. George today for f/u of bilateral lower extremity ulcerations. Pt seen resting comfortably in bed at time of visit , appears to be in NAD. Family member is present at the bedside. Says he is feeling better today, denies f/n/v/c/cp. Does admit to some tenderness to the front of the legs today where the wounds are located. Denies any other pedal complaints at this time. Objective - Vital Signs/Intake and Output Vital Signs (last 24 hours): Temp Pulse Resp BP Pulse Ox 99.2 F 78 20 124/90 98 08/19/16 06:00 08/19/16 06:00 08/19/16 06:00 08/19/16 09:19 08/19/16 06:00 Intake and Output: 08/19/16 08/19/16 06:59 18:59 Intake Total 570 0 Output Total 200 1100 Balance 370 -1100 - Medications Medications: Current Medications Aspirin (Aspirin Chewable) 81 mg PO DAILY [facility] Last Admin: 08/19/16 09:19 Dose: 81 mg Atorvastatin Calcium (Lipitor) 20 mg PO DIN [facility] Last Admin: 08/18/16 18:07 Dose: 20 mg Carvedilol (Coreg) 3.125 mg PO BID [facility] Last Admin: 08/19/16 09:19 Dose: 3.125 mg Collagenase (Santyl) 0 gm TOP DAILY [facility] Last Admin: 08/19/16 09:24 Dose: 1 applic Digoxin (Lanoxin) 0.125 mg PO MoWeFr@1400 [facility] Last Admin: 08/19/16 09:22 Dose: 0.125 mg Donepezil HCl (Aricept) 5 mg PO HS [facility] Last Admin: 08/18/16 22:00 Dose: 5 mg Ferrous Gluconate (Fergon) 324 mg PO TID [facility] Last Admin: 08/19/16 09:19 Dose: 324 mg Furosemide (Lasix) 20 mg PO DAILY [facility] Last Admin: 08/19/16 09:19 Dose: 20 mg Dextrose (Dextrose 10% In Water) 500 mls @ 100 mls/hr IV .Q5H [facility] Last Admin: 08/18/16 18:07 Dose: 100 mls/hr Linezolid (Zyvox 600mg/300ml D5w) 600 mg in 300 mls @ 200 mls/hr IVPB Q12 [facility] PRN Reason: Protocol Stop: 08/21/16 10:01 Last Admin: 08/19/16 09:20 Dose: 200 mls/hr Ceftriaxone Sodium (Rocephin 1 Gram Ivpb) 1 gm in 100 mls @ 100 mls/hr IVPB DAILY [facility] PRN Reason: Protocol Last Admin: 08/19/16 09:19 Dose: 100 mls/hr Losartan Potassium (Cozaar) 100 mg PO DAILY [facility] Last Admin: 08/19/16 09:19 Dose: 100 mg Ondansetron HCl (Zofran Inj) 4 mg IVP Q4H PRN PRN Reason: Nausea/Vomiting Pantoprazole Sodium (Protonix Ec Tab) 20 mg PO 0730,1630 [facility] Last Admin: 08/19/16 08:16 Dose: 20 mg Paroxetine HCl (Paxil) 20 mg PO DAILY [facility] Last Admin: 08/19/16 09:19 Dose: 20 mg - Labs Labs: 08/19/16 07:00 08/19/16 07:00 PT 12.4 Seconds (9.9-11.8) H 08/17/16 20:30 INR 1.15 (0.93-1.08) H 08/17/16 20:30 APTT 29.9 Seconds (23.7-30.8) 08/17/16 20:30 - Constitutional Appears: Non-toxic, No Acute Distress - Extremities Exam Additional comments: Bilateral lower extremity focused exam: VASC: DP & PT pulses are palpable BL, skin temp runs warm to cool, cap refill time is < 3 seconds to all digits bl, +1 pitting pedal edema noted to anterior aspect of legs bl DERM: superficial ulcerations x 2 (dillard grade 1) noted to anterior and medial aspect of left leg with 70% fibrotic tissue noted, serous drainage is noted, however there is no purulence, (-) probe to bone, (-) malodor, no ascending cellulitis. There is also a superficial ulceration x1 (dillard grade 1) is noted to the posterior-distal aspect of right leg with 70% fibrotic base, no malodor , (+) serous drainage noted, no purulence, no probe to bone, no fluctuance, no signs infection. NEURO: pedal sensation is grossly intact BL ORTHO: Pedal muscle strength is graded 5/5 in all 4 major pedal muscle groups. - Neurological Exam Neurological Exam: Alert, Awake, Oriented x3 - Psychiatric Exam Psychiatric exam: Normal Affect, Normal Mood Assessment and Plan - Assessment and Plan (Free Text) Assessment: 65 year old male with ulcerations to bilateral lower extremities secondary to venous stasis. Plan: -Pt S&E at bedside with attending Dr. George present -Chart, labs, vitals reviewed: afebrile, no leukocytosis -Wounds cleansed with sterile water, right leg wounds excisionally debrided with sterile suture kit, pt tolerated procedure well -Santyl applied to wounds and dressed with maxsorb, kerlix, DSD -Stable per podiatry -Advised to follow up at the wound care center following discharge. -Podiatry will continue to follow while he remains in house. <Lisa George - Last Filed: 08/30/16 16:43> Objective - Vital Signs/Intake and Output Vital Signs (last 24 hours): Temp Pulse Resp BP Pulse Ox 99.2 F 78 20 124/90 98 08/19/16 06:00 08/19/16 06:00 08/19/16 06:00 08/19/16 09:19 08/19/16 06:00 - Labs Labs: 08/19/16 07:00 08/19/16 07:00 PT 12.4 Seconds (9.9-11.8) H 08/17/16 20:30 INR 1.15 (0.93-1.08) H 08/17/16 20:30 APTT 29.9 Seconds (23.7-30.8) 08/17/16 20:30 Attending/Attestation - Attestation I have personally seen and examined this patient.: Yes I have fully participated in the care of the patient.: Yes I have reviewed all pertinent clinical information, including history, physical exam and plan: Yes
[2016-08-19 13:48] VITALS: PULSE 80
--- NOTE | 2016-08-19 18:01 | CP.PCM.PN ---
Subjective - Date & Time of Evaluation Date of Evaluation: 08/19/16 Time of Evaluation: 12:15 - Subjective Subjective: Comfortable, afebrile, not in distress. Objective - Vital Signs/Intake and Output Vital Signs (last 24 hours): Temp Pulse Resp BP Pulse Ox 99.2 F 78 20 124/90 98 08/19/16 06:00 08/19/16 06:00 08/19/16 06:00 08/19/16 09:19 08/19/16 06:00 Intake and Output: 08/19/16 08/19/16 06:59 18:59 Intake Total 570 540 Output Total 200 1700 Balance 370 -1160 - Labs Labs: 08/19/16 07:00 08/19/16 07:00 PT 12.4 Seconds (9.9-11.8) H 08/17/16 20:30 INR 1.15 (0.93-1.08) H 08/17/16 20:30 APTT 29.9 Seconds (23.7-30.8) 08/17/16 20:30 - Constitutional Appears: Non-toxic, No Acute Distress - Head Exam Head Exam: NORMAL INSPECTION - Respiratory Exam Respiratory Exam: Decreased Breath Sounds - Cardiovascular Exam Cardiovascular Exam: +S1, +S2 - GI/Abdominal Exam GI & Abdominal Exam: Soft. absent: Tenderness - Extremities Exam Additional comments: both legs with dressings in place Assessment and Plan - Assessment and Plan (Free Text) Plan: Assessment Infected diabetic leg ulcers, growing MRSA and Morganella, clinically improving R/O healthcare-associated pneumonia, right lower lobe atrial fibrillation chronic anemia HTN mild dementia chronic CHF DM Plan continue zyvox, and Rocephin day 9 - target 7-10 days of therapy
== END 2016-08-19 17:16 | DRG 638 ==
LOC: ED 17:50 → ERH 19:22 → 3RNO 22:55 → MERGE 08-18 16:04 → OBSVTOIN 08-18 16:04
PROVIDERS: ADMIT Internal Medicine; ATTEND Internal Medicine
DX: E11.649 Type 2 diabetes mellitus with hypoglycemia without coma (principal); I13.0 Hypertensive heart and chronic kidney disease with heart failure and stage 1 through stage 4 chronic kidney disease, or unspecified chronic kidney disease; L97.929 Non-pressure chronic ulcer of unspecified part of left lower leg with unspecified severity; L97.919 Non-pressure chronic ulcer of unspecified part of right lower leg with unspecified severity; E11.622 Type 2 diabetes mellitus with other skin ulcer; I50.9 Heart failure, unspecified; E11.22 Type 2 diabetes mellitus with diabetic chronic kidney disease; N18.3 Chronic kidney disease, stage 3 (moderate); I48.2 Chronic atrial fibrillation; F03.90 Unspecified dementia, unspecified severity, without behavioral disturbance, psychotic disturbance, mood disturbance, and anxiety; R55 Syncope and collapse; D64.9 Anemia, unspecified; R42 Dizziness and giddiness; B95.62 Methicillin resistant Staphylococcus aureus infection as the cause of diseases classified elsewhere; I25.5 Ischemic cardiomyopathy; I25.10 Atherosclerotic heart disease of native coronary artery without angina pectoris; I87.8 Other specified disorders of veins; Z79.82 Long term (current) use of aspirin; Z86.73 Personal history of transient ischemic attack (TIA), and cerebral infarction without residual deficits; Z79.02 Long term (current) use of antithrombotics/antiplatelets; Z79.84 Long term (current) use of oral hypoglycemic drugs

== ENCOUNTER 2016-08-19 17:00 | Inpatient (IN) | payer OTHER, MEDICAID ==
[2016-08-19 19:51] VITALS: BMI 31.6
[2016-08-19 21:13] VITALS: RESP 18
[2016-08-19] MEDS ORDERED: Linezolid 600 mg in D5W 300 ml 600 MG/300 ML BAG IVPB SCH (22:00)
[2016-08-19] MEDS: Insulin Lispro (humaLOG) LOW Coverage SC SCH (23:18)
[2016-08-20] MEDS: Pantoprazole 20 mg EC Tab PO SCH ×2 (05:48→18:03)
[2016-08-20] MEDS ORDERED: cefTRIAXone 1 gm 1 GM/100 ML BAG IVPB SCH (06:00)
[2016-08-20] MEDS: Insulin Lispro (humaLOG) LOW Coverage SC SCH ×4 (06:33→21:53)
[2016-08-20 06:41] LABS: ADD MANUAL DIFF? NO
[2016-08-20 06:54] LABS: BASO # 0.02 K/mm3 (0.0-2.0); BASO % 0.3 % (0.0-3.0); EOS # 0.2 (0.0-0.7); EOS % 2.1 % (1.5-5.0); GRAN # 5.66 (1.4-6.5); GRAN % 74.2 % (50.0-68.0); LYMPH # 1.1 (1.2-3.4); LYMPH % 14.6 % (22.0-35.0); MEAN CELL VOLUME 87.5 fL (80.0-105.0); MEAN CORPUSCULAR HEMOGLOBIN 28.3 pg (25.0-35.0); MEAN CORPUSCULAR HGB CONC 32.4 g/dl (31.0-37.0); MEAN PLATELET VOLUME 9.3 fl (7.0-11.0); MONO # 0.7 (0.1-0.6); MONO % 8.8 % (1.0-6.0); PLATELET COUNT 362 10^3/uL (120.0-450.0); RED CELL DISTRIBUTION WIDTH 16.6 % (11.5-14.5); WHITE BLOOD COUNT 7.6 10^3/ul (4.5-11.0)
[2016-08-20 07:23] LABS: ALB/GLOB RATIO 0.8 (1.1-1.8); CALCIUM 7.3 mg/dL (8.4-10.5); POTASSIUM 4.1 mmol/L (3.6-5.0); TOTAL PROTEIN 5.9 g/dL (5.8-8.3)
[2016-08-20] MEDS ORDERED: Pantoprazole 20 mg EC Tab PO SCH (07:30)
[2016-08-20 07:44] LABS: HEMATOCRIT 23.8 % (42.0-52.0)
--- NOTE | 2016-08-20 09:54 | CP.PCM.PN ---
<Anabelle Gaona - Last Filed: 08/20/16 09:50> Subjective - Date & Time of Evaluation Date of Evaluation: 08/20/16 Time of Evaluation: 09:15 - Subjective Subjective: 65 yo male patient seen at bedside in [facility] with Dr. George today regarding bilateral lower extremity ulcerations. Pt seen resting comfortably in bed at time of visit. Does complain of some slight pain to front of both legs today, denies any calf pain. Says he is feeling better today. Denies f/n/v/c/sob/cp at this time. Denies any other pedal complaints, denies any acute overnight events. Objective - Vital Signs/Intake and Output Vital Signs (last 24 hours): Temp Pulse Resp BP Pulse Ox 98.5 F 83 18 126/87 08/19/16 20:43 08/19/16 20:43 08/19/16 20:43 08/19/16 20:43 - Medications Medications: Current Medications Aspirin (Aspirin Chewable) 81 mg PO 0800 [facility] PRN Reason: Protocol Atorvastatin Calcium (Lipitor) 20 mg PO DIN [facility] Carvedilol (Coreg) 3.125 mg PO 0800,1800 [facility] PRN Reason: Protocol Digoxin (Lanoxin) 0.125 mg PO 1400 [facility] PRN Reason: Protocol Donepezil HCl (Aricept) 5 mg PO HS [facility] PRN Reason: Protocol Last Admin: 08/19/16 21:28 Dose: 5 mg Doxycycline Hyclate (Doryx) 100 mg PO Q12 [facility] PRN Reason: Protocol Stop: 08/27/16 10:01 Ferrous Gluconate (Fergon) 324 mg PO 0800,1200,1700 [facility] PRN Reason: Protocol Furosemide (Lasix) 20 mg PO DAILY [facility] PRN Reason: Protocol Ceftriaxone Sodium (Rocephin 1 Gram Ivpb) 1 gm in 100 mls @ 100 mls/hr IVPB 0600 [facility] PRN Reason: Protocol Insulin Human Lispro (Humalog Low) 0 units SC ACHS [facility] PRN Reason: Protocol Last Admin: 08/20/16 06:33 Dose: 1 units Losartan Potassium (Cozaar) 100 mg PO DAILY [facility] PRN Reason: Protocol Ondansetron HCl (Zofran Inj) 4 mg IVP Q4H PRN; Protocol PRN Reason: Nausea/Vomiting Pantoprazole Sodium (Protonix Ec Tab) 20 mg PO 0630,1830 [facility] PRN Reason: Protocol Last Admin: 08/20/16 05:48 Dose: 20 mg Paroxetine HCl (Paxil) 20 mg PO DAILY [facility] PRN Reason: Protocol - Labs Labs: 08/20/16 06:00 08/20/16 06:00 - Constitutional Appears: Non-toxic, No Acute Distress - Extremities Exam Extremities Exam: absent: Calf Tenderness Additional comments: Bilateral lower extremity focused exam: VASC: DP & PT pulses are palpable BL, skin temp runs warm to cool, cap refill time is < 3 seconds to all digits bl, +1 pitting pedal edema noted to anterior aspect of legs bl DERM: superficial ulcerations x 2 (dillard grade 1) noted to anterior and medial aspect of left leg with 70% fibrotic tissue noted, slight serous drainage is noted, however there is no purulence, (-) probe to bone, (-) malodor, no ascending cellulitis. There is also a superficial ulceration x1 (dillard grade 1 ) is noted to the posterior-distal aspect of right leg with 70% fibrotic base, no malodor, no drainage noted today, no purulence, no probe to bone, no fluctuance, no signs infection. NEURO: pedal sensation is grossly intact BL ORTHO: Pedal muscle strength is graded 5/5 in all 4 major pedal muscle groups. - Neurological Exam Neurological Exam: Alert, Awake, Oriented x3 - Psychiatric Exam Psychiatric exam: Normal Affect, Normal Mood Assessment and Plan - Assessment and Plan (Free Text) Assessment: 65 year old male with ulcerations (much improved) to bilateral lower extremities secondary to venous stasis. Plan: -Pt S&E at bedside with attending Dr. George present -Chart, labs, vitals reviewed: afebrile -Wounds cleansed with sterile water and dressed with maxsorb, ABD, kerlix ( santyl discontinued) -Stable per podiatry -Will continue to follow while in house. <Lisa George - Last Filed: 08/30/16 16:47> Objective - Vital Signs/Intake and Output Vital Signs (last 24 hours): Temp Pulse Resp BP Pulse Ox 98 F 90 18 110/76 99 08/21/16 16:00 08/22/16 08:23 08/21/16 16:00 08/22/16 10:24 08/21/16 16:00 - Labs Labs: 08/22/16 07:00 08/22/16 07:00 Attending/Attestation - Attestation I have personally seen and examined this patient.: Yes I have fully participated in the care of the patient.: Yes I have reviewed all pertinent clinical information, including history, physical exam and plan: Yes
[2016-08-20] MEDS ORDERED: Collagenase 250 Units/gm Ointment(30 gm) TOP SCH (10:00)
[2016-08-20] MEDS ORDERED: ATORVASTATIN 20 MG PO SCH (17:00)
--- NOTE | 2016-08-20 21:48 | CP.PCM.PN ---
Subjective - Date & Time of Evaluation Date of Evaluation: 08/20/16 Time of Evaluation: 08:00 - Subjective Subjective: Seen and examined at the bed side. states feeling better. CBC showed H/H dropped below 8. No Hemachesia and Melanotic stool. denies chest pain or sob. Still poor Po intake. Objective - Vital Signs/Intake and Output Vital Signs (last 24 hours): Temp Pulse Resp BP Pulse Ox 98.7 F 88 18 118/64 96 08/20/16 10:00 08/20/16 17:59 08/20/16 10:00 08/20/16 17:59 08/20/16 10:00 - Medications Medications: Current Medications Aspirin (Aspirin Chewable) 81 mg PO 0800 [facility] PRN Reason: Protocol Last Admin: 08/20/16 13:26 Dose: 81 mg Atorvastatin Calcium (Lipitor) 20 mg PO DIN [facility] Last Admin: 08/20/16 18:00 Dose: 20 mg Carvedilol (Coreg) 3.125 mg PO 0800,1800 [facility] PRN Reason: Protocol Last Admin: 08/20/16 17:59 Dose: 3.125 mg Digoxin (Lanoxin) 0.125 mg PO 1400 [facility] PRN Reason: Protocol Donepezil HCl (Aricept) 5 mg PO HS [facility] PRN Reason: Protocol Last Admin: 08/20/16 21:38 Dose: 5 mg Doxycycline Hyclate (Doryx) 100 mg PO Q12 [facility] PRN Reason: Protocol Stop: 08/27/16 10:01 Last Admin: 08/20/16 21:38 Dose: 100 mg Ferrous Gluconate (Fergon) 324 mg PO 0800,1200,1700 [facility] PRN Reason: Protocol Last Admin: 08/20/16 18:00 Dose: 324 mg Furosemide (Lasix) 20 mg PO DAILY [facility] PRN Reason: Protocol Last Admin: 08/20/16 13:34 Dose: 20 mg Ceftriaxone Sodium (Rocephin 1 Gram Ivpb) 1 gm in 100 mls @ 100 mls/hr IVPB 0600 [facility] PRN Reason: Protocol Insulin Human Lispro (Humalog Low) 0 units SC ACHS [facility] PRN Reason: Protocol Last Admin: 08/20/16 17:30 Dose: 1 units Losartan Potassium (Cozaar) 100 mg PO DAILY [facility] PRN Reason: Protocol Last Admin: 08/20/16 13:32 Dose: 100 mg Ondansetron HCl (Zofran Inj) 4 mg IVP Q4H PRN; Protocol PRN Reason: Nausea/Vomiting Pantoprazole Sodium (Protonix Ec Tab) 20 mg PO 0630,1830 [facility] PRN Reason: Protocol Last Admin: 08/20/16 18:03 Dose: 20 mg Paroxetine HCl (Paxil) 20 mg PO DAILY [facility] PRN Reason: Protocol Last Admin: 08/20/16 13:35 Dose: 20 mg - Labs Labs: 08/20/16 06:00 08/20/16 06:00 - Constitutional Appears: Well, No Acute Distress - Head Exam Head Exam: ATRAUMATIC, NORMAL INSPECTION, NORMOCEPHALIC - Eye Exam Eye Exam: EOMI, Normal appearance, PERRL Pupil Exam: NORMAL ACCOMODATION, PERRL - ENT Exam ENT Exam: Mucous Membranes Moist, Normal Exam - Neck Exam Neck Exam: Full ROM, Normal Inspection. absent: Lymphadenopathy - Respiratory Exam Respiratory Exam: Clear to Ausculation Bilateral, NORMAL BREATHING PATTERN - Cardiovascular Exam Cardiovascular Exam: REGULAR RHYTHM, +S1, +S2. absent: Murmur - GI/Abdominal Exam GI & Abdominal Exam: Soft, Normal Bowel Sounds. absent: Tenderness - Extremities Exam Extremities Exam: absent: Joint Swelling, Pedal Edema Additional comments: +infected superficial Ulcers to the legs. - Back Exam Back Exam: NORMAL INSPECTION - Neurological Exam Neurological Exam: Alert, Awake, CN II-XII Intact, Normal Gait, Oriented x3 - Psychiatric Exam Psychiatric exam: Normal Affect, Normal Mood - Skin Skin Exam: Dry, Intact, Normal Color, Warm - Additional Findings Additional findings: Hgb= 7.7mg/dl Assessment and Plan (1) Anemia Assessment & Plan: H/O GI Bleed. Deudenal Bulb Ulcers PPI Transfuse 1 Unit PRBCs Status: Chronic (2) CKD (chronic kidney disease) stage 3, GFR 30-59 ml/min Assessment & Plan: AVoid Nephrotoxic MAterial Status: Chronic (3) Hypoglycemia Status: Acute (4) Wound infection Assessment & Plan: Wound Care IV Rocephin 1gm IV daily Pediatric consult Status: Acute (5) CHF (congestive heart failure) Assessment & Plan: Lasix Status: Chronic
--- NOTE | 2016-08-20 22:24 | CP.PCM.CON ---
History of Present Illness - History of Present Illness History of Present Illness: 65 year old male with PMH of atrial fibrillation, chronic anemia, HTN, mild dementia, chronic CHF, DM is now transferred back to [facility] after suffering a fall and was monitored briefly on the med-surg floor. Infectious Diseases consult is requested to continue his antibiotic therapy for his leg ulcers. Currently the patient is comfortable in bed, not in distress, no fever or chills , no nausea or vomiting, currently no headache or dizziness, no abdominal pain, no diarrhea, no dysuria, no cough or colds, no SOB, on dizziness, legs feel much better. Review of Systems - Review of Systems All systems: reviewed and no additional remarkable complaints except (as per HPI ) Past Patient History - Infectious Disease Hx of Infectious Diseases: None - Tetanus Immunizations Tetanus Immunization: Unknown - Past Medical History & Family History Past Medical History?: Yes - Past Social History Smoking Status: Never Smoked - CARDIAC Hx Cardiac Disorders: Yes Hx Congestive Heart Failure: Yes Hx Hypercholesterolemia: Yes Hx Hypertension: Yes - PULMONARY Hx Respiratory Disorders: No - NEUROLOGICAL Hx Neurological Disorder: Yes HX Cerebrovascular Accident: Yes Hx Dementia: Yes Hx Dizziness: Yes Hx Transient Ischemic Attacks (TIA): Yes - HEENT Hx HEENT Problems: No - RENAL Hx Renal Failure: Yes - ENDOCRINE/METABOLIC Hx Endocrine Disorders: Yes Hx Diabetes Mellitus Type 2: Yes - HEMATOLOGICAL/ONCOLOGICAL Hx Blood Disorders: No - INTEGUMENTARY Hx Dermatological Problems: Yes (bilateral lower extremities stasis ulcers) - MUSCULOSKELETAL/RHEUMATOLOGICAL Hx Musculoskeletal Disorders: Yes Hx Falls: Yes Hx Unsteady Gait: Yes - GASTROINTESTINAL Hx Gastrointestinal Disorders: No - GENITOURINARY/GYNECOLOGICAL Hx Genitourinary Disorders: Yes Hx Incontinence: Yes - PSYCHIATRIC Hx Depression: No Hx Emotional Abuse: No Hx Physical Abuse: No - SURGICAL HISTORY Hx Surgeries: Yes (abd hernia) - ANESTHESIA Hx Anesthesia: No Hx Anesthesia Reactions: No Hx Malignant Hyperthermia: No Meds Allergies/Adverse Reactions: Allergies Allergy/AdvReac Type Severity Reaction Status Date / Time No Known Allergies Allergy Verified 08/19/16 19:49 - Medications Medications: Current Medications Aspirin (Aspirin Chewable) 81 mg PO 0800 [facility] PRN Reason: Protocol Atorvastatin Calcium (Lipitor) 20 mg PO DIN [facility] Carvedilol (Coreg) 3.125 mg PO 0800,1800 [facility] PRN Reason: Protocol Collagenase (Santyl) 0 gm TOP DAILY [facility] PRN Reason: Protocol Digoxin (Lanoxin) 0.125 mg PO 1400 [facility] PRN Reason: Protocol Donepezil HCl (Aricept) 5 mg PO HS [facility] PRN Reason: Protocol Last Admin: 08/19/16 21:28 Dose: 5 mg Doxycycline Hyclate (Doryx) 100 mg PO Q12 [facility] PRN Reason: Protocol Stop: 08/27/16 10:01 Ferrous Gluconate (Fergon) 324 mg PO 0800,1200,1700 [facility] PRN Reason: Protocol Furosemide (Lasix) 20 mg PO DAILY [facility] PRN Reason: Protocol Ceftriaxone Sodium (Rocephin 1 Gram Ivpb) 1 gm in 100 mls @ 100 mls/hr IVPB DAILY [facility] PRN Reason: Protocol Last Admin: 08/20/16 05:48 Dose: 100 mls/hr Insulin Human Lispro (Humalog Low) 0 units SC ACHS [facility] PRN Reason: Protocol Last Admin: 08/19/16 23:18 Dose: 2 units Losartan Potassium (Cozaar) 100 mg PO DAILY [facility] PRN Reason: Protocol Ondansetron HCl (Zofran Inj) 4 mg IVP Q4H PRN; Protocol PRN Reason: Nausea/Vomiting Pantoprazole Sodium (Protonix Ec Tab) 20 mg PO 0630,1830 [facility] PRN Reason: Protocol Last Admin: 08/20/16 05:48 Dose: 20 mg Paroxetine HCl (Paxil) 20 mg PO DAILY [facility] PRN Reason: Protocol Physical Exam - Constitutional Appears: Non-toxic, No Acute Distress - Head Exam Head Exam: NORMAL INSPECTION - ENT Exam ENT Exam: Mucous Membranes Moist - Neck Exam Neck exam: Negative for: Lymphadenopathy, Meningismus - Respiratory Exam Respiratory Exam: Decreased Breath Sounds - Cardiovascular Exam Cardiovascular Exam: +S1, +S2 - GI/Abdominal Exam GI & Abdominal Exam: Soft. absent: Tenderness - Extremities Exam Additional comments: both legs with dressings in place Results - Vital Signs Recent Vital Signs: Last Vital Signs Temp 98.5 F 08/19/16 20:43 Pulse 83 08/19/16 20:43 Resp 18 08/19/16 20:43 BP 126/87 08/19/16 20:43 Pulse Ox - Labs Result Diagrams: 08/20/16 06:00 08/20/16 06:00 Assessment & Plan - Assessment and Plan (Free Text) Plan: Assessment Infected diabetic leg ulcers, growing MRSA and Morganella, clinically improving R/O healthcare-associated pneumonia, right lower lobe atrial fibrillation chronic anemia HTN mild dementia chronic CHF DM Plan continue doxycycline and Rocephin day 10 - target 7-10 days of therapy
[2016-08-21] MEDS: Pantoprazole 20 mg EC Tab PO SCH ×2 (05:47→18:15)
[2016-08-21] MEDS ORDERED: cefTRIAXone 1 gm 1 GM/100 ML BAG IVPB SCH (06:00)
[2016-08-21 06:09] LABS: ADD MANUAL DIFF? NO
[2016-08-21 06:17] LABS: BASO # 0.02 K/mm3 (0.0-2.0); BASO % 0.3 % (0.0-3.0); EOS # 0.2 (0.0-0.7); GRAN # 5.66 (1.4-6.5); GRAN % 75.7 % (50.0-68.0); HEMATOCRIT 25.8 % (42.0-52.0); LYMPH % 13.4 % (22.0-35.0); MEAN CELL VOLUME 88.4 fL (80.0-105.0); MEAN CORPUSCULAR HEMOGLOBIN 28.8 pg (25.0-35.0); MEAN CORPUSCULAR HGB CONC 32.6 g/dl (31.0-37.0); MEAN PLATELET VOLUME 8.8 fl (7.0-11.0); MONO # 0.6 (0.1-0.6); MONO % 8.6 % (1.0-6.0); PLATELET COUNT 332 10^3/uL (120.0-450.0); RED CELL DISTRIBUTION WIDTH 16.3 % (11.5-14.5); WHITE BLOOD COUNT 7.5 10^3/ul (4.5-11.0)
[2016-08-21] MEDS: Insulin Lispro (humaLOG) LOW Coverage SC SCH ×4 (06:41→21:55)
--- NOTE | 2016-08-21 08:01 | CON ---
DATE: 08/20/2016 The patient in room 315, bed 1. REASON FOR CONSULTATION AND FOLLOWUP: Ischemic cardiomyopathy, atrial fibrillation, gastrointestinal bleeding. HISTORY OF PRESENT ILLNESS: The patient is a 65-year-old male who is transferred from medical floor for deconditioning and physical therapy. The patient was admitted to medical floor with feeling weak ness of the leg with some dizziness and he fell down to the floor. The patient has no chest pain, sh ortness of breath, palpitation. The patient has been stabilized and now he is back to transitional c are unit. Prior to that, his admission on medical floor was due to severe anemia, renal insufficienc y and chronic atrial fibrillation. The patient was recently in [facility] and was fo und to have severely decreased LV function with ejection fraction of 20%. Being followed there by Dr Prisca Palmer. LifeVest was applied to the patient, then later on the patient was found to have MUGA scan ejection fraction 40% so LifeVest was removed. The patient was brought here in the beginning with al tered mental status, found to have hemoglobin of 6.9. The patient underwent endoscopy and was given IV Protonix. The patient now lying flat in bed without chest pain, shortness of breath, palpitations . PAST MEDICAL HISTORY: Significant for cardiomyopathy, decreased LV function, CHF, CVA, hypertension, diabetes, cardiac catheterization 07/19/2013, nonobstructive coronary artery disease only limited to diagonal 1. MUGA scan on 08/10/2016 showed ejection fraction of 40%, chronic atrial fibrillation, o n Eliquis, which was held because of GI bleeding. PERSONAL HISTORY: No smoking, no drinking. MEDICATIONS: The patient's home medications included aspirin, atorvastatin, Eliquis, Paxil, metformi n, losartan, glyburide. ALLERGIES: The patient denies any allergies. REVIEW OF SYSTEMS: All the systems were reviewed. Positive mentioned in the history, others were ne gative. PHYSICAL EXAMINATION: VITAL SIGNS: Blood pressure 118/64, respirations 20, pulse 88, temperature 98.2. HEENT: Head is normocephalic. Eyes: Pupils normal. Conjunctivae are pale. NECK: JVP low. Carotid equal. THORAX: AP diameter normal. LUNGS: No significant rales. CARDIOVASCULAR: S1, S2, systolic murmur, no rub. ABDOMEN: Soft. No tenderness, no organomegaly. Bowel sounds normal. EXTREMITIES: No clubbing, no cyanosis. LABORATORY DATA: WBC 7.6, hemoglobin 7.7, hematocrit 23.8, platelets 362. Sodium 135, potassium 4.1 , BUN 18, creatinine 1.7, random sugar 141. AST, ALT normal. Total protein 5.9, albumin 2.7. EKG on 08/18/2016 showed atrial fibrillation with premature ventricular or versus aberrantly conducte d beat; heart rate of 96 per minute. DIAGNOSES: Chronic renal insufficiency, nonischemic cardiomyopathy, cardiac catheterization in 2013, coronary artery disease only limited to diagonal 1. MUGA scan showed ejection fraction 40%, chronic renal insufficiency, anemia. PLAN: The patient on aspirin 81 mg p.o. daily, Coreg 3.125 b.i.d., losartan 100 mg daily, Doryx 100 mg p.o. q. 12 hours, ferrous gluconate 325 mg p.o. t.i.d. was started today, digoxin 0.125 p.o. daily , furosemide 20 mg p.o. daily, Lipitor 20 mg p.o. daily, Rocephin 1 gram IV daily. Will repeat CBC i n the a.m. If patient is still low, may need blood transfusion. Will follow with you. Mario Nugent MD cc: [id number] TT: 08/21/2016 08:00:33 Confirmation # [id number] Dictation # [id number]
--- NOTE | 2016-08-21 11:20 | PN ---
DATE: 08/21/2016 The patient in room 315, bed 1. REASON FOR CONSULTATION AND FOLLOWUP: Ischemic cardiomyopathy, atrial fibrillation, gastrointestinal bleeding and anemia. HISTORY OF PRESENT ILLNESS: The patient originally was admitted to medical floor with altered mental status, found to have hemoglobin 6.9. The patient known to have nonischemic cardiomyopathy. The jasmeet larson's cardiac catheterization showed only changes in diagonal 1, LV ejection fraction was close to 20%. The patient was stabilized and now patient is in transitional care unit for deconditioning and physical therapy. Denies any chest pain, shortness of breath, palpitation. The patient lying flat i n bed without any cardiac symptoms. PHYSICAL EXAMINATION: VITAL SIGNS: Blood pressure 122/73, respirations 18, pulse 83. The patient is afebrile. HEAD: Normocephalic. EYES: Pupils normal. Conjunctivae slightly pale. NECK: JVP low. Carotid equal. THORAX: AP diameter normal. LUNGS: Clear. CARDIOVASCULAR: S1, S2, systolic murmur, no rub. ABDOMEN: Soft, no tenderness, no organomegaly. EXTREMITIES: The patient has ulcer on the lower extremity with a dressing on. No clubbing, no cyano sis. LABORATORY DATA: WBC 7.5, hemoglobin 8.4, hematocrit 25.8, platelet 332. Sodium 135, potassium 4.1, BUN 18, creatinine 1.7, random sugar 191. Random glucose 141, calcium 7.3, albumin also low at 2.7, total protein 5.9. AST, ALT normal. DIAGNOSES: Chronic renal insufficiency, nonischemic cardiomyopathy, cardiac catheterization in 2013, coronary artery disease only limited to diagonal 1. 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 PLAN: The patient is continued on Aricept 5 mg at bedtime, aspirin 81 mg daily, Coreg 3.125 b.i.d., Cozaar 100 mg daily, Doryx 100 mg q. 12 hours, ferrous gluconate 324 mg p.o. t.i.d. for anemia, digox in 0.125 daily, furosemide 20 mg daily, Lipitor 20 mg daily, Paxil 20 mg daily, Rocephin 1 gram IV da reena. We will continue present therapy, monitor hemoglobin, hematocrit and labs. We will follow with you. Mario Nugent MD cc: [id number] TT: 08/21/2016 11:19:59 Confirmation # [id number] Dictation # [id number] tn
[2016-08-21 11:30] LABS: CALCIUM 7.2 mg/dL (8.4-10.5); POTASSIUM 4.1 mmol/L (3.6-5.0)
--- NOTE | 2016-08-21 12:13 | CP.PCM.PN ---
<CandelariaMaheshAnabelle - Last Filed: 08/21/16 12:09> Subjective - Date & Time of Evaluation Date of Evaluation: 08/21/16 Time of Evaluation: 11:45 - Subjective Subjective: 65 yo male patient seen at bedside in [facility] today for follow up of bilateral lower extremity ulcerations. Pt seen resting comfortably at bedside at time of visit, NAD. Does say he has some pain to the front of the legs but is improved today. Denies f/n/v/c/sob/cp, denies any other complaints at this time. Objective - Vital Signs/Intake and Output Vital Signs (last 24 hours): Temp Pulse Resp BP Pulse Ox 97.1 F L 92 H 18 126/83 98 08/21/16 10:00 08/21/16 10:00 08/21/16 10:00 08/21/16 10:00 08/21/16 10:00 Intake and Output: 08/21/16 08/21/16 06:59 18:59 Intake Total 360 Balance 360 - Medications Medications: Current Medications Aspirin (Aspirin Chewable) 81 mg PO 0800 ANGELICA PRN Reason: Protocol Last Admin: 08/21/16 09:21 Dose: 81 mg Atorvastatin Calcium (Lipitor) 20 mg PO DIN ANGELICA Last Admin: 08/20/16 18:00 Dose: 20 mg Carvedilol (Coreg) 3.125 mg PO 0800,1800 ANGELICA PRN Reason: Protocol Last Admin: 08/21/16 09:22 Dose: 3.125 mg Digoxin (Lanoxin) 0.125 mg PO 1400 ANGELICA PRN Reason: Protocol Donepezil HCl (Aricept) 5 mg PO HS ANGELICA PRN Reason: Protocol Last Admin: 08/20/16 21:38 Dose: 5 mg Doxycycline Hyclate (Doryx) 100 mg PO Q12 ANGELICA PRN Reason: Protocol Stop: 08/27/16 10:01 Last Admin: 08/21/16 09:23 Dose: 100 mg Ferrous Gluconate (Fergon) 324 mg PO 0800,1200,1700 ANGELICA PRN Reason: Protocol Last Admin: 08/21/16 09:23 Dose: 324 mg Furosemide (Lasix) 20 mg PO DAILY ANGELICA PRN Reason: Protocol Last Admin: 08/21/16 09:23 Dose: 20 mg Ceftriaxone Sodium (Rocephin 1 Gram Ivpb) 1 gm in 100 mls @ 100 mls/hr IVPB 0600 ANGELICA PRN Reason: Protocol Last Admin: 08/21/16 05:47 Dose: 100 mls/hr Insulin Human Lispro (Humalog Low) 0 units SC ACHS ANGELICA PRN Reason: Protocol Last Admin: 08/21/16 06:41 Dose: 1 units Losartan Potassium (Cozaar) 100 mg PO DAILY ANGELICA PRN Reason: Protocol Last Admin: 08/21/16 09:22 Dose: 100 mg Ondansetron HCl (Zofran Inj) 4 mg IVP Q4H PRN; Protocol PRN Reason: Nausea/Vomiting Pantoprazole Sodium (Protonix Ec Tab) 20 mg PO 0630,1830 [facility] PRN Reason: Protocol Last Admin: 08/21/16 05:47 Dose: 20 mg Paroxetine HCl (Paxil) 20 mg PO DAILY [facility] PRN Reason: Protocol Last Admin: 08/21/16 09:24 Dose: 20 mg - Labs Labs: 08/21/16 05:45 08/21/16 09:00 - Constitutional Appears: Well, Non-toxic, No Acute Distress - Extremities Exam Extremities Exam: absent: Calf Tenderness Additional comments: Bilateral lower extremity focused exam: VASC: DP & PT pulses palpable BL, skin temp runs warm to cool, cap refill time < 3 seconds to all digits bl, +1 pitting pedal edema noted to anterior aspect of legs bl DERM: superficial ulcerations x 2 noted to anterior and medial aspect of left leg appear healed with scab formation noted, appears dry with no drainage, no fluctuance, no surrounding erythema, no malodor, no signs infection; superficial ulcerartion noted to posterior-distal right leg also appears well- healed with scab formation with no drainage, no cellulitis, no signs infection NEURO: pedal sensation is grossly intact BL ORTHO: slight tenderness noted on palpation of wounds - Neurological Exam Neurological Exam: Alert, Awake, Oriented x3 - Psychiatric Exam Psychiatric exam: Normal Affect, Normal Mood Assessment and Plan - Assessment and Plan (Free Text) Assessment: 65 year old male with ulcerations (much improved) to bilateral lower extremities secondary to venous stasis. Plan: -Pt S&E at bedside -Discussed with attending Dr. Wilson -Chart, labs, vitals reviewed: afebrile -Wounds cleansed with sterile water and dressed with maxsorb, ABD, kerlix -Dressings to be kept c/d/i -Stable per podiatry -Will continue to follow while in house, he [facility] <Kody Wilson - Last Filed: 08/21/16 13:44> Objective - Vital Signs/Intake and Output Vital Signs (last 24 hours): Temp Pulse Resp BP Pulse Ox 97.1 F L 92 H 18 126/83 98 08/21/16 10:00 08/21/16 10:00 08/21/16 10:00 08/21/16 10:00 08/21/16 10:00 Intake and Output: 08/21/16 08/21/16 06:59 18:59 Intake Total 360 Balance 360 - Medications Medications: Current Medications Aspirin (Aspirin Chewable) 81 mg PO 0800 [facility] PRN Reason: Protocol Last Admin: 08/21/16 09:21 Dose: 81 mg Atorvastatin Calcium (Lipitor) 20 mg PO DIN ANGELICA Last Admin: 08/20/16 18:00 Dose: 20 mg Carvedilol (Coreg) 3.125 mg PO 0800,1800 ANGELICA PRN Reason: Protocol Last Admin: 08/21/16 09:22 Dose: 3.125 mg Digoxin (Lanoxin) 0.125 mg PO 1400 ANGELICA PRN Reason: Protocol Donepezil HCl (Aricept) 5 mg PO HS ANGELICA PRN Reason: Protocol Last Admin: 08/20/16 21:38 Dose: 5 mg Doxycycline Hyclate (Doryx) 100 mg PO Q12 ANGELICA PRN Reason: Protocol Stop: 08/27/16 10:01 Last Admin: 08/21/16 09:23 Dose: 100 mg Ferrous Gluconate (Fergon) 324 mg PO 0800,1200,1700 ANGELICA PRN Reason: Protocol Last Admin: 08/21/16 09:23 Dose: 324 mg Furosemide (Lasix) 20 mg PO DAILY ANGELICA PRN Reason: Protocol Last Admin: 08/21/16 09:23 Dose: 20 mg Ceftriaxone Sodium (Rocephin 1 Gram Ivpb) 1 gm in 100 mls @ 100 mls/hr IVPB 0600 ANGELICA PRN Reason: Protocol Last Admin: 08/21/16 05:47 Dose: 100 mls/hr Insulin Human Lispro (Humalog Low) 0 units SC ACHS ANGELICA PRN Reason: Protocol Last Admin: 08/21/16 13:19 Dose: 2 units Losartan Potassium (Cozaar) 100 mg PO DAILY ANGELICA PRN Reason: Protocol Last Admin: 08/21/16 09:22 Dose: 100 mg Ondansetron HCl (Zofran Inj) 4 mg IVP Q4H PRN; Protocol PRN Reason: Nausea/Vomiting Pantoprazole Sodium (Protonix Ec Tab) 20 mg PO 0630,1830 ANGELICA PRN Reason: Protocol Last Admin: 08/21/16 05:47 Dose: 20 mg Paroxetine HCl (Paxil) 20 mg PO DAILY ANGELICA PRN Reason: Protocol Last Admin: 08/21/16 09:24 Dose: 20 mg - Labs Labs: 08/21/16 05:45 08/21/16 09:00 Attending/Attestation - Attestation I have personally seen and examined this patient.: Yes I have fully participated in the care of the patient.: Yes I have reviewed all pertinent clinical information, including history, physical exam and plan: Yes
[2016-08-21] MEDS: Digoxin 125 mcg (0.125 mg) Tab PO SCH (15:08)
[2016-08-21 16:30] VITALS: TEMP 98; O2SAT 99
--- NOTE | 2016-08-21 18:31 | CP.PCM.PN ---
Subjective - Date & Time of Evaluation Date of Evaluation: 08/21/16 Time of Evaluation: 12:20 - Subjective Subjective: Comfortable, much improved pain in the legs. No fevers. Objective - Vital Signs/Intake and Output Vital Signs (last 24 hours): Temp Pulse Resp BP Pulse Ox 98 F 83 18 138/103 H 99 08/21/16 16:00 08/21/16 16:00 08/21/16 16:00 08/21/16 16:00 08/21/16 16:00 Intake and Output: 08/21/16 08/21/16 06:59 18:59 Intake Total 360 Balance 360 - Medications Medications: Current Medications Aspirin (Aspirin Chewable) 81 mg PO 0800 ANGELICA PRN Reason: Protocol Last Admin: 08/21/16 09:21 Dose: 81 mg Atorvastatin Calcium (Lipitor) 20 mg PO DIN [facility] Last Admin: 08/21/16 18:16 Dose: 20 mg Carvedilol (Coreg) 3.125 mg PO 0800,1800 ANGELICA PRN Reason: Protocol Last Admin: 08/21/16 09:22 Dose: 3.125 mg Digoxin (Lanoxin) 0.125 mg PO 1400 ANGELICA PRN Reason: Protocol Last Admin: 08/21/16 15:08 Dose: 0.125 mg Donepezil HCl (Aricept) 5 mg PO HS ANGELICA PRN Reason: Protocol Last Admin: 08/20/16 21:38 Dose: 5 mg Ferrous Gluconate (Fergon) 324 mg PO 0800,1200,1700 ANGELICA PRN Reason: Protocol Last Admin: 08/21/16 15:06 Dose: Not Given Furosemide (Lasix) 20 mg PO DAILY ANGELICA PRN Reason: Protocol Last Admin: 08/21/16 09:23 Dose: 20 mg Insulin Human Lispro (Humalog Low) 0 units SC ACHS ANGELICA PRN Reason: Protocol Last Admin: 08/21/16 13:19 Dose: 2 units Losartan Potassium (Cozaar) 100 mg PO DAILY ANGELICA PRN Reason: Protocol Last Admin: 08/21/16 09:22 Dose: 100 mg Ondansetron HCl (Zofran Inj) 4 mg IVP Q4H PRN; Protocol PRN Reason: Nausea/Vomiting Pantoprazole Sodium (Protonix Ec Tab) 20 mg PO 0630,1830 ANGELICA PRN Reason: Protocol Last Admin: 08/21/16 18:15 Dose: 20 mg Paroxetine HCl (Paxil) 20 mg PO DAILY ANGELICA PRN Reason: Protocol Last Admin: 08/21/16 09:24 Dose: 20 mg Phenazopyridine HCl (Pyridium) 200 mg PO 1000,1800 ANGELICA PRN Reason: Protocol Last Admin: 08/21/16 18:14 Dose: 200 mg - Labs Labs: 08/21/16 05:45 08/21/16 09:00 - Constitutional Appears: Non-toxic, No Acute Distress - Head Exam Head Exam: NORMAL INSPECTION - Neck Exam Neck Exam: absent: Lymphadenopathy, Meningismus - Respiratory Exam Respiratory Exam: Decreased Breath Sounds - Cardiovascular Exam Cardiovascular Exam: +S1, +S2 - GI/Abdominal Exam GI & Abdominal Exam: Soft. absent: Tenderness Assessment and Plan - Assessment and Plan (Free Text) Plan: Assessment Infected diabetic leg ulcers, growing MRSA and Morganella, clinically improved and S/P treatment R/O healthcare-associated pneumonia, right lower lobe atrial fibrillation chronic anemia HTN mild dementia chronic CHF DM Plan completed 10 days of zyvox and Rocephin; will continue to monitor off antibiotics
--- NOTE | 2016-08-21 23:39 | CP.PCM.PN ---
Subjective - Date & Time of Evaluation Date of Evaluation: 08/21/16 Time of Evaluation: 07:05 - Subjective Subjective: Seen and examined at the bed side. States feeling better. Completed 10days of Zyvox and Rocephin; Will continue to monitor off antibiotics. Objective - Vital Signs/Intake and Output Vital Signs (last 24 hours): Temp Pulse Resp BP Pulse Ox 98 F 83 18 130/73 99 08/21/16 16:00 08/21/16 19:13 08/21/16 16:00 08/21/16 19:13 08/21/16 16:00 - Medications Medications: Current Medications Aspirin (Aspirin Chewable) 81 mg PO 0800 ANGELICA PRN Reason: Protocol Last Admin: 08/21/16 09:21 Dose: 81 mg Atorvastatin Calcium (Lipitor) 20 mg PO DIN [facility] Last Admin: 08/21/16 18:16 Dose: 20 mg Carvedilol (Coreg) 3.125 mg PO 0800,1800 ANGELICA PRN Reason: Protocol Last Admin: 08/21/16 19:13 Dose: 3.125 mg Digoxin (Lanoxin) 0.125 mg PO 1400 ANGELICA PRN Reason: Protocol Last Admin: 08/21/16 15:08 Dose: 0.125 mg Donepezil HCl (Aricept) 5 mg PO HS ANGELICA PRN Reason: Protocol Last Admin: 08/21/16 21:55 Dose: 5 mg Ferrous Gluconate (Fergon) 324 mg PO 0800,1200,1700 ANGELICA PRN Reason: Protocol Last Admin: 08/21/16 19:12 Dose: 324 mg Furosemide (Lasix) 20 mg PO DAILY ANGELICA PRN Reason: Protocol Last Admin: 08/21/16 09:23 Dose: 20 mg Insulin Human Lispro (Humalog Low) 0 units SC ACHS ANGELICA PRN Reason: Protocol Last Admin: 08/21/16 21:55 Dose: Not Given Losartan Potassium (Cozaar) 100 mg PO DAILY ANGELICA PRN Reason: Protocol Last Admin: 08/21/16 09:22 Dose: 100 mg Ondansetron HCl (Zofran Inj) 4 mg IVP Q4H PRN; Protocol PRN Reason: Nausea/Vomiting Pantoprazole Sodium (Protonix Ec Tab) 20 mg PO 0630,1830 ANGELICA PRN Reason: Protocol Last Admin: 08/21/16 18:15 Dose: 20 mg Paroxetine HCl (Paxil) 20 mg PO DAILY ANGELICA PRN Reason: Protocol Last Admin: 08/21/16 09:24 Dose: 20 mg Phenazopyridine HCl (Pyridium) 200 mg PO 1000,1800 ANGELICA PRN Reason: Protocol Last Admin: 08/21/16 18:14 Dose: 200 mg - Labs Labs: 08/21/16 05:45 08/21/16 09:00 - Constitutional Appears: Well, No Acute Distress - Head Exam Head Exam: ATRAUMATIC, NORMAL INSPECTION, NORMOCEPHALIC - Eye Exam Eye Exam: EOMI, Normal appearance, PERRL Pupil Exam: NORMAL ACCOMODATION, PERRL - ENT Exam ENT Exam: Mucous Membranes Moist, Normal Exam - Neck Exam Neck Exam: Full ROM, Normal Inspection. absent: Lymphadenopathy - Respiratory Exam Respiratory Exam: Rales, NORMAL BREATHING PATTERN - Cardiovascular Exam Cardiovascular Exam: REGULAR RHYTHM, +S1, +S2. absent: Murmur - GI/Abdominal Exam GI & Abdominal Exam: Soft, Normal Bowel Sounds. absent: Tenderness - Extremities Exam Extremities Exam: Full ROM, Normal Capillary Refill, Normal Inspection. absent : Joint Swelling, Pedal Edema - Back Exam Back Exam: NORMAL INSPECTION - Neurological Exam Neurological Exam: Alert, Awake, CN II-XII Intact, Normal Gait, Oriented x3 - Psychiatric Exam Psychiatric exam: Normal Affect, Normal Mood - Skin Skin Exam: Dry, Intact, Normal Color, Warm Assessment and Plan (1) Anemia Assessment & Plan: H/O GI Bleed. Deudenal Bulb Ulcers PPI Status: Chronic (2) CKD (chronic kidney disease) stage 3, GFR 30-59 ml/min Assessment & Plan: AVoid Nephrotoxic MAterial Status: Chronic (3) Hypoglycemia Status: Acute (4) Wound infection Assessment & Plan: Wound Care IV Rocephin 1gm IV daily Pediatric consult Status: Acute (5) CHF (congestive heart failure), Cardiomyopathy Assessment & Plan: Lasix Status: Acute
[2016-08-22] MEDS: Pantoprazole 20 mg EC Tab PO SCH (05:34)
[2016-08-22] MEDS: Insulin Lispro (humaLOG) LOW Coverage SC SCH ×2 (06:50→12:11)
[2016-08-22 07:40] LABS: ADD MANUAL DIFF? NO
[2016-08-22 07:53] LABS: BASO # 0.03 K/mm3 (0.0-2.0); BASO % 0.4 % (0.0-3.0); EOS # 0.2 (0.0-0.7); EOS % 2.3 % (1.5-5.0); GRAN # 6.13 (1.4-6.5); GRAN % 73.3 % (50.0-68.0); HEMATOCRIT 27.9 % (42.0-52.0); LYMPH # 1.2 (1.2-3.4); LYMPH % 13.8 % (22.0-35.0); MEAN CELL VOLUME 89.4 fL (80.0-105.0); MEAN CORPUSCULAR HEMOGLOBIN 28.8 pg (25.0-35.0); MEAN CORPUSCULAR HGB CONC 32.3 g/dl (31.0-37.0); MEAN PLATELET VOLUME 8.8 fl (7.0-11.0); MONO # 0.9 (0.1-0.6); MONO % 10.2 % (1.0-6.0); PLATELET COUNT 324 10^3/uL (120.0-450.0); RED CELL DISTRIBUTION WIDTH 16.6 % (11.5-14.5); WHITE BLOOD COUNT 8.4 10^3/ul (4.5-11.0)
[2016-08-22 08:16] LABS: ALB/GLOB RATIO 0.9 (1.1-1.8); BILIRUBIN,TOTAL 1.2 mg/dL (0.2-1.3); CALCIUM 7.5 mg/dL (8.4-10.5); MAGNESIUM 1.9 mg/dL (1.7-2.2); POTASSIUM 4.2 mmol/L (3.6-5.0); TOTAL PROTEIN 5.8 g/dL (5.8-8.3)
[2016-08-22 08:26] VITALS: PULSE 90
--- NOTE | 2016-08-22 08:34 | CP.PCM.DIS ---
Provider - Provider Date of Admission: 08/19/16 17:00 Attending physician: Andrea Miller MD Primary care physician: Andrea Miller MD Time Spent in preparation of Discharge (in minutes): 35 Diagnosis - Discharge Diagnosis (1) Anemia Status: Acute (2) CHF (congestive heart failure) Status: Chronic (3) CKD (chronic kidney disease) stage 3, GFR 30-59 ml/min Status: Chronic (4) Hypoglycemia Status: Acute (5) Wound infection Status: Acute Hospital Course - Lab Results Lab Results: Most Recent Lab Values WBC 8.4 10^3/ul (4.5-11.0) 08/22/16 07:00 RBC 3.12 10^6/uL (3.5-6.1) L 08/22/16 07:00 Hgb 9.0 gm/dL (14.0-18.0) L 08/22/16 07:00 Hct 27.9 % (42.0-52.0) L 08/22/16 07:00 MCV 89.4 fL (80.0-105.0) 08/22/16 07:00 MCH 28.8 pg (25.0-35.0) 08/22/16 07:00 MCHC 32.3 g/dl (31.0-37.0) 08/22/16 07:00 RDW 16.6 % (11.5-14.5) H 08/22/16 07:00 Plt Count 324 10^3/uL (120.0-450.0) 08/22/16 07:00 MPV 8.8 fl (7.0-11.0) 08/22/16 07:00 Gran % 73.3 % (50.0-68.0) H 08/22/16 07:00 Lymph % (Auto) 13.8 % (22.0-35.0) L 08/22/16 07:00 Shelby % (Auto) 10.2 % (1.0-6.0) H 08/22/16 07:00 Eos % (Auto) 2.3 % (1.5-5.0) 08/22/16 07:00 Baso % (Auto) 0.4 % (0.0-3.0) 08/22/16 07:00 Gran # 6.13 (1.4-6.5) 08/22/16 07:00 Lymph # 1.2 (1.2-3.4) 08/22/16 07:00 Shelby # 0.9 (0.1-0.6) H 08/22/16 07:00 Eos # 0.2 (0.0-0.7) 08/22/16 07:00 Baso # 0.03 K/mm3 (0.0-2.0) 08/22/16 07:00 Sodium 135 mmol/L (132-148) 08/22/16 07:00 Potassium 4.2 mmol/L (3.6-5.0) 08/22/16 07:00 Chloride 104 mmol/L (95-110) 08/22/16 07:00 Carbon Dioxide 24 mmol/L (21-33) 08/22/16 07:00 Anion Gap 11 (10-20) 08/22/16 07:00 BUN 17 mg/dL (7-21) 08/22/16 07:00 Creatinine 1.8 mg/dL (0.5-1.4) H 08/22/16 07:00 Est GFR ( Amer) 46 08/22/16 07:00 Est GFR (Non-Af Amer) 38 08/22/16 07:00 POC Glucose (mg/dL) 207 mg/dL (65-110) H 08/21/16 21:24 Random Glucose 131 mg/dL (70-110) H 08/22/16 07:00 Calcium 7.5 mg/dL (8.4-10.5) L 08/22/16 07:00 Magnesium 1.9 mg/dL (1.7-2.2) 08/22/16 07:00 Total Bilirubin 1.2 mg/dL (0.2-1.3) 08/22/16 07:00 AST 24 U/L (15-59) 08/20/16 06:00 ALT 36 U/L (7-56) 08/22/16 07:00 Alkaline Phosphatase 89 U/L (38-133) 08/22/16 07:00 Total Protein 5.8 g/dL (5.8-8.3) 08/22/16 07:00 Albumin 2.7 g/dL (3.0-4.8) L 08/22/16 07:00 Globulin 3.0 gm/dL 08/22/16 07:00 Albumin/Globulin Ratio 0.9 (1.1-1.8) L 08/22/16 07:00 Discharge Exam - Head Exam Head Exam: NORMAL INSPECTION - ENT Exam ENT Exam: Mucous Membranes Moist, Normal Exam - Neck Exam Neck exam: Full Rom, Normal Inspection - Respiratory Exam Respiratory Exam: Clear to PA & Lateral, NORMAL BREATHING PATTERN - Cardiovascular Exam Cardiovascular Exam: REGULAR RHYTHM, +S1, +S2 - GI/Abdominal Exam GI & Abdominal Exam: Normal Bowel Sounds, Soft. absent: Tenderness - Extremities Exam Extremities exam: full ROM, normal capillary refill, normal inspection - Back Exam Back exam: FULL ROM, NORMAL INSPECTION - Neurological Exam Neurological exam: Alert, CN II-XII Intact, Oriented x3, Reflexes Normal - Psychiatric Exam Psychiatric exam: Flat Affect, Normal Affect, Normal Mood - Skin Skin Exam: Dry, Intact, Normal Color Discharge Plan - Discharge Medications Prescriptions: PARoxetine [Paxil] 20 mg PO DAILY #90 - Follow Up Plan Condition: GOOD Disposition: HOME/ ROUTINE Instructions: Transient Ischemic Attack (DC), Heart Failure (DC), Atrial Fibrillation (DC), Dementia (GEN), Cholesterol and Your Health (GEN), Lipid Profile (GEN), Fall Prevention (DC) Referrals: Andrea Miller MD [Primary Care Provider] -
[2016-08-22 10:26] VITALS: BP 110/76
--- NOTE | 2016-08-22 10:55 | PN ---
DATE: 08/22/2016 A 65-year-old pleasant male seen at bedside today for continued evaluation and management of slowly r esolving bilateral lower extremity ulcerations. The patient is resting comfortably at this time and does not offer any new complaints. He is set for discharge today and will follow up at the [facility] on Wednesdays. VITAL SIGNS: Reveal a temperature of 98, pulse rate of 83, blood pressure of 130/73, respiratory rat e of 18. LABORATORY FINDINGS: Reveal a white count of 8.4, hemoglobin of 9, hematocrit of 27.9, platelet coun t of 324. MEDICATIONS: All medications noted in MAY. OBJECTIVE: Palpable pedal pulses noted bilaterally. Capillary filling time is within normal x 10. +1 nonpitting lower extremity edema bilateral legs. There is noted to be a full-thickness ulceration at the posterior aspect of the left distal lower leg at the insertion of the Achilles. The ulcerati on is a mixture of granular and fibrotic tissue. There is serous drainage only. There is no purulen ce to suggest underlying abscess formation. The wound does not probe to Achilles tendon. There are noted to be superficial ulcerations on the right lower leg which are all granular in nature with sero us drainage. None of the ulcers probe to tendon or bone and there are no signs of acute bacterial in fection. ASSESSMENT: A 65-year-old insulin-dependent diabetic male seen at bedside for bilateral lower leg fu ll thickness ulcerations. PLAN: All wounds were cleansed with normal sterile saline. An application of Maxorb and a dry steri le dressing was applied. The patient will follow up on Wednesday at the wound center [facility] for continued evaluation and management of bilateral diabetic leg ulcerations. He can be di scharged without any p.o. antibiotics as his wounds are void of any acute bacterial infection. Kody Wilson DPM cc: [phone] TT: 08/22/2016 10:54:48 Confirmation # [id number] Dictation # [id number] tn
--- NOTE | 2016-08-22 11:44 | PN ---
DATE: 08/22/2016 The patient is in bed, seen earlier in 315. No fevers and chills. PHYSICAL EXAMINATION: VITAL SIGNS: Temperature is 98, blood pressure is 110/70, respiratory rate of 16. HEENT: Unremarkable. NECK: Supple. LUNGS: Have decreased breath sounds. HEART: Normal S1, S2. ABDOMEN: Soft, nontender. LABORATORY DATA: Reveals a white count of 8.4, hemoglobin of 9 and platelets of 324. Chemistries re veal the BUN of 17, creatinine of 1.8. Microbiology is noted. ASSESSMENT AND PLAN: This is a 65-year-old male with infected diabetic leg ulcers growing methicilli n resistant staphylococcus aureus, Morganella, clinically improved status post treatment with atrial fibrillation, chronic anemia, hypertension and completed antibiotic therapy of Zyvox and ceftriaxone and currently off of antibiotics. The patient is at risk for developing nosocomial infections. Winston Spicer MD cc: [phone] TT: 08/22/2016 11:43:27 Confirmation # [id number] Dictation # [id number] jn
[2016-08-22] MEDS: Digoxin 125 mcg (0.125 mg) Tab PO SCH (14:18)
[2016-08-22 14:22] VITALS: PULSE 76
--- NOTE | 2016-08-22 16:49 | PN ---
DATE: 08/22/2016 REASON FOR CONSULTATION AND FOLLOWUP: Ischemic cardiomyopathy, atrial fibrillation, gastrointestinal bleed, anemia. BRIEF CLINICAL HISTORY: This is a 65-year-old male with past medical history of chronic atrial fibri llation, cardiomyopathy nonischemic, history of cardiac catheterization, nonobstructive coronary julio ry disease, admitted with ____ hemoglobin 6.9. The patient was wearing the vest from [place] wit h an ejection fraction 20%. Repeat MUGA scan shows ejection fraction 40%, vest was removed. The pat ient on to transitional care unit for continuity of care. Denies any chest pain, shortness of breath , any palpitation. PHYSICAL EXAMINATION: VITAL SIGNS: Temperature afebrile, heart rate 90, blood pressure 107/74. HEENT: PERRLA. Extraocular muscles intact. NECK: Supple. No carotid bruits. No thyromegaly. CHEST: Clear to auscultation. HEART: S1, S2 regular. ABDOMEN: Soft. EXTREMITIES: Clubbing and cyanosis negative. LABORATORY DATA: Blood workup as follows: WBC 8.4, hemoglobin 9, hematocrit 27.9, platelet count 32 4. Chemistry shows sodium 135, potassium ____ carbon dioxide 20, anion gap 11, BUN 70, creatinine 1 .8. IMPRESSION: Chronic renal insufficiency, chronic atrial fibrillation, cardiomyopathy, nonobstructive coronary artery disease, status post removal of vest because ejection fraction 40%. RECOMMENDATION: Continue aspirin, continue Coreg, Cozaar. Continue the doxycycline. Advised the pa ginont to go to see Dr. Palmer for followup LV function for possible implantation of defibrillator. Thank you, Dr. Miller for providing the opportunity in taking care of the patient. Mario Benavides MD cc:Andrea Miller MD [phone] TT: 08/22/2016 16:48:56 Confirmation # [id number] Dictation # [id number] [place]
== END 2016-08-22 15:25 | disposition home or self-care (01) | DRG 377 ==
LOC: TRCU 17:00 → MERGE 17:00
PROVIDERS: ADMIT Internal Medicine; ATTEND Internal Medicine
PROC: F07Z9FZ Gait Training/Functional Ambulation Treatment using Assistive, Adaptive, Supportive or Protective Equipment (ICD-10-PCS; principal; 2016-08-20)
PROC: F07M6ZZ Therapeutic Exercise Treatment of Musculoskeletal System - Whole Body (ICD-10-PCS; 2016-08-20)
PROC: F08Z1ZZ Dressing Techniques Treatment (ICD-10-PCS; 2016-08-21)
PROC: F08Z2ZZ Grooming/Personal Hygiene Treatment (ICD-10-PCS; 2016-08-21)
DX: K92.2 Gastrointestinal hemorrhage, unspecified (principal); J18.9 Pneumonia, unspecified organism; E11.22 Type 2 diabetes mellitus with diabetic chronic kidney disease; I13.0 Hypertensive heart and chronic kidney disease with heart failure and stage 1 through stage 4 chronic kidney disease, or unspecified chronic kidney disease; I50.9 Heart failure, unspecified; F03.90 Unspecified dementia, unspecified severity, without behavioral disturbance, psychotic disturbance, mood disturbance, and anxiety; L97.919 Non-pressure chronic ulcer of unspecified part of right lower leg with unspecified severity; L97.929 Non-pressure chronic ulcer of unspecified part of left lower leg with unspecified severity; D50.0 Iron deficiency anemia secondary to blood loss (chronic); E11.622 Type 2 diabetes mellitus with other skin ulcer; I48.2 Chronic atrial fibrillation; E11.649 Type 2 diabetes mellitus with hypoglycemia without coma; N18.3 Chronic kidney disease, stage 3 (moderate); E78.00 Pure hypercholesterolemia, unspecified; I25.10 Atherosclerotic heart disease of native coronary artery without angina pectoris; I25.5 Ischemic cardiomyopathy; I87.8 Other specified disorders of veins; Z79.4 Long term (current) use of insulin; Z86.73 Personal history of transient ischemic attack (TIA), and cerebral infarction without residual deficits; R26.81 Unsteadiness on feet; R32 Unspecified urinary incontinence; Y95 Nosocomial condition; B95.62 Methicillin resistant Staphylococcus aureus infection as the cause of diseases classified elsewhere

== ENCOUNTER 2016-09-08 12:39 | Emergency (ER) | payer MEDICARE, MEDICAID ==
[2016-09-08 12:40] VITALS: PULSE 80; BMI 30.7
[2016-09-08] MEDS ORDERED: Sodium Bicarbonate (8.4%) 50 Meq Syringe ONE (12:50)
--- NOTE | 2016-09-08 13:06 | ED PDOC ---
Arrival/HPI - General Chief Complaint: Cardiac Arrest Time Seen by Provider: 09/08/16 12:39 Historian: Family (Son, Daughter) - History of Present Illness Narrative History of Present Illness (Text): 09/08/16 13:05 65 year old male whose past medical history includes hypertension, hypercholesterolemia, diabetes, Alzheimer's, atrial fibrillation, chronic kidney disease, and congestive heart failure presents to the emergency department after being found unresponsive at 10:30 today. Son states the patient 's last saw him at 09:15 at breakfast. He explains that the patient usually goes back to sleep at this time of day but was sleeping longer than usual. Son states he tried to wake the patient up at 10:30 but the patient was unresponsive. EMS reports they arrived about 1 hour prior to arrival in the ER. They report the patient was asystole throughout transport. As per EMS, patient was given 2 amps bicarb and 1 calcium chloride in the field, accucheck 117. CPR in progress and patient intubated prior to arrival in the ER. Time/Duration: 1-3 hours Symptom Onset: Sudden Symptom Course: Unchanged Context: Home Past Medical History - Provider Review Nursing Documentation Reviewed: Yes - Infectious Disease Hx of Infectious Diseases: None - Tetanus Immunization Tetanus Immunization: Unknown - Cardiac Hx Cardiac Disorders: Yes Hx Congestive Heart Failure: Yes Hx Hypertension: Yes - Pulmonary Hx Respiratory Disorders: No - Neurological HX Cerebrovascular Accident: Yes - HEENT Hx HEENT Disorder: No - Renal Hx Renal Failure: Yes - Endocrine/Metabolic Hx Diabetes Mellitus Type 2: Yes - Hematological/Oncological Hx Blood Disorders: No - Integumentary Hx Dermatological Disorder: Yes (bilateral lower extremities stasis ulcers) - Musculoskeletal/Rheumatological Hx Musculoskeletal Disorders: Yes Hx Falls: Yes Hx Unsteady Gait: Yes - Gastrointestinal Hx Gastrointestinal Disorders: No - Genitourinary/Gynecological Hx Genitourinary Disorders: Yes Hx Incontinence: Yes - Psychiatric Hx Depression: No Hx Emotional Abuse: No Hx Physical Abuse: No Hx Substance Use: No - Anesthesia Hx Anesthesia: No Hx Anesthesia Reactions: No Hx Malignant Hyperthermia: No - Suicidal Assessment Feels Threatened In Home Enviroment: No Family/Social History - Physician Review Nursing Documentation Reviewed: Yes Family/Social History: Unknown Family HX Smoking Status: Never Smoked Hx Alcohol Use: No Hx Substance Use: No Hx Substance Use Treatment: No Allergies/Home Meds Allergies/Adverse Reactions: Allergies No Known Allergies Allergy (Verified 08/19/16 19:49) Home Medications: Home Meds Medication Instructions Recorded Confirmed Donepezil [Aricept] 10 mg PO DAILY 07/18/13 09/08/16 Losartan [Cozaar] 100 mg PO DAILY 07/18/13 09/08/16 Allopurinol [Zyloprim] 100 mg PO DAILY 09/08/16 09/08/16 Atorvastatin [Lipitor] 40 mg PO DIN 09/08/16 09/08/16 Bumetanide [Bumex] 2 mg PO DAILY 09/08/16 09/08/16 Glimepiride [amaRYL] 4 mg PO DAILY 09/08/16 09/08/16 Potassium Chloride 20 mEq 20 meq PO DAILY 09/08/16 09/08/16 [Potassium Chloride 20 mEq/100 ml] Pregabalin [Lyrica] 100 mg PO DAILY 09/08/16 09/08/16 amLODIPine [Norvasc] 5 mg PO DAILY 09/08/16 09/08/16 Review of Systems - Review of Systems Systems not reviewed;Unavailable: Acuity of Condition Physical Exam Vital Signs Temp 09/08/16 12:50 97 F L Mental Status: Positive for: other (pt unresponsive, intubated. no purposeful movements) - Systems Exam Head: Present: Atraumatic, Normocephalic Pupils: Present: Non-Reactive (Dilated, non-reactive bilaterally) Mouth: Present: Other (Tube placement confirmed with breath sounds) Lower Extremity: Present: Other (Bilateral small open (around 3 cm each) ulcers on anterior ascencio, Right IO in place from EMS) Psychiatric: No: Alert, Oriented x 3 Medical Decision Making ED Course and Treatment: Impression: 65 year old male whose past medical history includes hypertension, hypercholesterolemia, diabetes, Alzheimer's, atrial fibrillation, chronic kidney disease, and congestive heart failure presents to the emergency department after being found unresponsive at 10:30 today. Patient seen immediately on arrival. CPR in progress and patient intubated prior to arrival. Prior Visits: Notes and results from previous visits were reviewed. Patient last seen in ED on 08/17/16 from TCU for mechanical fall and admitted to observation for dizziness. Progress Notes: 09/08/16 12:38 Arrival to ER. 1st pulse check: Asystole 09/08/16 12:41 1 epi, 1 bicarb, 1 calcium given. 09/08/16 12:44 2nd round 1 epi, 1 bicarb 2nd pulse check: Asystole 09/08/16 12:48 Spoke with Kaylynn, patient's son at bedside, and explained poor prognosis. Daughter also present and aware. 09/08/16 12:49 1 epi, 1 calcium given 09/08/16 12:50 Time of : 12:50 09/08/16 13:10 Case discussed with PMD Dr. Miller, aware that pt . EDRS form completed. Med examiner called by RN and dismissed the case. Family wants the body [place] to [place]. 09/08/16 15:10 - Critical Care Critical Care Minutes: Other (15 min) - Medication Orders Current Medication Orders: Discontinued Medications Sodium Bicarbonate (Sodium Bicarbonate (8.4%) 50 Meq Syringe) Confirm Administered Dose 50 meq .ROUTE .STK-MED ONE Stop: 09/08/16 12:51 - Scribe Statement The provider has reviewed the documentation as recorded by the Tiago Dueñas Provider Scribe Attestation: All medical record entries made by the Scribe were at my direction and personally dictated by me. I have reviewed the chart and agree that the record accurately reflects my personal performance of the history, physical exam, medical decision making, and the department course for this patient. I have also personally directed, reviewed, and agree with the discharge instructions and disposition. Disposition/Present on Arrival - Present on Arrival Any Indicators Present on Arrival: Yes History of DVT/PE: No History of Uncontrolled Diabetes: Yes Urinary Catheter: No History of Decub. Ulcer: No History Surgical Site Infection Following: None - Disposition Have Diagnosis and Disposition been Completed?: Yes Diagnosis: Cardiac arrest Disposition: WITH WITHOUT AUTOPSY Disposition Time: 12:50 Patient Problems: Current Active Problems Problem Status Onset Cardiac arrest Acute Condition: Referrals: Andrea Miller MD [Primary Care Provider] - Follow up with primary
[2016-09-08 14:22] VITALS: TEMP 97
== END 2016-09-08 17:11 ==
LOC: ED 12:39
DX: I46.9 Cardiac arrest, cause unspecified (principal)